=== PATIENT | female | born 1945 | race Caucasian/White ===

== ENCOUNTER 2020-04-05 13:09 | Outpatient (REF) | payer MEDICARE, SELFPAY ==
--- NOTE | 2020-04-05 | US_ITS ---
EXAMINATION: US VENOUS REFLUX/INSUFFICIENCY CLINICAL INFORMATION: This is a 74-year-old woman with right lower extremity varicosities and inflammatory change. COMPARISON: None. TECHNIQUE: Bilateral lower extremity and venous insufficiency ultrasound was performed with velocity measurements. Color flow Doppler imaging was performed. FINDINGS: RIGHT SIDE: GREATER SAPHENOUS VEIN: The saphenofemoral junction diameter is 0.5 cm. The reflux time is 2412 ms. The proximal thigh diameter is 0.4 cm. There is no reflux. The mid thigh diameter is 0.3 cm. There is no reflux. The above-knee diameter is 0.7 cm. There is no reflux. The at-knee diameter is 0.3 cm. The reflux time is 736 ms. The below-knee diameter is 0.2 cm. There is no reflux. The mid calf diameter is 0.2 cm. There is no reflux The ankle diameter is 0.2 cm. There is no reflux LESSER SAPHENOUS VEIN: The saphenofemoral junction diameter is 0.2 cm. There is no reflux. The upper left lesser saphenous vein diameter is 0.2 cm cm. There is no reflux. The lower saphenous vein diameter is 0.2 cm. There is no reflux. LEFT SIDE: GREATER SAPHENOUS VEIN: The saphenofemoral junction diameter is 0.4 cm. There is no reflux. The proximal thigh diameter is 0.4 cm. There is no reflux. The mid thigh diameter is 0.2 cm. There is no reflux. The above-knee diameter is 0.2 cm. There is no reflux. The at-knee diameter is 0.3 cm. There is no reflux The below-knee diameter is 0.2 cm. The reflux time is 2828 ms. The mid calf diameter is 0.1 cm. There is no reflux The ankle diameter is 0.1 cm. There is no reflux LESSER SAPHENOUS VEIN: The saphenofemoral junction diameter is 0.1 cm. There is no reflux. The upper left lesser saphenous vein diameter is 0.2 cm cm. There is no reflux. The lower saphenous vein diameter is 0.2 cm. There is no reflux. DEEP VENOUS SYSTEMS: There is no deep insufficiency on the right. There is no deep insufficiency on the left. IMPRESSION: 1. There is hemodynamically significant reflux of the right greater and lesser saphenous veins. 2. There is no hemodynamically significant reflux of the left greater and lesser saphenous veins. 3. No hemodynamic insufficiency is seen of the bilateral deep venous systems. .
== END 2020-04-05 13:10 | disposition home or self-care (01) ==
LOC: HO.US 13:09
PROVIDERS: Visit Provider Surgery Vascular Surgery
DX: I83.11 Varicose veins of right lower extremity with inflammation (principal)
CPT/HCPCS: 93970

== ENCOUNTER → 2020-04-10 15:29 | Outpatient (BNVA) | payer MEDICARE, SELFPAY | PROVIDERS: PCP Family Medicine; Visit Provider Surgery Vascular Surgery | DX: M79.609 Pain in unspecified limb (principal) | CPT/HCPCS: 99213 ==

== ENCOUNTER 2020-04-20 10:29 | Outpatient (REF) | payer MEDICARE, SELFPAY ==
[2020-04-20 12:17] LABS: Hematocrit 32.5 % (37-47); Hemoglobin 10.2 g/dl (12.0-16.0); Mean Corpuscular HGB Conc 31.4 g/dl (31.0-35.0); Mean Corpuscular Hemoglobin 28.3 pg (27.0-33.0); Mean Corpuscular Volume 90.3 fL (80-98); Platelet Count 249 X10*3/uL (160-400); Red Cell Distribution Width 14.2 % (11.0-16.0)
[2020-04-20 12:43] LABS: Anion Gap 12 (12-20); Blood Urea Nitrogen 22 mg/dL (9-16); Calcium 9.4 mg/dL (8.4-10.2); Carbon Dioxide 27 mmol/L (22-29); Chloride 106 mmol/L (96-108); Estimated Glomerular Filt Rate 35; Glucose Random 87 mg/dL (60-115); Potassium 4.7 mmol/l (3.3-5.1); Sodium 140 mmol/L (135-145)
[2020-04-20 12:53] LABS: Thyroid Stimulating Hormone 1.29 mIU/mL (0.32-4.0)
== END 2020-04-20 10:30 | disposition home or self-care (01) ==
LOC: HO.LAB 10:29
PROVIDERS: PCP Internal Medicine; Visit Provider Internal Medicine
DX: I10 Essential (primary) hypertension (principal); K59.09 Other constipation
CPT/HCPCS: 36415; 80048; 84443; 85027

== ENCOUNTER 2020-06-05 17:09 | Emergency (ER) | payer MEDICARE, SELFPAY ==
[2020-06-05 17:48] VITALS: BP 191/56; PULSE 64; RESP 16; TEMP 35.9; O2SAT 100; BMI 30.7
--- NOTE | 2020-06-05 19:39 | PC.NURSE ---
WOUND GIVEN TO RIGHT FINGERS BY [facility].
--- NOTE | 2020-06-05 19:53 | XR_ITS ---
EXAMINATION: XR HAND, RIGHT CLINICAL INFORMATION: Right hand pain. COMPARISON: 02/03/2020 right hand radiographs. TECHNIQUE: PA, lateral, and oblique views of the right hand. FINDINGS: Mild degenerative joint changes are seen in the proximal interphalangeal joint of the fifth digit. There is no acute fracture or dislocation. Moderate triscaphe degenerative joint changes are seen. The carpal bones are normally aligned. The distal radius and ulna are intact. The soft tissues are unremarkable. XR/XR hand RT min 3V IMPRESSION: 1. Degenerative joint changes as detailed above most consistent with osteoarthritis without significant interval change.
[2020-06-05] MEDS: Lidocaine HCl 1 % MPF 5 ML VIAL SUBCUT (20:33)
--- NOTE | 2020-06-05 21:23 | PC.NURSE ---
PER JONATHON RAO, FINGER SPLINT AND STERILE DRESSING TO BE APPLIED PRIOR TO DISCHARGE.
--- NOTE | 2020-06-05 21:32 | ED_ITS ---
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 She is legally blind speaks primarily Bengali some rocking daughter present at bedside to assist with interpretation per request. unsure of last tetanus vaccination. Related Data Allergies Allergy/AdvReac Type Severity Reaction Status Date / Time atorvastatin [ATORVASTATIN] Allergy Severe UNKNOWN Verified 04/10/20 15:43 niacin [NIACIN] Allergy Severe UNKNOWN Verified 04/10/20 15:43 acetaminophen [ACETAMINOPHEN] Allergy Intermediate RASH Verified 04/10/20 15:43 Penicillins [PENICILLINS] Allergy Mild MOUTH NUMB Verified 04/10/20 15:43 aspirin [ASPIRIN] Allergy Unknown UNKNOWN, Verified 04/10/20 15:43 itching codeine [CODEINE] Allergy Unknown UNKNOWN, Verified 04/10/20 15:43 breathing problems ibuprofen [IBUPROFEN] Allergy Unknown HX KIDNEY Verified 04/10/20 15:43 PROBLEM morphine [MORPHINE] Allergy Unknown DIFFICULTY Verified 04/10/20 15:43 BREATHING, itch turkey Allergy Unknown UNKNOWN Verified 04/10/20 15:43 Review of Systems Review of Systems: Constitutional: No Weight loss, No Fever, No Chills, No Night Sweats, No Fatigue, No Malaise ENT/Mouth: No Hearing loss, No Ear Pain, No Nasal Congestion, No Sinus Pain, No Hoarseness, No sore throat, No Rhinorrhea, No Swallowing Difficulty Eyes: No Eye Pain, No Swelling, No Redness, No Foreign Body, No Discharge, No Vision Changes Cardiovascular: No Chest Pain, No SOB, No Dyspnea on Exertion, No Orthopnea, No Edema, No Palpitations Respiratory: No Cough, No Sputum, No Wheezing, No Smoke Exposure, No Dyspnea Gastrointestinal: No abdominal Pain Genitourinary: No Dysuria, Musculoskeletal: No joint pain, No Myalgias, No Joint Swelling Skin: No Skin Lesions, No rash Neuro: No Weakness, No Dizziness, No Headache Psych: No Social Issues Heme/Lymph: No Bruising, No Bleeding,No Lymphadenopathy Endocrine: No Polyuria, No Polydipsia, No Temperature Intolerance [facility] Past Medical History Medical History (Updated 06/06/20 @ 00:00 by Background Daemon) Acute on chronic cholecystitis concurrent with and due to calculus of gallbladder and bile duct Aortic stenosis CAD (coronary artery disease) HTN (hypertension) Hyperlipidemia PAUL (obstructive sleep apnea) Surgical History History of Hx of heart artery stent Hx of tubal ligation Stented coronary artery Family History Family History Father No problems noted. Mother No problems noted. Son No problems noted. Daughter No problems noted. Daughter No problems noted. Daughter No problems noted. Daughter No problems noted. Social History Social History Alcohol intake: never Smoking Status: Former smoker Smoked in Last 30 Days: No Use of substances other than those prescribed or required for medical reasons: No Advance Directives: No Advance Directives Information Provided: Yes Physical Exam Vital Signs: Vital Signs: Last Vital Signs Temp 96.7 F L 06/05/20 17:48 Pulse 64 06/05/20 17:48 Resp 16 06/05/20 17:48 BP 191/56 H 06/05/20 17:48 Pulse Ox 100 06/05/20 17:48 Body Mass Index 30.7 Reviewed Const: General: cooperative and healthy appearing; No acute distress or intoxicated appearing Nutritional Appearance: average body habitus Orientation/consciousness: patient oriented x3 Chest: Chest palpation & inspection: normal inspection of the chest Resp: Effort & Inspection: normal respiratory effort Cardio: Jugular venous distension: no JVD Skin: General skin exam: no rashes or lesions noted Neuro: General: patient oriented x3 Extrem: General: Yes normal to inspection Hand/finger images: 1. A single superficial slightly smaller than 1 cm his laceration. Only through the adipose tissue no deep laceration. Full range of motion. Neurovascular intact. No active bleeding. Procedures Laceration Laceration 1: Site: hand (Ring finger) Side (If applicable): right Size (cm): 1 Description: linear Depth: simple, single layer Local Anesthetic: lidocaine 1% Amount of anesthesia used (mL): 5 Pre-repair: wound explored Skin layer closed with: vicryl Size (cm): 5-0 Number of sutures: 2 Technique: simple, interrupted Technique: simple interrupted Discharge Plan Discharge Clinical Impression: Finger laceration Patient Disposition: Home, Self-Care Instructions: Finger Laceration (ED) Additional Instructions: Today your evaluated for superficial finger laceration to the ring finger required 2 stitches. The x-ray did not show any evidence of fracture The laceration a relatively superficial should heal well Monitor for any signs of infection cleared redness, swelling, discharge, pain or fever return if any these present otherwise return in 7 days for suture removal Thank you Referrals: Carie London MD [Primary Care Provider] - 1 week (Suture removal) Steve Laguna NP [Emergency Midlevel Provider] - 1 week (Suture removal) Interventions: ED Discharge Assessment Last Done: 06/05/20 21:46 Discharge Date/Time: 06/05/20 21:51
== END 2020-06-05 21:51 | disposition home or self-care (01) ==
PROVIDERS: Emergency Provider Emergency Medicine Emergency Medical Services; PCP Internal Medicine
DX: S61.214A Laceration without foreign body of right ring finger without damage to nail, initial encounter (principal); W29.0XXA Contact with powered kitchen appliance, initial encounter; Y93.G1 Activity, food preparation and clean up; Y92.010 Kitchen of single-family (private) house as the place of occurrence of the external cause; Y99.9 Unspecified external cause status
CPT/HCPCS: 12001; 73130; 90471; 90715; 99284

== ENCOUNTER 2020-06-15 16:11 | Emergency (ER) | payer MEDICARE, SELFPAY ==
[2020-06-15 16:14] VITALS: BP 163/90; PULSE 70; RESP 15; TEMP 36.6; O2SAT 99; BMI 30.2
--- NOTE | 2020-06-15 16:23 | ED_ITS ---
HPI - General Adult General Chief complaint: General Medical Stated complaint: Suture removal Time Seen by Provider: 06/15/20 16:23 Source: patient Mode of arrival: ambulatory Limitations: no limitations History of Present Illness HPI narrative: 75 yo female presenting for suture removal. 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 She had superficial lacerations and 2 sutures were placed. No complaints and wound is healing appropriately. MD complaint: suture removal Onset (ago): day(s) (10) Location: right and upper extremity Radiation: non-radiation Severity: mild Severity scale (1-10): 1 Quality: aching Pain Consistency: intermittent Treatments prior to arrival: none Related Data Allergies Allergy/AdvReac Type Severity Reaction Status Date / Time atorvastatin [ATORVASTATIN] Allergy Severe UNKNOWN Verified 04/10/20 15:43 niacin [NIACIN] Allergy Severe UNKNOWN Verified 04/10/20 15:43 acetaminophen [ACETAMINOPHEN] Allergy Intermediate RASH Verified 04/10/20 15:43 Penicillins [PENICILLINS] Allergy Mild MOUTH NUMB Verified 04/10/20 15:43 aspirin [ASPIRIN] Allergy Unknown UNKNOWN, Verified 04/10/20 15:43 itching codeine [CODEINE] Allergy Unknown UNKNOWN, Verified 04/10/20 15:43 breathing problems ibuprofen [IBUPROFEN] Allergy Unknown HX KIDNEY Verified 04/10/20 15:43 PROBLEM morphine [MORPHINE] Allergy Unknown DIFFICULTY Verified 04/10/20 15:43 BREATHING, itch turkey Allergy Unknown UNKNOWN Verified 04/10/20 15:43 Review of Systems Review of Systems: Constitutional: No Fever, No Chills Musculoskeletal: No joint pain Skin: No Skin Lesions, No rash Neuro: No Weakness, No Numbness Heme/Lymph: No Bruising PMFSH Past Medical History Attestation statement: The following information was validated with the patient. Medical History Acute on chronic cholecystitis concurrent with and due to calculus of gallbladder and bile duct Aortic stenosis CAD (coronary artery disease) HTN (hypertension) Hyperlipidemia PAUL (obstructive sleep apnea) Surgical History History of Hx of heart artery stent Hx of tubal ligation Stented coronary artery Family History Family History Father No problems noted. Mother No problems noted. Son No problems noted. Daughter No problems noted. Daughter No problems noted. Daughter No problems noted. Daughter No problems noted. Social History Social History Alcohol intake: never Smoking Status: Former smoker Advance Directives: No Advance Directives Information Provided: Yes Physical Exam Vital Signs: Vital Signs: Last Vital Signs Temp 98 F 06/15/20 16:14 Pulse 70 06/15/20 16:14 Resp 15 06/15/20 16:14 BP 163/90 H 06/15/20 16:14 Pulse Ox 99 06/15/20 16:14 Body Mass Index 30.2 Appearance: Alert. Oriented X3. No acute distress. HEENT: bilateral scleral haziness consistent with known history of blindness Respiratory: No respiratory distress. Skin: Skin warm and dry. Normal skin color. Normal skin turgor. No rashes. Extremities: right 3rd, 4th digit with healing superficial laceration, [address] no erythema or drainage Neuro: Oriented X 3. No motor deficit. No sensory deficit. Course Course Course Narrative: 75 y/o female presenting for suture removal. sutures removed. wound healing nicely. stable for d/c. Procedures Procedure Narrative Procedure Narrative: 2 sutures removed without complication. wound healing appropriately. no erythema, drainage. no numbness. NV intact. Critical Care Time Critical Care Time Critical Care Time: No Discharge Plan Discharge Clinical Impression: Encounter for removal of sutures Patient Disposition: Home, Self-Care Instructions: Stitches Removal (ED) Additional Instructions: You may wash and dry your hands as usual. Two sutures were removed today and wound is healing nicely. Use triple antibiotic ointment to the area two times per day. Follow up with your doctor as needed.
--- NOTE | 2020-06-15 16:28 | PC.NURSE ---
JONATHON RAO AT BEDSIDE TO REMOVE SUTURES
== END 2020-06-15 16:42 | disposition home or self-care (01) ==
PROVIDERS: Emergency Provider Internal Medicine; PCP Internal Medicine
DX: Z48.02 Encounter for removal of sutures (principal); I25.10 Atherosclerotic heart disease of native coronary artery without angina pectoris; Z79.899 Other long term (current) drug therapy
CPT/HCPCS: 99283

== ENCOUNTER → 2020-06-25 14:32 | Outpatient (BNVA) | payer MEDICARE, SELFPAY | PROVIDERS: PCP Internal Medicine; Visit Provider Internal Medicine Cardiovascular Disease | DX: I25.10 Atherosclerotic heart disease of native coronary artery without angina pectoris (principal); I35.0 Nonrheumatic aortic (valve) stenosis; I10 Essential (primary) hypertension | CPT/HCPCS: Q3014 ==

== ENCOUNTER → 2020-07-20 12:37 | Outpatient (REF) | payer MEDICARE, SELFPAY ==
--- NOTE | 2020-07-20 12:40 | CA_ITS ---
Transthoracic Echocardiogram Patient (Last, First, Middle): Beatriz Navarro, Gender: Female Date of : 1945 Age: 75 Procedure Date: 07/20/2020 Procedure Type: Transthoracic Echocardiogram Location: OP Height: 139.7 cm Weight: 58.51 kg BSA: 1.45 m2 Heart Rate: bpm BP: 130 / 70 mmHg Seed Expert: ESTER Referring MD: Duncan Head MD Carburetor Expert: Duncan Head MD Symptoms: I25.10 - Atherosclerotic heart disease of [place] coronary artery without angina pectoris Study Quality: Good ECG Rhythm: Sinus Conclusions: - 1. Normal LV systolic function with impaired relaxation filling pattern 2. Mild aortic stenosis and regurgitation 3. Normal RV systolic pressure 4. No pericardial effusion Findings Left Ventricle Normal left ventricular size, thickness, and systolic function. The visually estimated ejection fraction is between 55-60%. Spectral Doppler is indicative of an impaired relaxation filling pattern. E/E prime ratio is between 8 and 15 consistent with indeterminate filling pressures. Right Ventricle Normal right ventricular cavity size and systolic function. Atria The left atrium is likely dilated. There is no evidence of interatrial shunt. The right atrium is normal in size. Aortic Valve The aortic valve was not well visualized. There is mild calcification of the aortic valve. There is mild aortic valve stenosis. There is mild aortic valve regurgitation. Mitral Valve There is mild anterior and posterior mitral leaflet thickening. There is mild mitral valve regurgitation. There is no mitral valve stenosis. Pulmonic Valve The pulmonic valve was not well visualized. Tricuspid Valve Likely normal tricuspid valve structure and function. There is trace tricuspid valve regurgitation. The right ventricular systolic pressure is normal. The right ventricular systolic pressure is 20 mmHg. Normal right atrial pressure. Great Vessels All visible segments of the aorta are normal in size. The pulmonary artery was not well visualized. Venous The inferior vena cava is normal in size. Inferior vena cava flow is normal. Pericardium/Pleural There is no evidence of pericardial effusion. Prior Study Comparison No significant change compared to prior study dated: 03/23/2019. Measurements 2D Linear Measurements IVSd: 0.92 0.6-0.9/0.6-1.0 cm LVIDd: 3.75 3.9-5.3/4.2-5.9 cm LVIDd Index: 2.59 2.4-3.2/2.2-3.1 cm/m2 LVIDs: 2.79 2.0-3.6 cm LVPWd: 0.92 0.7-1.1 cm Ao Root: 2.30 2.1-3.5 cm LA Diam: 3.40 2.7-3.8/3.0-4.0 cm LAIDs Index: 2.34 1.5-2.3 cm/m2 LV Mass: 127.11 67-162/88-224 g LV Mass Index: 87.66 43-95/49-115 g/m2 LVOT Diam: 1.80 3.0+(-)1.3 cm 2D Systolic Function EF 4C: 55.50 >55% EF 2C: 61.40 >55% EF BiP: 59.80 >55% Mitral Valve MV Pk E: 0.86 MV PK A: 1.34 MV Decel Time: 335.00 E/A: 0.60 E'Lateral: 5.77 E'Medial: 4.79 E/E' Med: 18.00 E/E' Lat: 15.00 PHT: 98.00 MVA PHT: 2.24 Decel [place]: 2.58 Aortic Valve AoV Pk Keith: 2.11 AoV Mn Keith: 1.35 AoV VTI: 0.50 AoV Pk Grad: 18.00 Aov Mn Grad: 8.00 BRIAN Cont.VTI: 1.27 AI Pk Keith: 3.69 AI [place]: 1.92 LVOT LVOT Pk Keith: 0.98 LVOT Mn Keith: 0.70 LVOT VTI: 0.25 LVOT Pk Grad: 4.00 LVOT Mn Grad: 2.00 LVOT Diam: 1.80 LVOT Area: 2.54 Diastolic Function MV Pk E: 0.86 MV Pk A: 1.34 E/A: 0.60 E'Medial: 4.79 E/E' Med: 18.00 E' Laterial: 5.77 E/E' Lat: 15.00 Tricuspid Valve TR Pk Keith: 2.06 TR Pk Grad: 17.00 RA Press: 3.00 RVSP: 20.00 Great Vessels Aorta Ao Root-2D: 2.30 2.0-3.7 cm Ao Asc: 2.80 2.1-3.4 cm Ao Arch: 2.40 Updated in Other Vendor System with Status of Final Duncan Sonido MD electronically signed on 07/20/2020 4:59:14 PM with status of Final
== END ==
LOC: HO.CARD 12:37
PROVIDERS: PCP Internal Medicine; Visit Provider Internal Medicine Cardiovascular Disease
DX: I25.10 Atherosclerotic heart disease of native coronary artery without angina pectoris (principal); I35.0 Nonrheumatic aortic (valve) stenosis
CPT/HCPCS: 93306

== ENCOUNTER → 2020-07-30 12:57 | Outpatient (BNVA) | payer MEDICARE, SELFPAY | PROVIDERS: PCP Internal Medicine; Visit Provider Internal Medicine Cardiovascular Disease | DX: Z76.89 Persons encountering health services in other specified circumstances (principal) | CPT/HCPCS: 99212 ==

== ENCOUNTER 2020-08-30 15:07 | Outpatient (REF) | payer MEDICARE, SELFPAY ==
--- NOTE | ~2020-08-30 | XR_ITS ---
EXAMINATION: XR FOOT, RIGHT CLINICAL INFORMATION: Pain in right foot. COMPARISON: None TECHNIQUE: AP, lateral, and oblique views of the right foot. FINDINGS: There is mild hallux valgus. Osteopenia is present. No fractures are seen. A small accessory ossicle is noted above the 2nd metatarsal. XR/XR foot RT min 3V IMPRESSION: Mild hallux valgus.
== END 2020-08-30 15:08 | disposition home or self-care (01) ==
LOC: HO.XRAY 15:07
PROVIDERS: PCP Internal Medicine; Visit Provider Internal Medicine
DX: M79.671 Pain in right foot (principal)
CPT/HCPCS: 73630

== ENCOUNTER 2020-09-28 13:01 | Outpatient (REF) | payer MEDICARE, SELFPAY ==
--- NOTE | 2020-09-28 15:28 | MHC.AU.ANR ---
Adult Audiological Evaluation Date of Visit: 09/28/20 Cardiothoracic Icu Rn Used: Family member assisted with interpretation Reason for Appointment: History of high frequency hearing loss. Patient arrives to determine if there has been a change in hearing. Has hearing been tested previously?: Yes Previous Hearing Test Results: At this clinic on 06/17/2019- Normal from 250-2000 Hz, sloping to moderate sensorineural hearing loss bilaterally Ear History: Ear Infections in Childhood: Both Ears Bothersome Tinnitus/Ringing/Noises in Ears: Both Ears Ear used on the phone: Left Ear History of occupational noise exposure?: No History: No Medical History: Medical History: Blindness, Chronic Kidney Disease, Osteoarthritis, Hypertension, Sleep Apnea, Heart Artery Stent Otoscopy: Right Ear: Unremarkable Left Ear: Unremarkable Tympanometry: Tympanometry performed due to: To assess integrity of the middle ear system Right Ear: Normal Middle Ear System (Type A) Left Ear: Normal Middle Ear System (Type A) Hearing Evaluation: Transducer(s) Used: Insert Earphones Method: Conventional Audiometry Stimuli Used: Pure Tones Right Ear: Description of Hearing: Normal/borderline from 250-2000 Hz, sloping to moderate/moderately-severe sensorineural hearing loss Left Ear: Description of Hearing: Normal/borderline from 250-2000 Hz, sloping to moderate/moderately-severe sensorineural hearing loss Speech Recognition Threshold (SRT): Method Used: Recorded Lists Stimuli Used: Right Ear: 30 dBHL Left Ear: 30 dBHL Word Discrimination: Method: Recorded Lists Word Lists Used: Lista Bisil?bica (Irish) Right Ear: 100% at 70 dBHL Left Ear: 100% at 70 dBHL Comparison: Compared to the most recent evaluation: Overall, no significant changes since 2019. Slight decrease at 1000 Hz bilaterally. Recommendations: Audiological re-evaluation in one year. Amplification is not warranted at this time. To help the patient's listening ability: -Speak in a clear voice, from a close distance -Minimize background noise when possible -Speak slower, not louder Diagnosis: Primary Diagnosis: H90.3 Bilateral Sensorineural Hearing Loss Services Performed: Services Performed: Comprehensive Audiological Evaluation (CPT 00089), Tympanometry (CPT 28505) Signature: Provider: Omar Chan, [facility]
== END 2020-09-28 13:02 | disposition home or self-care (01) ==
LOC: HO.SH 13:01
PROVIDERS: Visit Provider Internal Medicine
DX: H90.3 Sensorineural hearing loss, bilateral (principal)
CPT/HCPCS: 92557; 92567

== ENCOUNTER 2020-11-09 12:23 | Outpatient (REF) | payer MEDICARE, SELFPAY ==
--- NOTE | ~2020-11-09 | MM_ITS ---
EXAMINATION: MM SCREENING DIGITAL BREAST TOMOSYNTHESIS, BILATERAL CLINICAL INFORMATION: Screening. Asymptomatic. The lifetime risk of breast cancer based on the Tyrer-Cuzick Model is 5%. COMPARISON: Mammography: 12/03/2016, 11/14/2015, 10/27/2014 TECHNIQUE: Digital breast tomosynthesis is performed in both the craniocaudal and mediolateral oblique views along with computer-aided detection (CAD). Synthesized 2D images are generated from the tomosynthesis. FINDINGS: There are scattered areas of fibroglandular density (ACR BI-RADS breast composition Category b). There are no significant masses, abnormal calcifications, or other abnormalities. Parenchymal pattern is similar to prior studies. The skin contours are smooth. MM/MM tomosynthesis screening BI IMPRESSION: No mammographic evidence of malignancy. ASSESSMENT: BI-RADS 1: Negative RECOMMENDATION: Routine annual mammography screening. This patient's information was entered into a reminder system with a target due date for their next mammogram.
== END 2020-11-09 12:24 | disposition home or self-care (01) ==
LOC: HO.MAMMO 12:23
PROVIDERS: PCP Internal Medicine; Visit Provider Internal Medicine
DX: Z12.31 Encounter for screening mammogram for malignant neoplasm of breast (principal)
CPT/HCPCS: 77063; 77067

== ENCOUNTER 2021-04-12 13:00 | Outpatient (RCR) | payer MEDICARE, SELFPAY | END 2021-04-23 12:20 | disposition home or self-care (01) | LOC: HO.PT 13:00 | PROVIDERS: PCP Internal Medicine; Visit Provider Internal Medicine | DX: M17.4 Other bilateral secondary osteoarthritis of knee (principal) | CPT/HCPCS: 97110; 97162 ==

== ENCOUNTER 2021-05-06 14:19 | Outpatient (REF) | payer MEDICARE, SELFPAY ==
[2021-05-06 15:34] LABS: MANUAL DIFF FLAG NO
[2021-05-06 15:56] LABS: Basophils Absolute Auto 0.1 X10*3/uL (0.0-0.2); Basophils Percent Auto 0.8 % (0-2); Eosinophils Absolute Auto 0.1 X10*3/uL (0.0-0.4); Eosinophils Percent Auto 2.1 % (0-4); Hematocrit 32.6 % (37.0-47.0); Hemoglobin 10.2 g/dl (12.0-16.0); Imm Gran Abs Auto 0.02 X10*3/uL (0.00-0.03); Imm Gran Pct Auto 0.3 % (0.0-0.4); Lymphocytes Absolute Auto 2.1 X10*3/uL (1.2-4.9); Lymphocytes Percent Auto 31.9 % (20-40); Mean Corpuscular HGB Conc 31.3 g/dl (31.0-35.0); Mean Corpuscular Hemoglobin 28.3 pg (27.0-33.0); Mean Corpuscular Volume 90.6 fL (80.0-98.0); Mean Platelet Volume 11.9 fL (9.4-12.3); Monocytes Absolute Auto 0.8 X10*3/uL (0.1-1.2); Monocytes Percent Auto 11.8 % (2-11); Neutrophils Absolute Auto 3.46 x10*3/uL (2.0-8.3); Neutrophils Percent Auto 53.1 % (45-73); Platelet Count 224 X10*3/uL (160-400); Red Cell Distribution Width 14.1 % (11.0-16.0); White Blood Count 6.5 X10*3/uL (4.8-10.8)
[2021-05-06 16:16] LABS: Appearance Urine CLEAR; Color Urine YELLOW; Glucose Urine UA NEG (NEG); Leukocyte Esterase Urine 1+ (NEG); Nitrite Urine NEG (NEG); Specific Gravity - Urine 1.015 (1.005-1.025); Urine Blood NEG (NEG); Urine Ketones NEG (NEG); Urine Protein NEG (NEG-TRACE)
[2021-05-06 16:21] LABS: Anion Gap 12 (12-20); Blood Urea Nitrogen 29 mg/dL (9-16); Calcium 9.4 mg/dL (8.4-10.2); Carbon Dioxide 26 mmol/L (22-29); Chloride 109 mmol/L (96-108); Estimated Glomerular Filt Rate 33; Iron 47 mcg/dL (30-160); Percent Iron Saturation 16 % (15-50); Potassium 4.6 mmol/L (3.3-5.1); Sodium 142 mmol/L (135-145); Total Iron Binding Capacity 295 mcg/dL (228-428); Unsaturated Iron Binding 248 ug/dL
[2021-05-06 16:26] LABS: RBC Urine 0 /HPF (0); Squamous Epithelial Cell Urine 3+ /LPF
[2021-05-06 16:43] LABS: Creatinine Urine 77.44 mg/dL; Total Protein Urine Random < 7 mg/dL (<12)
[2021-05-06 16:45] LABS: Vitamin D 25-OH Total 41.7 ng/mL (>30)
[2021-05-08 12:11] LABS: Calcium (PTHI) 9.4 mg/dL (8.6-10.4); PTHI 84 pg/mL (14-64)
== END 2021-05-06 14:20 | disposition home or self-care (01) ==
LOC: HO.LAB 14:19
PROVIDERS: Absent Provider Internal Medicine Nephrology; PCP Internal Medicine; Referring Provider Internal Medicine; Visit Provider Internal Medicine Cardiovascular Disease
DX: N18.32 Chronic kidney disease, stage 3b (principal); E55.9 Vitamin D deficiency, unspecified; I25.10 Atherosclerotic heart disease of native coronary artery without angina pectoris; I35.0 Nonrheumatic aortic (valve) stenosis
CPT/HCPCS: 36415; 80051; 81001; 82306; 82310; 82565; 83540; 83970; 84156; 84520; 85025; 93005; 99212

== ENCOUNTER 2021-06-17 08:30 | Outpatient (REF) | payer MEDICARE, SELFPAY | END 2021-06-17 08:31 | disposition home or self-care (01) | LOC: HO.HOSX 08:30 | PROVIDERS: Visit Provider Orthopaedic Surgery | DX: Z13.89 Encounter for screening for other disorder (principal) ==

== ENCOUNTER 2021-07-11 12:16 | Outpatient (REF) | payer MEDICARE, SELFPAY ==
--- NOTE | ~2021-07-11 | XR_ITS ---
EXAMINATION: XR KNEE AP STANDING CLINICAL INFORMATION: Knee pain. COMPARISON: 07/26/2019 TECHNIQUE: AP bilateral standing view of the knees was obtained. FINDINGS: Since previous study there has been loss of more of the medial joint space compartment with what now appears to be [id number] with marginal spurring and sclerosis. Lateral joint space compartment is maintained. There is narrowing of the medial joint space compartment of the left knee to a significant degree but still with cartilage being evident. The lateral joint space compartment is maintained. XR/XR knee standing BI IMPRESSION: Bilateral medial joint space compartment degenerative disease with [id number] appearance in the right knee.
== END 2021-07-11 12:17 | disposition home or self-care (01) ==
LOC: HO.HOSX 12:16
PROVIDERS: Visit Provider Orthopaedic Surgery
DX: M17.11 Unilateral primary osteoarthritis, right knee (principal)
CPT/HCPCS: 20610; 73565; 99202; J1100

== ENCOUNTER 2021-11-29 13:45 | Outpatient (REF) | payer OTHER, SELFPAY ==
[2021-11-29 14:09] LABS: MANUAL DIFF FLAG NO
[2021-11-29 14:28] LABS: Appearance Urine HAZY; Color Urine YELLOW; Glucose Urine UA NEG (NEG); Leukocyte Esterase Urine 2+ (NEG); Nitrite Urine NEG (NEG); Urine Blood TRACE (NEG); Urine Ketones 5 MG/DL (NEG); Urine Protein 1+ MG/DL (NEG-TRACE)
[2021-11-29 14:30] LABS: Basophils Absolute Auto 0.1 X10*3/uL (0.0-0.2); Basophils Percent Auto 0.8 % (0-2); Eosinophils Absolute Auto 0.2 X10*3/uL (0.0-0.4); Eosinophils Percent Auto 2.7 % (0-4); Hemoglobin 9.9 g/dl (12.0-16.0); Imm Gran Abs Auto 0.01 X10*3/uL (0.00-0.03); Imm Gran Pct Auto 0.2 % (0.0-0.4); Lymphocytes Absolute Auto 1.9 X10*3/uL (1.2-4.9); Lymphocytes Percent Auto 29.7 % (20-40); Mean Corpuscular Hemoglobin 29.2 pg (27.0-33.0); Mean Corpuscular Volume 88.5 fL (80.0-98.0); Mean Platelet Volume 11.8 fL (9.4-12.3); Monocytes Absolute Auto 0.8 X10*3/uL (0.1-1.2); Neutrophils Absolute Auto 3.4 x10*3/uL (2.0-8.3); Neutrophils Percent Auto 54.6 % (45-73); Platelet Count 211 X10*3/uL (160-400); Red Blood Count 3.39 X10*6/uL (4.20-5.50); Red Cell Distribution Width 13.6 % (11.0-16.0); White Blood Count 6.2 X10*3/uL (4.8-10.8)
[2021-11-29 14:41] LABS: Bacteria Urine 1+ /LPF
[2021-11-29 14:42] LABS: Hyaline Casts Urine 0-2 /LPF; Squamous Epithelial Cell Urine 2+ /LPF
[2021-11-29 14:45] LABS: Anion Gap 12 (12-20); Blood Urea Nitrogen 32 mg/dL (9-16); Calcium 9.7 mg/dL (8.4-10.2); Carbon Dioxide 23 mmol/L (22-29); Chloride 109 mmol/L (96-108); Estimated Glomerular Filt Rate 27; Iron 33 mcg/dL (30-160); Percent Iron Saturation 12 % (15-50); Potassium 4.1 mmol/L (3.3-5.1); Sodium 140 mmol/L (135-145); Total Iron Binding Capacity 274 mcg/dL (228-428); Unsaturated Iron Binding 241 ug/dL
[2021-11-29 14:46] LABS: Creatinine Urine 178.91 mg/dL
[2021-11-29 15:06] LABS: Vitamin D 25-OH Total 41.5 ng/mL (>30)
[2021-12-03 13:41] LABS: Calcium (PTHI) 9.5 mg/dL (8.6-10.4); PTHI 63 pg/mL (16-77)
== END 2021-11-29 13:46 | disposition home or self-care (01) ==
LOC: HO.LAB 13:45
PROVIDERS: Visit Provider Internal Medicine Nephrology
DX: N28.89 Other specified disorders of kidney and ureter (principal); I12.9 Hypertensive chronic kidney disease with stage 1 through stage 4 chronic kidney disease, or unspecified chronic kidney disease; N18.32 Chronic kidney disease, stage 3b
CPT/HCPCS: 36415; 80051; 81001; 82306; 82310; 82565; 83540; 83970; 84520; 85025

== ENCOUNTER 2022-02-07 13:09 | Outpatient (REF) | payer OTHER, SELFPAY ==
--- NOTE | ~2022-02-07 | MM_ITS ---
EXAMINATION: MM SCREENING DIGITAL BREAST TOMOSYNTHESIS, BILATERAL CLINICAL INFORMATION: Screening. Asymptomatic. The lifetime risk of breast cancer based on the Tyrer-Cuzick Model is 5%. COMPARISON: Mammography: 11/09/2020, 12/03/2016, 11/14/2015 TECHNIQUE: Digital breast tomosynthesis is performed in both the craniocaudal and mediolateral oblique views along with computer-aided detection (CAD). Synthesized 2D images are generated from the tomosynthesis. FINDINGS: There are scattered areas of fibroglandular density (ACR BI-RADS breast composition Category b). There are no significant masses, abnormal calcifications, or other abnormalities. Parenchymal pattern is similar to prior studies. There is no developing density or architectural abnormality. The axilla and skin contours are unremarkable. No significant changes. MM/MM tomosynthesis screening BI IMPRESSION: No mammographic evidence of malignancy. ASSESSMENT: BI-RADS 1: Negative RECOMMENDATION: Routine annual mammography screening. This patient's information was entered into a reminder system with a target due date for their next mammogram.
== END 2022-02-07 13:10 | disposition home or self-care (01) ==
LOC: HO.MAMMO 13:09
PROVIDERS: PCP Internal Medicine; Visit Provider Internal Medicine
DX: Z12.31 Encounter for screening mammogram for malignant neoplasm of breast (principal)
CPT/HCPCS: 77063; 77067

== ENCOUNTER → 2022-05-14 13:51 | Outpatient (REF) | payer OTHER, SELFPAY ==
--- NOTE | 2022-05-14 13:54 | CA_ITS ---
Transthoracic Echocardiogram Patient (Last, First, Middle): Beatriz Navarro, Gender: Female Date of : 1945 Age: 77 Procedure Date: 05/14/2022 Procedure Type: Transthoracic Echocardiogram Location: OP Height: 139.7 cm Weight: 56.7 kg BSA: 1.44 m2 Heart Rate: bpm BP: 132 / 78 mmHg Radio News Anchor: TO Referring MD: Duncan Head MD Supplemental Manager: Duncan Head MD Symptoms: I35.0 - Nonrheumatic aortic (valve) stenosis Study Quality: Fair ECG Rhythm: Sinus Conclusions: - 1. Normal LV systolic function with impaired relaxation filling pattern 2. Possible mild aortic stenosis and mild aortic regurgitation 3. Normal RV systolic pressure 4. No gross pericardial effusion Findings Left Ventricle Normal left ventricular size, thickness, and systolic function. The visually estimated ejection fraction is between 60-65%. Spectral Doppler is indicative of an impaired relaxation filling pattern. E/E prime ratio is between 8 and 15 consistent with indeterminate filling pressures. Right Ventricle Normal right ventricular cavity size and systolic function. Atria The left atrium is mildly dilated. There is lipomatous hypertrophy of the interatrial septum. There is no evidence of interatrial shunt. The right atrium is normal in size. Aortic Valve The aortic valve was not well visualized. There is mild calcification of the aortic valve. There is mild aortic valve stenosis. There is mild aortic valve regurgitation. Mitral Valve There is mild anterior and posterior mitral leaflet thickening. There is mild mitral annular calcification. There is trace mitral valve regurgitation. There is no mitral valve stenosis. Pulmonic Valve The pulmonic valve was not well visualized. Tricuspid Valve Likely normal tricuspid valve structure and function. There is trace tricuspid valve regurgitation. The right ventricular systolic pressure is normal. The right ventricular systolic pressure is 19 mmHg. Normal right atrial pressure. There is no evidence of pulmonary hypertension. Great Vessels All visible segments of the aorta are normal in size. The pulmonary artery was not well visualized. Venous The inferior vena cava is normal in size and collapses greater than 50% with inspiration. Pericardium/Pleural There is no evidence of pericardial effusion. Prior Study Comparison No significant change compared to prior study dated: 07/20/2020. Measurements 2D Linear Measurements IVSd: 1.13 0.6-0.9/0.6-1.0 cm LVIDd: 4.46 3.9-5.3/4.2-5.9 cm LVIDd Index: 3.10 2.4-3.2/2.2-3.1 cm/m2 LVIDs: 3.20 2.0-3.6 cm LVPWd: 0.73 0.7-1.1 cm LA Diam: 3.60 2.7-3.8/3.0-4.0 cm LAIDs Index: 2.50 1.5-2.3 cm/m2 LV Mass: 169.65 67-162/88-224 g LV Mass Index: 117.81 43-95/49-115 g/m2 LVOT Diam: 1.80 3.0+(-)1.3 cm 2D Systolic Function EF 4C: 63.60 >55% EF 2C: 55.30 >55% Mitral Valve MV VTI: 0.33 MV Pk Keith: 1.32 MV Mn Keith: 0.85 MV Pk Grad: 7.00 MV Mn Grad: 3.00 MV Pk E: 0.99 MV PK A: 1.13 MV Decel Time: 182.00 E/A: 0.90 E'Lateral: 7.72 E'Medial: 5.55 E/E' Med: 17.80 E/E' Lat: 12.80 PHT: 53.00 MVA PHT: 4.15 MVA Continuity: 1.68 Decel [place]: 5.43 Aortic Valve AoV Pk Keith: 1.85 AoV Mn Keith: 1.27 AoV VTI: 0.46 AoV Pk Grad: 14.00 Aov Mn Grad: 7.00 BRIAN Cont.VTI: 1.20 LVOT LVOT Pk Keith: 0.82 LVOT Mn Keith: 0.50 LVOT VTI: 0.22 LVOT Pk Grad: 3.00 LVOT Mn Grad: 1.00 LVOT Diam: 1.80 LVOT Area: 2.54 Diastolic Function MV Pk E: 0.99 MV Pk A: 1.13 E/A: 0.90 E'Medial: 5.55 E/E' Med: 17.80 E' Laterial: 7.72 E/E' Lat: 12.80 Right Ventricle TAPSE (mm): 22.00 TVS' Keith: 11.00 Tricuspid Valve TR Pk Keith: 2.00 TR Pk Grad: 16.00 RA Press: 3.00 RVSP: 19.00 Great Vessels Aorta Sinus of Valsalva: 2.35 2.0-3.5 cm Ao Asc: 2.70 2.1-3.4 cm Updated in Other Vendor System with Status of Final Duncan Head MD electronically signed on 05/15/2022 8:23:03 AM with status of Final
== END ==
LOC: HO.CARD 13:51
PROVIDERS: PCP Internal Medicine; Visit Provider Internal Medicine Cardiovascular Disease
DX: I35.0 Nonrheumatic aortic (valve) stenosis (principal)
CPT/HCPCS: 93306

== ENCOUNTER → 2022-09-11 13:07 | Outpatient (BNVA) | payer OTHER, SELFPAY | PROVIDERS: PCP Internal Medicine; Referring Provider Internal Medicine; Visit Provider Internal Medicine Cardiovascular Disease | DX: I25.10 Atherosclerotic heart disease of native coronary artery without angina pectoris (principal); I35.0 Nonrheumatic aortic (valve) stenosis; Z79.02 Long term (current) use of antithrombotics/antiplatelets | CPT/HCPCS: 93005; 99212 ==

== ENCOUNTER 2023-02-03 10:24 | Outpatient (REF) | payer OTHER, SELFPAY ==
[2023-02-03 10:50] LABS: MANUAL DIFF FLAG NO
[2023-02-03 11:12] LABS: Basophils Percent Auto 0.5 % (0-2); Eosinophils Absolute Auto 0.2 X10*3/uL (0.0-0.4); Hematocrit 29.9 % (37.0-47.0); Hemoglobin 9.6 g/dl (12.0-16.0); Imm Gran Abs Auto 0.03 X10*3/uL (0.00-0.03); Imm Gran Pct Auto 0.4 % (0.0-0.4); Lymphocytes Absolute Auto 2.1 X10*3/uL (1.2-4.9); Lymphocytes Percent Auto 28.7 % (20-40); Mean Corpuscular HGB Conc 32.1 g/dl (31.0-35.0); Mean Corpuscular Hemoglobin 28.5 pg (27.0-33.0); Mean Corpuscular Volume 88.7 fL (80.0-98.0); Mean Platelet Volume 11.8 fL (9.4-12.3); Monocytes Absolute Auto 0.8 X10*3/uL (0.1-1.2); Monocytes Percent Auto 11.2 % (2-11); Neutrophils Absolute Auto 4.2 x10*3/uL (2.0-8.3); Neutrophils Percent Auto 57.2 % (45-73); Platelet Count 249 X10*3/uL (160-400); Red Blood Count 3.37 X10*6/uL (4.20-5.50); Red Cell Distribution Width 14.3 % (11.0-16.0); White Blood Count 7.4 X10*3/uL (4.8-10.8)
[2023-02-03 11:20] LABS: Estimated Average Glucose 117 mg/dL; Hemoglobin A1c % 5.7 %
[2023-02-03 12:14] LABS: Anion Gap 15 (12-20); Blood Urea Nitrogen 29 mg/dL (9-16); Calcium 10.2 mg/dL (8.4-10.2); Carbon Dioxide 23 mmol/L (22-29); Chloride 110 mmol/L (96-108); Cholesterol 166 mg/dL; Estimated Glomerular Filt Rate 38; HDL Cholesterol 43 mg/dL; Iron 32 mcg/dL (30-160); LDL Cholesterol Calculated 104 mg/dl; Percent Iron Saturation 13 % (15-50); Potassium 4.2 mmol/L (3.3-5.1); Sodium 144 mmol/L (135-145); Total Iron Binding Capacity 239 mcg/dL (228-428); Triglycerides 96 mg/dL; Unsaturated Iron Binding 207 ug/dL; Uric Acid 5.5 mg/dL (2.4-5.7)
[2023-02-03 12:35] LABS: Vitamin D 25-OH Total 45.2 ng/mL (>30)
[2023-02-03 12:50] LABS: Appearance Urine Clear; Color Urine Yellow; Glucose Urine UA Negative (Negative); Leukocyte Esterase Urine Trace (Negative); Nitrite Urine Negative (Negative); UMIC TRIGGER UACC YES; Urine Blood Negative (Negative); Urine Ketones Negative (Negative); Urine Protein Negative (Neg-Trace)
[2023-02-03 13:53] LABS: Creatinine Urine 99.17 mg/dL; Total Protein Urine Random < 7 mg/dL (<12)
[2023-02-03 14:03] LABS: Bacteria Urine None Seen (None Seen); Hyaline Casts Urine 0-2 /LPF (0-2); RBC Urine 0-2 /HPF (0-2); Squamous Epithelial Cell Urine 0-2 /HPF (0-2); WBC Urine 0-5 /HPF (0-5)
[2023-02-04 19:17] LABS: Calcium (PTHI) 9.5 mg/dL (8.6-10.4); PTHI 106 pg/mL (16-77)
== END 2023-02-03 10:25 | disposition home or self-care (01) ==
LOC: HO.LAB 10:24
PROVIDERS: Visit Provider Physician Assistant
DX: I12.9 Hypertensive chronic kidney disease with stage 1 through stage 4 chronic kidney disease, or unspecified chronic kidney disease (principal); N18.32 Chronic kidney disease, stage 3b; N26.1 Atrophy of kidney (terminal)
CPT/HCPCS: 36415; 80051; 80061; 81001; 81003; 82306; 82310; 82565; 83036; 83540; 83970; 84156; 84520; 84550; 85025

== ENCOUNTER 2023-05-04 12:51 | Outpatient (REF) | payer OTHER, SELFPAY ==
--- NOTE | ~2023-05-04 | MM_ITS ---
EXAMINATION: MM SCREENING DIGITAL BREAST TOMOSYNTHESIS, BILATERAL CLINICAL INFORMATION: Screening. Asymptomatic. COMPARISON: Mammography: This study is compared with prior exams dating back to 2016. TECHNIQUE: Digital breast tomosynthesis is performed in both the craniocaudal and mediolateral oblique views along with computer-aided detection (CAD). Synthesized 2D images are generated from the tomosynthesis. FINDINGS: There are scattered areas of fibroglandular density (ACR BI-RADS breast composition Category b). There are no significant masses, abnormal calcifications, or other abnormalities. MM/MM tomosynthesis screening BI IMPRESSION: No mammographic evidence of malignancy. ASSESSMENT: BI-RADS BI-RADS 1 - Negative RECOMMENDATION: Routine annual mammography screening. 1 year F/U This examination should not preclude the clinical evaluation of a suspicious palpable abnormality. This patient's information was entered into a reminder system with a target due date for their next mammogram.
== END 2023-05-04 12:52 | disposition home or self-care (01) ==
LOC: HO.MAMMO 12:51
PROVIDERS: PCP Internal Medicine; Visit Provider Internal Medicine
DX: Z12.31 Encounter for screening mammogram for malignant neoplasm of breast (principal)
CPT/HCPCS: 77063; 77067

== ENCOUNTER → 2023-05-04 13:15 | Outpatient (BNV) | payer OTHER, SELFPAY | PROVIDERS: PCP Internal Medicine; Visit Provider Radiology Diagnostic Radiology | DX: Z12.31 Encounter for screening mammogram for malignant neoplasm of breast (principal) | CPT/HCPCS: 77063; 77067 ==

== ENCOUNTER 2023-05-25 12:27 | Outpatient (REF) | payer OTHER, SELFPAY ==
[2023-05-25 12:54] LABS: MANUAL DIFF FLAG NO
[2023-05-25 13:37] LABS: Basophils Absolute Auto 0.1 X10*3/uL (0.0-0.2); Basophils Percent Auto 0.6 % (0-2); Eosinophils Absolute Auto 0.2 X10*3/uL (0.0-0.4); Eosinophils Percent Auto 2.3 % (0-4); Hematocrit 40.4 % (37.0-47.0); Hemoglobin 13.2 g/dl (12.0-16.0); Imm Gran Abs Auto 0.02 X10*3/uL (0.00-0.03); Imm Gran Pct Auto 0.3 % (0.0-0.4); Lymphocytes Absolute Auto 2.2 X10*3/uL (1.2-4.9); Mean Corpuscular HGB Conc 32.7 g/dl (31.0-35.0); Mean Corpuscular Hemoglobin 28.9 pg (27.0-33.0); Mean Corpuscular Volume 88.6 fL (80.0-98.0); Mean Platelet Volume 12.3 fL (9.4-12.3); Monocytes Percent Auto 12.7 % (2-11); Neutrophils Absolute Auto 4.6 x10*3/uL (2.0-8.3); Neutrophils Percent Auto 57.1 % (45-73); Platelet Count 239 X10*3/uL (160-400); Red Blood Count 4.56 X10*6/uL (4.20-5.50); Red Cell Distribution Width 13.8 % (11.0-16.0)
[2023-05-25 13:51] LABS: Appearance Urine Clear; Color Urine Yellow; Glucose Urine UA Negative (Negative); Leukocyte Esterase Urine Trace (Negative); Nitrite Urine Negative (Negative); Specific Gravity - Urine 1.015 (1.005-1.025); UMIC TRIGGER UA YES; Urine Blood Negative (Negative); Urine Ketones Negative (Negative); Urine Protein Negative (Neg-Trace)
[2023-05-25 13:58] LABS: Bacteria Urine None Seen (None Seen); Hyaline Casts Urine 0-2 /LPF (0-2); RBC Urine 0-2 /HPF (0-2); Squamous Epithelial Cell Urine 0-2 /HPF (0-2); WBC Urine 0-5 /HPF (0-5)
[2023-05-25 14:39] LABS: Anion Gap 11 (12-20); Blood Urea Nitrogen 36 mg/dL (9-16); Carbon Dioxide 29 mmol/L (22-29); Chloride 107 mmol/L (96-108); Estimated Glomerular Filt Rate 30; Potassium 4.6 mmol/L (3.3-5.1); Sodium 142 mmol/L (135-145); Vitamin D 25-OH Total 52.2 ng/mL (>30)
[2023-05-25 14:49] LABS: Creatinine Urine 71.01 mg/dL; Total Protein Urine Random < 7 mg/dL (<12)
[2023-05-27 15:54] LABS: Calcium (PTHI) 9.8 mg/dL (8.6-10.4); PTHI 36 pg/mL (16-77)
== END 2023-05-25 12:28 | disposition home or self-care (01) ==
LOC: HO.LAB 12:27
PROVIDERS: PCP Internal Medicine; Visit Provider Physician Assistant
DX: N18.32 Chronic kidney disease, stage 3b (principal); E55.9 Vitamin D deficiency, unspecified
CPT/HCPCS: 36415; 80051; 81001; 82306; 82310; 82565; 82570; 83970; 84156; 84520; 85025

== ENCOUNTER → 2023-09-18 13:09 | Outpatient (REF) | payer OTHER, SELFPAY ==
--- NOTE | 2023-09-18 13:13 | CA_ITS ---
Transthoracic Echocardiogram Patient (Last, First, Middle): Beatriz Navarro, Gender: Female Date of : 1945 Age: 78 Procedure Date: 09/18/2023 Procedure Type: Transthoracic Echocardiogram Location: OP Height: 139. cm Weight: 55.79 kg BSA: 1.42 m2 Heart Rate: 57 bpm BP: 170 / 65 mmHg Geospatial Systems Integrator: JANI Referring MD: Duncan Head MD Symptoms: I35.0 - Nonrheumatic aortic (valve) stenosis Study Quality: Fair ECG Rhythm: Bradycardia Conclusions: - 1. Normal LV ejection fraction of 60 65% with impaired relaxation filling pattern 2. [id number]-[id number] aortic stenosis 3. Normal RV systolic pressure 4. No gross pericardial effusion Findings Left Ventricle Normal left ventricular size, thickness, and systolic function. The visually estimated ejection fraction is between 60-65%. Spectral Doppler is indicative of an impaired relaxation filling pattern. E/E prime ratio is between 8 and 15 consistent with indeterminate filling pressures. Peak GLS is -16.7%, which is mildly reduced. Right Ventricle Normal right ventricular cavity size and systolic function. Atria The left atrium is likely dilated. There is no evidence of interatrial shunt. The right atrium is normal in size. Aortic Valve There is mild calcification of the aortic valve. There is moderate thickening of the aortic valve. There is mild to moderate aortic valve stenosis. There is mild aortic valve regurgitation. Mitral Valve Normal mitral valve structure and function. There is no mitral valve regurgitation. There is no mitral valve stenosis. Pulmonic Valve The pulmonic valve was not well visualized. Tricuspid Valve Likely normal tricuspid valve structure and function. There is mild tricuspid valve regurgitation. The right ventricular systolic pressure is normal. The right ventricular systolic pressure is 18 mmHg. Normal right atrial pressure. There is no evidence of pulmonary hypertension. Great Vessels All visible segments of the aorta are normal in size. The pulmonary artery was not well visualized. There is no dilatation of the ascending aorta measuring 2.80 cm. Venous The inferior vena cava is normal in size and collapses greater than 50% with inspiration. Pericardium/Pleural There is no evidence of pericardial effusion. Prior Study Comparison Changes noted compared to prior study dated: 05/14/2022. aortic stenosis marginally worse Measurements 2D Linear Measurements IVSd: 1.14 0.6-0.9/0.6-1.0 cm LVIDd: 4.04 3.9-5.3/4.2-5.9 cm LVIDd Index: 2.85 2.4-3.2/2.2-3.1 cm/m2 LVIDs: 2.64 2.0-3.6 cm LVPWd: 1.15 0.7-1.1 cm LA Diam: 3.70 2.7-3.8/3.0-4.0 cm LAIDs Index: 2.61 1.5-2.3 cm/m2 LV Mass: 195.20 67-162/88-224 g LV Mass Index: 137.47 43-95/49-115 g/m2 LVOT Diam: 1.80 3.0+(-)1.3 cm 2D Systolic Function EF 4C: 62.10 >55% EF 2C: 61.10 >55% EF BiP: 62.60 >55% Mitral Valve MV Pk E: 0.97 MV PK A: 1.18 MV Decel Time: 166.00 E/A: 0.80 E'Lateral: 7.18 E'Medial: 5.33 E/E' Med: 18.20 E/E' Lat: 13.50 PHT: 49.00 MVA PHT: 4.49 Decel [place]: 5.83 Aortic Valve AoV Pk Keith: 1.92 AoV Mn Keith: 1.38 AoV VTI: 0.54 AoV Pk Grad: 15.00 Aov Mn Grad: 8.00 BRIAN Cont.VTI: 1.18 AI Pk Keith: 4.38 AI Newton: 3.06 LVOT LVOT Pk Keith: 0.88 LVOT Mn Keith: 0.66 LVOT VTI: 0.25 LVOT Pk Grad: 3.00 LVOT Mn Grad: 2.00 LVOT Diam: 1.80 LVOT Area: 2.54 Diastolic Function MV Pk E: 0.97 MV Pk A: 1.18 E/A: 0.80 E'Medial: 5.33 E/E' Med: 18.20 E' Laterial: 7.18 E/E' Lat: 13.50 Right Ventricle TAPSE (mm): 17.30 TVS' Keith: 8.81 Tricuspid Valve TR Pk Keith: 1.96 TR Pk Grad: 15.00 RA Press: 3.00 RVSP: 18.00 Great Vessels Aorta Sinus of Valsalva: 2.60 2.0-3.5 cm Ao Asc: 2.80 2.1-3.4 cm Pulmonary Valve PV Pk Keith: 0.92 Peak PV Grad: 3.00 Updated in Other Vendor System with Status of Final Duncan Head MD electronically signed on 09/19/2023 1:22:37 PM with status of Final
== END ==
LOC: HO.CARD 13:09
PROVIDERS: PCP Internal Medicine; Visit Provider Internal Medicine Cardiovascular Disease
DX: I35.0 Nonrheumatic aortic (valve) stenosis (principal)
CPT/HCPCS: 93306; 93356

== ENCOUNTER → 2023-09-18 13:13 | Outpatient (BNV) | payer OTHER, SELFPAY | PROVIDERS: PCP Internal Medicine; Visit Provider Internal Medicine Cardiovascular Disease | DX: I35.0 Nonrheumatic aortic (valve) stenosis (principal) | CPT/HCPCS: 93306; 93356 ==

== ENCOUNTER 2023-11-03 14:04 | Outpatient (AMB) | payer OTHER, SELFPAY ==
[2023-11-03 14:07] VITALS: BP 170/62; PULSE 62; BMI 28.8
--- NOTE | 2023-11-03 14:07 | A.OFFVIS_ITS ---
Vital Signs 11/03/23 14:07 Height 4 ft 7 in Weight 123 lb 14.397 oz BMI 28.8 BP 170/62 H Blood Pressure Location Lt brachial Position Sitting Pulse 62 Pulse Source Monitor Intake Visit Reasons: r/s 1 year followup w/ekg after echo Control Panel Operator Required: Yes Control Panel Operator Language: Silica Filter Operator Name: jared garcía [id number] Allergies atorvastatin [ATORVASTATIN] Allergy (Severe, Verified 11/03/23 14:12) UNKNOWN niacin [NIACIN] Allergy (Severe, Verified 11/03/23 14:12) UNKNOWN acetaminophen [ACETAMINOPHEN] Allergy (Intermediate, Verified 11/03/23 14:12) RASH Penicillins [PENICILLINS] Allergy (Mild, Verified 11/03/23 14:12) MOUTH NUMB aspirin [ASPIRIN] Allergy (Unknown, Verified 11/03/23 14:12) UNKNOWN, itching codeine [CODEINE] Allergy (Unknown, Verified 11/03/23 14:12) UNKNOWN, breathing problems ibuprofen [IBUPROFEN] Allergy (Unknown, Verified 11/03/23 14:12) HX KIDNEY PROBLEM morphine [MORPHINE] Allergy (Unknown, Verified 11/03/23 14:12) DIFFICULTY BREATHING, itch turkey Allergy (Unknown, Verified 11/03/23 14:12) UNKNOWN Medication List - Last Reconciled 11/03/23 by GORAN Benavidez carvedilol 3.125 mg PO BID cholecalciferol (vitamin D3) 25 mcg PO DAILY clopidogrel 75 mg PO DAILY docusate sodium 100 mg PO BID ezetimibe 10 mg PO DAILY furosemide 20 mg PO DAILY isosorbide dinitrate 5 mg PO BID lisinopril 20 mg PO DAILY loratadine 10 mg PO DAILY melatonin 5 mg PO BEDTIME omeprazole 20 mg PO DAILY rosuvastatin 40 mg PO DAILY HPI HPI r/s 1 year followup w/ekg after echo: Details: Beatriz is a 78-year-old female with past medical history of hypertension, hyperlipidemia, CKD, obstructive sleep apnea, aortic stenosis, CAD with RCA stent who presents for follow-up. Today she reports that she has been doing generally well since her last visit a year ago. She states she does have some unsteadiness at times and relates it to her ears causing loss of balance. She has had 2 falls without significant injury. No presyncope, syncope. She will feel an occasional pain between her breasts but then if she hits her chest she belches and she feels better. She relates to this to gas. No concerning shortness of breath, PND, orthopnea or edema. She wears her compression stockings. No bleeding issues reported. She takes her meds as directed. She follows with Dr. Rebollar for Nephrology. She tells me she is overdue for an appointment. Certified manager motor used. Family member present. [facility] Medical History CAD (coronary artery disease) Aortic stenosis HTN (hypertension) Hyperlipidemia PAUL (obstructive sleep apnea) Acute on chronic cholecystitis concurrent with and due to calculus of gallbladder and bile duct Surgical History Stented coronary artery Hx of heart artery stent Hx of tubal ligation History of Family History Father No problems noted. Mother No problems noted. Son No problems noted. Daughter No problems noted. Daughter No problems noted. Daughter No problems noted. Daughter No problems noted. Social History Alcohol intake: never Review of Systems Const Details: Unsteadiness at times, she relates this to her ears making her off balance. All systems reviewed & are unremarkable except as noted in HPI and below ENT Denies dizziness Card Details: She will feel a gas pain in her chest and if she hits her chest it relieves. Denies chest pain, Denies chest pain at rest, Denies chest pain with activity, Denies rapid heart rate, Denies pedal edema, Denies edema, Denies leg edema, Denies lightheadedness, Denies palpitations, Denies dyspnea, Denies dyspnea on exertion and Denies orthopnea Resp Denies cough, Denies dyspnea and Denies dyspnea on exertion GI Denies hematochezia and Denies change in stool character Musc Details: Compression stocking use. Denies abnormal gait, Denies limited range of motion, Denies muscle cramps, Denies muscle weakness, Denies numbness, Denies radiating pain into limb, Denies stiffness and Denies tingling Neuro Denies abnormal gait, Denies dizziness, Denies numbness and Denies tingling Endo Denies palpitations Physical Exam Vital Signs: Last Vital Signs Pulse 62 11/03/23 14:07 BP 170/62 H 11/03/23 14:07 BMI result Body Mass Index 28.8 Const Other: Cataract/visual impairment General: cooperative, healthy appearing, comfortable and no acute distress Orientation/consciousness: patient oriented x3 Neck Neck: Yes normal visual inspection Resp Effort & Inspection: normal respiratory effort Auscultation: clear to auscultation bilaterally, no crackles, no rales, no rhonchi and no wheezes Cardio Jugular venous distension: no JVD Rate: regular rate Rhythm: regular rhythm Heart sounds: S1 normal heart sound present, S2 normal heart sound present, no murmurs and no rubs Neuro General: patient oriented x3 Extrem Other: Wearing compression stockings, no edema noted General: Yes normal to inspection, No no pedal edema and No calf tenderness Psych Appearance: grossly normal Mental Status: mental status grossly normal Speech and movement: Normal speech and movement present Office Procedures EKG Details: Today, read by me, sinus rhythm with first-degree AV block, can not exclude inferior infarct, T-wave inversions lead 3 AVF and V6, similar to prior EKG, rate 62, QTC 414 milliseconds [id number], Complete Assessment & Plan Assessment & Plan (1) CAD (coronary artery disease): Code(s): I25.10 - Atherosclerotic heart disease of [place] coronary artery without angina pectoris Category: Medical Plan: History of CAD with prior ACS, cardiac catheterization with RCA stent. Her condition has been stable for the last several years. She has no reports of anginal sounding chest discomfort. Her EKG done today showing sinus rhythm T- wave abnormality in leads 3, AVF, V6, no significant change from prior EKG. She admits to being mostly sedentary. Will continue Plavix as she is allergic to aspirin. Will continue carvedilol, rosuvastatin and Zetia. She is due for a fasting lipid profile. Last labs for this were done 02/03/2023 showing LDL 104. Recommended recheck of lipid profile and she states she does not want to have lab draw at [facility] [place] [place]. Her labs are followed by her distribution systems serviceperson and possibly company pilot. She is concerned about having too many vials of blood drawn as she has received iron infusion in the past. Her blood pressure is elevated today at 170/62, recheck done by me after 15 minutes of sitting was 172/62. She tells me she has been compliant with her medications. According to our list she is currently on carvedilol and lisinopril. She is unclear of all the meds that she is taking. Recommended start of amlodipine to help with blood pressure control and she declines. She tells me that lisinopril is the only medicine she tolerates well. Last labs in our system 05/25/2023 showed creatinine 1.64. She states she is overdue for her nephrology appointment. Instructed her to reach out to her distribution systems serviceperson and set up a follow-up appointment in the near future. Continue current antihypertensives, Lasix, Plavix, rosuvastatin and Zetia. Blood pressure can be managed by her distribution systems serviceperson as this is what she prefers. Will arrange for cardiology follow-up in 1 year, sooner if needed (2) Stented coronary artery: Comment: RCA stenting for inferior STEMI Code(s): Z95.5 - Presence of coronary angioplasty implant and graft Category: Surgical Plan: As above (3) Aortic stenosis: Code(s): I35.0 - Nonrheumatic aortic (valve) stenosis Category: Medical Plan: Echocardiogram done 09/18/2023 showing EF 60-65%, impaired relaxation, [id number] aortic stenosis. Previously known to have mild aortic stenosis. Will need to follow with periodic echoes. (4) HTN (hypertension): Code(s): I10 - Essential (primary) hypertension Category: Medical Plan: As above (5) Hyperlipidemia: Code(s): E78.5 - Hyperlipidemia, unspecified Category: Medical Plan: [place] LDL goal less than 70. Due for fasting lipid profile. Will enter into our system she agrees to have done at [facility] Plan Time spent on chart review, documentation, interview and assessment Orders: Orders Lipid Panel Today I25.10 - Atherosclerotic heart disease of [place] coronary artery without angina pectoris Coding Level of Care Code Est Pt Level 4 (92401) Diagnoses CAD (coronary artery disease) I25.10 Stented coronary artery Z95.5 Aortic stenosis I35.0 HTN (hypertension) I10 Hyperlipidemia E78.5 CPT Codes EKG - CPT: 22319-[id number], Complete ([id number]) Time Spent (min) 36
== END 2023-11-03 14:49 | disposition home or self-care (01) ==
PROVIDERS: PCP Internal Medicine; Visit Provider Nurse Practitioner Family
DX: I25.10 Atherosclerotic heart disease of native coronary artery without angina pectoris (principal); Z95.5 Presence of coronary angioplasty implant and graft; I35.0 Nonrheumatic aortic (valve) stenosis; I10 Essential (primary) hypertension; E78.5 Hyperlipidemia, unspecified
CPT/HCPCS: 93010; 99214

== ENCOUNTER → 2023-11-03 14:04 | Outpatient (BNVA) | payer OTHER, SELFPAY | PROVIDERS: PCP Internal Medicine; Visit Provider Nurse Practitioner Family | DX: I25.10 Atherosclerotic heart disease of native coronary artery without angina pectoris (principal); I35.0 Nonrheumatic aortic (valve) stenosis; I10 Essential (primary) hypertension; E78.5 Hyperlipidemia, unspecified; Z95.5 Presence of coronary angioplasty implant and graft | CPT/HCPCS: 93005; 99212 ==

== ENCOUNTER 2023-11-19 12:59 | Outpatient (REF) | payer OTHER, SELFPAY ==
[2023-11-19 13:20] LABS: MANUAL DIFF FLAG NO
[2023-11-19 14:05] LABS: Appearance Urine Clear; Color Urine Yellow; Glucose Urine UA Negative (Negative); Leukocyte Esterase Urine Moderate (2+) (Negative); Nitrite Urine Negative (Negative); PH 5.5 (5.0-9.0); Specific Gravity - Urine 1.015 (1.005-1.025); UMIC TRIGGER UA YES; Urine Blood Negative (Negative); Urine Ketones Negative (Negative); Urine Protein Negative (Neg-Trace)
[2023-11-19 14:08] LABS: Basophils Absolute Auto 0.1 X10*3/uL (0.0-0.2); Basophils Percent Auto 0.6 % (0-2); Eosinophils Absolute Auto 0.2 X10*3/uL (0.0-0.4); Eosinophils Percent Auto 1.9 % (0-4); Hematocrit 34.7 % (37.0-47.0); Hemoglobin 11.4 g/dl (12.0-16.0); Imm Gran Abs Auto 0.05 X10*3/uL (0.00-0.03); Imm Gran Pct Auto 0.6 % (0.0-0.4); Lymphocytes Absolute Auto 2.8 X10*3/uL (1.2-4.9); Lymphocytes Percent Auto 34.5 % (20-40); Mean Corpuscular HGB Conc 32.9 g/dl (31.0-35.0); Mean Corpuscular Hemoglobin 30.3 pg (27.0-33.0); Mean Corpuscular Volume 92.3 fL (80.0-98.0); Mean Platelet Volume 12.3 fL (9.4-12.3); Monocytes Percent Auto 12.3 % (2-11); Neutrophils Percent Auto 50.1 % (45-73); Platelet Count 213 X10*3/uL (160-400); Red Blood Count 3.76 X10*6/uL (4.20-5.50); Red Cell Distribution Width 13.3 % (11.0-16.0)
[2023-11-19 14:10] LABS: Bacteria Urine Trace (None Seen); Hyaline Casts Urine 0-2 /LPF (0-2); RBC Urine 0-2 /HPF (0-2)
[2023-11-19 14:40] LABS: Creatinine Urine 104.01 mg/dL; Total Protein Urine Random < 7 mg/dL (<12)
[2023-11-19 14:51] LABS: Anion Gap 17 (12-20); Blood Urea Nitrogen 29 mg/dL (9-16); Calcium 9.7 mg/dL (8.4-10.2); Carbon Dioxide 23 mmol/L (22-29); Chloride 110 mmol/L (96-108); Estimated Glomerular Filt Rate 34; Iron 64 mcg/dL (30-160); Percent Iron Saturation 30 % (15-50); Potassium 4.5 mmol/L (3.3-5.1); Sodium 145 mmol/L (135-145); Total Iron Binding Capacity 215 mcg/dL (228-428); Unsaturated Iron Binding 151 ug/dL
[2023-11-19 15:05] LABS: Ferritin 686 ng/mL (10-250); Vitamin D 25-OH Total 41.7 ng/mL (>30)
== END 2023-11-19 13:00 | disposition home or self-care (01) ==
LOC: HO.LAB 12:59
PROVIDERS: PCP Internal Medicine; Visit Provider Physician Assistant
DX: N18.32 Chronic kidney disease, stage 3b (principal); E55.9 Vitamin D deficiency, unspecified; D63.1 Anemia in chronic kidney disease
CPT/HCPCS: 36415; 80051; 81001; 81003; 82306; 82310; 82565; 82570; 82728; 83540; 84156; 84520; 85025

== ENCOUNTER 2024-02-19 09:44 | Outpatient (REF) | payer OTHER, SELFPAY ==
[2024-02-19 10:03] LABS: MANUAL DIFF FLAG NO
[2024-02-19 10:38] LABS: Basophils Absolute Auto 0.1 X10*3/uL (0.0-0.2); Basophils Percent Auto 0.9 % (0-2); Eosinophils Absolute Auto 0.1 X10*3/uL (0.0-0.4); Eosinophils Percent Auto 1.7 % (0-4); Hematocrit 33.4 % (37.0-47.0); Hemoglobin 11.1 g/dl (12.0-16.0); Imm Gran Abs Auto 0.02 X10*3/uL (0.00-0.03); Imm Gran Pct Auto 0.3 % (0.0-0.4); Lymphocytes Absolute Auto 2.3 X10*3/uL (1.2-4.9); Mean Corpuscular HGB Conc 33.2 g/dl (31.0-35.0); Mean Corpuscular Hemoglobin 30.3 pg (27.0-33.0); Mean Corpuscular Volume 91.3 fL (80.0-98.0); Mean Platelet Volume 11.8 fL (9.4-12.3); Monocytes Absolute Auto 0.7 X10*3/uL (0.1-1.2); Monocytes Percent Auto 10.5 % (2-11); Neutrophils Absolute Auto 3.7 x10*3/uL (2.0-8.3); Neutrophils Percent Auto 53.6 % (45-73); Platelet Count 215 X10*3/uL (160-400); Red Blood Count 3.66 X10*6/uL (4.20-5.50); Red Cell Distribution Width 13.2 % (11.0-16.0); White Blood Count 6.9 X10*3/uL (4.8-10.8)
[2024-02-19 11:17] LABS: Alanine Aminotransferase 12 U/L (0-31); Albumin Level 3.6 g/dL (3.5-5.0); Alkaline Phosphatase 62 U/L (39-117); Anion Gap 10 (12-20); Aspartate Amino Transferase 20 U/L (5-31); Bilirubin Total 0.4 mg/dL (0.0-1.0); Blood Urea Nitrogen 27 mg/dL (9-16); Calcium 9.6 mg/dL (8.4-10.2); Carbon Dioxide 27 mmol/L (22-29); Chloride 110 mmol/L (96-108); Cholesterol 158 mg/dL (<200); Estimated Glomerular Filt Rate 37; Glucose Random 91 mg/dL (60-115); HDL Cholesterol 43 mg/dL (>40); LDL Cholesterol Calculated 95 mg/dL (<100); Sodium 143 mmol/L (135-145); Triglycerides 102 mg/dL (<150)
[2024-02-19 11:34] LABS: TSH reflex Free T4 1.48 uIU/mL (0.32-4.0)
== END 2024-02-19 09:45 | disposition home or self-care (01) ==
LOC: HO.LAB 09:44
PROVIDERS: Absent Provider Nurse Practitioner Family; PCP Internal Medicine; Visit Provider Internal Medicine
DX: I11.0 Hypertensive heart disease with heart failure (principal); I50.9 Heart failure, unspecified
CPT/HCPCS: 36415; 80053; 80061; 84443; 85025

== ENCOUNTER → 2024-09-08 13:51 | Outpatient (REF) | payer OTHER, SELFPAY ==
--- NOTE | 2024-09-08 13:57 | CA_ITS ---
Transthoracic Echocardiogram Patient (Last, First, Middle): Beatriz Navarro, Gender: Female Date of : 1945 Age: 79 Procedure Date: 09/08/2024 Procedure Type: Transthoracic Echocardiogram Location: OP Height: 139.7 cm Weight: 55.79 kg BSA: 1.43 m2 Heart Rate: 66 bpm BP: 132 / 70 mmHg On Air Talent: SB Referring MD: Carie London MD Medical Records Administrator: Duncan Head MD Symptoms: I10 HTN CHRONIC CHF I50.9 Study Quality: Adequate ECG Rhythm: Sinus Conclusions: - 1. Normal LV ejection fraction 55-60% with elevated filling pressures 2. Mild aortic stenosis 3. Normal measured RV systolic pressure 4. No gross pericardial effusion Findings Left Ventricle Normal left ventricular cavity size. There is normal left ventricular wall thickness. The left ventricular systolic function is normal. The visually estimated ejection fraction is between 55-60%. Spectral Doppler is indicative of an impaired relaxation filling pattern. Elevated left atrial and left ventricular end-diastolic pressures. E/E prime ratio is >15, consistent with elevated filling pressures. Wall Motion Rest Echo Findings The basal inferolateral segment is hypokinetic. The basal inferoseptal segment is akinetic. The basal inferior segment is dyskinetic. All other scored wall segments showed normal motion. Right Ventricle Normal right ventricular cavity size and systolic function. Atria The left atrium is likely dilated. Interatrial shunt cannot be excluded. The right atrium is normal in size. Aortic Valve There is mild calcification of the aortic valve. There is mild aortic valve stenosis. The mean gradient is 8 mmHg. There is no aortic valve regurgitation. Mitral Valve There is mild anterior and posterior mitral leaflet thickening. There is mild mitral annular calcification. There is mild mitral valve regurgitation. There is no mitral valve stenosis. Pulmonic Valve The pulmonic valve was not well visualized. Tricuspid Valve Likely normal tricuspid valve structure and function. There is trace tricuspid valve regurgitation. The right ventricular systolic pressure is normal. The right ventricular systolic pressure is 24 mmHg. Normal right atrial pressure. There is no evidence of pulmonary hypertension. Great Vessels All visible segments of the aorta are normal in size. The pulmonary artery was not well visualized. There is no dilatation of the ascending aorta measuring 2.80 cm. Small plaque is seen in the sino tubular ridge. Venous The inferior vena cava is normal in size and collapses greater than 50% with inspiration. Pericardium/Pleural There is no evidence of pericardial effusion. Prior Study Comparison Changes noted compared to prior study dated: 09/18/2023. Measurements 2D Linear Measurements IVSd: 1.19 0.6-0.9/0.6-1.0 cm LVIDd: 3.97 3.9-5.3/4.2-5.9 cm LVIDd Index: 2.78 2.4-3.2/2.2-3.1 cm/m2 LVIDs: 2.79 2.0-3.6 cm LVPWd: 0.83 0.7-1.1 cm LA Diam: 3.40 2.7-3.8/3.0-4.0 cm LAIDs Index: 2.38 1.5-2.3 cm/m2 LV Mass: 158.56 67-162/88-224 g LV Mass Index: 110.88 43-95/49-115 g/m2 LVOT Diam: 1.70 3.0+(-)1.3 cm Mitral Valve MV Pk E: 1.09 MV PK A: 1.20 MV Decel Time: 173.00 E/A: 0.90 E'Lateral: 6.64 E'Medial: 5.22 E/E' Med: 20.90 E/E' Lat: 16.40 PHT: 51.00 MVA PHT: 4.31 Decel [place]: 6.31 Aortic Valve AoV Pk Keith: 1.90 AoV Mn Keith: 1.36 AoV VTI: 0.46 AoV Pk Grad: 14.00 Aov Mn Grad: 8.00 BRIAN Cont.VTI: 0.93 AI Pk Keith: 3.83 AI [place]: 2.72 LVOT LVOT Pk Keith: 0.91 LVOT Mn Keith: 0.61 LVOT VTI: 0.19 LVOT Pk Grad: 3.00 LVOT Mn Grad: 2.00 LVOT Diam: 1.70 LVOT Area: 2.27 Diastolic Function MV Pk E: 1.09 MV Pk A: 1.20 E/A: 0.90 E'Medial: 5.22 E/E' Med: 20.90 E' Laterial: 6.64 E/E' Lat: 16.40 Right Ventricle TAPSE (mm): 19.10 TVS' Keith: 10.60 Tricuspid Valve TR Pk Keith: 2.29 TR Pk Grad: 21.00 RA Press: 3.00 RVSP: 24.00 Great Vessels Aorta Sinus of Valsalva: 2.10 2.0-3.5 cm Ao Asc: 2.80 2.1-3.4 cm Pulmonary Valve PV Pk Keith: 0.94 Peak PV Grad: 4.00 Updated in Other Vendor System with Status of Final Duncan Head MD electronically signed on 09/08/2024 5:32:48 PM with status of Final
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
--- OUTSIDE RECORDS SUMMARY | 2024-09-08 16:54 | XMS_ITS | Clinical Summary ---
Author Organization [facility] Address [address] [place] [address] Care Team Providers Care Mixer Blender Name Role Phone Emmanuel Pereira MD Primary Care Provider Allergies Active Allergy Reactions Criticality Noted Date Comments Codeine Itching,Nausea And Vomiting 07/11/2014 Other reaction(s): Other Severe Morphine Itching,Nausea And Vomiting 07/11/2014 Other reaction(s): Other Severe Penicillins Itching,Nausea And Vomiting 07/11/2014 Other reaction(s): Other Severe Medications Medication Sig Dispensed Refills Start Date End Date Status acetaminophen (TYLENOL) 325 MG tablet Take 2 tablets (650 mg total) by mouth every evening. 0 01/16/2023 Active Calcium Carb-Cholecalciferol 500-10 MG-MCG CHEW calcium carbonate 500 mg(1,250 mg)-vitamin D3 400 unit chewable tablet 0 Active carvedilol (COREG) 3.125 MG tablet 0 01/30/2023 Active clopidogrel (PLAVIX) 75 MG tablet Take 1 tablet (75 mg total) by mouth. 0 05/03/2014 Active docusate sodium (COLACE) 100 MG capsule 0 01/30/2023 Active ezetimibe (ZETIA) tablet 10 mg 0 01/31/2022 Active furosemide (LASIX) 20 MG tablet Take 1 tablet (20 mg total) by mouth. 0 02/19/2023 Active isosorbide dinitrate (ISORDIL) 5 MG tablet 0 01/30/2023 Act jose roberto lisinopril (PRINIVIL,ZESTRIL) tablet 20 mg 0 01/30/2023 Active loratadine (CLARITIN) 10 MG tablet 0 01/30/2023 Active nitroglycerin (NITROSTAT) 0.4 MG SL tablet 0 12/31/2022 Active omeprazole (PriLOSEC) 20 MG capsule 0 01/30/2023 Active rosuvastatin (CRESTOR) tablet 40 mg 0 01/30/2023 Active Simethicone 125 MG CAPS Take 180 mg by mouth every 6 (six) hours as needed. 0 Active Active Problems Problem Noted Date Diagnosed Date Iron deficiency anemia 02/20/2023 Family History Medical History Relation Name Comments Cancer Brother 1 Cancer Brother 2 Cancer Daughter Cancer Father Relation Name Status Comments Brother 1 Brother 2 Daughter Father Social History Tobacco Use Types Packs/Day Years Used Date Smoking Tobacco: Former Cigarettes Tobacco Cessation:Counseling Given: Not Answered Comments:SMOKED FROM AGE [age] Alcohol Use Standard Drinks/Week Comments Never 0 (1 standard drink = 0.6 oz pur e alcohol) Sex and Gender Information Value Date Recorded Sex Assigned at Female 02/20/2023 3:33 PM EDT Gender Identity Not on file Sexual Orientation Not on file Job Start Date Occupation Industry Not on file Not on file Not on file Last Filed Vital Signs Vital Sign Reading Time Taken Comments Blood Pressure 147/40 03/06/2023 2:07 PM EDT Pulse 61 03/06/2023 2:07 PM EDT Temperature 35.8 ??C (96.4 ??F) 03/06/2023 2:07 PM ED T Respiratory Rate 18 02/23/2023 1:21 PM EDT Oxygen Saturation 100% 03/06/2023 2:07 PM EDT Inhaled Oxygen Concentration - - Weight - - Height - - Body Mass Index - - Plan of Treatment Health Maintenance Due Date Last Done Comments Hepatitis C Screening 1945 COVID-19 Vaccine (#1) 1947 Depression Screening 1959 Preventative Health Evaluation 1965 DTap / Tdap / Td (1 - Tdap) 1966 Shingrix-Zoster Vaccine (1 of 2) 1997 Fall Risk Assessment 2012 Osteoporosis Screening (DEXA Scan) 2012 Pneumococcal Vaccine (1 of 1 - PCV) 2012 RSV Adult > 60+ Yrs or Pregn ant (1 - 1-dose 75+ series) 2022 Influenza Vaccine (#1) 2024 Hepatitis B Vaccines Aged Out No long er eligible based on patient's age to complete this topic RSV Ped < 20 months Aged Out No longe r eligible based on patient's age to complete this topic Care Teams Mixer Blender Relationship Specialty Start Date End Date Emmanuel Pereira MD [address] [place] [address] [address] [place] [address] PCP - General Tile Molder Hand 02/20/23
--- OUTSIDE RECORDS SUMMARY | 2024-09-08 16:54 | XMS_ITS | Encounter Summary ---
Author Organization [facility], Address [address] [place] [address] Phone Care Team Providers Care Zoo Keeper Name Role Phone Lalitha Cisneros MD Primary Care Provider [phone] Encounter Details Date Type Department Care Team (Late Contact Info) Description 05/29/2023 Documentation Only [facility] [address] [place] [id number] [place] Rebollar MD [address] [facility] [place] [address] Social History Tobacco Use Types Packs/Day Years Used Date Smoking Tobacco: Former Cigarettes Q uit: 07/06/1974 Comments:Smoking History Inf o:Some days Alcohol Use Standard Drinks/Week Comments No 0 (1 standard drink = 0.6 oz pur e alcohol) Comments Unknown Sex and Gender Information Value Date Recorded Sex Assigned at Not on file Legal Sex Female 4:36 PM EST Gender Identity Not on file Sexual Orientation Not on file documented as of this encounter Plan of Treatment Upcoming Encounters Date Type Department Care Team (Late Contact Info) Description 12/06/2024 2:00 PM EDT Office Visit [facility] [address] [facility] [facility] [place] [address] [place] Rebollar MD [address] [facility] [place] [address] documented as of this encounter Visit Diagnoses Not on filedocumented in this encounter Care Teams Zoo Keeper Relationship Specialty Start Date End Date Lalitha Cisneros MD [address] [facility] [place] PCP - General 05/10/19 documented as of this encounter
--- OUTSIDE RECORDS SUMMARY | 2024-09-08 16:54 | XMS_ITS | Encounter Summary ---
Author Organization [employer] Address [address] [facility] 7t [place] [address] Care Team Providers Care Loading Checker Name Role Phone Carie London MD Primary Care Provider [phone] Reason for Visit * Reason Onset Date Comments Durable Medical Equipment 03/22/2024 Encounter Details Date Type Department Care Team ([facility] st Contact Info) Description 03/22/2024 Telephone [facility] MEDICINE [address] [place] [address] Carie London MD [address] [place], [place] [phone] Durable Medical Equipment Social History Tobacco Use Types Packs/Day Years [...] encounter Miscellaneous Notes * Telephone Encounter - Abraham Franco - 03/22/2024 1:22 PM EDT Tc from pt requesting status on DME request for Compression socks, Cane, and weight scale. Pt states she has been waiting for over 2 months for DME and has not received an update. Please contact pt at [phone]. (Surinamese Speaker) documented in this encounter Plan of Treatment Upcoming Encounters Date Type Department Care Team (Late st Contact Info) Description 11/29/2024 1:30 PM EDT Office Visit [facility] MED & PEDS [address] [place] [address] Carie London MD [address] [place] [address] documented as of this encounter Visit Diagnoses Not on filedocumented in this encounter Care Teams Loading Checker Relationship Specialty Start Date End Date Carie London MD [address] [place] [address] PCP - General Internal Medicine 02/23/[address] [facility] 05/05/23 documented as of this encounter
--- OUTSIDE RECORDS SUMMARY | 2024-09-08 16:54 | XMS_ITS | Encounter Summary ---
Author Organization [employer] Address [address] [facility] 7 [place] [address] Care Team Providers Care Micro Computer Specialist Name Role Phone Carie London MD Primary Care Provider [phone] Reason for Visit * Reason Onset Date Comments No Show 08/25/2024 Encounter Details Date Type Department Care Team ([facility] st Contact Info) Description 08/25/2024 Telephone [facility] MED & PEDS [address] [place], [place] [phone] Carie London MD [address] [place] [address] No Show Social History Tobacco Use Types Packs/Day Years [...] encounter Miscellaneous Notes * Telephone Encounter - Georges Thompson - 08/25/2024 3:09 PM EST No Show 08/25/24 for Knee pain chronic documented in this encounter Plan of Treatment Upcoming Encounters Date Type Department Care Team (Late st Contact Info) Description 11/29/2024 1:30 PM EDT Office Visit [facility] MED & PEDS [address] [place] [address] Carie London MD [address] [place] [address] documented as of this encounter Visit Diagnoses Not on filedocumented in this encounter Care Teams Micro Computer Specialist Relationship Specialty Start Date End Date Carie London MD [address] [place] [address] PCP - General Internal Medicine 02/23/18 [facility] 05/05/23 documented as of this encounter
--- OUTSIDE RECORDS SUMMARY | 2024-09-08 16:54 | XMS_ITS | Encounter Summary ---
Author Organization [facility] Address [address] [place] [address] Phone Care Team Providers Care Hand Candy Molder Name Role Phone Lalitha Cisneros MD Primary Care Provider [phone] Encounter Details Date Type Department Care Team (Late Contact Info) Description 11/23/2023 Documentation Only [facility] [address] [place] [address] MichelleDenisse [address] [place] [address] Social History Tobacco Use Types Packs/Day Years [...] Visit [facility] [address] [place] [address] [place] Rebollar MD [address] [place] [address] [place] [address] documented as of this encounter Visit Diagnoses Not on filedocumented in this encounter Care Teams Hand Candy Molder Relationship Specialty Start Date End Date Lalitha Cisneros MD [address] PCP - General 05/10/19 documented as of this encounter
--- OUTSIDE RECORDS SUMMARY | 2024-09-08 16:54 | XMS_ITS | Encounter Summary ---
Author Organization [employer] Address [address] [facility] 7t [place] [address] Care Team Providers Care Seismograph Computer Name Role Phone Carie London MD Primary Care Provider [phone] Reason for Visit * Reason Onset Date Comments Pre-visit Planning 02/17/2024 Encounter Details Date Type Department Care Team ([facility] st Contact Info) Description 02/17/2024 Telephone [facility] MEDICINE [address] [place] [address] Carie London MD [address] [place] [address] Pre-visit Planning Social History Tobacco Use Types Packs/Day Years [...] off services in your home? No 02/18/2024 Comments Unknown Sex and Gender Information Value Date Recorded Sex Assigned at Female 05/05/2022 10:16 AM EDT Legal Sex Female 10:16 AM EDT Gender Identity Female 05/05/2022 10:16 AM EDT Sexual Orientation Straight 05/05/2022 10 :16 AM EDT documented as of this encounter Miscellaneous Notes * Telephone Encounter - Abraham Franco - 02/17/2024 2:38 PM EDT Tc from pt returning call regarding message below. FRANCISCO Rao placed outbound call to patient to complete pre-visit planning. No answer at this time. Patient name and were not confirmed. documented in this encounter Plan of Treatment Upcoming Encounters Date Type Department Care Team (Late st Contact Info) Description 11/29/2024 1:30 PM EDT Office Visit [facility] MED & PEDS [address] [place] [address] Carie London MD [address] [place] [address] documented as of this encounter Visit Diagnoses Not on filedocumented in this encounter Care Teams Seismograph Computer Relationship Specialty Start Date End Date Carie London MD [address] [place] [address] PCP - General Internal Medicine 02/23/18 [facility] 05/05/23 documented as of this encounter
--- OUTSIDE RECORDS SUMMARY | 2024-09-08 16:54 | XMS_ITS | Encounter Summary ---
Author Organization [facility] Address [address] [place] [address] Phone Care Team Providers Care Bonding Equipment Operator Name Role Phone Lalitha Cisneros MD Primary Care Provider [phone] Encounter Details Date Type Department Care Team (Late Contact Info) Description 05/27/2023 Documentation Only [facility] [address] [place] [address] Jone Schulz MD [address] [facility] [place] [address] Social History Tobacco Use Types [...] Visit [facility] [address] [place] [address] [place] Rebollar MD [address] [facility] [place] [address] documented as of this encounter Visit Diagnoses Not on filedocumented in this encounter Care Teams Bonding Equipment Operator Relationship Specialty Start Date End Date Lalitha Cisneros MD NPI: [id number] [place] [address] PCP - General 05/10/19 documented as of this encounter
--- OUTSIDE RECORDS SUMMARY | 2024-09-08 16:54 | XMS_ITS | Encounter Summary ---
Author Organization [employer] Address [address] [facility] 7t [place] [address] Care Team Providers Care Animal Pathology Teacher Name Role Phone Carie London MD Primary Care Provider [phone] Reason for Visit * Reason Onset Date Comments Nurse Triage 08/09/2024 Encounter Details Date Type Department Care Team ([facility] st Contact Info) Description 08/09/2024 Telephone [facility] MEDICINE [address] [place] [address] Carie London MD [address] [place] [address] Nurse Triage Social History Tobacco Use Types [...] encounter Miscellaneous Notes * Telephone Encounter - Antonette Lancaster RN - 08/09/2024 2:02 PM EST Called pt. Via [employer] language interpreter [id number] [address]. Offered pt. Appt. For tomorrow 08/10/24 at 220pm and she declines appt. Advised that there is nothing sooner at 1pm. Pt. Hung up phone. Please see previousTC note. * Telephone Encounter - Antonette Lancaster RN - 08/09/2024 12:34 PM EST Called pt. Via [employer] language interpreter [id number] Jer. Pt. States that she has a bad bilateral knee pain and has trouble walking all Winter from the pain. Pt. States that her swell up on and off. Pt. States that when pt. Goes to bed at night her knees feel like a brick and she has trouble lifting legs into bed. Pt states that she gets a stinging feeling also and a feeling of warmth from her knees down her legs. Pt. Looking for appt. In afternoon between 12-4pm because that is when her STUDENT FINANCE ADVISOR is available tobring her. Will leave call in my basket and wait for [facility] [place] schedule to open for tomorrow afternoon. Protocol Used: Knee Pain (Adult) Protocol-Based Disposition: See in Office or Video Visit within 3 Days Video visit not offered Positive Triage Questions: * Moderate pain (e.g., symptoms interfere with work or school, limping) and present > 3 days * Swollen knee joint (no fever or redness) * Mild knee pain persists > 7 days * Patient wants to be seen * All higher-acuity triage questions were negative Care Advice Discussed: * Pain Medicines * Pain Medicines - Extra Notes and Warnings * Using Heat for Pain * Telephone Encounter - Abdirashid Rabago - 08/09/2024 10:53 AM EST Symptoms: Foot or Ankle Pain - Not From Injury, Foot or Ankle Swelling Outcome: Talk to a nurse or provider within 15 minutes Reason: Can't walk (unless normally can't walk) The caller accepted this outcome. documented in this encounter Plan of Treatment Upcoming Encounters Date Type Department Care Team (Late st Contact Info) Description 11/29/2024 1:30 PM EDT Office Visit [facility] MED & PEDS [address] [place] [address] Carie London MD [address] [place] [address] documented as of this encounter Visit Diagnoses Not on filedocumented in this encounter Care Teams Animal Pathology Teacher Relationship Specialty Start Date End Date Carie London MD [address] [place] [address] PCP - General Internal Medicine 02/23/18 [facility] 05/05/23 documented as of this encounter
--- OUTSIDE RECORDS SUMMARY | 2024-09-08 16:54 | XMS_ITS | Encounter Summary ---
Author Organization [facility] Address [address] [place] [address] Phone Care Team Providers Care County Judge Name Role Phone Lalitha Cisneros MD Primary Care Provider [phone] Encounter Details Date Type Department Care Team (Late Contact Info) Description 08/02/2024 Documentation Only [facility] [address] [place] [address] Caryl Moreno [address] [place] [address] Social History Tobacco Use Types [...] Visit [facility] [address] [place] [address] [place] Rebollar MD [address] [place] [address] [place] [address] documented as of this encounter Visit Diagnoses Not on filedocumented in this encounter Care Teams County Judge Relationship Specialty Start Date End Date Lalitha Cisneros MD [facility] [address] [place], [place] PCP - General 05/10/19 documented as of this encounter
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
--- OUTSIDE RECORDS SUMMARY | 2024-09-08 16:54 | XMS_ITS | Encounter Summary ---
Author Organization [facility] Address [address] [place] [address] Phone Care Team Providers Care Department Chair Name Role Phone Lalitha Cisneros MD Primary Care Provider [phone] Encounter Details Date Type Department Care Team (Late Contact Info) Description 07/18/2024 Documentation Only [facility] [address] [place] [address] Caryl Moreno [address] [place] [address] Social History Tobacco Use Types [...] Visit [facility] [address] [place] [address] Boston Rebollar MD [address] [place] [address] [place] [address] documented as of this encounter Visit Diagnoses Not on filedocumented in this encounter Care Teams Department Chair Relationship Specialty Start Date End Date Lalitha Cisneros MD [facility] [address] [place], [place] PCP - General 05/10/19 documented as of this encounter
--- OUTSIDE RECORDS SUMMARY | 2024-09-08 16:54 | XMS_ITS | Clinical Summary ---
Author Organization [facility], Address [address] [place] [address] [place] [address] Phone Care Team Providers Care Art Glass Setter Name Role Phone Lalitha Cisneros MD Primary Care Provider [phone] Allergies Active Allergy Reactions Criticality Noted Date Comments Acetaminophen Other (see comments) 10/31/2020 Aspirin Other (see comments) 04/24/2020 Atorvastatin Other (see comments) 07/11/2014 Other reaction(s): Other Severe Codeine Other (see comments) 07/11/2014 Other reaction(s): Other Severe Morphine Other (see comments) 07/11/2014 Other reaction(s): Other Severe Ibuprofen Other (see comments) 04/24/2020 Niacin Other (see comments) 07/11/2014 Other reaction(s): Other Severe Penicillins Other (see comments) 07/11/2014 Other reaction(s): Other Severe Sulfa Antibiotics Other (see comments) 11/01/19 21 Medications nitroglycerin (NITROSTAT) 0.4 MG SL tablet nitroglycerin 0.4 mg sublingual tablet 7 Active loratadine (CLARITIN) 10 MG tablet loratadine 10 mg tablet 5 Active isosorbide dinitrate (ISORDIL) 5 MG tablet isosorbide dinitrate 5 mg tablet 7 Active clopidogrel (PLAVIX) 75 MG tablet clopidogrel 75 mg tablet 4 Active calcium carbonate-chol ecalciferol 500-400 MG-UNIT per chewable tablet calcium carbonate 500 mg(1,250 mg)-vitamin D3 400 unit chewable tablet Active acetaminophen (TYLENOL) 325 MG tablet Take by mouth every 6 (six) hours if needed for mild pain Active omeprazole (PriLOSEC) [address] capsule Take 20 mg by mouth 1 (one) time each day Do not crush or chew. Active ezetimibe (ZETIA) 10 MG tablet 2 Active FeroSul 325 (65 Fe) MG tablet 2 Active rosuvastatin (CRESTOR) 40 MG tablet 2 Active docusate sodium (COLACE) 100 MG capsule Take 100 mg by mouth in the morning and 100 mg in the evening. Active simethicone (MYLICON,GAS-X ) 125 MG capsule Take 180 mg by mouth every 6 (six) hours if needed for flatulence Active lisinopril (PRINIVIL,ZEST RIL) 30 MG tablet Take 30 mg by mouth 1 (one) time each day 4 Active carvedilol (COREG) 12.5 MG tablet Take 1 tablet (12.5 mg total) by mouth in the morning and 1 tablet (12.5 mg total) in the evening. Take with meals. 180 tablet 3 4 03/04/20 25 Active furosemide (Lasix) 20 MG tablet Take 1 tablet (20 mg total) by mouth 1 (one) time each day 90 tablet 3 4 06/06/20 25 Active cholecalcifero l (VITAMIN D-3) 25 MCG (1000 UT) capsule Take 1 tablet by mouth 1 (one) time each day 4 Active senna-docusate (PERICOLACE) 8.6-50 MG per tablet Take 2 tablets by mouth 1 (one) time each day 4 Active Active Problems Problem Noted Date Diagnosed Date Iron deficiency anemia, not otherwise specified 02/05/2023 Stage 3b chronic kidney disease 04/26/2020 Overview (07/09/2020): Update for Diagnosis Load Anemia in chronic kidney disease 04/26/2020 Atrophy of kidney 10/20/2019 Renal mass 10/18/2019 Hypertensive disorder 07/11/2014 Resolved Problems Problem Noted Date Diagnosed Date Resolved Date Vitamin D deficiency 10/20/2019 021 Hypertensive heart disease w ithout congestive heart failure 10/18/2019 10/18/2019 History of procedure 11/07/2014 020 Overview (04/05/2024): [facility] 2014 negative Replacing diagnoses that were inactivated after the 04/05/24 Regulatory Import Anxiety 07/12/2014 10/18/2019 Bilateral osteoarthritis of knees 07/12/2014 10/18/2019 Overview (10/18/2019): [facility] referred pt to PT Blindness, both eyes 07/12/2014 020 Chronic kidney disease 07/12/201405/06 Overview (10/18/2019): Stage 3, recheck in 2014 Dyslipidemia 07/12/2014 05/06/2021 Gastroesophageal reflux disease 07/12/2014 10/18/2019 Myocardial infarction 07/12/20142019 Overview (10/18/2019): Seeing Ric Transistor Tester Osteopenia 07/12/2014 10/18/2019 Congestive heart failure 07/11/2014 Overview (10/18/2019): EF 55% Obstructive sleep apnea syndrome 07/11/2014 10/18/2019 Overview (10/18/2019): Declined Cpap, trial bipap 2014 Encounters Date Type Department Care Team Description 08/02/2024 Documentation Only [facility] [address] [place] [id number] Caryl Moreno 07/18/2024 Documentation Only [facility] [address] [place] [address] Caryl Moreno 07/18/2024 Documentation Only [facility] [address] [place] [address] Caryl Moreno from Last 3 Months Family History Medical History Relation Comments Heart disease Child 1 Cancer Child 2 daughter Heart disease Mother grandmother Hypertension Mother grandmother, gra ndfather Kidney disease Sibling 1 brother Cancer Sibling 2 brother Stroke Sibling 3 brother Relation Status Comments Child 1 Child 2 Father Unknown Mother Unknown Sibling 1 Sibling 2 Sibling 3 Social History Tobacco Use Types Packs/Day Years [...] on file Sexual Orientation Not on file Last Filed Vital Signs Vital Sign Reading Time Taken Comments Blood Pressure 162/52 03/09/2024 2:26 PM EDT Pulse 74 02/23/2018 12:00 PM EDT Temperature - - Respiratory Rate 16 02/23/2018 12:0 0 PM EDT Oxygen Saturation - - Inhaled Oxygen Concentration - - Weight 54.8 kg (120 lb 12.8 oz) 03/09/2024 2:26 PM EDT Height 142.2 cm (4' 8 ) 03/09/2024 2:26 PM EDT Body Mass Index 27.08 03/09/2024 2:26 PM EDT Plan of Treatment Upcoming Encounters Date Type Department Care Team (Late st Contact Info) Description 12/06/2024 2:00 PM EDT Office Visit [facility], [address] [place] [address] Boston Rebollar MD [address] [facility] [place] [address] Health Maintenance Due Date Last Done Comments Influenza Vaccine (#1) 2024 Pneumococcal Vaccine: 65+ Years Completed 08/13/2021, 06/24/2013 Hepatitis B Vaccine Aged Out No longe r eligible based on patient's age to complete this topic Insurance [employer] DUAL SNP ([id number]) [place] [id number] Care Teams Art Glass Setter Relationship Specialty Start Date End Date Lalitha Cisneros MD [address] PCP - General 05/10/19
--- OUTSIDE RECORDS SUMMARY | 2024-09-08 16:54 | XMS_ITS | Encounter Summary ---
Author Organization [employer] Address [address] [facility] 7t [place] [address] Care Team Providers Care Roustabout Hand Name Role Phone Carie London MD Primary Care Provider [phone] Encounter Details Date Type Department Care Team ([facility] st Contact Info) Description 03/02/2024 Orders Only [facility]S [address] [place], [place] [phone] Carie London MD [address] [place], [place] [phone] Primary hypertension (Primary Dx) Social History Tobacco Use Types Packs/Day Years [...] AM EDT documented as of this encounter Plan of Treatment Upcoming Encounters Date Type Department Care Team ([facility] st Contact Info) Description 11/29/2024 1:30 PM EDT Office Visit [facility] [address] [place] [address] Carie London MD [address] [place] [address] documented as of this encounter Visit Diagnoses Diagnosis Primary hypertension- Primary Unspecified essential hypertension documented in this encounter Care Teams Roustabout Hand Relationship Specialty Start Date End Date Carie London MD [address] [place] [address] PCP - General Internal Medicine 02/23/18 [facility] 05/05/23 documented as of this encounter
--- OUTSIDE RECORDS SUMMARY | 2024-09-08 16:54 | XMS_ITS | Encounter Summary ---
Author Organization [facility] Address [address] [place] [address] Phone Care Team Providers Care Coreroom Foundry Laborer Name Role Phone Lalitha Cisneros MD Primary Care Provider Encounter Details Date Type Department Care Team (Late Contact Info) Description 11/04/2023 Documentation Only [facility] [address] [place] [address] MichelleDenisse [address] [place] [address] Social History Tobacco Use Types [...] Visit [facility] [address] [place] [address] Boston Rebollar MD [address] [place] [address] [place] [address] documented as of this encounter Visit Diagnoses Not on filedocumented in this encounter Care Teams Coreroom Foundry Laborer Relationship Specialty Start Date End Date Lalitha Cisneros MD [address] PCP - General 05/10/19 documented as of this encounter
--- OUTSIDE RECORDS SUMMARY | 2024-09-08 16:54 | XMS_ITS | Clinical Summary ---
Demographics Address [address] [place] [address] Home Phone Mobile Phone Preferred Language Kyrgyz; Castilian Marital Status Single Jehovah'S Witness Affiliation Unknown Race White Ethnic Group or Author Organization [facility] Address [address] [place] [address] Care Team Providers Care Clinical Operations Consultant Name Role Phone Roger Albarado NP Primary Care Provider [phone] Source Comments PLEASE NOTE, if this patient is a minor, it may be UNLAWFUL to discuss sensitive information that is contained in these records (such as FAMILY PLANNING, MENTAL HEALTH or SUBSTANCE ABUSE) with the minor patient's parent or other person without the patient's specific authorization.[facility] Allergies Active Allergy Reactions Criticality Noted Date Comments Ehe-Tbcgtuhdjggjy-Ahid-Buffers Rash 07/11 Atorvastatin Other Severe 07/11/2014 Codeine Other Severe 07/11/2014 Ibuprofen Other Severe 07/11/2014 Morphine Other Severe 07/11/2014 Niacin Other Severe 07/11/2014 Penicillins Other Severe 07/11/2014 Medications carvedilol (COREG) 3.125 mg tabletIndication s:ID (myocardial infarction) ([facility]) 3.125 mg 2 (two) times daily. 4 Active clopidogrel (PLAVIX) 75 mg tabletIndication s:CAD (coronary artery disease) 75 mg once daily. 4 Active lisinopril (PRINIVIL,ZESTRI L) 40 mg tabletIndication s:HTN (hypertension) Take 40 mg by mouth once daily. 4 Active CRESTOR 40 mg tabletIndication s:Dyslipidemia 40 mg every evening. 4 Active fluticasone (FLONASE) 50 mcg/actuation nasal sprayIndications :Allergy Place 50 Sprays into the nostril(s). 4 Active Camphor-Menthol (TIGER BALM) 11-10 % creaIndications: Right foot pain Apply 1 Applicator topically 2 (two) times daily. 1 Tube 3 5 Active naphazoline (NAPHCON) 0.1 % ophthalmic solutionIndicati ons:Eye irritation Place 1 Drop into both eyes 2 (two) times daily as needed for red or irritated eye. 1 mL 3 5 Active calcium carbonate-vitami n D3 600 mg(1,500mg) -400 unit tabletIndication s:Osteopenia Take 1 Tab by mouth 3 (three) times daily with meals. 90 Tab 3 5 Active esomeprazole (NEXIUM) [address] capsuleIndicatio ns:Gastroesophag eal reflux disease without esophagitis Take 1 Cap by mouth every morning before breakfast. 30 Cap 3 5 Active loratadine (CLARITIN) 10 mg tabletIndication s:Allergy, subsequent encounter Take 1 Tab by mouth once daily. 90 Tab 3 5 Active neomycin-polymyx in-hydrocortison e (CORTISPORIN) 3.5-10,000-1 mg/mL-unit/mL-% otic suspensionIndica tions:External otitis of right ear Place 5 Drops into the right ear 4 (four) times daily. 10 mL 1 5 Active Active Problems Problem Noted Date Diagnosed Date Hx of mammogram 11/07/2014 Overview (11/07/2014): [facility] 2014 negative Back pain 10/22/2014 Overview (10/22/2014): [facility] 2014. Bilateral hips normal. Lumbosacral: 1. There is mild degenerative disc disease at L3-4 2. Multi-level mild lumbar spondylosis 3. Bilateral facet arthropathy, most pronounced at L4-5 and L5-S1 Osteopenia 07/12/2014 Anxiety 07/12/2014 Blindness of both eyes 07/12/2014 CKD (chronic kidney disease) 07/12/2014 Overview (07/20/2014): Stage 3, recheck in 2014 Dyslipidemia 07/12/2014 GERD (gastroesophageal reflux disease) 5 ID (myocardial infarction) ([facility]) 07/12/2014 Osteoarthritis of both knees 07/12/2014 Overview (12/03/2014): Arthritis treatment center referred pt to PT Allergy 07/12/2014 Routine gynecological examination 07/12/2014 Overview (07/12/2014): - Seeing SPECIMEN TRANSPORTER [facility] 12/2013, follow up in one year PAUL (obstructive sleep apnea) 07/11/2014 Overview (03/26/2015): Declined Cpap, trial bipap 2014 HTN (hypertension) 07/11/2014 CAD (coronary artery disease) 07/11/2014 Overview (03/15/2015): Seeing [facility] Maintenance Mechanic [employer] CHF (congestive heart failure) ([facility]) 015 Overview (07/12/2014): EF 55% Family History Medical History Relation Name Comments Diabetes Father Relation Name Status Comments Father Social History Tobacco Use Types Packs/Day Years Used Date Smoking Tobacco: Former Smokeless Tobacco: Former Alcohol Use Standard Drinks/Week Comments No 0 (1 standard drink = 0.6 oz pur e alcohol) Social Connections Answer Date Recorded Social Connections and Isolation 0 02/27/2019 Financial Resource Strain Answer Date R ecorded Financial Resource Strain 0 2018 Stress Answer Date Recorded Stress 0 02/27/2019 Physical Activity Answer Date Recorded Physical Activity 0 02/27/2019 Food Insecurity Answer Date Recorded Food 0 02/27/2019 Transportation Needs Answer Date Record ed Transportation 0 02/27/2019 Housing Stability Answer Date Recorded Housing 0 02/27/2019 Safety and Environment Answer Date Ajit rded Safety 0 02/27/2019 Utilities Answer Date Recorded Utilities 0 02/27/2019 Employment Answer Date Recorded Employment 0 02/27/2019 Comments No Sex and Gender Information Value Date Recorded Sex Assigned at Not on file Legal Sex Female 9:01 AM PDT Gender Identity Not on file Sexual Orientation Not on file Last Filed Vital Signs Vital Sign Reading Time Taken Comments Blood Pressure 118/68 03/15/2015 1:44 PM EDT Pulse 68 03/15/2015 1:44 PM EDT Temperature 37.1 ??C (98.7 ??F) 03/15/2015 1:44 PM ED T Respiratory Rate 16 03/15/2015 1:44 PM EDT Oxygen Saturation - - Inhaled Oxygen Concentration - - Weight 61.2 kg (135 lb) 03/15/2015 1:44 PM EDT Height 142.2 cm (4' 8 ) 03/15/2015 1:44 PM EDT Body Mass Index 30.27 03/15/2015 1:44 PM EDT Plan of Treatment Not on file Goals Goal Patient Goal Type Associated Problems Recent Progress Patient-Stated? Author Have 3 meals a day Diet No Nyasia Nicolas RD Reduce portion size Diet No Nyasia Nicolas RD Plan meals Lifestyle No Nyasia Nicolas RD Insurance [facility] Member Subscriber Plan / Payer ( fective 2014-Present) Name:Beatriz Navarro Relation to Subscriber:Self Name:Beatriz Navarro Payer ID:[id number] Group ID:Not on file Type:Indemnity Address: [address] [place] [address] [place] MED[place] Care Teams Clinical Operations Consultant Relationship Specialty Start Date End Date Roger Albarado NP [address] [place] [address] PCP - General 05/13/18
--- OUTSIDE RECORDS SUMMARY | 2024-09-08 16:54 | XMS_ITS | Encounter Summary ---
Author Organization [facility] Address [address] [place] [address] Phone Care Team Providers Care Laundry Aid Name Role Phone Lalitha Cisneros MD Primary Care Provider [phone] Encounter Details Date Type Department Care Team (Late Contact Info) Description 07/18/2024 Documentation Only [facility] [address] [place] [address] Caryl Moreno [address] [place] [address] Social History Tobacco Use Types [...] Visit [facility] [address] [place] [address] Boston Rebollar MD [address] [place] [address] [place] [address] documented as of this encounter Visit Diagnoses Not on filedocumented in this encounter Care Teams Laundry Aid Relationship Specialty Start Date End Date Lalitha Cisneros MD [facility] [address] [place], [place] PCP - General 05/10/19 documented as of this encounter
--- OUTSIDE RECORDS SUMMARY | 2024-09-08 16:55 | XMS_ITS | Encounter Summary ---
Author Organization [facility] Address [address] [place] [address] Phone Care Team Providers Care Animal Physiologist Name Role Phone Lalitha Cisneros MD Primary Care Provider [phone] Encounter Details Date Type Department Care Team (Late Contact Info) Description 02/06/2023 Documentation Only [facility] [address] [place] [address] Caryl Moreno [address] [place] [address] Social History Tobacco Use Types [...] Visit [facility] [address] [place] [address] Boston Rebollar MD [address] [place] [address] [place] [address] documented as of this encounter Visit Diagnoses Not on filedocumented in this encounter Care Teams Animal Physiologist Relationship Specialty Start Date End Date Lalitha Cisneros MD [facility] [address] [place], [place] PCP - General 05/10/19 documented as of this encounter
--- OUTSIDE RECORDS SUMMARY | 2024-09-08 16:55 | XMS_ITS | Encounter Summary ---
Author Organization [facility] Address [address] [place] [address] Phone Care Team Providers Care Running Instructor Name Role Phone Lalitha Cisneros MD Primary Care Provider [phone] Encounter Details Date Type Department Care Team (Late Contact Info) Description 11/29/2021 Documentation Only [facility] [address] [place] [address] Boston Rebollar MD [address] [place] [address] [place] [address] Social History Tobacco Use Types [...] Visit [facility] [address] [place] [place] [address] Boston Rebollar MD [address] [facility] [place] [address] documented as of this encounter Visit Diagnoses Not on filedocumented in this encounter Care Teams Running Instructor Relationship Specialty Start Date End Date Lalitha Cisneros MD [address], [place] PCP - General 05/10/19 documented as of this encounter
--- OUTSIDE RECORDS SUMMARY | 2024-09-08 16:55 | XMS_ITS | Encounter Summary ---
Author Organization [employer] Address [address] [facility] 7 [place] [address] Care Team Providers Care Film Washer Name Role Phone Carie London MD Primary Care Provider [phone] Reason for Visit * Reason Onset Date Comments Medication Question 02/09/2024 Encounter Details Date Type Department Care Team (Late st Contact Info) Description 02/09/2024 Telephone [facility] [address] [place] [address] Carie London MD [address] [place] [address] Medication Question Social History Tobacco Use Types Packs/Day Years Used Date Smoking Tobacco: Never Smokeless Tobacco: Never Comments Unknown Sex and Gender Information Value Date Recorded Sex Assigned at Female 05/05/2022 10:16 AM EDT Legal Sex Female 10:16 AM EDT Gender Identity Female 05/05/2022 10:16 AM EDT Sexual Orientation Straight 05/05/2022 10 :16 AM EDT documented as of this encounter Miscellaneous Notes * Telephone Encounter - Anna Thompson RN - 02/09/2024 3:47 PM EDT Returned call to [facility] regarding message below. Informed pharmacy that senokot is to replace colace. Pharmacy verbalized understanding and agrees with plan. * Telephone Encounter - Abraham Franco - 02/09/2024 2:28 PM EDT Tc from [facility] requesting clarification on senna-docusate sodium (Senokot- S) 8.6-50 MG tablet. Pt is already on docusate sodium (Colace) 100 MG capsule so [facility] wanted to clarify if pt will be taking new script. Please contact [facility] at [phone]. documented in this encounter Plan of Treatment Upcoming Encounters Date Type Department Care Team ([facility] st Contact Info) Description 11/29/2024 1:30 PM EDT Office Visit [facility] MED & PEDS [address] [place] [address] Carie London MD [address] [place] [address] documented as of this encounter Visit Diagnoses Not on filedocumented in this encounter Care Teams Film Washer Relationship Specialty Start Date End Date Carie London MD [address] [place] [address] PCP - General Internal Medicine 02/23/18 [facility] 05/05/23 documented as of this encounter
--- OUTSIDE RECORDS SUMMARY | 2024-09-08 16:55 | XMS_ITS | Encounter Summary ---
Author Organization [employer] Address [address] [facility] 7 [place] [address] Care Team Providers Care Efficiency Manager Name Role Phone Carie London MD Primary Care Provider [phone] Reason for Visit * Reason Onset Date Comments CHART PREP 08/26/2024 Encounter Details Date Type Department Care Team ([facility] st Contact Info) Description 08/26/2024 Telephone [facility]S [address] [place], [place] [phone] Carie London MD [address] [place] [address] CHART PREP Social History Tobacco Use Types Packs/Day Years [...] encounter Miscellaneous Notes * Telephone Encounter - Francisco Powers [place] - 08/26/2024 2:04 PM EST Chart Prep Labs: done Images: done Vaccines due: yes Referrals: complete Screenings: Overdue care gaps: Sbirt, SDOH, PHQ-9 documented in this encounter Plan of Treatment Upcoming Encounters Date Type Department Care Team (Late st Contact Info) Description 11/29/2024 1:30 PM EDT Office Visit [facility] [address] [place] [address] Carie London MD [address] [place] [address] documented as of this encounter Visit Diagnoses Not on filedocumented in this encounter Care Teams Efficiency Manager Relationship Specialty Start Date End Date Carie London MD [address] [place] [address] PCP - General Internal Medicine 02/23/18 [facility] 05/05/23 documented as of this encounter
--- OUTSIDE RECORDS SUMMARY | 2024-09-08 16:55 | XMS_ITS | Encounter Summary ---
Author Organization [facility], Address [address] [place] [address] Phone Care Team Providers Care Director Child Development Center Name Role Phone Lalitha Cisneros MD Primary Care Provider [phone] Encounter Details Date Type Department Care Team (Late Contact Info) Description 02/04/2023 Documentation Only [facility] [address] [place] [phone] Boston Rebollar MD [address] [facility] [address] [place] [address] Social History Tobacco Use Types [...] Visit [facility] [address] [place] [address] Boston Rebollar MD [address] [place] [address] documented as of this encounter Visit Diagnoses Not on filedocumented in this encounter Care Teams Director Child Development Center Relationship Specialty Start Date End Date Lalitha Cisneros MD [address] [facility] [place] PCP - General 05/10/19 documented as of this encounter
--- OUTSIDE RECORDS SUMMARY | 2024-09-08 16:55 | XMS_ITS | Encounter Summary ---
Author Organization [employer] Address [address] [place] [address] 7 [place] [address] Care Team Providers Care Metal Tank Erector Name Role Phone Carie London MD Primary Care Provider [phone] Reason for Referral * Consultation (Routine) - Closed Specialty Diagnoses / Procedures Referred By Sussy vargas Referred To Contact Physical Therapy Diagnoses Other secondary osteoarthritis of both knees Carie London MD [address] [place] [address] Phone: tel: fax: [facility] [address] [place] [address] Phone: tel: fax: Referral ID Status Reason Start Date Expiration Date V isits Requested Visits Authorized [id number] Closed Specialty Services Required 08/29/2024 08/29/2025 1 1 * Imaging (Routine) - Pending Review Specialty Diagnoses / Procedures Referred By Sussy vargas Referred To Contact Cardiology Diagnoses Primary hypertension Chronic congestive heart failure, unspecified heart failure type (CMS/HCC) Procedures Transthoracic Echo (TTE) Complete Carie London MD [address] [place] [address] Phone: tel: fax: [address] Phone: tel: fax: Referral ID Status Reason Start Date Expiration Date Visits Requested Visits Authorized [id number] Pending Review Perform Procedure 08/29/2024 08/29/2025 1 1 Reason for Visit * Reason Comments Hypertension Encounter Details Date Type Department Care Team (Latest Contact Info) Description 08/29/2024 1:45 PM EST Office Visit [facility] MED & PEDS [address] [place] [address] Carie London MD [address] [place] [address] Primary hypertension (Primary Dx); Chronic congestive heart failure, unspecified heart failure type (CMS/HCC); Dyslipidemia; Atrophy of kidney; Other secondary osteoarthritis of both knees Social History Tobacco Use Types Packs/Day Years Used Date Smoking Tobacco: Never Smokeless Tobacco: Never Depression Answer Date Recorded Patient Health Questionnaire-9 Score 0 08/29/2024 Patient Health Questionnaire-9 Score 0 08/29/2024 Last PHQ-9: Questionnaire Data Not on file 0 08/29/2024 Housing Stability Answer Date Recorded What is [...] off services in your home? No 02/18/2024 Depression Answer Date Recorded Patient Health Questionnaire-2 Score 0 08/29/2024 Internet Access Answer Date Recorded Internet Access Q1 Yes 03/04/2024 Internet Access Q2 Not on file 03/04/2024 Comments Unknown Sex and Gender Information Value Date Recorded Sex Assigned at Female 05/05/2022 10:16 AM EDT Legal Sex Female 10:16 AM EDT Gender Identity Female 05/05/2022 10:16 AM EDT Sexual Orientation Straight 05/05/2022 10 :16 AM EDT documented as of this encounter Last Filed Vital Signs Vital Sign Reading Time Taken Comments Blood Pressure 154/60 08/29/2024 1:59 PM EST Pulse 72 08/29/2024 1:59 PM EST Temperature 36.8 ??C (98.2 ??F) 08/29/2024 1:59 PM ES T Respiratory Rate 18 08/29/2024 1:59 PM EST Oxygen Saturation 99% 08/29/2024 1:59 PM EST Inhaled Oxygen Concentration - - Weight 55.1 kg (121 lb 6.4 oz) 08/29/2024 1:59 P M EST Height 142.2 cm (4' 8 ) 08/29/2024 1:59 PM EST Body Mass Index 27.22 08/29/2024 1:59 PM EST documented in this encounter Progress Notes * Carie London MD - 08/29/2024 1:45 PM EST Subjective Patient ID: Beatriz Navarro is a 79 y.o. female who presents for Hypertension. Hypertension Pertinent negatives include no shortness of breath. Patient claims compliance to her current medication. Denies any shortness of breath/chest pain. States that she was evaluated by her hair boiler 1 year ago. History of chronic bilateral knee pain due to osteoarthritis. Offered physical therapy in the past which patient declined. 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 CHF (congestive heart failure) ([facility]) Dyslipidemia Eczema GERD (gastroesophageal reflux disease) H/O heart artery stent Hyperlipidemia Hypertension Irritant contact dermatitis due to cosmetics NH (myocardial infarction) ([facility]) Mood disorder ([facility]) Current Outpatient Medications on File Prior to Visit Medication Sig Dispense Refill acetaminophen (Tylenol) 325 MG tablet TAKE 2 TABLETS BY MOUTH EVERY EVENING 60 tablet 2 albuterol (Ventolin HFA) 108 (90 Base) MCG/ACT inhaler Inhale 2 puffs every 6 (six) hours if neededfor wheezing. 18 g 2 ammonium lactate (Lac-Hydrin) 12 % lotion Apply daily to all skin 500 g 11 Blood Pressure kit To use daily. Pt is blind. Needs a talking blood pressure BP monitor. 1 kit 0 carvedilol (Coreg) 3.125 MG tablet Take 1 tablet (3.125 mg) by mouth with breakfast and with evening meal. 60 tablet 11 cholecalciferol (Vitamin D-3) 25 MCG (1000 UT) capsule TAKE 1 CAPSULE BY MOUTH EVERY DAY 30 capsule5 clopidogrel (Plavix) 75 MG tablet TAKE 1 TABLET BY MOUTH EVERY MORNING 30 tablet 5 Diclofenac Sodium 1 % gel To apply 4 times a day 100 g 2 docusate sodium (Colace) 100 MG capsule TAKE 1 CAPSULE BY MOUTH TWICE DAILY 60 capsule 5 ferrous sulfate 325 (65 Fe) MG tablet TAKE 1 TABLET BY MOUTH EVERY DAY 30 tablet 5 hydrocortisone 1 % lotion Apply to affected areas once daily 96 g 0 isosorbide dinitrate (Isordil) 5 MG tablet TAKE 1 TABLET BY MOUTH TWICE A DAY AT 8AM AND 3PM. 60 tablet 5 lisinopril (Zestril) 30 MG tablet Take 1 tablet (30 mg) by mouth Once per day. 30 tablet 11 loratadine (Claritin) 10 MG tablet TAKE 1 TABLET BY MOUTH EVERY DAY 30 tablet 11 nitroglycerin (Nitrostat) 0.[address] 1 tablet (0.4 mg) under the tongue every 5 (five) minutes if needed for chest pain. 30 tablet 1 omeprazole (PriLOSEC) [address] capsule TAKE 1 CAPSULE BY MOUTH EVERY DAY BEFORE BREAKFAST. DO NOT CRUSH OR CHEW. 30 capsule 5 rosuvastatin (Crestor) 40 MG tablet TAKE 1 TABLET BY MOUTH AT BEDTIME 30 tablet 5 senna-docusate sodium (Senokot-S) 8.6-50 MG tablet TAKE 2 TABLETS BY MOUTH EVERY DAY 60 tablet 11 simethicone (Mylicon,Gas-X) 125 MG capsule Take 180 mg by mouth every 6 (six) hours if needed. No current facility-administered medications on file prior to visit. No Known Allergies Review of Systems Constitutional: Negative for appetite change, chills and diaphoresis. Eyes: Negative for pain, redness and itching. Respiratory: Negative for cough and shortness of breath. Genitourinary: Negative for enuresis and flank pain. Musculoskeletal: Positive for arthralgias. Objective BP (!) 154/60 (BP Location: Right arm, Patient Position: Sitting, BP Cuff Size: Large adult) Pulse 72 Temp 98.2 ??F (36.8 ??C) (Oral) Resp 18 Ht 4' 8 (1.422 m) Wt 121 lb 6.4 oz (55.1 kg) SpO2 99% BMI 27.22 kg/m?? Physical Exam Constitutional: General: She is not in acute distress. Appearance: Normal appearance. She is not ill-appearing, toxic-appearing or diaphoretic. Cardiovascular: Rate and Rhythm: Normal rate. Pulmonary: Effort: Pulmonary effort is normal. Musculoskeletal: Cervical back: Normal range of motion. Right knee: Tenderness present. Left knee: Tenderness present. Neurological: General: No focal deficit present. Mental Status: She is alert. Assessment/Plan Diagnoses and all orders for this visit: Primary hypertension Comments: Elevated BP Lisinopril dose increased to 40 mg once a day BP check at home. Keep the log for the next visit. DASH diet Pt will be call in a week to find out if the bp is controlled Orders: - lisinopril 40 MG tablet; Take 1 tablet (40 mg) by mouth Once per day. - Transthoracic Echo (TTE) Complete; Future Chronic congestive heart failure, unspecified heart failure type (CMS/HCC) Comments: Echocardiogram ordered. Patient will be contacted with results. Orders: - Transthoracic Echo (TTE) Complete; Future Dyslipidemia Low-cholesterol diet Continue with Crestor 40 mg once a day Atrophy of kidney Comments: Follow-up with nephrology Other secondary osteoarthritis of both knees - Referral to Physical Therapy; Future documented in this encounter Plan of Treatment Upcoming Encounters Date Type Department Care Team (Late st Contact Info) Description 11/29/2024 1:30 PM EDT Office Visit [facility] & PEDS [address] [place] [address] Carie London MD [address] [place] [address] Scheduled Orders Name Type Priority Associated Diagnoses Orde r Schedule Transthoracic Echo (TTE) Complete Echocardiography Routine Primary hypertension Chronic congestive heart failure, unspecified heart failure type (CMS/HCC) Expected: 08/29/2024 (Approximate), Expires: 08/29/2026 Scheduled Referrals Name Type Priority Associated Diagnoses Orde r Schedule Referral to Physical Therapy Outpatient Referral Routine Other secondary osteoarthritis of both knees Expected: 08/29/2024 (Approximate), Expires: 08/29/2025 documented as of this encounter Procedures Procedure Name Priority Date/Time Associated Diagnosis Comments ECG 12-LEAD Routine 08/29/2024 4:48 PM EST Primary hypertension Dyslipidemia documented in this encounter Results * ECG 12 lead (08/29/2024 4:48 PM EST) Narrative Carie London MD - 08/29/2024 4:48 PM EST Heart rate 71 bpm. ??[place] 44 degrees. ??First-degree AV block. ??Sinus rhythm. ??T wave inversion in 2 3 aVF. ??No sign of left atrial enlargement/right atrial enlargement. ??No sign of hypertrophy. ??No ST elevation or depression. ??Marked mid precordial repolarization disturbance. ??Possible ischemia. us Carie London MD ECG ORDERABLES Final Resul t documented in this encounter Visit Diagnoses Diagnosis Primary hypertension- Primary Unspecified essential hypertension Chronic congestive heart failure, unspecified heart failure type (CMS/HCC) Dyslipidemia Other and unspecified hyperlipidemia Atrophy of kidney Unspecified renal sclerosis Other secondary osteoarthritis of both knees documented in this encounter Additional Health Concerns Assessment Noted Time PHQ-9 Depression Total Score: 0 08/29/19 25 2:00 PM EST documented as of this encounter Care Teams Metal Tank Erector Relationship Specialty Start Date End Date Carie London MD [address] [place] [address] PCP - General Internal Medicine 02/23/18 [facility] 05/05/23 documented as of this encounter
--- OUTSIDE RECORDS SUMMARY | 2024-09-08 16:55 | XMS_ITS | Encounter Summary ---
Author Organization [facility] Address [address] [place] [address] Phone Care Team Providers Care Womens Volleyball Coach Name Role Phone Lalitha Cisneros MD Primary Care Provider [phone] Encounter Details Date Type Department Care Team (Late Contact Info) Description 02/04/2023 Documentation Only [facility] [address] [place] [address] Alesha Josue PA Social History Tobacco Use Types Packs/Day Years [...] [facility] [address] [place] [address] [place] Rebollar MD [address] [place] [address] [place] [address] documented as of this encounter Visit Diagnoses Not on filedocumented in this encounter Care Teams Womens Volleyball Coach Relationship Specialty Start Date End Date Lalitha Cisneros MD [address] PCP - General 05/10/19 documented as of this encounter
--- OUTSIDE RECORDS SUMMARY | 2024-09-08 16:55 | XMS_ITS | Encounter Summary ---
Author Organization [facility] Address [address] [place] [address] Phone Care Team Providers Care Geological Engineering Teacher Name Role Phone Lalitha Cisneros MD Primary Care Provider [phone] Encounter Details Date Type Department Care Team (Late Contact Info) Description 02/06/2023 Documentation Only [facility] [address] [place] [address] Alesha Josue PA Social History [...] Visit [facility] [address] [place] [address] [place] Rebollar MD [address] [place] [address] [place] [address] documented as of this encounter Visit Diagnoses Not on filedocumented in this encounter Care Teams Geological Engineering Teacher Relationship Specialty Start Date End Date Lalitha Cisneros MD [address] PCP - General 05/10/19 documented as of this encounter
--- OUTSIDE RECORDS SUMMARY | 2024-09-08 16:55 | XMS_ITS | Encounter Summary ---
Author Organization [facility] Address [address] [place] [address] Phone Care Team Providers Care School Librarian Name Role Phone Lalitha Cisneros MD Primary Care Provider [phone] Encounter Details Date Type Department Care Team (Late Contact Info) Description 08/07/2022 Documentation Only [facility] [address] [place] [address] Alesha Josue PA Social History [...] Visit [facility] [address] [place] [address] [place] Rebollar MD [address] [place] [address] [place] [address] documented as of this encounter Visit Diagnoses Not on filedocumented in this encounter Care Teams School Librarian Relationship Specialty Start Date End Date Lalitha Cisneros MD [address] PCP - General 05/10/19 documented as of this encounter
--- OUTSIDE RECORDS SUMMARY | 2024-09-08 16:55 | XMS_ITS | Encounter Summary ---
Author Organization [employer] Address [address] [facility] 7 [place] [address] Care Team Providers Care Stitch Burnisher Name Role Phone Carie London MD Primary Care Provider [phone] Reason for Visit * Reason Onset Date Comments Call Back Request 12/17/2023 Encounter Details Date Type Department Care Team ([facility] st Contact Info) Description 12/17/2023 Telephone [facility] MEDICINE [address] [place] [address] Carie London MD [address] [place], [place] [phone] Call Back Request Social History Tobacco Use Types Packs/Day [...] encounter Miscellaneous Notes * Telephone Encounter - Wing Milady RN - 12/24/2023 3:49 PM EDT Tc to pt using [email or web address] [place], [place] [id number]. Pt inquired about [employer] order for supplies of wipes, gloves, pads, cane, scale, and socks. Caller found message train from 11/19 regarding these supplies. Spoke to Shira about this and confirmed that the wipes, gloves, and pads were setto be shipped to pt either tomorrow, 12/24, or Thursday, 12/27. The cane and scale were to be ordered by Shira as no documentation of it sent to Ben. As for the compression socks, spoke to PCPwho said pt needs appt to be assessed. Gave pt appt for 02/22 at 2 pm with PCP. Pt verbalized understanding and agreement with plan. * Telephone Encounter - Divina Duff - 12/17/2023 1:06 PM EDT Tc from pt requesting a call back, pt have multiple questions in regards different toughs. Icelandic speaker documented in this encounter Plan of Treatment Upcoming Encounters Date Type Department Care Team (Late st Contact Info) Description 11/29/2024 1:30 PM EDT Office Visit [facility] [address] [place] [address] Carie London MD [address] [place] [address] documented as of this encounter Visit Diagnoses Not on filedocumented in this encounter Care Teams Stitch Burnisher Relationship Specialty Start Date End Date Carie London MD [address] [place] [address] PCP - General Internal Medicine 02/23/[address] [facility] 05/05/23 documented as of this encounter
--- OUTSIDE RECORDS SUMMARY | 2024-09-08 16:55 | XMS_ITS | Encounter Summary ---
Author Organization [employer] Address [address] [facility] 7 [place] [address] Care Team Providers Care Saturator Name Role Phone Carie London MD Primary Care Provider [phone] Reason for Visit * Reason Onset Date Comments Reschedule 10/21/2023 Encounter Details Date Type Department Care Team (Late Contact Info) Description 10/21/2023 Telephone [facility] MEDICINE [address] [place] [address] Carie London MD [address] [place], [place] [phone] Reschedule Social History Tobacco Use Types Packs/Day Years [...] encounter Miscellaneous Notes * Telephone Encounter - Divina Duff - 10/21/2023 3:58 PM EDT Tc from pt requesting r/s appt with PCP, rewriter offer multiple spaces however pt stated are to late. Please contact pt in kyrgyz documented in this encounter Plan of Treatment Upcoming Encounters Date Type Department Care Team ([facility] Contact Info) Description 11/29/2024 1:30 PM EDT Office Visit [facility] MED & PEDS [address] [place] [address] Carie London MD [address] [place] [address] documented as of this encounter Visit Diagnoses Diagnosis Gastroesophageal reflux disease without esophagitis Esophageal reflux CAD in [place] artery documented in this encounter Care Teams Saturator Relationship Specialty Start Date End Date Carie London MD [address] [place] [address] PCP - General Internal Medicine 02/23/18 [facility] 05/05/23 documented as of this encounter
--- OUTSIDE RECORDS SUMMARY | 2024-09-08 16:55 | XMS_ITS | Encounter Summary ---
Author Organization [employer] Address [address] [facility] 7 [place] [address] Care Team Providers Care Assembler Body Name Role Phone Carie London MD Primary Care Provider [phone] Reason for Visit * Reason Onset Date Comments Med Refill 09/08/2024 Encounter Details Date Type Department Care Team ([facility] st Contact Info) Description 09/08/2024 Refill [facility] MEDICINE [address] [place] [address] Carie London MD [address] [place] [address] Social History Tobacco Use Types Packs/Day Years [...] encounter Miscellaneous Notes * Telephone Encounter - Christy Anne - 09/08/2024 2:27 PM EST TC from pt requesting medication refill. Medications needing refill : acetaminophen (Tylenol) 325 MG tablet To be sent to: [facility] [address] [place] [address] documented in this encounter Plan of Treatment Upcoming Encounters Date Type Department Care Team (Late st Contact Info) Description 11/29/2024 1:30 PM EDT Office Visit [facility]C MED & PEDS [address] [place] [address] Carei London MD [address] [place] [address] documented as of this encounter Visit Diagnoses Not on filedocumented in this encounter Additional Health Concerns Assessment Noted Time PHQ-9 Depression Total Score: 0 08/29/19 25 2:00 PM EST documented as of this encounter Care Teams Assembler Body Relationship Specialty Start Date End Date Carie London MD [address] [place] [address] PCP - General Internal Medicine 02/23/18 [facility] 05/05/23 documented as of this encounter
--- OUTSIDE RECORDS SUMMARY | 2024-09-08 16:55 | XMS_ITS | Encounter Summary ---
Author Organization [employer] Address [address] [facility] 7t [place] [address] Care Team Providers Care Transformer Maker Name Role Phone Carie London MD Primary Care Provider [phone] Encounter Details Date Type Department Care Team (Latest Contact Info) Description 08/29/2024 Travel Social History Tobacco Use Types Packs/Day Years Used Date Smoking Tobacco: Never Smokeless Tobacco: Never Depression Answer Date Recorded Patient Health Questionnaire-9 Score 0 08/29/2024 Patient Health Questionnaire-9 Score 0 08/29/2024 Last PHQ-9: Questionnaire Data Not on file 0 08/29/2024 Housing Stability Answer Date Recorded What is your housing situation today? I have marixaoziel darling 02/18/[address] you [...] 1:30 PM EDT Office Visit [facility] MED [facility] PEDS [address] [place] [address] Carie London MD [address] [place] [address] documented as of this encounter Visit Diagnoses Not on filedocumented in this encounter Additional Health Concerns Assessment Noted Time PHQ-9 Depression Total Score: 0 08/29/19 25 2:00 PM EST documented as of this encounter Care Teams Transformer Maker Relationship Specialty Start Date End Date Carie London MD [address] [place] [address] PCP - General Internal Medicine 02/23/18 [facility] 05/05/23 documented as of this encounter
--- OUTSIDE RECORDS SUMMARY | 2024-09-08 16:55 | XMS_ITS | Encounter Summary ---
Author Organization [employer] Address [address] [place] [address] 7 [place] [address] Care Team Providers Care Oceanologist Name Role Phone Carie London MD Primary Care Provider [phone] Encounter Details Date Type Department Care Team (Late Contact Info) Description 11/09/2023 Orders Only [facility] [address] [place] [address] Carie London MD [address] [place], [place] [phone] Primary hypertension (Primary Dx); Congestive heart failure, unspecified HF chronicity, unspecified heart failure type (CMS/HCC) Social History Tobacco Use Types Packs/Day Years [...] [facility] [address] [place], [place] [phone] Carie London MD [address] [place] [address] documented as of this encounter Procedures Procedure Name Priority Date/Time Associated Diagnosis Comments TSH W/REFLEX TO FT4 Routine 02/19/2024 1 0:02 AM EDT Primary hypertension Congestive heart failure, unspecified HF chronicity, unspecified heart failure type (CMS/HCC) CBC WITH AUTO DIFFERENTIAL Routine 02/19/2024 10:02 AM EDT Primary hypertension Congestive heart failure, unspecified HF chronicity, unspecified heart failure type (CMS/HCC) LIPID PANEL, STANDARD Routine 02/19/2024 10:02 AM EDT Primary hypertension Congestive heart failure, unspecified HF chronicity, unspecified heart failure type (CMS/HCC) COMPREHENSIVE METABOLIC PANEL Routine 02/19/2024 10:02 AM EDT Primary hypertension Congestive heart failure, unspecified HF chronicity, unspecified heart failure type (CMS/HCC) documented in this encounter Results * Lipid Panel, Standard (02/19/2024 10:02 AM EDT) Triglycerides 102 <150 mg/dL [facility] Comment:Desirable Triglyceri de: less than 150 mg/dLBorderline High Triglyceride 150-199 mg/dLHigh Triglyceride: 200-499 mg/dLVery High Triglyceride: greater than or equal to 5OO mg/dL Cholesterol 158 <200 mg/dL [facility] Comment:Desirable Cholestero l: less than 200 mg/dLBorderline High Cholesterol: 200-239 mg/dLHigh Cholesterol: greater than 239 mg/dL LDL Cholesterol Calculated 95 <100 mg/dL [facility] Comment:Desirable LDL: less than 100 mg/dLNear Optimal/Above Optimal LDL: 110- 129 mg/dLBorderline High LDL: 130-159 mg/dLHigh LDL: 160-189 mg/dLVery High LDL: greater than or equal to 190 mg/dL HDL Cholesterol 43 >40 mg/dL [facility] Comment:Desirable HDL: great er than 40 mg/dL Note: This HDL assay may give artificially low results in patients with liver disease. Blood Venous blood specimen / Unknown 02/19/2024 10:02 AM EDT 02/19/2024 10:02 AM EDT us Thevenin Beauzile MD LAB BLOOD ORDERABLES Final Result [facility] [address], [place] [phone] * (ABNORMAL) CBC auto differential (02/19/2024 10:02 AM EDT) White Blood Count 6.9 4.8 - 10.8 X10*3/uL [facility] Red Blood Count 3.66(L) 4.20 - 5.50 X10*6/uL [facility] Hemoglobin 11.1(L) 12.0 - 16.0 g/dl [facility] Hematocrit 33.4(L) 37.0 - 47.0 % [facility] Mean Corpuscular Volume 91.3 80.0 - 98.0 fL [facility] Mean Corpuscular Hemoglobin 30.3 27.0 - 33.0 pg [facility] Mean Corpuscular HGB Conc 33.2 31.0 - 35.0 g/dl [facility] Red Cell Distribution Width 13.2 11.0 - 16.0 % [facility] Platelet Count 215 160 - 400 X10*3/uL [facility] Mean Platelet Volume 11.8 9.4 - 12.3 fL [facility] Neutrophils Percent Auto 53.6 45 - 73 % [facility] Imm Gran Pct Auto 0.3 0.0 - 0.4 % [facility] Lymphocytes Percent Auto 33.0 20 - 40 % [facility] Monocytes Percent Auto 10.5 2 - 11 % [facility] Eosinophils Percent Auto 1.7 0 - 4 % [facility] Basophils Percent Auto 0.9 0 - 2 % [facility] NRBC Pct Auto 0.0 0.0 - 0.2 /100WBC [facility] Neutrophils Absolute Auto 3.7 2.0 - 8.3 x10*3/uL [facility] Imm Gran Abs Auto 0.02 0.00 - 0.03 X10*3/uL [facility] Lymphocytes Absolute Auto 2.3 1.2 - 4.9 X10*3/uL [facility] Monocytes Absolute Auto 0.7 0.1 - 1.2 X10*3/uL [facility] Eosinophils Absolute Auto 0.1 0.0 - 0.4 X10*3/uL [facility] Basophils Absolute Auto 0.1 0.0 - 0.2 X10*3/uL [facility] NRBC Abs Auto 0.000 0.0 - 0.012 X10*3/uL [facility] Blood Venous blood specimen / Unknown 02/19/2024 10:02 AM EDT 02/19/2024 10:02 AM EDT us Carie London MD LAB BLOOD ORDERABLES Final Result Performing Organization Address [facility]/ZIP Co de Phone Number [facility] [address] [place] [phone] * TSH W/Reflex to FT4 (02/19/2024 10:02 AM EDT) TSH reflex Free T4 1.48 0.32 - 4.0 uIU/mL [facility] Blood Venous blood specimen / Unknown 02/19/2024 10:02 AM EDT 02/19/2024 10:02 AM EDT us Carie London MD LAB BLOOD ORDERABLES Final Result Performing Organization Address City/[facility]/ZIP Co de Phone Number [facility] [address] [place] [phone] * (ABNORMAL) Comprehensive Metabolic Panel (02/19/2024 10:02 AM EDT) Sodium 143 135 - 145 mmol/L [facility] Potassium 4.0 3.3 - 5.1 mmol/L [facility] Chloride 110(H) 96 - 108 mmol/L [facility] Carbon Dioxide 27 22 - 29 mmol/L [facility] Anion Gap 10(L) 12 - 20 [facility] Urea Nitrogen (BUN) 27(H) 9 - 16 mg/dL [facility] Creatinine, Serum 1.40 0.5 - 1.4 mg/dL [facility] Estimated Glomerular Filt Rate 37 [facility] Comment:NOTE: For -Am erican individuals, multiply the result by 1.210.Chronic Kidney Disease: Estimated GFR < 60 mL/min/1.76e4Pyhrte Kidney Disease: Estimated GFR < 15 mL/min/1.73m2 Glucose 91 60 - 115 mg/dL [facility] Calcium 9.6 8.4 - 10.2 mg/dL [facility] Bilirubin, Total 0.4 0.0 - 1.0 mg/dL [facility] Aspartate Amino Transferase 20 5 - 31 U/L [facility] Alanine Aminotransferase 12 0 - 31 U/L [facility] Total Protein 7.0 6.5 - 8.0 g/dL [facility] Albumin Level 3.6 3.5 - 5.0 g/dL [facility] Alkaline Phosphatase 62 39 - 117 U/L [facility] Blood Venous blood specimen / Unknown 02/19/2024 10:02 AM EDT 02/19/2024 10:02 AM EDT us Carie London MD LAB BLOOD ORDERABLES Final Result [facility] [address] [place] [phone] documented in this encounter Visit Diagnoses Diagnosis Primary hypertension- Primary Unspecified essential hypertension Congestive heart failure, unspecified HF chronicity, unspecified heart failure type (CMS/HCC) documented in this encounter Care Teams Oceanologist Relationship Specialty Start Date End Date Carie London MD [address] [place] [phone] PCP - General Internal Medicine 02/23/18 [facility] 05/05/23 documented as of this encounter
--- OUTSIDE RECORDS SUMMARY | 2024-09-08 16:55 | XMS_ITS | Encounter Summary ---
Author Organization [facility] Address [address] [place] [address] Phone Care Team Providers Care Tile Setter Apprentice Name Role Phone Lalitha Cisneros MD Primary Care Provider [phone] Encounter Details Date Type Department Care Team (Late Contact Info) Description 11/29/2021 Documentation Only [facility] [address] [place] [address] [place] Rebollar MD [address] [place] [address] [place] [address] Social History Tobacco Use Types [...] Visit [facility] [address] [place] [address] [place] Rebollar MD [address] [place] [place] [address] documented as of this encounter Visit Diagnoses Not on filedocumented in this encounter Care Teams Tile Setter Apprentice Relationship Specialty Start Date End Date Lalitha Cisneros MD [address], [place] PCP - General 05/10/19 documented as of this encounter
--- OUTSIDE RECORDS SUMMARY | 2024-09-08 16:55 | XMS_ITS | Clinical Summary ---
Author Organization [email or web address] Address [address] [facility] [address] [place] [address] Care Team Providers Care Certified Nutritionist Name Role Phone Carie London MD Primary Care Provider [phone] Allergies No known active allergies Medications hydrocortisone 1 % lotionIndications :Dermatitis Apply to affected areas once daily 96 g 07/16/19 23 Active ammonium lactate (Lac-Hydrin) 12 % lotionIndications :Flexural eczema Apply daily to all skin 500 g 11 07/22/19 23 Active Blood Pressure kitIndications:Pr imary hypertension To use daily. Pt is blind. Needs a talking blood pressure BP monitor. 1 kit 10/03/19 23 Active Diclofenac Sodium 1 % gelIndications:Ot her secondary osteoarthritis of both knees To apply 4 times a day 100 g 2 05/11/20 23 Active albuterol (Ventolin HFA) 108 (90 Base) MCG/ACT inhaler Inhale 2 puffs every 6 (six) hours if needed for wheezing. 18 g 2 05/11/20 23 Active carvedilol (Coreg) 3.125 MG tabletIndications :Primary hypertension Take 1 tablet (3.125 mg) by mouth with breakfast and with evening meal. 60 tablet 11 07/07/19 24 Active docusate sodium (Colace) 100 MG capsuleIndication s:Chronic idiopathic constipation TAKE 1 CAPSULE BY MOUTH TWICE DAILY 60 capsule 5 11/19/19 24 Active simethicone (Mylicon,Gas-X) 125 MG capsule Take 180 mg by mouth every 6 (six) hours if needed. Active nitroglycerin (Nitrostat) 0.[address] 1 tablet (0.4 mg) under the tongue every 5 (five) minutes if needed for chest pain. 30 tablet 1 02/10/20 24 Active omeprazole (PriLOSEC) [address] capsuleIndication s:Gastroesophagea l reflux disease without esophagitis TAKE 1 CAPSULE BY MOUTH EVERY DAY BEFORE BREAKFAST. DO NOT CRUSH OR CHEW. 30 capsule 5 04/11/20 24 Active clopidogrel (Plavix) 75 MG tabletIndications :Primary hypertension TAKE 1 TABLET BY MOUTH EVERY MORNING 30 tablet 5 04/11/20 24 Active cholecalciferol (Vitamin D-3) 25 MCG (1000 UT) capsuleIndication s:Low vitamin D level TAKE 1 CAPSULE BY MOUTH EVERY DAY 30 capsule 5 04/11/20 24 Active isosorbide dinitrate (Isordil) 5 MG tabletIndications :CAD in [place] artery TAKE 1 TABLET BY MOUTH TWICE A DAY AT 8AM AND 3PM. 60 tablet 5 04/11/20 24 Active rosuvastatin (Crestor) 40 MG tabletIndications :Hypercholesterol emia TAKE 1 TABLET BY MOUTH AT BEDTIME 30 tablet 5 05/06/20 24 Active ferrous sulfate 325 (65 Fe) MG tabletIndications :Other iron deficiency anemia TAKE 1 TABLET BY MOUTH EVERY DAY 30 tablet 5 05/06/20 24 Active loratadine (Claritin) 10 MG tabletIndications :Allergy, subsequent encounter TAKE 1 TABLET BY MOUTH EVERY DAY 30 tablet 11 06/08/20 24 Active senna-docusate sodium (Senokot-S) 8.6-50 MG tablet TAKE 2 TABLETS BY MOUTH EVERY DAY 60 tablet 11 06/08/20 24 Active lisinopril 40 MG tabletIndications :Primary hypertension Take 1 tablet (40 mg) by mouth Once per day. 30 tablet 11 08/29/19 25 2025 Active acetaminophen (Tylenol) 325 MG tablet TAKE 2 TABLETS BY MOUTH EVERY EVENING 60 tablet 2 09/09/19 25 Active lisinopril (Zestril) 30 MG tabletIndications :Primary hypertension Take 1 tablet (30 mg) by mouth Once per day. 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 Bilateral hips normal. Lumbosacral: 1. There is mild degenerative disc disease at L3-4 2. Multi-level mild lumbar spondylosis 3. Bilateral facet arthropathy, most pronounced at L4-5 and L5-S1 Allergy 07/12/2014 Anxiety 07/12/2014 Blindness of both eyes 07/12/2014 Dyslipidemia 07/12/2014 GERD (gastroesophageal reflux disease) 5 [place] (myocardial infarction) 07/12/2014 CHF (congestive heart failure) 07/11/2014 Overview (08/14/2022): EF 55% Hypertension 07/11/2014 Assessment & Plan (10/14/2022 11:39 AM EDT): Requested new bp monitor, patient is legally blind, she had recent visit with pcp were her BP was at target, told to decrease sodium, keep bp log with new bp monitor, in case of new symptoms arising visit er, will schedule a nurse visit in 2 weeks for bp check Encounters Date Type Department Care Team Description 09/08/2024 Refill [facility] [address] [place], [place] [phone] Carie London MD 08/29/2024 1:45 PM EST Office Visit [facility] MED & PEDS [address] [place] [address] Carie London MD Primary hypertension (Primary Dx); Chronic congestive heart failure, unspecified heart failure type (CMS/HCC); Dyslipidemia; Atrophy of kidney; Other secondary osteoarthritis of both knees 08/29/2024 Travel 08/26/2024 Telephone [facility] & PEDS [address] [place] [address] Carie London MD CHART PREP 08/26/[address] [address] Carie London MD Appointment Request 08/25/2024 Telephone [facility] [address] [place] [address] Carie London MD No Show 08/18/[address] [address] Carie London MD Nurse Triage 08/09/[address] [address] Carie London MD Nurse Triage 08/01/2024 Telephone [facility] [address] [place] [address] Carie London MD Nurse Triage from Last 3 Months Immunizations Name Administration Dates Next Due Pneumococcal Conjugate PCV 13 08/13/2021 Pneumococcal Polysaccharide PPSV23 06/24/2013 Tdap 06/05/2020,11/25/2013 Social History Tobacco Use Types Packs/Day Years Used Date Smoking Tobacco: Never Smokeless Tobacco: Never Tobacco Cessation:Counseling Given: Not Answered Depression Answer Date Recorded Patient Health Questionnaire-9 [...] Orientation Straight 05/05/2022 10 :16 AM EDT Last Filed Vital Signs Vital Sign Reading [...] Mass Index 27.22 08/29/2024 1:59 PM EST Plan of Treatment Upcoming Encounters Date Type Department Care Team (Late st Contact Info) Description 11/29/2024 1:30 PM EDT Office Visit [facility] [address] [place] [address] Carie London MD [address] [place] [address] Health Maintenance Due Date Last Done Comments Hepatitis C Screening 1963 Zoster Vaccines (1 of 2) 1997 RSV Patients and Patients Aged 60 years or older (1 - 1-dose 75+ series) 2022 COVID-19 Vaccine (1 - 2023- season) 2024 Influenza Vaccine (#1) 2024 SDOH Screening 02/17/2025 02/18/2024 Alcohol/Substance Use Screening 08/29/2025 08/29/2024 Depression Screening 08/29/2025 08/29/2024, 08/29/19 Tobacco Screening 08/29/2025 08/29/2024 Lipid Panel 02/18/2029 02/19/2024, 042 10/2022, 09/10/2021, Additional history exists DTaP/Tdap/Td Vaccines (3 - Td or Tdap) 06/05/2030 06/05/2020, 11/25/2013 Pneumococcal Vaccine: 50+ Years Completed 08/13/2021, 06/24/2013 HIB Vaccines Aged Out No longer eligi ble based on patient's age to complete this topic HPV Vaccines Aged Out No longer eligi ble based on patient's age to complete this topic Hepatitis A Vaccines Aged Out No long er eligible based on patient's age to complete this topic Hepatitis B Vaccines Aged Out No long er eligible based on patient's age to complete this topic IPV Vaccines Aged Out No longer eligi ble based on patient's age to complete this topic Meningococcal Vaccine Aged Out No brittany marlon eligible based on patient's age to complete this topic RSV under 20 months Aged Out No longe r eligible based on patient's age to complete this topic Rotavirus Vaccines Aged Out No longer eligible based on patient's age to complete this topic Procedures Procedure Name Priority Date/Time Associated Diagnosis Comments ECG 12-LEAD Routine 08/29/2024 4:48 PM EST Primary hypertension Dyslipidemia LIPID PANEL, STANDARD Routine 02/19/2024 10:02 AM EDT Primary hypertension Congestive heart failure, unspecified HF chronicity, unspecified heart failure type (CMS/HCC) from Last 3 Months or Most Recently Relevant to Health Maintenance Results * ECG 12 lead (08/29/2024 4:48 PM EST) Narrative Carie London MD - 08/29/2024 4:48 PM EST Heart rate 71 bpm. ??[place] 44 degrees. ??First-degree AV block. ??Sinus rhythm. ??T wave inversion in 2 3 aVF. ??No sign of left atrial enlargement/right atrial enlargement. ??No sign of hypertrophy. ??No ST elevation or depression. ??Marked mid precordial repolarization disturbance. ??Possible ischemia. us Carie London MD ECG ORDERABLES Final Resul t * Lipid Panel, Standard (02/19/2024 10:02 AM EDT) Triglycerides 102 <150 mg/dL [facility] Comment:Desirable Triglyceri de: less than 150 mg/dLBorderline High Triglyceride 150-199 mg/dLHigh Triglyceride: 200-499 mg/dLVery High Triglyceride: greater than or equal to 5OO mg/dL Cholesterol 158 <200 mg/dL [facility] Comment:Desirable Cholestero l: less than 200 mg/dLBorderline High Cholesterol: 200-239 mg/dLHigh Cholesterol: greater than 239 mg/dL LDL Cholesterol Calculated 95 <100 mg/dL [facility] Comment:Desirable LDL: less than 100 mg/dLNear Optimal/Above Optimal LDL: 110- 129 mg/dLBorderline High LDL: 130-159 mg/dLHigh LDL: 160-189 mg/dLVery High LDL: greater than or equal to 190 mg/dL HDL Cholesterol 43 >40 mg/dL [facility] Comment:Desirable HDL: great er than 40 mg/dL Note: This HDL assay may give artificially low results in patients with liver disease. Blood Venous blood specimen / Unknown 02/19/2024 10:02 AM EDT 02/19/2024 10:02 AM EDT us Carie London MD LAB BLOOD ORDERABLES Final Result [facility] [address] [place] [phone] from Last 3 Months or Most Recently Relevant to Health Maintenance Insurance Care Teams Certified Nutritionist Relationship Specialty Start Date End Date Carie London MD [address] [place] [phone] PCP - General Internal Medicine 02/23/18 [facility] 05/05/23
--- OUTSIDE RECORDS SUMMARY | 2024-09-08 16:55 | XMS_ITS | Encounter Summary ---
Author Organization [facility] Address [address] [place] [address] Phone Care Team Providers Care Cardiopulmonary Physical Therapist Name Role Phone Lalitha Cisneros MD Primary Care Provider [phone] Encounter Details Date Type Department Care Team (Late Contact Info) Description 02/06/2023 Documentation Only [facility] [address] [place] [address] Caryl Moreno [address] [place] [address] Social History Tobacco Use Types [...] [facility] [address] [place] [address] [place] Rebollar MD [address] [place] [address] [place] [address] documented as of this encounter Visit Diagnoses Not on filedocumented in this encounter Care Teams Cardiopulmonary Physical Therapist Relationship Specialty Start Date End Date Lalitha Cisneros MD [facility] [address] [place], [place] PCP - General 05/10/19 documented as of this encounter
--- OUTSIDE RECORDS SUMMARY | 2024-09-08 16:55 | XMS_ITS | Encounter Summary ---
Author Organization [facility] Address [address] [place] [address] Phone Care Team Providers Care Trailer Mechanic Name Role Phone Lalitha Cisneros MD Primary Care Provider [phone] Encounter Details Date Type Department Care Team (Late Contact Info) Description 02/04/2022 Documentation Only [facility] [address] [place] [address] [place] Rebollar MD [address] [place] [address] [place] [address] Social History Tobacco Use Types [...] [facility] [address] [place] [address] [place] Rebollar MD [address] [facility] [place] [address] documented as of this encounter Visit Diagnoses Not on filedocumented in this encounter Care Teams Trailer Mechanic Relationship Specialty Start Date End Date Lalitha Cisneros MD [address], [place] PCP - General 05/10/19 documented as of this encounter
== END ==
LOC: HO.CARD 13:51
PROVIDERS: PCP Internal Medicine; Visit Provider Internal Medicine Cardiovascular Disease
DX: I11.0 Hypertensive heart disease with heart failure (principal); I50.9 Heart failure, unspecified
CPT/HCPCS: 93306

== ENCOUNTER → 2024-09-08 13:57 | Outpatient (BNV) | payer OTHER, SELFPAY | PROVIDERS: PCP Internal Medicine; Visit Provider Internal Medicine Cardiovascular Disease | DX: I35.0 Nonrheumatic aortic (valve) stenosis (principal); I34.81 Nonrheumatic mitral (valve) annulus calcification | CPT/HCPCS: 93306 ==

== ENCOUNTER 2024-11-01 13:11 | Outpatient (AMB) | payer OTHER, SELFPAY ==
[2024-11-01 13:18] VITALS: BP 130/74; PULSE 64; BMI 27.2
--- NOTE | 2024-11-01 13:18 | A.OFFVIS_ITS ---
Vital Signs 11/01/24 13:18 Height 4 ft 7 in Weight 116 lb 13.52 oz BMI 27.2 BP 130/74 Blood Pressure Location Lt brachial Position Sitting Pulse 64 Intake Visit Reasons: 1 yr f/up DC Intake Note: 1 year follow-up with ekg hearts doing good Semi Automatic Sewing Machine Operator Required: Yes Semi Automatic Sewing Machine Operator Services: Semi Automatic Sewing Machine Operator Offered & Declined Furniture Upholsterer: Furniture Upholsterer Present Accompanied by: ORACLE DISTRIBUTION CONSULTANT Allergies atorvastatin [ATORVASTATIN] Allergy (Severe, Verified 11/03/23 14:12) UNKNOWN niacin [NIACIN] Allergy (Severe, Verified 11/03/23 14:12) UNKNOWN acetaminophen [ACETAMINOPHEN] Allergy (Intermediate, Verified 11/03/23 14:12) RASH Penicillins [PENICILLINS] Allergy (Mild, Verified 11/03/23 14:12) MOUTH NUMB aspirin [ASPIRIN] Allergy (Unknown, Verified 11/03/23 14:12) UNKNOWN, itching codeine [CODEINE] Allergy (Unknown, Verified 11/03/23 14:12) UNKNOWN, breathing problems ibuprofen [IBUPROFEN] Allergy (Unknown, Verified 11/03/23 14:12) HX KIDNEY PROBLEM morphine [MORPHINE] Allergy (Unknown, Verified 11/03/23 14:12) DIFFICULTY BREATHING, itch turkey Allergy (Unknown, Verified 11/03/23 14:12) UNKNOWN Medication List - Last Reconciled 11/01/24 by Duncan Head MD carvedilol 3.125 mg PO BID 90 days cholecalciferol (vitamin D3) 25 mcg PO DAILY clopidogrel 75 mg PO DAILY docusate sodium 100 mg PO BID ezetimibe 10 mg PO DAILY furosemide 20 mg PO DAILY PRN isosorbide dinitrate 5 mg PO BID lisinopril 40 mg PO DAILY loratadine 10 mg PO DAILY melatonin 5 mg PO BEDTIME omeprazole 20 mg PO DAILY rosuvastatin 40 mg PO DAILY HPI Comments Details: Beatriz comes for follow-up of her aortic stenosis and coronary artery disease. She presents here with a ORACLE DISTRIBUTION CONSULTANT who acts as final dressing cutter. Recently she was at primary care physician's office blood pressure was significantly elevated and he got concerned. However subsequently increase lisinopril to 40 mg daily and since then the blood pressures been in the 130s. Patient says she feels okay. She has no symptoms of exertional chest pain or shortness of breath. No orthopnea, PND. Recently had an echocardiogram which showed preserved LV ejection fraction with mild aortic stenosis. She is taking all her medications regularly. Denies any prolonged palpitation irregular heartbeat. No lightheadedness, syncope. [facility] Medical History CAD (coronary artery disease) Aortic stenosis HTN (hypertension) Hyperlipidemia PAUL (obstructive sleep apnea) Acute on chronic cholecystitis concurrent with and due to calculus of gallbladder and bile duct Surgical History Stented coronary artery Hx of heart artery stent Hx of tubal ligation History of Family History Father No problems noted. Mother No problems noted. Son No problems noted. Daughter No problems noted. Daughter No problems noted. Daughter No problems noted. Daughter No problems noted. Social History Alcohol intake: never Review of Systems Const Denies chills, Denies fatigue, Denies fever(s), Denies frequent falls, Denies weakness, Denies weight gain and Denies weight loss ENT Denies dizziness Card Denies chest pain, Denies leg edema, Denies lightheadedness, Denies palpitations, Denies dyspnea, Denies dyspnea on exertion, Denies orthopnea and Denies other (loss of consciousness) Resp Denies cough, Denies dyspnea and Denies dyspnea on exertion GI Denies hematochezia and Denies change in stool character Musc Denies abnormal gait, Denies muscle weakness, Denies numbness, Denies radiating pain into limb and Denies tingling Neuro Denies abnormal gait, Denies dizziness, Denies frequent falls, Denies numbness, Denies tingling and Denies weakness Endo Denies fatigue and Denies palpitations Physical Exam Vital Signs: Last Vital Signs Pulse 64 11/01/24 13:18 BP 130/74 11/01/24 13:18 BMI result Body Mass Index 27.2 Const Other: Cataract/visual impairment General: cooperative, healthy appearing, comfortable and no acute distress Orientation/consciousness: patient oriented x3 Neck Neck: Yes normal visual inspection Resp Effort & Inspection: normal respiratory effort Auscultation: clear to auscultation bilaterally, no crackles, no rales, no rhonchi and no wheezes Cardio Jugular venous distension: no JVD Rate: regular rate Rhythm: regular rhythm Heart sounds: S1 normal heart sound present, S2 normal heart sound present, no murmurs and no rubs Neuro General: patient oriented x3 Extrem Other: Wearing compression stockings, no edema noted General: Yes normal to inspection, No no pedal edema and No calf tenderness Psych Appearance: grossly normal Mental Status: mental status grossly normal Speech and movement: Normal speech and movement present Office Procedures EKG Details: EKG shows normal sinus rhythm with first-degree AV block with inferior infarct as well as anteroseptal infarct with inferior and inferolateral T-wave changes suggestive of repolarization abnormality [id number], Complete Assessment & Plan Assessment & Plan (1) CAD (coronary artery disease): Code(s): I25.10 - Atherosclerotic heart disease of [place] coronary artery without angina pectoris Category: Medical Plan: CAD with prior RCA stenting for inferior STEMI, currently not having any anginal symptoms. Her echocardiogram shows normal LV ejection fraction 55-60%. Continue current clopidogrel therapy as she is allergic to aspirin. Continue aggressive risk factor modification with aggressive blood pressure control which is currently well optimized with increased dose of lisinopril therapy. No signs or symptoms of heart failure. No anginal symptoms. Continue high- intensity statin therapy with a along with ezetimibe therapy. Dietary modification suggested. Target goal LDL less than 70 mg/dL. (2) Aortic stenosis: Code(s): I35.0 - Nonrheumatic aortic (valve) stenosis Category: Medical Plan: Aortic stenosis which is mild. No interventions required per se. Discussed with her about the findings of mild aortic stenosis. Follow-up echocardiogram in 1 year's time. Continue aggressive vascular risk factor modifications above. Follow up in the clinic in 1 year's time, sooner p.r.n.. Thank you for allowing me to partake in her care Coding Level of Care Code Est Pt Level 4 (88314) Complex EM visit Add On G2211 Diagnoses CAD (coronary artery disease) I25.10 Aortic stenosis I35.0 CPT Codes EKG - CPT: 62372-[id number], Complete ([id number])
--- OUTSIDE RECORDS SUMMARY | 2024-11-01 15:13 | XMS_ITS | Clinical Summary ---
Author Organization [employer] Address [address] [facility] [address] [place] [address] Care Team Providers Care Natural Gas Engineer Name Role Phone Carie London MD Primary Care Provider [phone] Allergies No known active allergies Medications hydrocortisone [...] day 100 g 2 05/11/20 23 Active simethicone (Mylicon,Gas-X) 125 MG capsule Take 180 mg by mouth every 6 (six) hours if needed. Active nitroglycerin (Nitrostat) 0.[address] 1 tablet (0.4 mg) under the tongue every 5 (five) minutes if needed for chest pain. 30 tablet 1 02/10/20 24 Active senna-docusate sodium (Senokot-S) 8.6-50 MG tablet TAKE 2 TABLETS BY MOUTH EVERY DAY 60 tablet 11 06/08/20 24 Active lisinopril 40 MG tabletIndications :Primary hypertension Take 1 tablet (40 mg) by mouth Once per day. 30 tablet 11 08/29/19 25 2025 Active acetaminophen (Tylenol) 325 MG tablet TAKE 2 TABLETS BY MOUTH EVERY EVENING 60 tablet 2 09/09/19 25 Active rosuvastatin (Crestor) 40 MG tabletIndications :Hypercholesterol emia TAKE 1 TABLET BY MOUTH AT BEDTIME 30 tablet 10/11/19 25 Active omeprazole (PriLOSEC) [address] capsuleIndication s:Gastroesophagea l reflux disease without esophagitis TAKE 1 CAPSULE BY MOUTH EVERY DAY BEFORE BREAKFAST. DO NOT CRUSH OR CHEW. 30 capsule 10/11/19 25 Active loratadine (Claritin) 10 MG tabletIndications :Allergy, subsequent encounter TAKE 1 TABLET BY MOUTH EVERY DAY 30 tablet 10/11/19 25 Active isosorbide dinitrate (Isordil) 5 MG tabletIndications :CAD in burns paiute artery TAKE 1 TABLET BY MOUTH TWICE A DAY AT 8AM AND 3PM. 60 tablet 10/11/19 25 Active ferrous sulfate 325 (65 Fe) MG tabletIndications :Other iron deficiency anemia TAKE 1 TABLET BY MOUTH EVERY DAY 30 tablet 10/11/19 25 Active docusate sodium (Colace) 100 MG capsuleIndication s:Chronic idiopathic constipation TAKE 1 CAPSULE BY MOUTH TWICE DAILY 60 capsule 10/11/19 25 Active clopidogrel (Plavix) 75 MG tabletIndications :Primary hypertension TAKE 1 TABLET BY MOUTH EVERY MORNING 30 tablet 10/11/19 25 Active cholecalciferol (Vitamin D-3) 25 MCG (1000 UT) capsuleIndication s:Low vitamin D level TAKE 1 CAPSULE BY MOUTH EVERY DAY 30 capsule 10/11/19 25 Active carvedilol (Coreg) 3.125 MG tabletIndications :Primary hypertension Take 1 tablet (3.125 mg) by mouth with breakfast and with evening meal. 60 tablet 10/11/19 25 2025 Active albuterol (Ventolin HFA) 108 (90 Base) MCG/ACT inhaler Inhale 2 puffs every 6 (six) hours if needed for wheezing. 18 g 2 10/11/19 25 Active albuterol (Ventolin HFA) 108 (90 Base) MCG/ACT inhaler Inhale 2 puffs every 6 (six) hours if needed for wheezing. 18 g 2 05/11/20 23 2024 Discontinued(R eorder (will not trigger notification to Pharmacy)) carvedilol (Coreg) 3.125 MG tabletIndications :Primary hypertension Take 1 tablet (3.125 mg) by mouth with breakfast and with evening meal. 60 tablet 07/07/19 24 2024 Discontinued(R eorder (will not trigger notification to Pharmacy)) docusate sodium (Colace) 100 MG capsuleIndication s:Chronic idiopathic constipation TAKE 1 CAPSULE BY MOUTH TWICE DAILY 60 capsule 11/19/192024 Discontinued(R eorder (will not trigger notification to Pharmacy)) omeprazole (PriLOSEC) [address] capsuleIndication s:Gastroesophagea l reflux disease without esophagitis TAKE 1 CAPSULE BY MOUTH EVERY DAY BEFORE BREAKFAST. DO NOT CRUSH OR CHEW. 30 capsule 04/11/202024 Discontinued(R eorder (will not trigger notification to Pharmacy)) clopidogrel (Plavix) 75 MG tabletIndications :Primary hypertension TAKE 1 TABLET BY MOUTH EVERY MORNING 30 tablet 04/11/202024 Discontinued(R eorder (will not trigger notification to Pharmacy)) cholecalciferol (Vitamin D-3) 25 MCG (1000 UT) capsuleIndication s:Low vitamin D level TAKE 1 CAPSULE BY MOUTH EVERY DAY 30 capsule 04/11/202024 Discontinued(R eorder (will not trigger notification to Pharmacy)) isosorbide dinitrate (Isordil) 5 MG tabletIndications :CAD in burns paiute artery TAKE 1 TABLET BY MOUTH TWICE A DAY AT 8AM AND 3PM. 60 tablet 04/11/202024 Discontinued(R eorder (will not trigger notification to Pharmacy)) rosuvastatin (Crestor) 40 MG tabletIndications :Hypercholesterol emia TAKE 1 TABLET BY MOUTH AT BEDTIME 30 tablet 05/06/202024 Discontinued(R eorder (will not trigger notification to Pharmacy)) ferrous sulfate 325 (65 Fe) MG tabletIndications :Other iron deficiency anemia TAKE 1 TABLET BY MOUTH EVERY DAY 30 tablet 5 05/06/202024 Discontinued(R eorder (will not trigger notification to Pharmacy)) loratadine (Claritin) 10 MG tabletIndications :Allergy, subsequent encounter TAKE 1 TABLET BY MOUTH EVERY DAY 30 tablet 11 06/08/20 24 2024 Discontinued(R eorder (will not trigger notification to Pharmacy)) Active Problems Problem Noted Date Diagnosed Date Irritant contact dermatitis due to cosmetics 02/ 03/2023 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 Bilateral hips normal. Lumbosacral: 1. There is mild degenerative disc disease at L3-4 2. Multi-level mild lumbar spondylosis 3. Bilateral facet arthropathy, most pronounced at L4-5 and L5-S1 Allergy 07/12/2014 Anxiety 07/12/2014 Blindness of both eyes 07/12/2014 Dyslipidemia 07/12/2014 GERD (gastroesophageal reflux disease) 5 KS (myocardial infarction) 07/12/2014 CHF (congestive heart failure) [...] Encounters Date Type Department Care Team Description 10/10/[address] [facility] [address] [place] [address] Carie London MD Hypercholesterolemia; Gastroesophageal reflux disease without esophagitis; Allergy, subsequent encounter; CAD in burns paiute artery; Other iron deficiency anemia; Chronic idiopathic constipation; Primary hypertension; Low vitamin D level 09/16/[address] [facility] [address] [place] [address] Carie London MD PCP Contact (BP log status) 09/09/2024 Telephone [facility] [address] [place] [address] Carie London MD Results 09/08/[address] [address] Carie London MD 08/29/2024 1:45 PM EST Office Visit [facility] [address] [place] [address] Carie London MD Primary hypertension (Primary Dx); Chronic congestive heart failure, unspecified heart failure type (CMS/HCC); Dyslipidemia; Atrophy of kidney; Other secondary osteoarthritis of both knees 08/29/2024 Travel 08/26/2024 Telephone [facility] [address] [place] [address] Carie London MD CHART PREP 08/26/[address] [address] Carie London MD Appointment Request 08/25/2024 Telephone [facility] [address] [place] [address] Carie London MD No Show 08/18/[address] [address] Carie London MD Nurse Triage 08/09/[address] [address] Carie London MD Nurse Triage from Last [...] Description 11/29/2024 1:30 PM EDT Office Visit [facility] [address] [place] [address] Carie London MD [address] [place] [address] Health Maintenance Due Date Last Done Comments Hepatitis C Screening 1963 Zoster Vaccines (1 of 2) 1997 RSV Patients and Patients Aged 60 years or older (1 - 1-dose 75+ series) 2022 COVID-19 Vaccine ( - 2023- season) 2024 Influenza Vaccine (#1) 2024 SDOH Screening 02/17/2025 02/18/2024 Alcohol/Substance Use Screening 08/29/2025 08/29/2024 Depression Screening 08/29/2025 08/29/2024, 08/29/19 Tobacco Screening 08/29/2025 08/29/2024 Lipid Panel 02/18/2029 02/19/2024, 04/10/2022, 09/10/2021, Additional history exists DTaP/Tdap/Td Vaccines (3 [...] ECG 12 lead (08/29/2024 4:48 PM EST) Carie Oliveros MD - 08/29/2024 4:48 PM EST Heart rate 71 bpm. ??[place] 44 degrees. ??First-degree AV block. ??Sinus rhythm. ??T wave inversion in 2 3 aVF. ??No sign of left atrial enlargement/right atrial enlargement. ??No sign of hypertrophy. ??No ST elevation or depression. ??Marked mid precordial repolarization disturbance. ??Possible ischemia. us Carie London MD ECG ORDERABLES Final Resul t * Lipid Panel, Standard (02/19/2024 10:02 AM EDT) Triglycerides 102 <150 mg/dL [facility] Comment:Desirable Triglyceri de: less than 150 mg/dLBorderline High Triglyceride 150-199 mg/dLHigh Triglyceride: 200-499 mg/dLVery High Triglyceride: greater than or equal to 5OO mg/dL Cholesterol 158 <200 mg/dL [facility] Comment:Desirable Cholestero l: less than 200 mg/dLBorderline High Cholesterol: 200-239 mg/dLHigh Cholesterol: greater than 239 mg/dL LDL Cholesterol Calculated 95 <100 mg/dL [facility] Comment:Desirable LDL: less than 100 mg/dLNear Optimal/Above Optimal LDL: 110- 129 mg/dLBorderline High LDL: 130-159 mg/dLHigh LDL: 160-189 mg/dLVery High LDL: greater than or equal to 190 mg/dL HDL Cholesterol 43 >40 mg/dL [facility] Comment:Desirable HDL: great er than 40 mg/dL Note: This HDL assay may give artificially low results in patients with liver disease. Blood Venous blood specimen / Unknown 02/19/2024 10:02 AM EDT 02/19/2024 10:02 AM EDT Carie London MD LAB BLOOD ORDERABLES Final Result [facility] [address] [place] [address] [phone] from Last 3 Months or Most Recently Relevant to Health Maintenance Insurance [place]E [place] [id number] Care Teams Natural Gas Engineer Relationship Specialty Start Date End Date Carie London MD [address] [place], [place] [address] [address] PCP - General Internal Medicine 02/23/18 [facility] 05/05/23
--- OUTSIDE RECORDS SUMMARY | 2024-11-01 15:13 | XMS_ITS | Clinical Summary ---
Author Organization [facility] Address [address] [place] [address] Care Team Providers Care System Sales Consultant Name Role Phone Emmanuel Pereira MD Primary Care Provider [phone] Allergies Active Allergy Reactions Criticality Noted Date [...] age to complete this topic Care Teams System Sales Consultant Relationship Specialty Start Date End Date Emmanuel Pereira MD [address] [place] [address] [address] JENNY[place] Larios [address] PCP - General Data Processing Consultant 02/20/23
--- OUTSIDE RECORDS SUMMARY | 2024-11-01 15:13 | XMS_ITS | Encounter Summary ---
Author Organization [facility] Address [address] [place] [address] Phone Care Team Providers Care Loan Consultant Name Role Phone Lalitha Cisneros MD Primary Care Provider [phone] Encounter Details Date Type Department Care Team (Late Contact Info) Description 07/18/2024 Documentation Only [facility] [address] [place] [address] Caryl Moreno [address] [place] [address] Social History Tobacco Use Types [...] Visit [facility] [address] [place] [address] [place] Rebollar MD [address] [place] [address] [place] [address] documented as of this encounter Visit Diagnoses Not on filedocumented in this encounter Care Teams Loan Consultant Relationship Specialty Start Date End Date Lalitha Cisneros MD [facility] [address] [place], [place] PCP - General 05/10/19 documented as of this encounter
--- OUTSIDE RECORDS SUMMARY | 2024-11-01 15:13 | XMS_ITS | Encounter Summary ---
Author Organization [email or web address] Address [address] [facility] [address] [place] [address] Care Team Providers Care Pianos And Organs Salesperson Name Role Phone Carie London MD Primary Care Provider [phone] Encounter Details Date Type Department Care Team ([facility] st Contact Info) Description 03/02/2024 Orders Only [facility] [address] [place], [place] [phone] Carie London MD [address] [place], [place] [phone] Primary hypertension (Primary Dx) Social History Tobacco [...] Upcoming Encounters Date Type Department Care Team ([facility] st Contact Info) Description 11/29/2024 1:30 PM EDT Office Visit [facility] [address] [place] [address] Carie London MD [address] [place] [address] documented as of this encounter Visit Diagnoses Diagnosis Primary hypertension- Primary Unspecified essential hypertension documented in this encounter Care Teams Pianos And Organs Salesperson Relationship Specialty Start Date End Date Carie London MD [address] [place] [address] PCP - General Internal Medicine 02/23/18 [facility] 05/05/23 documented as of this encounter
--- OUTSIDE RECORDS SUMMARY | 2024-11-01 15:13 | XMS_ITS | Clinical Summary ---
Author Organization [facility] Address [address] [place] [address] [place] [address] Phone Care Team Providers Care Cath Lab Name Role Phone Lalitha Cisneros MD Primary Care Provider [phone] Allergies Active Allergy Reactions Criticality Noted Date [...] Myocardial infarction 07/12/20142019 Overview (10/18/2019): Seeing [facility] Premium Service Representative Osteopenia 07/12/2014 10/18/2019 Congestive heart failure 07/11/2014 Overview (10/18/2019): EF 55% Obstructive sleep apnea syndrome 07/11/2014 10/18/2019 Overview (10/18/2019): Declined Cpap, trial bipap 2014 Encounters Date Type Department Care Team Description 10/10/2024 Office Communication [facility] [address] [place] [address] Chacha Franco [place] from Last 3 Months Family History Medical [...] Visit [facility] [address] [place] [address] [place] Rebollar MD [address] [place] [address] [place] [address] Health Maintenance Due Date Last Done Comments Influenza Vaccine (Season Ended) 2025 Pneumococcal Vaccine: 50+ Years Completed 08/13/2021, 06/24/2013 Pneumococcal Vaccine: Peds (0 to 5 Years) and At-Risk Patients (6 to 49 Years) Discontinued 08/13/2021, 06/24/2013 Hepatitis B Vaccine Aged Out No longe r eligible based on patient's age to complete this topic Insurance [facility] One Care Dual SNP ([id number]) [place] [id number] Care Teams Cath Lab Relationship Specialty Start Date End Date Lalitha Cisneros MD [address] PCP - General 05/10/19
--- OUTSIDE RECORDS SUMMARY | 2024-11-01 15:13 | XMS_ITS | Encounter Summary ---
Author Organization [employer] Address [address] [place] [address] 7 [place] [address] Care Team Providers Care Spout Positioner Name Role Phone Carie London MD Primary Care Provider [phone] Encounter Details Date Type Department Care Team (Late Contact Info) Description 11/09/2023 Orders Only [facility] [address] [place] [address] Carie London MD [address] [place], [place] [phone] Primary hypertension (Primary Dx); Congestive heart failure, [...] PM EDT Office Visit [facility] [address] [place], [place] [phone] Carie London MD [address] [place] [address] documented as of this encounter Procedures Procedure [...] 10:02 AM EDT) Triglycerides 102 <150 mg/dL [facility] Comment:Desirable Triglyceri de: less than 150 mg/dLBorderline High Triglyceride 150-199 mg/dLHigh Triglyceride: 200-499 mg/dLVery High Triglyceride: greater than or equal to 5OO mg/dL Cholesterol 158 <200 mg/dL [facility] Comment:Desirable Cholestero l: less than 200 mg/dLBorderline High Cholesterol: 200-239 mg/dLHigh Cholesterol: greater than 239 mg/dL LDL Cholesterol Calculated 95 <100 mg/dL [facility] Comment:Desirable LDL: less than 100 mg/dLNear Optimal/Above Optimal LDL: 110- 129 mg/dLBorderline High LDL: 130-159 mg/dLHigh LDL: 160-189 mg/dLVery High LDL: greater than or equal to 190 mg/dL HDL Cholesterol 43 >40 mg/dL [facility] Comment:Desirable HDL: great er than 40 mg/dL Note: This HDL assay may give artificially low results in patients with liver disease. Blood Venous blood specimen / Unknown 02/19/2024 10:02 AM EDT 02/19/2024 10:02 AM EDT us Thevenin Beauzile MD LAB BLOOD ORDERABLES Final Result [facility] [address] [place], [place] [phone] * (ABNORMAL) CBC auto differential (02/19/2024 10:02 AM EDT) White Blood Count 6.9 4.8 - 10.8 X10*3/uL [facility] Red Blood Count 3.66(L) 4.20 - 5.50 X10*6/uL [facility] Hemoglobin 11.1(L) 12.0 - 16.0 g/dl [facility] Hematocrit 33.4(L) 37.0 - 47.0 % [facility] Mean Corpuscular Volume 91.3 80.0 - 98.0 fL [facility] Mean Corpuscular Hemoglobin 30.3 27.0 - 33.0 pg [facility] Mean Corpuscular HGB Conc 33.2 31.0 - 35.0 g/dl [facility] Red Cell Distribution Width 13.2 11.0 - 16.0 % [facility] Platelet Count 215 160 - 400 X10*3/uL [facility] Mean Platelet Volume 11.8 9.4 - 12.3 fL [facility] Neutrophils Percent Auto 53.6 45 - 73 % [facility] Imm Gran Pct Auto 0.3 0.0 - 0.4 % [facility] Lymphocytes Percent Auto 33.0 20 - 40 % [facility] Monocytes Percent Auto 10.5 2 - 11 % [facility] Eosinophils Percent Auto 1.7 0 - 4 % [facility] Basophils Percent Auto 0.9 0 - 2 % [facility] NRBC Pct Auto 0.0 0.0 - 0.2 /100WBC [facility] Neutrophils Absolute Auto 3.7 2.0 - 8.3 x10*3/uL [facility] Imm Gran Abs Auto 0.02 0.00 - 0.03 X10*3/uL [facility] Lymphocytes Absolute Auto 2.3 1.2 - 4.9 X10*3/uL [facility] Monocytes Absolute Auto 0.7 0.1 - 1.2 X10*3/uL [facility] Eosinophils Absolute Auto 0.1 0.0 - 0.4 X10*3/uL [facility] Basophils Absolute Auto 0.1 0.0 - 0.2 X10*3/uL [facility] NRBC Abs Auto 0.000 0.0 - 0.012 X10*3/uL [facility] Blood Venous blood specimen / Unknown 02/19/2024 10:02 AM EDT 02/19/2024 10:02 AM EDT us Carie London MD LAB BLOOD ORDERABLES Final Result Performing Organization Address [facility]/ZIP Co de Phone Number [facility] [address] [place] [phone] * TSH W/Reflex to FT4 (02/19/2024 10:02 AM EDT) TSH reflex Free T4 1.48 0.32 - 4.0 uIU/mL [facility] Blood Venous blood specimen / Unknown 02/19/2024 10:02 AM EDT 02/19/2024 10:02 AM EDT us Carie London MD LAB BLOOD ORDERABLES Final Result Performing Organization Address City/[facility]/ZIP Co de Phone Number [facility] [address] [place] [phone] * (ABNORMAL) Comprehensive Metabolic Panel (02/19/2024 10:02 AM EDT) Sodium 143 135 - 145 mmol/L [facility] Potassium 4.0 3.3 - 5.1 mmol/L [facility] Chloride 110(H) 96 - 108 mmol/L [facility] Carbon Dioxide 27 22 - 29 mmol/L [facility] Anion Gap 10(L) 12 - 20 [facility] Urea Nitrogen (BUN) 27(H) 9 - 16 mg/dL [facility] Creatinine, Serum 1.40 0.5 - 1.4 mg/dL [facility] Estimated Glomerular Filt Rate 37 [facility] Comment:NOTE: For -Am erican individuals, multiply the result by 1.210.Chronic Kidney Disease: Estimated GFR < 60 mL/min/1.03g1Bbcmmh Kidney Disease: Estimated GFR < 15 mL/min/1.73m2 Glucose 91 60 - 115 mg/dL [facility] Calcium 9.6 8.4 - 10.2 mg/dL [facility] Bilirubin, Total 0.4 0.0 - 1.0 mg/dL [facility] Aspartate Amino Transferase 20 5 - 31 U/L [facility] Alanine Aminotransferase 12 0 - 31 U/L [facility] Total Protein 7.0 6.5 - 8.0 g/dL [facility] Albumin Level 3.6 3.5 - 5.0 g/dL [facility] Alkaline Phosphatase 62 39 - 117 U/L [facility] Blood Venous blood specimen / Unknown 02/19/2024 10:02 AM EDT 02/19/2024 10:02 AM EDT us Carie London MD LAB BLOOD ORDERABLES Final Result [facility] [address] [place] [phone] [phone] documented in this encounter Visit Diagnoses Diagnosis Primary hypertension- Primary Unspecified essential hypertension Congestive heart failure, unspecified HF chronicity, unspecified heart failure type (CMS/HCC) documented in this encounter Care Teams Spout Positioner Relationship Specialty Start Date End Date Carie London MD [address] [place] [phone] PCP - General Internal Medicine 02/23/18 [facility] 05/05/23 documented as of this encounter
--- OUTSIDE RECORDS SUMMARY | 2024-11-01 15:13 | XMS_ITS | Encounter Summary ---
Author Organization [facility] Address [address] [place] [address] Phone Care Team Providers Care Taper Operator Name Role Phone Lalitha Cisneros MD Primary Care Provider [phone] Encounter Details Date Type Department Care Team (Late Contact Info) Description 02/04/2023 Documentation Only [facility] [address] [place] [address] Alesha Josue PA Social History [...] Visit [facility] [address] [place] [address] [place] Rebollar MD [address] [place] [address] [place] [address] documented as of this encounter Visit Diagnoses Not on filedocumented in this encounter Care Teams Taper Operator Relationship Specialty Start Date End Date Lalitha Cisnerso MD [address] PCP - General 05/10/19 documented as of this encounter
--- OUTSIDE RECORDS SUMMARY | 2024-11-01 15:13 | XMS_ITS | Encounter Summary ---
Author Organization [facility] Address [address] [place] [address] Phone Care Team Providers Care Pool Hand Name Role Phone Lalitha Cisneros MD Primary Care Provider [phone] Encounter Details Date Type Department Care Team (Late Contact Info) Description 02/06/2023 Documentation Only [facility] [address] [place] [address] Caryl Moreno [address] [place] [address] Social History Tobacco Use Types [...] Visit [facility] [address] [place] [address] [place] Rebollar MD [address] [place] [address] [place] [address] documented as of this encounter Visit Diagnoses Not on filedocumented in this encounter Care Teams Pool Hand Relationship Specialty Start Date End Date Lalitha Cisneros MD [facility] [address] [place], [place] PCP - General 05/10/19 documented as of this encounter
--- OUTSIDE RECORDS SUMMARY | 2024-11-01 15:13 | XMS_ITS | Encounter Summary ---
Author Organization [employer] Address [address] [facility] 7 [place] [address] Care Team Providers Care Gum Maker Name Role Phone Carie London MD Primary Care Provider [phone] Reason for Visit * Reason Onset Date Comments Call Back Request 12/17/2023 Encounter Details Date Type Department Care Team ([facility] st Contact Info) Description 12/17/2023 Telephone [facility] [address] [place] [address] Carie London MD [address] [place], [place] [phone] Call Back Request Social History Tobacco Use [...] 3:49 PM EDT Tc to pt using [employer] Equipment Operator [place], [place] [id number]. Pt inquired about [employer] order for supplies [...] have multiple questions in regards different toughs. Kosovan speaker documented in this encounter Plan of Treatment Upcoming Encounters Date Type Department Care Team (Late st Contact Info) Description 11/29/2024 1:30 PM EDT Office Visit [facility] [address] [place] [address] Carie London MD [address] [place] [address] documented as of this encounter Visit Diagnoses Not on filedocumented in this encounter Care Teams Gum Maker Relationship Specialty Start Date End Date Carie London MD [address] [place] [address] PCP - General Internal Medicine 02/23/18 [facility] 05/05/23 documented as of this encounter
--- OUTSIDE RECORDS SUMMARY | 2024-11-01 15:13 | XMS_ITS | Encounter Summary ---
Author Organization [facility] Address [address] [place] [address] Phone Care Team Providers Care Lamination Assembler Name Role Phone Lalitha Cisneros MD Primary Care Provider [phone] Encounter Details Date Type Department Care Team (Late Contact Info) Description 11/29/2021 Documentation Only [facility] [address] [place] [address] [place] Rebollar MD [address] [place] [address] [place] [address] [...] Visit [facility] [address] [place] [address] [place] Rebollar MD [address] [facility] [place] [address] documented as of this encounter Visit Diagnoses Not on filedocumented in this encounter Care Teams Lamination Assembler Relationship Specialty Start Date End Date Lalitha Cisneros MD [address], [place] PCP - General 05/10/19 documented as of this encounter
--- OUTSIDE RECORDS SUMMARY | 2024-11-01 15:13 | XMS_ITS | Encounter Summary ---
Author Organization [facility] Address [address] [place] [address] Phone Care Team Providers Care Oil Field Technician Name Role Phone Lalitha Cisneros MD Primary Care Provider [phone] Encounter Details Date Type Department Care Team (Late Contact Info) Description 07/18/2024 Documentation Only [facility] [address] [place] [address] Caryl Moreno [address] [place] [address] Social History Tobacco Use Types [...] Visit [facility] [address] [place] [address] [place] Rebollar MD [address] [place] [address] [place] [address] documented as of this encounter Visit Diagnoses Not on filedocumented in this encounter Care Teams Oil Field Technician Relationship Specialty Start Date End Date Lalitha Cisneros MD [facility] [address] [place], [place] PCP - General 05/10/19 documented as of this encounter
--- OUTSIDE RECORDS SUMMARY | 2024-11-01 15:13 | XMS_ITS | Encounter Summary ---
Author Organization [facility] Address [address] [place] [address] Phone Care Team Providers Care Metal Numerical Control Programmer Name Role Phone Lalitha Cisneros MD Primary Care Provider Encounter Details Date Type Department Care Team (Late Contact Info) Description 11/29/2021 Documentation Only [facility] [address] [place] [address] [place] Rebollar MD [address] [place] [address] [place] [address] Social History Tobacco Use Types [...] Visit [facility] [address] [place] [place] [address] [place] Rebollar MD [address] [facility] [place] [address] documented as of this encounter Visit Diagnoses Not on filedocumented in this encounter Care Teams Metal Numerical Control Programmer Relationship Specialty Start Date End Date Lalitha Cisneros MD [address], [place] PCP - General 05/10/19 documented as of this encounter
--- OUTSIDE RECORDS SUMMARY | 2024-11-01 15:13 | XMS_ITS | Encounter Summary ---
Author Organization [employer] Address [address] [facility] 7t [place] [address] Care Team Providers Care Senior Software Qa Engineer Name Role Phone Carie London MD Primary Care Provider [phone] Reason for Visit * Reason Onset Date Comments Pre-visit Planning 02/17/2024 Encounter Details Date Type Department Care Team ([facility] st Contact Info) Description 02/17/2024 Telephone [facility] [address] [place] [address] Carie London MD [address] [place] [address] Pre-visit Planning Social History Tobacco Use Types [...] Description 11/29/2024 1:30 PM EDT Office Visit [facility] [address] [place] [address] Carie London MD [address] [place] [address] documented as of this encounter Visit Diagnoses Not on filedocumented in this encounter Care Teams Senior Software Qa Engineer Relationship Specialty Start Date End Date Carie London MD [address] [place] [address] PCP - General Internal Medicine 02/23/18 [facility] 05/05/23 documented as of this encounter
--- OUTSIDE RECORDS SUMMARY | 2024-11-01 15:13 | XMS_ITS | Encounter Summary ---
Author Organization [facility] Address [address] [place] [address] Phone Care Team Providers Care Area Representative Name Role Phone Lalitha Cisneros MD Primary Care Provider [phone] Encounter Details Date Type Department Care Team (Late Contact Info) Description 11/23/2023 Documentation Only [facility] [address] [place] [address] MichelleDenisse [address] [place] [address] Social History Tobacco Use Types [...] [facility] [address] [place] [address] [place] Rebollar MD [address] [place] [address] [place] [address] documented as of this encounter Visit Diagnoses Not on filedocumented in this encounter Care Teams Area Representative Relationship Specialty Start Date End Date Lalitha Cisneros MD [address] PCP - General 05/10/19 documented as of this encounter
--- OUTSIDE RECORDS SUMMARY | 2024-11-01 15:13 | XMS_ITS | Encounter Summary ---
Author Organization [employer] Address 75 [facility] 7t [place] [address] Care Team Providers Care Cleaner Carpet And Upholstery Name Role Phone Carie London MD Primary Care Provider [phone] Reason for Visit * Reason Onset Date Comments Durable Medical Equipment 03/22/2024 Encounter Details Date Type Department Care Team ([facility] st Contact Info) Description 03/22/2024 Telephone [facility]ICINE [address] [place] [address] Carie London MD [address] [place] [address] Durable Medical Equipment Social History Tobacco Use [...] received an update. Please contact pt at [phone]. (Central African Speaker) documented in this encounter Plan of Treatment Upcoming Encounters Date Type Department Care Team (Late st Contact Info) Description 11/29/2024 1:30 PM EDT Office Visit [facility] [address] [place] [address] Carie London MD [address] [place] [address] documented as of this encounter Visit Diagnoses Not on filedocumented in this encounter Care Teams Cleaner Carpet And Upholstery Relationship Specialty Start Date End Date Carie London MD [address] [place] [address] PCP - General Internal Medicine 02/23/18 [facility] 05/05/23 documented as of this encounter
--- OUTSIDE RECORDS SUMMARY | 2024-11-01 15:13 | XMS_ITS | Encounter Summary ---
Author Organization [facility] [place], Address [address] [place] [address] Phone Care Team Providers Care Log Sorting Supervisor Name Role Phone Lalitha Cisneros MD Primary Care Provider [phone] Encounter Details Date Type Department Care Team (Late Contact Info) Description 05/29/2023 Documentation Only [facility] [address] [place] [phone] [place] Rebollar MD [address] [facility] [place] [address] Social History Tobacco Use Types [...] Visit [facility] [address] [facility] [place] [address] [place] Rebollar MD [address] [facility] [place] [address] documented as of this encounter Visit Diagnoses Not on filedocumented in this encounter Care Teams Log Sorting Supervisor Relationship Specialty Start Date End Date Lalitha Cisneros MD [address] [facility] [place] PCP - General 05/10/19 documented as of this encounter
--- OUTSIDE RECORDS SUMMARY | 2024-11-01 15:13 | XMS_ITS | Encounter Summary ---
Author Organization [facility] Address [address] [place] [address] Phone Care Team Providers Care Manager Supply Chain Name Role Phone Lalitha Cisneros MD Primary Care Provider [phone] Encounter Details Date Type Department Care Team (Late Contact Info) Description 11/04/2023 Documentation Only [facility] [address] [place] [address] MichelleDenisse [address] [place] [address] Social History Tobacco Use Types [...] Visit [facility] [address] [place] [address] [place] Rebollar MD [address] [place] [address] [place] [address] documented as of this encounter Visit Diagnoses Not on filedocumented in this encounter Care Teams Manager Supply Chain Relationship Specialty Start Date End Date Lalitha Cisneros MD [address] PCP - General 05/10/19 documented as of this encounter
--- OUTSIDE RECORDS SUMMARY | 2024-11-01 15:13 | XMS_ITS | Encounter Summary ---
Author Organization [facility] Address [address] [place] [address] Phone Care Team Providers Care Manager Quality Name Role Phone Lalitha Cisneros MD Primary Care Provider [phone] Encounter Details Date Type Department Care Team (Late Contact Info) Description 08/02/2024 Documentation Only [facility] [address] [place] [address] Caryl Moreno [address] [place] [address] Social History Tobacco Use Types [...] Visit [facility] [address] [place] [address] [place] Rebollar MD [address] [place] [address] [place] [address] documented as of this encounter Visit Diagnoses Not on filedocumented in this encounter Care Teams Manager Quality Relationship Specialty Start Date End Date Lalitha Cisneros MD [facility] [address] [place], [place] PCP - General 05/10/19 documented as of this encounter
--- OUTSIDE RECORDS SUMMARY | 2024-11-01 15:13 | XMS_ITS | Encounter Summary ---
Author Organization [facility] Address [address] [place] [address] Phone Care Team Providers Care Head Gauge Unit Operator Name Role Phone Lalitha Cisneros MD Primary Care Provider [phone] Encounter Details Date Type Department Care Team (Late Contact Info) Description 02/04/2022 Documentation Only [facility] [address] [place] [address] [place] Rebollar MD [address] [place] [address] [place] [address] Social History Tobacco Use Types [...] Visit [facility] [address] [place] [address] [place] Rebollar MD [address] [facility] [place] [address] documented as of this encounter Visit Diagnoses Not on filedocumented in this encounter Care Teams Head Gauge Unit Operator Relationship Specialty Start Date End Date Lalitha Cisneros MD [address], [place] PCP - General 05/10/19 documented as of this encounter
--- OUTSIDE RECORDS SUMMARY | 2024-11-01 15:13 | XMS_ITS | Encounter Summary ---
Author Organization [facility] Address [address] [place] [address] Phone Care Team Providers Care Dope Dry House Operator Name Role Phone Lalitha Cisneros MD Primary Care Provider [phone] Encounter Details Date Type Department Care Team (Late Contact Info) Description 08/07/2022 Documentation Only [facility] [address] [place] [address] Alesha Josue PA Social History [...] Visit [facility] [address] [place] [address] [place] Rebollar MD [address] [place] [address] [place] [address] documented as of this encounter Visit Diagnoses Not on filedocumented in this encounter Care Teams Dope Dry House Operator Relationship Specialty Start Date End Date Lalitha Cisneros MD [address] PCP - General 05/10/19 documented as of this encounter
--- OUTSIDE RECORDS SUMMARY | 2024-11-01 15:13 | XMS_ITS | Encounter Summary ---
Author Organization [employer] Address 75 [facility] 7 [place] [address] Care Team Providers Care Pasta Maker Name Role Phone Carie London MD Primary Care Provider [phone] Reason for Visit * Reason Onset Date Comments Medication Question 02/09/2024 Encounter Details Date Type Department Care Team (Late st Contact Info) Description 02/09/2024 Telephone [facility] MEDICINE [address] [place] [address] Carie London MD [address] [place] [address] Medication Question Social History Tobacco Use Types [...] taking new script. Please contact L&C at [phone]. documented in this encounter Plan of Treatment Upcoming Encounters Date Type Department Care Team ([facility] st Contact Info) Description 11/29/2024 1:30 PM EDT Office Visit [facility] PEDS [address] [place] [address] Carie London MD [address] [place] [address] documented as of this encounter Visit Diagnoses Not on filedocumented in this encounter Care Teams Pasta Maker Relationship Specialty Start Date End Date Carie London MD [address] [place] [address] PCP - General Internal Medicine 02/23/18 [facility] 05/05/23 documented as of this encounter
--- OUTSIDE RECORDS SUMMARY | 2024-11-01 15:13 | XMS_ITS | Encounter Summary ---
Author Organization [facility] Address [address] [place] [address] Phone Care Team Providers Care Building Maintenance Custodian Name Role Phone Lalitha Cisneros MD Primary Care Provider [phone] Encounter Details Date Type Department Care Team (Late Contact Info) Description 05/27/2023 Documentation Only [facility] [address] [place] [address] Jone Schulz MD [address] [facility] [place] [address] Social History Tobacco Use Types [...] Visit [facility] [address] [place] [address] Boston Rebollar MD [address] [facility] [place] [address] documented as of this encounter Visit Diagnoses Not on filedocumented in this encounter Care Teams Building Maintenance Custodian Relationship Specialty Start Date End Date Lalitha Cisneros MD NPI: [id number] [place] [address] PCP - General 05/10/19 documented as of this encounter
--- OUTSIDE RECORDS SUMMARY | 2024-11-01 15:14 | XMS_ITS | Encounter Summary ---
Author Organization [facility] Address [address] [place] [address] Phone Care Team Providers Care Residential Roofer Name Role Phone Lalitha Cisneros MD Primary Care Provider [phone] Encounter Details Date Type Department Care Team (Late Contact Info) Description 02/06/2023 Documentation Only [facility] [address] [place] [address] Caryl Moreno [address] [place] [address] Social History Tobacco Use Types [...] Visit [facility] [address] [place] [address] Boston Rebollar MD [address] [place] [address] [place] [address] documented as of this encounter Visit Diagnoses Not on filedocumented in this encounter Care Teams Residential Roofer Relationship Specialty Start Date End Date Lalitha Cisneros MD [facility] [address] [place], [place] PCP - General 05/10/19 documented as of this encounter
--- OUTSIDE RECORDS SUMMARY | 2024-11-01 15:14 | XMS_ITS | Encounter Summary ---
Author Organization [employer] Address [address] [facility] 7 [place] [address] Care Team Providers Care Grain Operator Name Role Phone Carie London MD Primary Care Provider [phone] Reason for Visit * Reason Onset Date Comments Reschedule 10/21/2023 Encounter Details Date Type Department Care Team (Late Contact Info) Description 10/21/2023 Telephone [facility] MEDICINE [address] [place] [phone] Carie London MD [address] [place], [place] [phone] Reschedule Social History Tobacco Use Types Packs/Day [...] from pt requesting r/s appt with PCP, typewriter tester offer multiple spaces however pt stated are to late. Please contact pt in slovak documented in this encounter Plan of Treatment Upcoming Encounters Date Type Department Care Team ([facility] Contact Info) Description 11/29/2024 1:30 PM EDT Office Visit [facility] CHC MED & PEDS [address] [place] [address] Carie London MD [address] [place] [address] documented as of this encounter Visit Diagnoses Diagnosis Gastroesophageal reflux disease without esophagitis Esophageal reflux CAD in [place] artery documented in this encounter Care Teams Grain Operator Relationship Specialty Start Date End Date Carie London MD [address] [place] [address] PCP - General Internal Medicine 02/23/18 [facility] 05/05/23 documented as of this encounter
--- OUTSIDE RECORDS SUMMARY | 2024-11-01 15:14 | XMS_ITS | Encounter Summary ---
Author Organization [facility] Address [address] [place] [address] Phone Care Team Providers Care Hospice Superintendent Name Role Phone Lalitha Cisneros MD Primary Care Provider [phone] Encounter Details Date Type Department Care Team (Late Contact Info) Description 02/06/2023 Documentation Only [facility] [address] [place] [address] Alesha Josue PA Social History [...] [facility] [address] [place] [address] [place] Rebollar MD [address] [place] [address] [place] [address] documented as of this encounter Visit Diagnoses Not on filedocumented in this encounter Care Teams Hospice Superintendent Relationship Specialty Start Date End Date Lalitha Cisneros MD [address] PCP - General 05/10/19 documented as of this encounter
--- OUTSIDE RECORDS SUMMARY | 2024-11-01 15:14 | XMS_ITS | Encounter Summary ---
Author Organization [facility] [place], Address [address] [place] [address] Phone Care Team Providers Care Box Stacker Name Role Phone Lalitha Cisneros MD Primary Care Provider [phone] Encounter Details Date Type Department Care Team (Late Contact Info) Description 02/04/2023 Documentation Only [facility] [address] [place] [phone] Boston Rebollar MD [address] [facility] [place] [address] Social History Tobacco Use Types [...] Visit [facility] [address] [place] [address] Boston Rebollar MD [address] [facility] [place] [address] documented as of this encounter Visit Diagnoses Not on filedocumented in this encounter Care Teams Box Stacker Relationship Specialty Start Date End Date Lalitha Cisneros MD [address] [facility] [place] PCP - General 05/10/19 documented as of this encounter
== END 2024-11-01 13:58 | disposition home or self-care (01) ==
LOC: HO.HCS 13:11
PROVIDERS: PCP Internal Medicine; Visit Provider Internal Medicine Cardiovascular Disease
DX: I25.10 Atherosclerotic heart disease of native coronary artery without angina pectoris (principal); I35.0 Nonrheumatic aortic (valve) stenosis
CPT/HCPCS: 93010; 99214; G2211

== ENCOUNTER → 2024-11-01 13:11 | Outpatient (BNVA) | payer OTHER, SELFPAY | PROVIDERS: PCP Internal Medicine; Visit Provider Internal Medicine Cardiovascular Disease | DX: I25.10 Atherosclerotic heart disease of native coronary artery without angina pectoris (principal); I35.0 Nonrheumatic aortic (valve) stenosis | CPT/HCPCS: 93005; 99212 ==

== ENCOUNTER 2024-12-05 14:13 | Outpatient (REF) | payer OTHER, SELFPAY ==
[2024-12-05 14:35] LABS: MANUAL DIFF FLAG NO
[2024-12-05 14:54] LABS: White Blood Count 7.3 X10*3/uL (4.8-10.8)
[2024-12-05 14:55] LABS: Basophils Percent Auto 0.5 % (0-2); Eosinophils Absolute Auto 0.1 X10*3/uL (0.0-0.4); Eosinophils Percent Auto 1.9 % (0-4); Hematocrit 33.7 % (37.0-47.0); Hemoglobin 11.4 g/dl (12.0-16.0); Imm Gran Abs Auto 0.02 X10*3/uL (0.00-0.03); Imm Gran Pct Auto 0.3 % (0.0-0.4); Lymphocytes Absolute Auto 2.5 X10*3/uL (1.2-4.9); Lymphocytes Percent Auto 33.9 % (20-40); Mean Corpuscular HGB Conc 33.8 g/dl (31.0-35.0); Mean Corpuscular Hemoglobin 30.4 pg (27.0-33.0); Mean Corpuscular Volume 89.9 fL (80.0-98.0); Monocytes Absolute Auto 0.8 X10*3/uL (0.1-1.2); Monocytes Percent Auto 10.7 % (2-11); Neutrophils Absolute Auto 3.9 x10*3/uL (2.0-8.3); Neutrophils Percent Auto 52.7 % (45-73); Platelet Count 222 X10*3/uL (160-400); Red Blood Count 3.75 X10*6/uL (4.20-5.50)
[2024-12-05 15:48] LABS: Parathyroid Hormone Intact 89.2 pg/mL (8.7-77.1)
[2024-12-05 15:51] LABS: Anion Gap 11 (12-20); Blood Urea Nitrogen 42 mg/dL (9-16); Calcium 9.7 mg/dL (8.4-10.2); Carbon Dioxide 27 mmol/L (22-29); Chloride 109 mmol/L (96-108); Estimated Glomerular Filt Rate 36; Iron 51 mcg/dL (30-160); Percent Iron Saturation 24 % (15-50); Potassium 4.5 mmol/L (3.3-5.1); Sodium 142 mmol/L (135-145); Total Iron Binding Capacity 214 mcg/dL (228-428); Unsaturated Iron Binding 163 ug/dL
[2024-12-05 16:47] LABS: Microalbumin Urine < 5.0 mg/L
[2024-12-10 19:48] LABS: VITAMIN D (1,25 OH) D3 34 pg/mL; Vit D (1,25-Dihydroxy) Total 34 pg/mL (18-72); Vitamin D (1,25 OH) D2 <8 pg/mL
== END 2024-12-05 14:14 | disposition home or self-care (01) ==
LOC: HO.LAB 14:13
PROVIDERS: PCP Internal Medicine; Visit Provider Internal Medicine Nephrology
DX: N18.32 Chronic kidney disease, stage 3b (principal); D63.1 Anemia in chronic kidney disease
CPT/HCPCS: 36415; 80051; 82043; 82310; 82565; 82570; 82652; 83540; 83970; 84520; 85025

== ENCOUNTER 2025-03-08 14:24 | Outpatient (AMB) | payer OTHER, SELFPAY ==
--- NOTE | 2025-03-08 14:38 | A.OFFVIS_ITS ---
Vital Signs 03/08/25 14:42 Height 4 ft 7 in Weight 116 lb BMI 27.0 Intake Visit Reasons: UNIFORMER: B/L knee pain Intake Note: Beatriz is a 79 year old woman who presents today for a new patient visit to evaluate bilateral knee pain. Per her referral it appears she was offered physical therapy by her provider at [facility] however she declined at the time. Patient reports her pain has been present about a year ago. She complains of difficulty with prolong sitting or standing. She uses a cane with ambulation. States her pain is equal in both knees, and his pain is worse in the mornings. No previous treatment. No recent injury. She uses Tylenol for her pain, however this does not help as much. Special Technical Operations Officer Required: Yes Special Technical Operations Officer Services: Special Technical Operations Officer Present Special Technical Operations Officer Name: Sherice ID#[id number] Allergies atorvastatin (ATORVASTATIN) Allergy (Severe, Verified 03/08/25 14:52) UNKNOWN niacin (NIACIN) Allergy (Severe, Verified 03/08/25 14:52) UNKNOWN acetaminophen (ACETAMINOPHEN) Allergy (Intermediate, Verified 03/08/25 14:52) RASH Penicillins (PENICILLINS) Allergy (Mild, Verified 03/08/25 14:52) MOUTH NUMB aspirin (ASPIRIN) Allergy (Unknown, Verified 03/08/25 14:52) UNKNOWN, itching codeine (CODEINE) Allergy (Unknown, Verified 03/08/25 14:52) UNKNOWN, breathing problems ibuprofen (IBUPROFEN) Allergy (Unknown, Verified 03/08/25 14:52) HX KIDNEY PROBLEM morphine (MORPHINE) Allergy (Unknown, Verified 03/08/25 14:52) DIFFICULTY BREATHING, itch turkey Allergy (Unknown, Verified 03/08/25 14:52) UNKNOWN Medication List - Last Reconciled 03/08/25 by Lulu Gunn PA-C carvedilol 3.125 mg PO BID 90 days cholecalciferol (vitamin D3) 25 mcg PO DAILY clopidogrel 75 mg PO DAILY docusate sodium 100 mg PO BID ezetimibe 10 mg PO DAILY furosemide 20 mg PO DAILY PRN isosorbide dinitrate 5 mg PO BID lisinopril 40 mg PO DAILY loratadine 10 mg PO DAILY melatonin 5 mg PO BEDTIME omeprazole 20 mg PO DAILY rosuvastatin 40 mg PO DAILY HPI HPI UNIFORMER: B/L knee pain: Details: 79-year-old female who is legally blind presents to our office today accompanied by her SAMPLE SELECTOR. She is complaining of bilateral knee pain which has been present for many years. Her primary care provider did recommend physical therapy but she declined. She has discomfort with daily activities such as walking, stairs or prolonged standing. No current treatment to date. [facility] Medical History CAD (coronary artery disease) Aortic stenosis HTN (hypertension) Hyperlipidemia PAUL (obstructive sleep apnea) Acute on chronic cholecystitis concurrent with and due to calculus of gallbladder and bile duct Surgical History Stented coronary artery Hx of heart artery stent Hx of tubal ligation History of Family History Father No problems noted. Mother No problems noted. Son No problems noted. Daughter No problems noted. Daughter No problems noted. Daughter No problems noted. Daughter No problems noted. Social History (Updated 03/08/25 @ 14:44 by HIRAL Erwin) Alcohol intake: never Patient Tobacco Use Status: Never used Tobacco Current occupational status: disabled Review of Systems Const All systems reviewed & are unremarkable except as noted in HPI and below Physical Exam Vital Signs: BMI result Body Mass Index 27.0 Const General: cooperative and no acute distress Orientation/consciousness: patient oriented x3 Resp Effort & Inspection: normal respiratory effort and able to speak in complete sentences Cardio Peripheral pulses: Peripheral pulses 2+ throughout Neuro General: patient oriented x3 Extrem Other: Bilateral knees normal to inspection with varus deformity. She has full range of motion bilaterally with medial joint line tenderness. Calf supple and nontender neurovascularly intact. Office Procedures AMB Joint Injection/Aspiration Joint Injection/Aspiration Primary Site: right knee Secondary Site: left knee Prep: site was prepped using aseptic technique, ethochloride spray was applied and injection warnings given Injected: 40 mg of, with 3 mL of, 1% plain lidocaine, 0.25% bupivacaine, in the joint and decadron Approach Used: anterolateral Procedure: The patient tolerated the procedure well and there was some relief with the local anesthesia Coding 48969 - Glenohumeral/Tronchanteric Bursa/Intraarticular Procedure code (CPT) selection complete Results Reviewed Results Reviewed: X-rays of both knees obtained in the office today and reviewed by me show severe medial compartment arthritis with varus deformity. Assessment & Plan Assessment & Plan (1) Arthritis of both knees: Code(s): M17.0 - Bilateral primary osteoarthritis of knee Category: Medical Plan: We discussed options today which include steroid injection. She is interested in the injection and consented to bilateral knee steroid injections which was performed today. The patient tolerated the procedure well. She will continue with activities as tolerated. Continues to decline physical therapy. If symptoms persist or worsen she will contact our office otherwise follow up as needed. Orders: Orders XR Knee Danilo 3V Today M25.561 - Pain in right knee, M25.562 - Pain in left knee Coding Level of Care Code New Pt Level 3 (23019) Complex EM visit Add On G2211 Diagnoses Arthritis of both knees M17.0 CPT Codes Coding - Joint 7: 70414 - Glenohumeral/Tronchanteric Bursa/Intraarticular ([id number])
[2025-03-08 14:42] VITALS: BMI 27.0
--- OUTSIDE RECORDS SUMMARY | 2025-03-08 16:44 | XMS_ITS | Encounter Summary ---
Author Organization [employer] Address [address] [facility] 7t [place] [address] Care Team Providers Care Water Filterer Name Role Phone Carie London MD Primary Care Provider [phone] Encounter Details Date Type Department Care Team ([facility] st Contact Info) Description 03/02/2024 Orders Only [facility] CHC MED & PEDS [address] [place], [place] [phone] Carie London MD [address] [place], [place] [phone] Primary hypertension (Primary Dx) Social History Tobacco [...] as of this encounter Plan of Treatment Not on file documented as of this encounter Visit Diagnoses Diagnosis Primary hypertension- Primary Unspecified essential hypertension documented in this encounter Care Teams Water Filterer Relationship Specialty Start Date End Date Carie London MD [address] [place] [address] PCP - General Internal Medicine 02/23/18 [facility] 05/05/23 documented as of this encounter
--- OUTSIDE RECORDS SUMMARY | 2025-03-08 16:44 | XMS_ITS | Encounter Summary ---
Author Organization [employer] Address [address] [facility] 7t [place] [address] Care Team Providers Care Polymerization Helper Name Role Phone Carie London MD Primary Care Provider [phone] Encounter Details Date Type Department Care Team ([facility] st Contact Info) Description 11/09/2023 Orders Only [facility] CHC MED & PEDS [address] [place], [place] [phone] Carie London MD [address] [place], [place] [phone] Primary hypertension (Primary Dx); Congestive heart failure, [...] on file documented as of this encounter Procedures Procedure [...] 10:02 AM EDT) Triglycerides 102 <150 mg/dL [facility] Comment:Desirable Triglyceri de: less than 150 mg/dLBorderline High Triglyceride 150-199 mg/dLHigh Triglyceride: 200-499 mg/dLVery High Triglyceride: greater than or equal to 5OO mg/dL Cholesterol 158 <200 mg/dL [facility] Comment:Desirable Cholestero l: less than 200 mg/dLBorderline High Cholesterol: 200-239 mg/dLHigh Cholesterol: greater than 239 mg/dL LDL Cholesterol Calculated 95 <100 mg/dL [facility] Comment:Desirable LDL: less than 100 mg/dLNear Optimal/Above Optimal LDL: 110- 129 mg/dLBorderline High LDL: 130-159 mg/dLHigh LDL: 160-189 mg/dLVery High LDL: greater than or equal to 190 mg/dL HDL Cholesterol 43 >40 mg/dL [facility] Comment:Desirable HDL: great er than 40 mg/dL Note: This HDL assay may give artificially low results in patients with liver disease. Blood Venous blood specimen / Unknown 02/19/2024 10:02 AM EDT 02/19/2024 10:02 AM EDT us Carie London MD LAB BLOOD ORDERABLES Final Result [facility] [address] [place] [phone] * (ABNORMAL) CBC auto differential (02/19/2024 10:02 AM EDT) White Blood Count 6.9 4.8 - 10.8 X10*3/uL [facility] Red Blood Count 3.66(L) 4.20 - 5.50 X10*6/uL [facility] Hemoglobin 11.1(L) 12.0 - 16.0 g/dl [facility] Hematocrit 33.4(L) 37.0 - 47.0 % [facility] Mean Corpuscular Volume 91.3 80.0 - 98.0 fL [facility] Mean Corpuscular Hemoglobin 30.3 27.0 - 33.0 pg [facility] Mean Corpuscular HGB Conc 33.2 31.0 - 35.0 g/dl [facility] Red Cell Distribution Width 13.2 11.0 - 16.0 % [facility] Platelet Count 215 160 - 400 X10*3/uL [facility] Mean Platelet Volume 11.8 9.4 - 12.3 fL [facility] Neutrophils Percent Auto 53.6 45 - 73 % [facility] Imm Gran Pct Auto 0.3 0.0 - 0.4 % [facility] Lymphocytes Percent Auto 33.0 20 - 40 % [facility] Monocytes Percent Auto 10.5 2 - 11 % [facility] Eosinophils Percent Auto 1.7 0 - 4 % [facility] Basophils Percent Auto 0.9 0 - 2 % [facility] NRBC Pct Auto 0.0 0.0 - 0.2 /100WBC [facility] Neutrophils Absolute Auto 3.7 2.0 - 8.3 x10*3/uL [facility] Imm Gran Abs Auto 0.02 0.00 - 0.03 X10*3/uL [facility] Lymphocytes Absolute Auto 2.3 1.2 - 4.9 X10*3/uL [facility] Monocytes Absolute Auto 0.7 0.1 - 1.2 X10*3/uL [facility] Eosinophils Absolute Auto 0.1 0.0 - 0.4 X10*3/uL [facility] Basophils Absolute Auto 0.1 0.0 - 0.2 X10*3/uL [facility] NRBC Abs Auto 0.000 0.0 - 0.012 X10*3/uL [facility] Blood Venous blood specimen / Unknown 02/19/2024 10:02 AM EDT 02/19/2024 10:02 AM EDT us Carie London MD LAB BLOOD ORDERABLES Final Result Performing Organization Address [facility]/ZIP Co de Phone Number [facility] [address] [place] [phone] * TSH W/Reflex to FT4 (02/19/2024 10:02 AM EDT) TSH reflex Free T4 1.48 0.32 - 4.0 uIU/mL [facility] Blood Venous blood specimen / Unknown 02/19/2024 10:02 AM EDT 02/19/2024 10:02 AM EDT us Carie London MD LAB BLOOD ORDERABLES Final Result Performing Organization Address [facility] Co de Phone Number [facility] [address] [place] [phone] * (ABNORMAL) Comprehensive Metabolic Panel (02/19/2024 10:02 AM EDT) Sodium 143 135 - 145 mmol/L [facility] Potassium 4.0 3.3 - 5.1 mmol/L [facility] Chloride 110(H) 96 - 108 mmol/L [facility] Carbon Dioxide 27 22 - 29 mmol/L [facility] Anion Gap 10(L) 12 - 20 [facility] Urea Nitrogen (BUN) 27(H) 9 - 16 mg/dL [facility] Creatinine, Serum 1.40 0.5 - 1.4 mg/dL [facility] Estimated Glomerular Filt Rate 37 [facility] Comment:NOTE: For -Am erican individuals, multiply the result by 1.210.Chronic Kidney Disease: Estimated GFR < 60 mL/min/1.54w2Qvzuyd Kidney Disease: Estimated GFR < 15 mL/min/1.73m2 Glucose 91 60 - 115 mg/dL [facility] Calcium 9.6 8.4 - 10.2 mg/dL [facility] Bilirubin, Total 0.4 0.0 - 1.0 mg/dL [facility] Aspartate Amino Transferase 20 5 - 31 U/L [facility] Alanine Aminotransferase 12 0 - 31 U/L [facility] Total Protein 7.0 6.5 - 8.0 g/dL [facility] Albumin Level 3.6 3.5 - 5.0 g/dL [facility] Alkaline Phosphatase 62 39 - 117 U/L [facility] Blood Venous blood specimen / Unknown 02/19/2024 10:02 AM EDT 02/19/2024 10:02 AM EDT Carie London MD LAB BLOOD ORDERABLES Final Result [facility] [address] [place] [phone] documented in this encounter Visit Diagnoses Diagnosis Primary hypertension- Primary Unspecified essential hypertension Congestive heart failure, unspecified HF chronicity, unspecified heart failure type (CMS/HCC) documented in this encounter Care Teams Polymerization Helper Relationship Specialty Start Date End Date Carie London MD [address] [place] [phone] PCP - General Internal Medicine 02/23/18 [facility] 05/05/23 documented as of this encounter
--- OUTSIDE RECORDS SUMMARY | 2025-03-08 16:44 | XMS_ITS | Encounter Summary ---
Author Organization [employer] Address [address] [facility] 7t [place] [address] Care Team Providers Care Advertising Dispatch Clerk Name Role Phone Carie London MD Primary Care Provider [phone] Reason for Visit * Reason Onset Date Comments Medication Question 02/09/2024 Encounter Details Date Type Department Care Team (Late st Contact Info) Description 02/09/2024 Telephone [facility] MEDICINE [address] [place] [address] Carie London MD [address] [place], [place] [phone] Medication Question Social History Tobacco Use Types [...] taking new script. Please contact L&C at [phone]. documented in this encounter Plan of Treatment Not on file documented as of this encounter Visit Diagnoses Not on filedocumented in this encounter Care Teams Advertising Dispatch Clerk Relationship Specialty Start Date End Date Carie London MD [address] [place] [phone] PCP - General Internal Medicine 02/23/18 [facility] 05/05/23 documented as of this encounter
--- OUTSIDE RECORDS SUMMARY | 2025-03-08 16:44 | XMS_ITS | Encounter Summary ---
Author Organization [facility] Address [address] [place] [address] Phone Care Team Providers Care Arrt Technologist Name Role Phone Lalitha Cisneros MD Primary Care Provider [phone] Encounter Details Date Type Department Care Team (Late Contact Info) Description 02/06/2023 Documentation Only [facility] [address] [place] [address] Caryl Moreno [address] [place] [address] Social History Tobacco Use Types [...] Department Care Team (Late Contact Info) Description 08/22/2025 2:00 PM EST Office Visit [facility] [address] [place] [address] [place] Rebollar MD [address] [place] [address] [place] [address] documented as of this encounter Visit Diagnoses Not on filedocumented in this encounter Care Teams Arrt Technologist Relationship Specialty Start Date End Date Lalitha Cisneros MD [address] PCP - General 05/10/19 documented as of this encounter
--- OUTSIDE RECORDS SUMMARY | 2025-03-08 16:44 | XMS_ITS | Clinical Summary ---
Author Organization [facility] [place], Address [address] [place] [address] [place] [address] Phone Care Team Providers Care Archives Specialist Name Role Phone Lalitha Cisneros MD Primary Care Provider [phone] Allergies Active Allergy Reactions Criticality Noted Date [...] Take with meals. 180 tablet 3 4 Active furosemide (Lasix) 20 MG tablet Take [...] deficiency 10/20/2019 021 Hypertensive heart disease w [facility] congestive heart failure 10/18/2019 10/18/2019 History of [...] 10/18/2019 Myocardial infarction 07/12/20142019 Overview (10/18/2019): Seeing Talco Perfect Binder Setter Osteopenia 07/12/2014 10/18/2019 Congestive heart failure 07/11/2014 Overview (10/18/2019): EF 55% Obstructive sleep apnea syndrome 07/11/2014 10/18/2019 Overview (10/18/2019): Declined Cpap, trial bipap 2014 Encounters Date Type Department Care Team Description 12/16/2024 Documentation Only [facility] [address] [place] [address] Denisse Michelle 12/06/2024 2:00 PM EDT Office Visit [facility] [address] [place] [address] Boston Rebollar MD Stage 3b chronic kidney disease (HCC) (Primary Dx); Hypertensive disorder 12/06/2024 Documentation Only [facility] [address] [phone] Denisse Michelle from Last 3 Months Immunizations Immunization Administration Dates Next Due Pneumococcal Conjugate 13-Valent 08/13/2021 Pneumococcal Polysaccharide 06/24/2013 Tdap 06/05/2020,11/25/2013 Family History Medical History Relation Comments Heart [...] Care Team (Late st Contact Info) Description 08/22/2025 2:00 PM EST Office Visit [facility] [address] [place] [phone] Boston Rebollar MD [address] [place] [address] [place] [id number] Health Maintenance Due Date Last Done Comments Influenza Vaccine (#1) 2025 Pneumococcal Vaccine: 50+ Years Completed 08/13/2021, 06/24/2013 Pneumococcal Vaccine: Peds (0 to 5 Years) and At-Risk Patients (6 to 49 Years) Discontinued 08/13/2021, 06/24/2013 Hepatitis B Vaccine Aged Out No longe r eligible based on patient's age to complete this topic Insurance [employer] Dual SNP ([id number]) Medicaid [place] Care Teams Archives Specialist Relationship Specialty Start Date End Date Lalitha Cisneros MD [address] PCP - General 05/10/19
--- OUTSIDE RECORDS SUMMARY | 2025-03-08 16:44 | XMS_ITS | Encounter Summary ---
Author Organization [employer] Address [address] [facility] 7t [place] [address] Care Team Providers Care Machine Ceramic Coater Name Role Phone Carie London MD Primary Care Provider [phone] Reason for Visit * Reason Onset Date Comments Appointment Request 11/29/2024 Encounter Details Date Type Department Care Team ([facility] st Contact Info) Description 11/29/2024 Telephone [facility] [address] [place] [address] Carie London MD [address] [place], [place] [phone] Appointment Request Social History Tobacco Use Types [...] encounter Miscellaneous Notes * Telephone Encounter - Vitor Scanlon - 11/29/2024 12:23 PM EDT Tc from pt requesting to R/S today's appointment for follow up to be seen. Pt inform hasn't seen PCP in a while , service writer advisor notify she has several cancellations and theres no soon availability. documented in this encounter Plan of Treatment Not on file documented as of this encounter Visit Diagnoses Not on filedocumented in this encounter Additional Health Concerns Assessment Noted Time PHQ-9 Depression Total Score: 0 08/29/19 25 2:00 PM EST documented as of this encounter Care Teams Machine Ceramic Coater Relationship Specialty Start Date End Date Carie London MD [address] [place] [address] PCP - General Internal Medicine 02/23/18 [facility] 05/05/23 documented as of this encounter
--- OUTSIDE RECORDS SUMMARY | 2025-03-08 16:44 | XMS_ITS | Encounter Summary ---
Author Organization [facility] Address [address] [place] [address] Phone Care Team Providers Care Datastage Developer Name Role Phone Lalitha Cisneros MD Primary Care Provider [phone] Encounter Details Date Type Department Care Team (Late Contact Info) Description 11/23/2023 Documentation Only [facility] [address] [place] [address] Denisse Michelle [address] [place] [address] Social History Tobacco Use Types [...] Upcoming Encounters Date Type Department Care Team ([facility] Contact Info) Description 08/22/2025 2:00 PM EST Office Visit [facility] [address] [place] [address] Boston Rebollar MD [address] [place] [address] [place] [address] documented as of this encounter Visit Diagnoses Not on filedocumented in this encounter Care Teams Datastage Developer Relationship Specialty Start Date End Date Lalitha Cisneros MD [address] PCP - General 05/10/19 documented as of this encounter
--- OUTSIDE RECORDS SUMMARY | 2025-03-08 16:44 | XMS_ITS | Encounter Summary ---
Author Organization [facility] Address [address] [place] [address] Phone Care Team Providers Care Nuclear Reactor Engineer Name Role Phone Lalitha Cisneros MD Primary Care Provider [phone] Encounter Details Date Type Department Care Team ([facility] Contact Info) Description 02/06/2023 Documentation Only [facility] [address] [place] [address] Alesha Josue PA [address] [place] [address] [place] [address] Social History Tobacco Use Types Packs/Day Years [...] Upcoming Encounters Date Type Department Care Team ([facility] Contact Info) Description 08/22/2025 2:00 PM EST Office Visit [facility] [address] [place] [address] Boston Rebollar MD [address] [place] [address] [place] [address] documented as of this encounter Visit Diagnoses Not on filedocumented in this encounter Care Teams Nuclear Reactor Engineer Relationship Specialty Start Date End Date Lalitha Cisneros MD [address] PCP - General 05/10/19 documented as of this encounter
--- OUTSIDE RECORDS SUMMARY | 2025-03-08 16:44 | XMS_ITS | Clinical Summary ---
Author Organization [employer] Address [address] [facility] 7t [place] [address] Care Team Providers Care Ear Mold Laboratory Technician Name Role Phone Carie London MD Primary Care Provider [phone] Allergies No known active allergies Medications hydrocortisone [...] 30 tablet 11 08/29/19 25 2025 Active rosuvastatin (Crestor) 40 MG tabletIndications :Hypercholesterol emia TAKE 1 TABLET BY MOUTH AT BEDTIME 30 tablet 5 10/11/19 25 Active omeprazole (PriLOSEC) [address] capsuleIndication s:Gastroesophagea l reflux disease without esophagitis TAKE 1 CAPSULE BY MOUTH EVERY DAY BEFORE BREAKFAST. DO NOT CRUSH OR CHEW. 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 60 tablet 5 10/11/19 25 Active ferrous sulfate 325 (65 Fe) MG tabletIndications :Other iron deficiency anemia TAKE 1 TABLET BY MOUTH EVERY DAY 30 tablet 5 10/11/19 25 Active docusate sodium (Colace) 100 MG capsuleIndication s:Chronic idiopathic constipation TAKE 1 CAPSULE BY MOUTH TWICE DAILY 60 capsule 5 10/11/19 25 Active clopidogrel (Plavix) 75 MG [...] wheezing. 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 03/30/2018 Overview (08/14/2022): Seeing Ric Row Boss Eczema 03/30/2018 H/O heart artery stent 03/30/2018 [...] Dyslipidemia 07/12/2014 GERD (gastroesophageal reflux disease) 5 [place] (myocardial infarction) 07/12/2014 CHF (congestive heart failure) [...] Encounters Date Type Department Care Team Description 02/20/2025 Refill [facility] [address] [place] [address] Carie London MD 02/13/2025 Telephone [facility] [address] [place] [address] Carie London MD Nurse Triage 02/07/2025 Telephone [facility] [address] [place] [address] Carie London MD Nurse Triage 01/03/2025 Telephone [facility] [address] [place] [address] Carie London MD Nurse Triage 12/15/2024 Telephone [facility] [address] [facility] [address] Carie London MD Nurse Triage 12/06/2024 Orders Only [facility]S [address] [place] [address] Carie London MD Other secondary osteoarthritis of both knees (Primary Dx) 12/06/2024 Telephone [facility] [address] [place] [address] Carie London MD Referral from Last 3 Months Immunizations Immunization Administration Dates Next Due Pneumococcal Conjugate PCV [...] 72 08/29/2024 1:59 PM EST Temperature 36.8 C (98.2 F) 08/29/2024 1:59 PM EST Respiratory Rate 18 08/29/2024 1:59 PM EST Oxygen Saturation 99% 08/29/2024 1:59 PM EST Inhaled Oxygen Concentration - - Weight 55.1 kg (121 lb 6.4 oz) 08/29/2024 1:59 P M EST Height 142.2 cm (4' 8 ) 08/29/2024 1:59 PM EST Body Mass Index 27.22 08/29/2024 1:59 PM EST Plan of Treatment Health Maintenance Due Date Last Done Comments Hepatitis C Screening 1965 Zoster Vaccines (1 of 2) 1997 RSV Patients and Patients Aged 60 years or older (1 - 1-dose 75+ series) 2022 COVID-19 Vaccine ( season) 2024 SDOH Screening 02/17/2025 02/18/2024 Influenza Vaccine (#1) 2025 Alcohol/Substance Use Screening 08/29/2025 08/29/2024 Depression Screening 08/29/2025 08/29/2024, 08/29/19 25 Tobacco Screening 08/29/2025 08/29/2024 Lipid Panel 02/18/2029 [...] patient's age to complete this topic Meningococcal B Vaccine Aged Out No l onger eligible based on patient's age to complete [...] Procedure Name Priority Date/Time Associated Diagnosis Comments LIPID PANEL, STANDARD Routine 02/19/2024 10:02 AM EDT Primary hypertension Congestive heart failure, unspecified HF chronicity, unspecified heart failure type (CMS/HCC) from Last 3 Months or Most Recently Relevant to Health Maintenance Results * Lipid Panel, Standard (02/19/2024 10:02 AM EDT) Triglycerides 102 <150 mg/dL [facility] Comment:Desirable Triglyceri de: less than 150 mg/dLBorderline High Triglyceride 150-199 mg/dLHigh Triglyceride: 200-499 mg/dLVery High Triglyceride: greater than or equal to 5OO mg/dL Cholesterol 158 <200 mg/dL [facility] Comment:Desirable Cholestero l: less than 200 mg/dLBorderline High Cholesterol: 200-239 mg/dLHigh Cholesterol: greater than 239 mg/dL LDL Cholesterol Calculated 95 <100 mg/dL [facility] Comment:Desirable LDL: less than 100 mg/dLNear Optimal/Above Optimal LDL: 110- 129 mg/dLBorderline High LDL: 130-159 mg/dLHigh LDL: 160-189 mg/dLVery High LDL: greater than or equal to 190 mg/dL HDL Cholesterol 43 >40 mg/dL [facility] Comment:Desirable HDL: great er than 40 mg/dL Note: This HDL assay may give artificially low results in patients with liver disease. Blood Venous blood specimen / Unknown 02/19/2024 10:02 AM EDT 02/19/2024 10:02 AM EDT Carie London MD LAB BLOOD ORDERABLES Final Result [facility] [address] [place] [address] [phone] from Last 3 Months or Most Recently Relevant to Health Maintenance Insurance * Guarantor: Beatriz Navarro Account Type Relation to Patient Date of Phone Billing Address Personal/Family Self [address] Care Teams Ear Mold Laboratory Technician Relationship Specialty Start Date End Date Carie London MD [address] [place] [id number] PCP - General Internal Medicine 02/23/18 [facility] 05/05/23
--- OUTSIDE RECORDS SUMMARY | 2025-03-08 16:44 | XMS_ITS | Encounter Summary ---
Author Organization [facility] Address [address] [place] [address] Phone Care Team Providers Care Well Shooter Name Role Phone Lalitha Cisneros MD Primary Care Provider [phone] Encounter Details Date Type Department Care Team (Late Contact Info) Description 07/18/2024 Documentation Only [facility] [address] [place] [address] Caryl Moreno [address] [place] [address] Social History Tobacco Use Types [...] [facility] [address] [place] [address] Boston Rebollar MD [address] [place] [address] [place] [address] documented as of this encounter Visit Diagnoses Not on filedocumented in this encounter Care Teams Well Shooter Relationship Specialty Start Date End Date Lalitha Cisneros MD [address] PCP - General 05/10/19 documented as of this encounter
--- OUTSIDE RECORDS SUMMARY | 2025-03-08 16:44 | XMS_ITS | Encounter Summary ---
Author Organization [email or web address] Address [address] [facility] 7t [place] [address] Care Team Providers Care Escalator Installer Name Role Phone Carie London MD Primary Care Provider [phone] Reason for Visit * Reason Onset Date Comments Durable Medical Equipment 03/22/2024 Encounter Details Date Type Department Care Team (Late st Contact Info) Description 03/22/2024 Telephone [facility] [address] [place] [address] Carie London MD [address] [place] [address] Durable Medical Equipment Social History Tobacco Use [...] received an update. Please contact pt at [phone]. (Malaysian Speaker) documented in this encounter Plan of Treatment Not on file documented as of this encounter Visit Diagnoses Not on filedocumented in this encounter Care Teams Escalator Installer Relationship Specialty Start Date End Date Carie London MD [address] [place] [address] PCP - General Internal Medicine 02/23/18 [facility] 05/05/23 documented as of this encounter
--- OUTSIDE RECORDS SUMMARY | 2025-03-08 16:44 | XMS_ITS | Encounter Summary ---
Author Organization [facility] Address [address] [place] [address] Phone Care Team Providers Care Insecticide Expert Name Role Phone Lalitha Cisneros MD Primary Care Provider [phone] Encounter Details Date Type Department Care Team (Late Contact Info) Description 02/04/2022 Documentation Only [facility] [address] [place] [address] Boston Rebollar MD [address] [place] [address] [place] [address] Social History Tobacco Use Types [...] Upcoming Encounters Date Type Department Care Team ([facility] Contact Info) Description 08/22/2025 2:00 PM EST Office Visit [facility] [address] [place] [address] Boston Rebollar MD [address] [place] [address] [place] [address] documented as of this encounter Visit Diagnoses Not on filedocumented in this encounter Care Teams Insecticide Expert Relationship Specialty Start Date End Date Lalitha Cisneros MD [address] PCP - General 05/10/19 documented as of this encounter
--- OUTSIDE RECORDS SUMMARY | 2025-03-08 16:44 | XMS_ITS | Encounter Summary ---
Author Organization [facility] [place], Address [address] [place] [address] Phone Care Team Providers Care Manufacturing Executive Name Role Phone Lalitha Cisneros MD Primary Care Provider [phone] Encounter Details Date Type Department Care Team ([facility] Contact Info) Description 05/29/2023 Documentation Only [facility] [address] LEONARDO [address] [place] [address] Boston Rebollar MD [address] [place] [address] [place] [address] Social History Tobacco Use Types [...] Upcoming Encounters Date Type Department Care Team ([facility] Contact Info) Description 08/22/2025 2:00 PM EST Office Visit [facility] [address] [place] [address] Boston Rebollar MD [address] [place] [address] [place] [address] documented as of this encounter Visit Diagnoses Not on filedocumented in this encounter Care Teams Manufacturing Executive Relationship Specialty Start Date End Date Lalitha Cisneros MD [address] PCP - General 05/10/19 documented as of this encounter
--- OUTSIDE RECORDS SUMMARY | 2025-03-08 16:44 | XMS_ITS | Encounter Summary ---
Author Organization [facility] Address [address] [place] [address] Phone Care Team Providers Care Adjuster Piano Action Name Role Phone Lalitha Cisneros MD Primary Care Provider [phone] Encounter Details Date Type Department Care Team (Late Contact Info) Description 12/16/2024 Documentation Only [facility] [address] [place] [address] Denisse Michelle [address] [place] [address] Social History Tobacco Use Types [...] Visit [facility] [address] [place] [place] [address] Boston Rebollar MD [address] [place] [address] [place] [address] documented as of this encounter Visit Diagnoses Not on filedocumented in this encounter Care Teams Adjuster Piano Action Relationship Specialty Start Date End Date Lalitha Cisneros MD [address] PCP - General 05/10/19 documented as of this encounter
--- OUTSIDE RECORDS SUMMARY | 2025-03-08 16:44 | XMS_ITS | Encounter Summary ---
Author Organization [facility] Address [address] [place] [address] Phone Care Team Providers Care Software Tester Name Role Phone Lalitha Cisneros MD Primary Care Provider [phone] Encounter Details Date Type Department Care Team (Late Contact Info) Description 08/02/2024 Documentation Only [facility] [address] [place] [address] Caryl Moreno [address] [place] [address] Social History Tobacco Use Types [...] Visit [facility] [address] [place] [address] Boston Rebollar MD [address] [place] [address] [place] [address] documented as of this encounter Visit Diagnoses Not on filedocumented in this encounter Care Teams Software Tester Relationship Specialty Start Date End Date Lalitha Cisneros MD [address] PCP - General 05/10/19 documented as of this encounter
--- OUTSIDE RECORDS SUMMARY | 2025-03-08 16:44 | XMS_ITS | Clinical Summary ---
Demographics Address [address] [place] [address] Home Phone Mobile Phone Preferred Language Mohawk; Castilian Marital Status Single Sabianism Affiliation Unknown Race White Ethnic Group or Author Organization [facility] Address [address] [place] [address] Care Team Providers Care Wooden Fence Erector Name Role Phone Roger Albarado NP Primary Care Provider [phone] Source Comments PLEASE NOTE, if this patient is a minor, it may be UNLAWFUL to discuss sensitive information that is contained in these records (such as FAMILY PLANNING, MENTAL HEALTH or SUBSTANCE ABUSE) with the minor patient's parent or other person without the patient's specific authorization.[facility] Allergies Active Allergy Reactions Criticality Noted Date Comments Sny-Zxiflblpkmjjw-Wbta-Buffers Rash 07/11 Atorvastatin Other Severe 07/11/2014 Codeine Other Severe 07/11/2014 Ibuprofen Other Severe 07/11/2014 Morphine Other Severe 07/11/2014 Niacin Other Severe 07/11/2014 Penicillins Other Severe 07/11/2014 Medications carvedilol (COREG) 3.125 mg tabletIndication s:[place] (myocardial infarction) ([facility]) 3.125 mg 2 (two) times daily. 4 [...] 2014 negative Back pain 10/22/2014 Overview (10/22/2014): [place] xray 2014. Bilateral hips normal. Lumbosacral: 1. There is mild degenerative disc disease at L3-4 2. Multi-level mild lumbar spondylosis 3. Bilateral facet arthropathy, most pronounced at L4-5 and L5-S1 Osteopenia 07/12/2014 Anxiety 07/12/2014 Blindness of both eyes 07/12/2014 CKD (chronic kidney disease) 07/12/2014 Overview (07/20/2014): Stage 3, recheck in 2014 Dyslipidemia 07/12/2014 GERD (gastroesophageal reflux disease) 5 [place] (myocardial infarction) ([facility]) 07/12 Osteoarthritis of both knees 07/12/2014 Overview (12/03/2014): Arthritis treatment center referred pt to PT Allergy 07/12/2014 Routine gynecological examination 07/12/2014 Overview (07/12/2014): - Seeing SANDFILL OPERATOR SURFACE [facility] 12/2013, follow up in one year PAUL (obstructive sleep apnea) 07/11/2014 Overview (03/26/2015): Declined Cpap, trial bipap 2014 HTN (hypertension) 07/11/2014 CAD (coronary artery disease) 07/11/2014 Overview (03/15/2015): Seeing [place] Hand Rigger CHF (congestive heart failure) ([facility]) 0 07/11/2014 Overview (07/12/2014): EF 55% Family History Medical [...] 68 03/15/2015 1:44 PM EDT Temperature 37.1 C (98.7 F) 03/15/2015 1:44 PM EDT Respiratory Rate 16 03/15/2015 1:44 PM EDT [...] meals Lifestyle No Nyasia Nicolas RD Insurance [facility] MEDICAID Care Teams Wooden Fence Erector Relationship Specialty Start Date End Date Roger Albarado NP [address] [place] [phone] PCP - General 05/13/18
--- OUTSIDE RECORDS SUMMARY | 2025-03-08 16:44 | XMS_ITS | Encounter Summary ---
Author Organization [facility] Address [address] [place] [address] Phone Care Team Providers Care Finisher Map And Chart Name Role Phone Lalitha Cisneros MD Primary Care Provider [phone] Encounter Details Date Type Department Care Team ([facility] Contact Info) Description 05/27/2023 Documentation Only [facility] [address] [place] [address] Jone Schulz MD [address] [place] [address] [place] [address] Social History Tobacco Use Types [...] Upcoming Encounters Date Type Department Care Team ([facility] Contact Info) Description 08/22/2025 2:00 PM EST Office Visit [facility] [address] [place] [address] Boston Rebollar MD [address] [place] [address] [place] [address] documented as of this encounter Visit Diagnoses Not on filedocumented in this encounter Care Teams Finisher Map And Chart Relationship Specialty Start Date End Date Lalitha Cisneros MD [address] PCP - General 05/10/19 documented as of this encounter
--- OUTSIDE RECORDS SUMMARY | 2025-03-08 16:44 | XMS_ITS | Encounter Summary ---
Author Organization [facility] [place], Address [address] [place] [address] Phone Care Team Providers Care Associate Professor Of Psychology Name Role Phone Lalitha Cisneros MD Primary Care Provider [phone] Encounter Details Date Type Department Care Team ([facility] Contact Info) Description 02/04/2023 Documentation Only [facility] [address] LEONARDO [address] [place] [address] Boston Rebollar MD [address] [place] [address] [place] [address] Social History Tobacco Use Types [...] Upcoming Encounters Date Type Department Care Team ([facility] Contact Info) Description 08/22/2025 2:00 PM EST Office Visit [facility] [address] [place] [address] Boston Rebollar MD [address] [place] [address] [place] [address] documented as of this encounter Visit Diagnoses Not on filedocumented in this encounter Care Teams Associate Professor Of Psychology Relationship Specialty Start Date End Date Lalitha Cisneros MD [address] PCP - General 05/10/19 documented as of this encounter
--- OUTSIDE RECORDS SUMMARY | 2025-03-08 16:44 | XMS_ITS | Encounter Summary ---
Author Organization [facility] Address [address] [place] [address] Phone Care Team Providers Care Setter Juice Packaging Machines Name Role Phone Lalitha Cisneros MD Primary Care Provider [phone] Encounter Details Date Type Department Care Team ([facility] Contact Info) Description 02/04/2023 Documentation Only [facility] [address] [place] [address] Alesha Josue PA [address] [place] [address] [place] [address] Social History Tobacco Use Types [...] Upcoming Encounters Date Type Department Care Team ([facility] Contact Info) Description 08/22/2025 2:00 PM EST Office Visit [facility] [address] [place] [address] Boston Rebollar MD [address] [place] [address] [place] [address] documented as of this encounter Visit Diagnoses Not on filedocumented in this encounter Care Teams Setter Juice Packaging Machines Relationship Specialty Start Date End Date Lalitha Cisneros MD [address] PCP - General 05/10/19 documented as of this encounter
--- OUTSIDE RECORDS SUMMARY | 2025-03-08 16:44 | XMS_ITS | Encounter Summary ---
Author Organization [employer] Address [address] [facility] 7t [place] [address] Care Team Providers Care Dry Goods Clerk Name Role Phone Carie London MD Primary Care Provider [phone] Reason for Visit * Reason Onset Date Comments Pre-visit Planning 02/17/2024 Encounter Details Date Type Department Care Team ([facility] st Contact Info) Description 02/17/[address] [facility] [address] [place] [address] Carie London MD [address] [place] [address] Pre-visit Planning Social History Tobacco Use Types [...] Miscellaneous Notes * Telephone Encounter - Abraham Salvador - 02/17/2024 2:38 PM EDT Tc from pt returning call regarding message below. FRANCISCO Rao placed outbound call to patient to complete pre-visit planning. No answer at this time. Patient name and were not confirmed. documented in this encounter Plan of Treatment Not on file documented as of this encounter Visit Diagnoses Not on filedocumented in this encounter Care Teams Dry Goods Clerk Relationship Specialty Start Date End Date Carie London MD [address] [place] [address] PCP - General Internal Medicine 02/23/18 [facility] 05/05/23 documented as of this encounter
--- OUTSIDE RECORDS SUMMARY | 2025-03-08 16:44 | XMS_ITS | Encounter Summary ---
Author Organization [facility] Address [address] [place] [address] Phone Care Team Providers Care Drill Punch Operator Name Role Phone Lalitha Cisneros MD Primary Care Provider [phone] Encounter Details Date Type Department Care Team (Late Contact Info) Description 02/06/2023 Documentation Only [facility] [address] [place] [address] Cayrl Moreno [address] [place] [address] Social History Tobacco Use Types [...] Visit [facility] [address] [place] [address] Boston Rebollar MD [address] [place] [address] [place] [address] documented as of this encounter Visit Diagnoses Not on filedocumented in this encounter Care Teams Drill Punch Operator Relationship Specialty Start Date End Date Lalitha Cisneros MD [address] PCP - General 05/10/19 documented as of this encounter
--- OUTSIDE RECORDS SUMMARY | 2025-03-08 16:44 | XMS_ITS | Encounter Summary ---
Author Organization [facility] Address [address] [place] [address] Phone Care Team Providers Care Softball Core Molder Name Role Phone Lalitha Cisneros MD Primary Care Provider [phone] Encounter Details Date Type Department Care Team ([facility] Contact Info) Description 11/29/2021 Documentation Only [facility] [address] [place] [address] Boston Rebollar MD [address] [place] [address] [place] [address] Social History Tobacco Use Types [...] Upcoming Encounters Date Type Department Care Team ([facility] Contact Info) Description 08/22/2025 2:00 PM EST Office Visit [facility] [address] [place] [address] Boston Rebollar MD [address] [place] [address] [place] [address] documented as of this encounter Visit Diagnoses Not on filedocumented in this encounter Care Teams Softball Core Molder Relationship Specialty Start Date End Date Lalitha Cisneros MD [address] PCP - General 05/10/19 documented as of this encounter
--- OUTSIDE RECORDS SUMMARY | 2025-03-08 16:44 | XMS_ITS | Encounter Summary ---
Author Organization [facility] Address [address] [place] [address] Phone Care Team Providers Care Risk Modeler Name Role Phone Lalitha Cisneros MD Primary Care Provider [phone] Encounter Details Date Type Department Care Team ([facility] Contact Info) Description 11/29/2021 Documentation Only [facility] [address] [place] [address] Boston Rebollar MD [address] [place] [address] [place] [address] Social History Tobacco Use Types [...] Upcoming Encounters Date Type Department Care Team ([facility] Contact Info) Description 08/22/2025 2:00 PM EST Office Visit [facility] [address] [place] [address] Boston Rebollar MD [address] [place] [address] [place] [address] documented as of this encounter Visit Diagnoses Not on filedocumented in this encounter Care Teams Risk Modeler Relationship Specialty Start Date End Date Lalitha Cisneros MD [address] PCP - General 05/10/19 documented as of this encounter
--- OUTSIDE RECORDS SUMMARY | 2025-03-08 16:44 | XMS_ITS | Encounter Summary ---
Author Organization [facility] [place], Address [address] [place] [address] Phone Care Team Providers Care Erp Analyst Name Role Phone Lalitha Cisneros MD Primary Care Provider [phone] Encounter Details Date Type Department Care Team ([facility] Contact Info) Description 12/06/2024 Documentation Only [facility] [address] LEONARDO [address] [place] [address] Denisse Michelle [address] [place] [address] Social History Tobacco Use Types [...] Upcoming Encounters Date Type Department Care Team ([facility] Contact Info) Description 08/22/2025 2:00 PM EST Office Visit [facility] [address] [facility] [place] [address] Boston Rebollar MD [address] [place] [address] [place] [address] documented as of this encounter Visit Diagnoses Not on filedocumented in this encounter Care Teams Erp Analyst Relationship Specialty Start Date End Date Lalitha Cisneros MD [address] PCP - General 05/10/19 documented as of this encounter
--- OUTSIDE RECORDS SUMMARY | 2025-03-08 16:44 | XMS_ITS | Encounter Summary ---
Author Organization [facility] Address [address] [place] [address] Phone Care Team Providers Care Molded Candles Wicker Name Role Phone Lalitha Cisneros MD Primary Care Provider [phone] Encounter Details Date Type Department Care Team (Late Contact Info) Description 07/18/2024 Documentation Only [facility] [address] [place] [address] Caryl Moreno [address] [place] [address] Social History Tobacco Use Types [...] Visit [facility] [address] [place] [address] Boston Rebollar MD [address] [place] [address] [place] [address] documented as of this encounter Visit Diagnoses Not on filedocumented in this encounter Care Teams Molded Candles Wicker Relationship Specialty Start Date End Date Lalitha Cisneros MD [address] PCP - General 05/10/19 documented as of this encounter
--- OUTSIDE RECORDS SUMMARY | 2025-03-08 16:44 | XMS_ITS | Encounter Summary ---
Author Organization [facility] Address [address] [place] [address] Phone Care Team Providers Care Technical Support Technician Name Role Phone Lalitha Cisneros MD Primary Care Provider [phone] Encounter Details Date Type Department Care Team ([facility] Contact Info) Description 08/07/2022 Documentation Only [facility] [address] [place] [address] Alesha Josue PA [address] [place] [address] [place] [address] Social History Tobacco Use Types [...] Upcoming Encounters Date Type Department Care Team ([facility] Contact Info) Description 08/22/2025 2:00 PM EST Office Visit [facility] [address] [place] [address] Boston Rebollar MD [address] [place] [address] [place] [address] documented as of this encounter Visit Diagnoses Not on filedocumented in this encounter Care Teams Technical Support Technician Relationship Specialty Start Date End Date Lalitha Cisneros MD [address] PCP - General 05/10/19 documented as of this encounter
--- OUTSIDE RECORDS SUMMARY | 2025-03-08 16:44 | XMS_ITS | Encounter Summary ---
Author Organization [facility] Address [address] [place] [address] Phone Care Team Providers Care Heat Plant Specialist Name Role Phone Lalitha Cisneros MD Primary Care Provider [phone] Encounter Details Date Type Department Care Team (Late Contact Info) Description 11/04/2023 Documentation Only [facility] [address] [place] [address] Denisse Michelle [address] [place] [address] Social History Tobacco Use Types [...] Upcoming Encounters Date Type Department Care Team ([facility] Contact Info) Description 08/22/2025 2:00 PM EST Office Visit [facility] [address] [place] [address] Boston Rebollar MD [address] [place] [address] [place] [address] documented as of this encounter Visit Diagnoses Not on filedocumented in this encounter Care Teams Heat Plant Specialist Relationship Specialty Start Date End Date Lalitha Cisneros MD [address] PCP - General 05/10/19 documented as of this encounter
--- OUTSIDE RECORDS SUMMARY | 2025-03-08 16:44 | XMS_ITS | Clinical Summary ---
Author Organization [facility] Address [address] [place] [address] Care Team Providers Care Supervisor Fur Dressing Name Role Phone Emmanuel Pereira MD Primary Care Provider [phone] Allergies Active Allergy Reactions Criticality Noted Date [...] 61 03/06/2023 2:07 PM EDT Temperature 35.8 C (96.4 F) 03/06/2023 2:07 PM EDT Respiratory Rate 18 02/23/2023 1:21 PM EDT [...] 1-dose 75+ series) 2022 Influenza Vaccine (#1) 2025 Hepatitis B Vaccines Aged Out No long er eligible based on patient's age to complete this topic RSV Ped < 20 months Aged Out No longe r eligible based on patient's age to complete this topic Care Teams Supervisor Fur Dressing Relationship Specialty Start Date End Date Emmanuel Pereira MD [address] [place] [address] PCP - General Sociology Instructor 02/20/23
--- OUTSIDE RECORDS SUMMARY | 2025-03-08 16:44 | XMS_ITS | Encounter Summary ---
Author Organization [employer] Address [address] [facility] 7 [place] [address] Care Team Providers Care Leather Staker Name Role Phone Carie London MD Primary Care Provider [phone] Reason for Visit * Reason Onset Date Comments Call Back Request 12/17/2023 Encounter Details Date Type Department Care Team ([facility] st Contact Info) Description 12/17/2023 Telephone [facility] [address] [place] [address] Carie London MD [address] [place], [place] [phone] Call Back Request Social History Tobacco Use [...] 3:49 PM EDT Tc to pt using [employer] [place], [place] [id number]. Pt inquired about [employer] order for supplies [...] have multiple questions in regards different toughs. Rwandan speaker documented in this encounter Plan of Treatment Not on file documented as of this encounter Visit Diagnoses Not on filedocumented in this encounter Care Teams Leather Staker Relationship Specialty Start Date End Date Carie London MD [address] [place] [address] PCP - General Internal Medicine 02/23/[address] [facility] 05/05/23 documented as of this encounter
--- OUTSIDE RECORDS SUMMARY | 2025-03-08 16:44 | XMS_ITS | Encounter Summary ---
Author Organization [employer] Address [address] [facility] [address] [address] Care Team Providers Care Ground Crewman Name Role Phone Carie London MD Primary Care Provider [phone] Reason for Referral * Consultation (Routine) - Authorized Specialty Diagnoses / Procedures Referred By Sussy vargas Referred To Contact Orthopaedic Surgery Diagnoses Other secondary osteoarthritis of both knees Carie London MD [address] [place] [address] Phone: tel: fax: [facility] [address] [place] [address] Phone: tel: Referral ID Status Reason Start Date Expiration Date Visits Requested Visits Authorized [id number] Authorized Specialty Services Required 12/15/2024 12/15/2025 1 1 * Consultation (Routine) - Closed Specialty Diagnoses / Procedures Referred By Sussy vargas Referred To Contact Physical Therapy Diagnoses Other secondary osteoarthritis of both knees Carie London MD [address] [place] [address] Phone: tel: fax: Referral ID Status Reason Start Date Expiration Date V isits Requested Visits Authorized [id number] Closed Specialty Services Required 12/06/2024 12/06/2025 1 1 Encounter Details Date Type Department Care Team (Late st Contact Info) Description 12/06/2024 Orders Only [facility] [address] [place] [address] Carie London MD [address] [facility] [place] [address] Other secondary osteoarthritis of both knees (Primary Dx) Social History Tobacco Use Types [...] as of this encounter Plan of Treatment Scheduled Referrals Name Type Priority Associated Diagnoses Orde r Schedule Referral to Physical Therapy Outpatient Referral Routine Other secondary osteoarthritis of both knees Expected: 12/06/2024 (Approximate), Expires: 12/06/2025 Referral to Orthopaedic Surgery Outpatient Referral Routine Other secondary osteoarthritis of both knees Expected: 12/15/2024 (Approximate), Expires: 12/15/2025 documented as of this encounter Visit Diagnoses Diagnosis Other secondary osteoarthritis of both knees- Primary documented in this encounter Additional Health Concerns Assessment Noted Time PHQ-9 Depression Total Score: 0 08/29/19 25 2:00 PM EST documented as of this encounter Care Teams Ground Crewman Relationship Specialty Start Date End Date Carie London MD [address] [place] [address] PCP - General Internal Medicine 02/23/18 [facility] 05/05/23 documented as of this encounter
--- OUTSIDE RECORDS SUMMARY | 2025-03-08 16:44 | XMS_ITS | Encounter Summary ---
Author Organization [employer] Address [address] [facility] 7 [place] [address] Care Team Providers Care Index Editor Name Role Phone Carie London MD Primary Care Provider [phone] Reason for Visit * Reason Onset Date Comments Reschedule 10/21/2023 Encounter Details Date Type Department Care Team (Late st Contact Info) Description 10/21/2023 Telephone [facility] [address] [place] [address] Carie London MD [address] [place] [address] Reschedule Social History Tobacco Use Types Packs/Day [...] from pt requesting r/s appt with PCP, hand sign writer offer multiple spaces however pt stated are to late. Please contact pt in peruvian documented in this encounter Plan of Treatment Not on file documented as of this encounter Visit Diagnoses Diagnosis Gastroesophageal reflux disease without esophagitis Esophageal reflux CAD in [place] artery documented in this encounter Care Teams Index Editor Relationship Specialty Start Date End Date Carie London MD [address] [place] [address] PCP - General Internal Medicine 02/23/18 [facility] 05/05/23 documented as of this encounter
== END 2025-03-08 15:16 | disposition home or self-care (01) ==
LOC: HO.HOS 14:25
PROVIDERS: PCP Internal Medicine; Visit Provider Physician Assistant
DX: M17.0 Bilateral primary osteoarthritis of knee (principal)
CPT/HCPCS: 20610; 99203

== ENCOUNTER → 2025-03-08 14:27 | Outpatient (BNV) | payer OTHER, SELFPAY | PROVIDERS: Visit Provider Radiology Diagnostic Radiology | DX: M25.561 Pain in right knee (principal); M25.562 Pain in left knee | CPT/HCPCS: 73562 ==

== ENCOUNTER 2025-03-08 15:26 | Outpatient (REF) | payer OTHER, SELFPAY ==
--- NOTE | ~2025-03-08 | XR_ITS ---
EXAMINATION: Bilateral knee. CLINICAL INDICATION: Bilateral knee pain. COMPARISON: Bilateral knee 07/11/2021. TECHNIQUE: AP bilateral knee standing aerated lateral and patellar views both knees total 5 views. FINDINGS: AP bilateral knee: There is moderate loss of medial compartment joint space in both knee joints with mild genu varus deformity. No fracture seen. The left patella lies slightly subluxed laterally compared to right. Right knee: There is loss of patellofemoral compartment joint space. Superior inferior patellar spurring. No loose bodies or bony erosive changes seen. There is mild joint effusion. Left knee: There is mild loss of patellofemoral compartment joint space with mild suprapatellar joint effusion. No loose bodies or bony erosive changes. XR/XR Knee Danilo 3V IMPRESSION: Moderate degenerative arthritic changes medial and patellofemoral compartment joint space without loose bodies or bony erosive changes. Bilateral mild suprapatellar joint effusion. Electronically signed by: Ananth Beasley MD 03/08/2025 03:26 PM EDT
--- OUTSIDE RECORDS SUMMARY | 2025-03-09 16:26 | XMS_ITS | Clinical Summary ---
Author Organization [facility] [place], Address [address] [place] [address] [place] [address] Phone Care Team Providers Care Social Economist Name Role Phone Lalitha Cisneros MD Primary Care Provider [phone] Allergies Active Allergy Reactions Criticality Noted Date [...] deficiency 10/20/2019 021 Hypertensive heart disease [facility] congestive heart failure 10/18/2019 10/18/2019 History [...] Myocardial infarction 07/12/20142019 Overview (10/18/2019): Seeing [employer] Manager Osteopenia 07/12/2014 10/18/2019 Congestive heart failure 07/11/2014 Overview (10/18/2019): EF 55% Obstructive sleep apnea syndrome 07/11/2014 10/18/2019 Overview (10/18/2019): Declined Cpap, trial bipap 2014 Encounters Date Type Department Care Team Description 12/16/2024 Documentation Only [facility] [address] [place] [address] Denisse Michelle from Last 3 Months Immunizations [...] Visit [facility] [place], [address] [facility] [place] [address] Boston Rebollar MD [address] [facility] [place] [address] Health Maintenance Due Date Last Done Comments Influenza Vaccine (#1) 2025 Pneumococcal Vaccine: 50+ Years Completed 08/13/2021, 06/24/2013 Pneumococcal Vaccine: Peds (0 to 5 Years) and At-Risk Patients (6 to 49 Years) Discontinued 08/13/2021, 06/24/2013 Hepatitis B Vaccine Aged Out No longe r eligible based on patient's age to complete this topic Insurance [facility] One Care Dual SNP ([id number]) Medicaid [place] Care Teams Social Economist Relationship Specialty Start Date End Date Lalitha Cisneros MD [address] PCP - General 05/10/19
--- OUTSIDE RECORDS SUMMARY | 2025-03-09 16:26 | XMS_ITS | Clinical Summary ---
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 03/30/2018 Overview (08/14/2022): Seeing [employer] Customer Service Agent Eczema 03/30/2018 H/O heart artery stent 03/30/2018 [...] Dyslipidemia 07/12/2014 GERD (gastroesophageal reflux disease) 5 [place] (myocardial infarction) 07/12/2014 CHF (congestive heart failure) [...] Care Team Description 02/20/2025 Refill [facility] [address] [place] [address] Carie London MD 02/13/2025 Telephone [facility] [address] [place] [address] aCrie London MD Nurse Triage 02/07/2025 Telephone [facility] [address] [place] [address] Carie London MD Nurse Triage 01/03/2025 Telephone [facility] [address] [place] [address] Carie London MD Nurse Triage 12/15/2024 Telephone [facility] [address] [place] [address] Carie Londno MD Nurse Triage from Last 3 Months Immunizations Immunization Administration [...] older (1 - 1-dose 75+ series) 2022 SDOH Screening 02/17/2025 02/18/2024 COVID-19 Vaccine ( season) 2025 Influenza Vaccine (#1) 2025 Alcohol/Substance Use Screening 08/29/2025 08/29/2024 Depression Screening 08/29/2025 08/29/2024, 08/29/19 Tobacco Screening 08/29/2025 08/29/2024 Lipid Panel 02/18/2029 02/19/2024, 10/05, 09/10/2021, Additional history exists DTaP/Tdap/Td Vaccines (3 [...] unspecified HF chronicity, unspecified heart failure type (CMS/[facility]) from Last 3 Months or Most Recently Relevant to Health Maintenance Results * Lipid Panel, Standard (02/19/2024 10:02 AM EDT) Triglycerides 102 <150 mg/dL [facility] Comment:Desirable Triglyceri de: less than 150 mg/dLBorderline High Triglyceride 150-199 mg/dLHigh Triglyceride: 200-499 mg/dLVery High Triglyceride: greater than or equal to 5OO mg/dL Cholesterol 158 <200 mg/dL [facility] Comment:Desirable Cholestero l: less than 200 mg/dLBorderline High Cholesterol: 200-239 mg/dLHigh Cholesterol: greater than 239 mg/dL LDL Cholesterol Calculated 95 <100 mg/dL [facility] Comment:Desirable LDL: less than 100 mg/dLNear Optimal/Above Optimal LDL: 110- 129 mg/dLBorderline High LDL: 130-159 mg/dLHigh LDL: 160-189 mg/dLVery High LDL: greater than or equal to 190 mg/dL HDL Cholesterol 43 >40 mg/dL [facility] Comment:Desirable HDL: great er than 40 mg/dL Note: This HDL assay may give artificially low results in patients with liver disease. Blood Venous blood specimen / Unknown 02/19/2024 10:02 AM EDT 02/19/2024 10:02 AM EDT us Carie London MD LAB BLOOD ORDERABLES Final Result [facility] [address] [place] [address] [phone] from Last 3 Months or Most Recently Relevant to Health Maintenance Insurance [place]ORRIE [place]OR[place] [id number] Care Teams Kier Drier Relationship Specialty Start Date End Date Carie London MD [address] [place] [address] PCP - General Internal Medicine 02/23/[address] [facility] 05/05/23
--- OUTSIDE RECORDS SUMMARY | 2025-03-09 16:26 | XMS_ITS | Encounter Summary ---
Author Organization [facility] Address [address] [place] [address] Phone Care Team Providers Care Brusher And Shearer Name Role Phone Lalitha Cisneros MD Primary Care Provider [phone] Encounter Details Date Type Department Care Team (Late Contact Info) Description 11/23/2023 Documentation Only [facility] [address] [place] [address] Denisse Michelle [address] [place] [address] Social History Tobacco Use Types [...] Upcoming Encounters Date Type Department Care Team ([facility] Contact Info) Description 08/22/2025 2:00 PM EST Office Visit [facility] [address] [place] [address] [place] Rebollar MD [address] [place] [address] [place] [address] documented as of this encounter Visit Diagnoses Not on filedocumented in this encounter Care Teams Brusher And Shearer Relationship Specialty Start Date End Date Lalitha Cisneros MD [address] PCP - General 05/10/19 documented as of this encounter
--- OUTSIDE RECORDS SUMMARY | 2025-03-09 16:26 | XMS_ITS | Encounter Summary ---
Author Organization [facility] Address [address] [place] [address] Phone Care Team Providers Care Mud Grinder Name Role Phone Lalitha Cisneros MD Primary Care Provider [phone] Encounter Details Date Type Department Care Team (Late Contact Info) Description 12/16/2024 Documentation Only [facility] [address] [place] [address] Denisse Michelle [address] [place] [address] Social History Tobacco Use Types [...] [facility] [address] [place] [address] [place] Rebollar MD [address] [place] [address] [place] [address] documented as of this encounter Visit Diagnoses Not on filedocumented in this encounter Care Teams Mud Grinder Relationship Specialty Start Date End Date Lalitha Cisneros MD [address] PCP - General 05/10/19 documented as of this encounter
--- OUTSIDE RECORDS SUMMARY | 2025-03-09 16:26 | XMS_ITS | Encounter Summary ---
Author Organization [facility] [place], Address [address] [place] [address] Phone Care Team Providers Care Physical Chemist Name Role Phone Lalitha Cisneros MD Primary Care Provider [phone] Encounter Details Date Type Department Care Team ([facility] Contact Info) Description 12/06/2024 Documentation Only [facility] [address] LEONARDO [address] [place] [address] Denisse Michelle [address] [place] [address] Social History Tobacco Use Types [...] Team ([facility] Contact Info) Description 08/22/2025 2:00 PM EST Office Visit [facility] [address] [facility] [place] [address] [place] Rebollar MD [address] [place] [address] [place] [address] documented as of this encounter Visit Diagnoses Not on filedocumented in this encounter Care Teams Physical Chemist Relationship Specialty Start Date End Date Lalitha Cisneros MD [address] PCP - General 05/10/19 documented as of this encounter
--- OUTSIDE RECORDS SUMMARY | 2025-03-09 16:26 | XMS_ITS | Encounter Summary ---
Author Organization [facility] Address [address] [place] [address] Phone Care Team Providers Care Video Editing Intern Name Role Phone Lalitha Cisneros MD Primary Care Provider [phone] Encounter Details Date Type Department Care Team (Late Contact Info) Description 07/18/2024 Documentation Only [facility] Of [address] [place] [address] Caryl Moreno [address] [place] [address] Social History Tobacco Use Types [...] Visit [facility] [address] [place] [address] [place] Rebollar MD [address] [place] [address] [place] [address] documented as of this encounter Visit Diagnoses Not on filedocumented in this encounter Care Teams Video Editing Intern Relationship Specialty Start Date End Date Lalitha Cisneros MD [address] PCP - General 05/10/19 documented as of this encounter
--- OUTSIDE RECORDS SUMMARY | 2025-03-09 16:26 | XMS_ITS | Clinical Summary ---
Demographics Address [address] [facility] [address] [place] [address] Home Phone Mobile Phone Preferred Language Estonian; Castilian Marital Status Single Restoration Affiliation Unknown Race White Ethnic Group or Author Organization [facility] Address [address] [place] [address] Care Team Providers Care Planning Director Name Role Phone Roger Albarado NP Primary Care Provider [phone] Source Comments PLEASE NOTE, if this patient is a minor, it may be UNLAWFUL to discuss sensitive information that is contained in these records (such as FAMILY PLANNING, MENTAL HEALTH or SUBSTANCE ABUSE) with the minor patient's parent or other person without the patient's specific authorization.[facility] Allergies Active Allergy Reactions Criticality Noted Date Comments Iex-Dqldoqmabrvjk-Kqoj-Buffers Rash 07/11 Atorvastatin Other Severe 07/11/2014 Codeine Other Severe 07/11/2014 Ibuprofen Other Severe 07/11/2014 Morphine Other Severe 07/11/2014 Niacin Other Severe 07/11/2014 Penicillins Other Severe 07/11/2014 Medications carvedilol (COREG) 3.125 mg tabletIndication s:[place] (myocardial infarction) ([facility]) 3.125 mg 2 (two) times daily. [...] 2014 negative Back pain 10/22/2014 Overview (10/22/2014): [place] xray 2014. Bilateral hips normal. Lumbosacral: 1. There is mild degenerative disc disease at L3-4 2. Multi-level mild lumbar spondylosis 3. Bilateral facet arthropathy, most pronounced at L4-5 and L5-S1 Osteopenia 07/12/2014 Anxiety 07/12/2014 Blindness of both eyes 07/12/2014 CKD (chronic kidney disease) 07/12/2014 Overview (07/20/2014): Stage 3, recheck in 2014 Dyslipidemia 07/12/2014 GERD (gastroesophageal reflux disease) 5 [place] (myocardial infarction) ([facility]) 07/12 Osteoarthritis of both knees 07/12/2014 Overview (12/03/2014): Arthritis treatment center referred pt to PT Allergy 07/12/2014 Routine gynecological examination 07/12/2014 Overview (07/12/2014): - Seeing PIECE WORK INSPECTOR [facility] Women[facility] 12/2013, follow up in one year PAUL (obstructive sleep apnea) 07/11/2014 Overview (03/26/2015): Declined Cpap, trial bipap 2014 HTN (hypertension) 07/11/2014 CAD (coronary artery disease) 07/11/2014 Overview (03/15/2015): Seeing [place] Multimedia Authoring Specialist CHF (congestive heart failure) ([facility]) 0 07/11/2014 Overview (07/12/2014): EF 55% Family [...] meals Lifestyle No Nyasia Nicolas RD Insurance [facility] MEDICAID Care Teams Planning Director Relationship Specialty Start Date End Date Roger Albarado NP [address] [place] [id number] PCP - General 05/13/18
--- OUTSIDE RECORDS SUMMARY | 2025-03-09 16:26 | XMS_ITS | Encounter Summary ---
Author Organization [facility] Address [address] [place] [address] Phone Care Team Providers Care Party Bus Driver Name Role Phone Lalitha Cisneros MD Primary Care Provider [phone] Encounter Details Date Type Department Care Team ([facility] Contact Info) Description 05/27/2023 Documentation Only [facility] [address] [place] [address] Jone Schulz MD [address] [place] [address] [place] [address] Social History Tobacco Use Types [...] Upcoming Encounters Date Type Department Care Team ([facility] Contact Info) Description 08/22/2025 2:00 PM EST Office Visit [facility] [address] [place] [address] [place] Rebollar MD [address] [place] [address] [place] [address] documented as of this encounter Visit Diagnoses Not on filedocumented in this encounter Care Teams Party Bus Driver Relationship Specialty Start Date End Date Lalitha Cisneros MD [address] PCP - General 05/10/19 documented as of this encounter
--- OUTSIDE RECORDS SUMMARY | 2025-03-09 16:26 | XMS_ITS | Encounter Summary ---
Author Organization [email or web address] Address [address] [facility] 7t [place] [address] Care Team Providers Care Shoulder Pad Molder Name Role Phone Carie London MD Primary Care Provider [phone] Reason for Visit * Reason Onset Date Comments Pre-visit Planning 02/17/2024 Encounter Details Date Type Department Care Team ([facility] st Contact Info) Description 02/17/2024 Telephone [facility] MED[facility]INE [address] [place] [address] Carie London MD [address] [place] [address] Pre-visit Planning Social History Tobacco Use Types [...] on filedocumented in this encounter Care Teams Shoulder Pad Molder Relationship Specialty Start Date End Date Carie London MD [address] [place] [address] PCP - General Internal Medicine 02/23/18 [facility] 05/05/23 documented as of this encounter
--- OUTSIDE RECORDS SUMMARY | 2025-03-09 16:26 | XMS_ITS | Encounter Summary ---
Author Organization [employer] Address [address] [facility] 7t [place] [address] Care Team Providers Care Mortician Investigator Name Role Phone Carie London MD Primary Care Provider [phone] Encounter Details Date Type Department Care Team ([facility] st Contact Info) Description 03/02/2024 Orders Only [facility] [address] [place], [place] [phone] Carie London MD [address] [place], [place] [phone] Primary hypertension (Primary Dx) Social History Tobacco [...] hypertension documented in this encounter Care Teams Mortician Investigator Relationship Specialty Start Date End Date Carie London MD [address] [place] [address] PCP - General Internal Medicine 02/23/18 [facility] 05/05/23 documented as of this encounter
--- OUTSIDE RECORDS SUMMARY | 2025-03-09 16:26 | XMS_ITS | Encounter Summary ---
Author Organization [employer] Address [address] [facility] [address] [address] Care Team Providers Care Financial Sales Manager Name Role Phone Carie London MD Primary Care Provider [phone] Reason for Referral * Consultation (Routine) - Authorized Specialty Diagnoses / Procedures Referred By Sussy vargas Referred To Contact Orthopaedic Surgery Diagnoses Other secondary osteoarthritis of both knees Carie London MD [address] [place] [address] Phone: tel: fax: [facility] Orthopedics [address] [place] [address] Phone: tel: Referral ID Status Reason Start Date Expiration Date Visits Requested Visits Authorized [id number] Authorized Specialty Services Required 12/15/2024 12/15/2025 1 1 * Consultation (Routine) - Closed Specialty Diagnoses / Procedures Referred By Sussy vargas Referred To Contact Physical Therapy Diagnoses Other secondary osteoarthritis of both knees Carie London MD [address] [place] [address] Phone: tel: fax: Referral ID Status Reason Start Date Expiration Date V isits Requested Visits Authorized [id number] Closed Specialty Services Required 12/06/2024 12/06/2025 1 1 Encounter Details Date Type Department Care Team (Late st Contact Info) Description 12/06/2024 Orders Only [facility] & [facility]EDS [address] [place] [address] Carie London MD [address] [facility] [place] [address] Other secondary osteoarthritis of both knees (Primary [...] documented as of this encounter Care Teams Financial Sales Manager Relationship Specialty Start Date End Date Carie London MD [address] [place] [address] PCP - General Internal Medicine 02/23/18 [facility] 05/05/23 documented as of this encounter
--- OUTSIDE RECORDS SUMMARY | 2025-03-09 16:26 | XMS_ITS | Encounter Summary ---
Author Organization [employer] Address [address] [facility] 7t [place] [address] Care Team Providers Care Bucket Wash Operator Name Role Phone Carie London MD Primary Care Provider [phone] Reason for Visit * Reason Onset Date Comments Durable Medical Equipment 03/22/2024 Encounter Details Date Type Department Care Team (Late st Contact Info) Description 03/22/2024 Telephone [facility] MEDICINE [address] [place] [address] Carie London MD [address] [place] [address] Durable Medical Equipment Social History Tobacco Use [...] received an update. Please contact pt at [phone]. (Dominican Speaker) documented in this encounter Plan of Treatment Not on file documented as of this encounter Visit Diagnoses Not on filedocumented in this encounter Care Teams Bucket Wash Operator Relationship Specialty Start Date End Date Carie London MD [address] [place] [address] PCP - General Internal Medicine 02/23/18 [facility] 05/05/23 documented as of this encounter
--- OUTSIDE RECORDS SUMMARY | 2025-03-09 16:26 | XMS_ITS | Clinical Summary ---
Author Organization [facility] Address [address] [place] [address] Care Team Providers Care Building Construction Ironworker Name Role Phone Emmanuel Pereira MD Primary Care Provider [phone] Allergies Active Allergy Reactions Criticality Noted Date [...] age to complete this topic Care Teams Building Construction Ironworker Relationship Specialty Start Date End Date Emmanuel Pereira MD [address] [place] [address] PCP - General [place] 02/20/23
--- OUTSIDE RECORDS SUMMARY | 2025-03-09 16:26 | XMS_ITS | Encounter Summary ---
Author Organization [facility] [place], Address [address] [place] [address] Phone Care Team Providers Care Apartment Leasing Agent Name Role Phone Lalitha Cisneros MD Primary Care Provider [phone] Encounter Details Date Type Department Care Team ([facility] Contact Info) Description 05/29/2023 Documentation Only [facility] [address] LEONARDO [address] [place] [address] Boston Rebollar MD [address] [place] [address] [place] [address] Social History Tobacco Use Types [...] Upcoming Encounters Date Type Department Care Team ([facility] Contact Info) Description 08/22/2025 2:00 PM EST Office Visit [facility] [address] [place] [address] [place] Rebollar MD [address] [place] [address] [place] [address] documented as of this encounter Visit Diagnoses Not on filedocumented in this encounter Care Teams Apartment Leasing Agent Relationship Specialty Start Date End Date Lalitha Cisneros MD [address] PCP - General 05/10/19 documented as of this encounter
--- OUTSIDE RECORDS SUMMARY | 2025-03-09 16:26 | XMS_ITS | Encounter Summary ---
Author Organization [facility] Address [address] [place] [address] Phone Care Team Providers Care Microbiology Professor Name Role Phone Lalitha Cisneros MD Primary Care Provider [phone] Encounter Details Date Type Department Care Team (Late Contact Info) Description 08/02/2024 Documentation Only [facility] Of [address] [place] [address] Caryl Moreno [address] [place] [address] Social History Tobacco Use Types [...] [facility] [address] [place] [address] [place] Rebollar MD [address] [place] [address] [place] [address] documented as of this encounter Visit Diagnoses Not on filedocumented in this encounter Care Teams Microbiology Professor Relationship Specialty Start Date End Date Lalitha Cisneros MD [address] PCP - General 05/10/19 documented as of this encounter
--- OUTSIDE RECORDS SUMMARY | 2025-03-09 16:26 | XMS_ITS | Encounter Summary ---
Author Organization [facility] Address [address] [place] [address] Phone Care Team Providers Care Mail Processing Equipment Mechanic Name Role Phone Lalitha Cisneros MD Primary Care Provider [phone] Encounter Details Date Type Department Care Team (Late Contact Info) Description 07/18/2024 Documentation Only [facility] Of [address] [place] [address] Caryl Moreno [address] [place] [address] Social History Tobacco Use Types [...] Visit [facility] [address] [place] [address] [place] Rebollar MD [address] [place] [address] [place] [address] documented as of this encounter Visit Diagnoses Not on filedocumented in this encounter Care Teams Mail Processing Equipment Mechanic Relationship Specialty Start Date End Date Lalitha Cisneros MD [address] PCP - General 05/10/19 documented as of this encounter
--- OUTSIDE RECORDS SUMMARY | 2025-03-09 16:26 | XMS_ITS | Encounter Summary ---
Author Organization [facility] Address [address] [place] [address] Phone Care Team Providers Care Director Of Head Start Name Role Phone Lalitha Cisneros MD Primary Care Provider [phone] Encounter Details Date Type Department Care Team (Late Contact Info) Description 11/04/2023 Documentation Only [facility] Of [address] [place] [address] Denisse Michelle [address] [place] [address] Social History Tobacco Use Types [...] Upcoming Encounters Date Type Department Care Team ([facility] Contact Info) Description 08/22/2025 2:00 PM EST Office Visit [facility] Of [address] [place] [address] [place] Rebollar MD [address] [place] [address] [place] [address] documented as of this encounter Visit Diagnoses Not on filedocumented in this encounter Care Teams Director Of Head Start Relationship Specialty Start Date End Date Lalitha Cisneros MD [address] PCP - General 05/10/19 documented as of this encounter
--- OUTSIDE RECORDS SUMMARY | 2025-03-09 16:27 | XMS_ITS | Encounter Summary ---
Author Organization [employer] Address [address] [facility] 7t [place] [address] Care Team Providers Care Manager Sterile Name Role Phone Carie London MD Primary Care Provider [phone] Reason for Visit * Reason Onset Date Comments Medication Question 02/09/2024 Encounter Details Date Type Department Care Team (Late st Contact Info) Description 02/09/2024 Telephone [facility] MEDICINE [address] [place] [address] Carie London MD [address] [place], [place] [id number] Medication Question Social History Tobacco Use Types [...] taking new script. Please contact L&C at [phone]. documented in this encounter Plan of Treatment Not on file documented as of this encounter Visit Diagnoses Not on filedocumented in this encounter Care Teams Manager Sterile Relationship Specialty Start Date End Date Carie London MD [address] [place] [address] PCP - General Internal Medicine 02/23/18 [facility] 05/05/23 documented as of this encounter
--- OUTSIDE RECORDS SUMMARY | 2025-03-09 16:27 | XMS_ITS | Encounter Summary ---
Author Organization [facility] Address [address] [place] [address] Phone Care Team Providers Care Staffing Assistant Name Role Phone Lalitha Cisneros MD Primary Care Provider [phone] Encounter Details Date Type Department Care Team ([facility] Contact Info) Description 02/06/2023 Documentation Only [facility] [address] [place] [address] Alesha Josue PA [address] [place] [address] [place] [address] Social History Tobacco Use Types [...] Upcoming Encounters Date Type Department Care Team ([facility] Contact Info) Description 08/22/2025 2:00 PM EST Office Visit [facility] [address] [place] [address] [place] Rebollar MD [address] [place] [address] [place] [address] documented as of this encounter Visit Diagnoses Not on filedocumented in this encounter Care Teams Staffing Assistant Relationship Specialty Start Date End Date Lalitha Cisneros MD [address] PCP - General 05/10/19 documented as of this encounter
--- OUTSIDE RECORDS SUMMARY | 2025-03-09 16:27 | XMS_ITS | Encounter Summary ---
Author Organization [employer] Address 75 [facility] 7 [place] [address] Care Team Providers Care Armature Straightener Name Role Phone Carie London MD Primary Care Provider [phone] Reason for Visit * Reason Onset Date Comments Reschedule 10/21/2023 Encounter Details Date Type Department Care Team (Late st Contact Info) Description 10/21/2023 Telephone [facility] [address] [place] [address] Carie London MD [address] [place] [address] Reschedule Social History Tobacco Use Types Packs/Day [...] from pt requesting r/s appt with PCP, engineering writer offer multiple spaces however pt stated are to late. Please contact pt in faroese documented in this encounter Plan of Treatment Not on file documented as of this encounter Visit Diagnoses Diagnosis Gastroesophageal reflux disease without esophagitis Esophageal reflux CAD in [place] artery documented in this encounter Care Teams Armature Straightener Relationship Specialty Start Date End Date Carie London MD [address] [place] [address] PCP - General Internal Medicine 02/23/18 [facility] 05/05/23 documented as of this encounter
--- OUTSIDE RECORDS SUMMARY | 2025-03-09 16:27 | XMS_ITS | Encounter Summary ---
Author Organization [employer] Address 75 [facility] 7t [place] [address] Care Team Providers Care Aircraft Electronics Technical Officer Name Role Phone Carie London MD Primary Care Provider [phone] Reason for Visit * Reason Onset Date Comments Appointment Request 11/29/2024 Encounter Details Date Type Department Care Team ([facility] st Contact Info) Description 11/29/[address] [facility] [address] [place] [address] Carie London MD [address] [place], [place] [phone] Appointment Request Social History Tobacco Use Types [...] hasn't seen PCP in a while , typewriters functional tester notify she has several cancellations and theres no soon availability. documented in this encounter Plan of Treatment Not on file documented as of this encounter Visit Diagnoses Not on filedocumented in this encounter Additional Health Concerns Assessment Noted Time PHQ-9 Depression Total Score: 0 08/29/19 25 2:00 PM EST documented as of this encounter Care Teams Aircraft Electronics Technical Officer Relationship Specialty Start Date End Date Carie London MD [address] [place] [address] PCP - General Internal Medicine 02/23/18 [facility] 05/05/23 documented as of this encounter
--- OUTSIDE RECORDS SUMMARY | 2025-03-09 16:27 | XMS_ITS | Encounter Summary ---
Author Organization [facility] Address [address] [place] [address] Phone Care Team Providers Care Inspector Optical Instrument Name Role Phone Lalitha Cisneros MD Primary Care Provider [phone] Encounter Details Date Type Department Care Team ([facility] Contact Info) Description 02/04/2023 Documentation Only [facility] [address] [place] [address] Alesha Josue PA [address] [place] [address] [place] [address] Social History Tobacco Use Types [...] Upcoming Encounters Date Type Department Care Team ([facility] Contact Info) Description 08/22/2025 2:00 PM EST Office Visit [facility] [address] [place] [address] Boston Rebollar MD [address] [place] [address] [place] [address] documented as of this encounter Visit Diagnoses Not on filedocumented in this encounter Care Teams Inspector Optical Instrument Relationship Specialty Start Date End Date Lalitha Cisneros MD [address] PCP - General 05/10/19 documented as of this encounter
--- OUTSIDE RECORDS SUMMARY | 2025-03-09 16:27 | XMS_ITS | Encounter Summary ---
Author Organization [facility] Address [address] [place] [address] Phone Care Team Providers Care Nephrology Nurse Name Role Phone Lalitha Cisneros MD Primary Care Provider [phone] Encounter Details Date Type Department Care Team ([facility] Contact Info) Description 11/29/2021 Documentation Only [facility] [address] [place] [address] Boston Rebollar MD [address] [place] [address] [place] [address] Social History Tobacco Use Types [...] Upcoming Encounters Date Type Department Care Team ([facility] Contact Info) Description 08/22/2025 2:00 PM EST Office Visit [facility] [address] [place] [address] Boston Rebollar MD [address] [place] [address] [place] [address] documented as of this encounter Visit Diagnoses Not on filedocumented in this encounter Care Teams Nephrology Nurse Relationship Specialty Start Date End Date Lalitha Cisneros MD [address] PCP - General 05/10/19 documented as of this encounter
--- OUTSIDE RECORDS SUMMARY | 2025-03-09 16:27 | XMS_ITS | Encounter Summary ---
Author Organization [facility] Address [address] [place] [address] Phone Care Team Providers Care Market Investigator Name Role Phone Lalitha Cisneros MD Primary Care Provider [phone] Encounter Details Date Type Department Care Team (Late Contact Info) Description 02/06/2023 Documentation Only [facility] Of [address] [place] [address] Caryl Moreno [address] [place] [address] Social History Tobacco Use Types [...] [facility] [address] [place] [address] Boston Rebollar MD [address] [place] [address] [place] [address] documented as of this encounter Visit Diagnoses Not on filedocumented in this encounter Care Teams Market Investigator Relationship Specialty Start Date End Date Lalitha Cisneros MD [address] PCP - General 05/10/19 documented as of this encounter
--- OUTSIDE RECORDS SUMMARY | 2025-03-09 16:27 | XMS_ITS | Encounter Summary ---
Author Organization [employer] Address [address] [employer] 7t [place] [address] Care Team Providers Care Regional Tanker Truck Driver Name Role Phone Carie London MD Primary Care Provider [phone] Encounter Details Date Type Department Care Team ([facility] st Contact Info) Description 11/09/2023 Orders Only [facility] [address] [place], [place] [phone] Carie London MD [address] [place], [place] [phone] Primary hypertension (Primary Dx); Congestive heart failure, [...] 10:02 AM EDT) Triglycerides 102 <150 mg/dL [facility] Comment:Desirable Triglyceri de: less than 150 mg/dLBorderline High Triglyceride 150-199 mg/dLHigh Triglyceride: 200-499 mg/dLVery High Triglyceride: greater than or equal to 5OO mg/dL Cholesterol 158 <200 mg/dL [facility] Comment:Desirable Cholestero l: less than 200 mg/dLBorderline High Cholesterol: 200-239 mg/dLHigh Cholesterol: greater than 239 mg/dL LDL Cholesterol Calculated 95 <100 mg/dL [facility] Comment:Desirable LDL: less than 100 mg/dLNear Optimal/Above Optimal LDL: 110- 129 mg/dLBorderline High LDL: 130-159 mg/dLHigh LDL: 160-189 mg/dLVery High LDL: greater than or equal to 190 mg/dL HDL Cholesterol 43 >40 mg/dL [facility] Comment:Desirable HDL: great er than 40 mg/dL Note: This HDL assay may give artificially low results in patients with liver disease. Blood Venous blood specimen / Unknown 02/19/2024 10:02 AM EDT 02/19/2024 10:02 AM EDT us Carie London MD LAB BLOOD ORDERABLES Final Result [facility] [address] [place] [phone] * (ABNORMAL) CBC auto differential (02/19/2024 10:02 AM EDT) White Blood Count 6.9 4.8 - 10.8 X10*3/uL [facility] Red Blood Count 3.66(L) 4.20 - 5.50 X10*6/uL [facility] Hemoglobin 11.1(L) 12.0 - 16.0 g/dl [facility] Hematocrit 33.4(L) 37.0 - 47.0 % [facility] Mean Corpuscular Volume 91.3 80.0 - 98.0 fL [facility] Mean Corpuscular Hemoglobin 30.3 27.0 - 33.0 pg [facility] Mean Corpuscular HGB Conc 33.2 31.0 - 35.0 g/dl [facility] Red Cell Distribution Width 13.2 11.0 - 16.0 % [facility] Platelet Count 215 160 - 400 X10*3/uL [facility] Mean Platelet Volume 11.8 9.4 - 12.3 fL [facility] Neutrophils Percent Auto 53.6 45 - 73 % [facility] Imm Gran Pct Auto 0.3 0.0 - 0.4 % [facility] Lymphocytes Percent Auto 33.0 20 - 40 % [facility] Monocytes Percent Auto 10.5 2 - 11 % [facility] Eosinophils Percent Auto 1.7 0 - 4 % [facility] Basophils Percent Auto 0.9 0 - 2 % [facility] NRBC Pct Auto 0.0 0.0 - 0.2 /100WBC [facility] Neutrophils Absolute Auto 3.7 2.0 - 8.3 x10*3/uL [facility] Imm Gran Abs Auto 0.02 0.00 - 0.03 X10*3/uL [facility] Lymphocytes Absolute Auto 2.3 1.2 - 4.9 X10*3/uL [facility] Monocytes Absolute Auto 0.7 0.1 - 1.2 X10*3/uL [facility] Eosinophils Absolute Auto 0.1 0.0 - 0.4 X10*3/uL [facility] Basophils Absolute Auto 0.1 0.0 - 0.2 X10*3/uL [facility] NRBC Abs Auto 0.000 0.0 - 0.012 X10*3/uL [facility] Blood Venous blood specimen / Unknown 02/19/2024 10:02 AM EDT 02/19/2024 10:02 AM EDT us Carie London MD LAB BLOOD ORDERABLES Final Result Performing Organization Address [facility]/ZIP Co de Phone Number [facility] [address] [place] [phone] * TSH W/Reflex to FT4 (02/19/2024 10:02 AM EDT) TSH reflex Free T4 1.48 0.32 - 4.0 uIU/mL [facility] Blood Venous blood specimen / Unknown 02/19/2024 10:02 AM EDT 02/19/2024 10:02 AM EDT us Carie London MD LAB BLOOD ORDERABLES Final Result Performing Organization Address [facility] Co de Phone Number [facility] [address] [place] [phone] * (ABNORMAL) Comprehensive Metabolic Panel (02/19/2024 10:02 AM EDT) Sodium 143 135 - 145 mmol/L [facility] Potassium 4.0 3.3 - 5.1 mmol/L [facility] Chloride 110(H) 96 - 108 mmol/L [facility] Carbon Dioxide 27 22 - 29 mmol/L [facility] Anion Gap 10(L) 12 - 20 [facility] Urea Nitrogen (BUN) 27(H) 9 - 16 mg/dL [facility] Creatinine, Serum 1.40 0.5 - 1.4 mg/dL [facility] Estimated Glomerular Filt Rate 37 [facility] Comment:NOTE: For -Am erican individuals, multiply the result by 1.210.Chronic Kidney Disease: Estimated GFR < 60 mL/min/1.59p4Mzysdm Kidney Disease: Estimated GFR < 15 mL/min/1.73m2 Glucose 91 60 - 115 mg/dL [facility] Calcium 9.6 8.4 - 10.2 mg/dL [facility] Bilirubin, Total 0.4 0.0 - 1.0 mg/dL [facility] Aspartate Amino Transferase 20 5 - 31 U/L [facility] Alanine Aminotransferase 12 0 - 31 U/L [facility] Total Protein 7.0 6.5 - 8.0 g/dL [facility] Albumin Level 3.6 3.5 - 5.0 g/dL [facility] Alkaline Phosphatase 62 39 - 117 U/L [facility] Blood Venous blood specimen / Unknown 02/19/2024 10:02 AM EDT 02/19/2024 10:02 AM EDT Carie London MD LAB BLOOD ORDERABLES Final Result [facility] [address] [place] [phone] documented in this encounter Visit Diagnoses Diagnosis Primary hypertension- Primary Unspecified essential hypertension Congestive heart failure, unspecified HF chronicity, unspecified heart failure type (CMS/HCC) documented in this encounter Care Teams Regional Tanker Truck Driver Relationship Specialty Start Date End Date Carie London MD [address] [place] [phone] PCP - General Internal Medicine 02/23/18 [facility] 05/05/23 documented as of this encounter
--- OUTSIDE RECORDS SUMMARY | 2025-03-09 16:27 | XMS_ITS | Encounter Summary ---
Author Organization [facility] Address [address] [place] [address] Phone Care Team Providers Care Park Interpretive Ranger Name Role Phone Lalitha Cisneros MD Primary Care Provider [phone] Encounter Details Date Type Department Care Team ([facility] Contact Info) Description 02/04/2022 Documentation Only [facility] [address] [place] [address] Boston Rebollar MD [address] [place] [address] [place] [address] Social History Tobacco Use Types [...] Upcoming Encounters Date Type Department Care Team ([facility] Contact Info) Description 08/22/2025 2:00 PM EST Office Visit [facility] [address] [place] [address] Boston Rebollar MD [address] [place] [address] [place] [address] documented as of this encounter Visit Diagnoses Not on filedocumented in this encounter Care Teams Park Interpretive Ranger Relationship Specialty Start Date End Date Lalitha Cisneros MD [address] PCP - General 05/10/19 documented as of this encounter
--- OUTSIDE RECORDS SUMMARY | 2025-03-09 16:27 | XMS_ITS | Encounter Summary ---
Author Organization [facility] Address [address] [place] [address] Phone Care Team Providers Care Cooker Loader Name Role Phone Lalitha Cisneros MD Primary Care Provider [phone] Encounter Details Date Type Department Care Team ([facility] Contact Info) Description 11/29/2021 Documentation Only [facility] [address] [place] [address] Boston Rebollar MD [address] [place] [address] [place] [address] Social History Tobacco Use Types [...] Date Type Department Care Team ([facility] Contact Info) Description 08/22/2025 2:00 PM EST Office Visit [facility] [address] [place] [address] Boston Rebollar MD [address] [place] [address] [place] [address] documented as of this encounter Visit Diagnoses Not on filedocumented in this encounter Care Teams Cooker Loader Relationship Specialty Start Date End Date Lalitha Cisneros MD [address] PCP - General 05/10/19 documented as of this encounter
--- OUTSIDE RECORDS SUMMARY | 2025-03-09 16:27 | XMS_ITS | Encounter Summary ---
Author Organization [facility] Address [address] [place] [address] Phone Care Team Providers Care Laboratory Worker Name Role Phone Lalitha Cisneros MD Primary Care Provider [phone] Encounter Details Date Type Department Care Team ([facility] Contact Info) Description 08/07/2022 Documentation Only [facility] [address] [place] [address] Alesha Josue PA [address] [place] [address] [place] [address] Social History Tobacco Use Types [...] Upcoming Encounters Date Type Department Care Team ([facility] Contact Info) Description 08/22/2025 2:00 PM EST Office Visit [facility] [address] [place] [address] Boston Rebollar MD [address] [place] [address] [place] [address] documented as of this encounter Visit Diagnoses Not on filedocumented in this encounter Care Teams Laboratory Worker Relationship Specialty Start Date End Date Lalitha Cisneros MD [address] PCP - General 05/10/19 documented as of this encounter
--- OUTSIDE RECORDS SUMMARY | 2025-03-09 16:27 | XMS_ITS | Encounter Summary ---
Author Organization [facility] [place], Address [address] [place] [address] Phone Care Team Providers Care Bi Architect Name Role Phone Lalitha Cisneros MD Primary Care Provider [phone] Encounter Details Date Type Department Care Team ([facility] Contact Info) Description 02/04/2023 Documentation Only [facility] [address] LEONARDO [address] [place] [phone] Boston Rebollar MD [address] [place] [address] [place] [address] Social History Tobacco Use Types [...] Upcoming Encounters Date Type Department Care Team ([facility] Contact Info) Description 08/22/2025 2:00 PM EST Office Visit [facility] [address] [place] [address] Boston Rebollar MD [address] [place] [address] [place] [address] documented as of this encounter Visit Diagnoses Not on filedocumented in this encounter Care Teams Bi Architect Relationship Specialty Start Date End Date Lalitha Cisneros MD [address] PCP - General 05/10/19 documented as of this encounter
--- OUTSIDE RECORDS SUMMARY | 2025-03-09 16:27 | XMS_ITS | Encounter Summary ---
Author Organization [facility] Address [address] [place] [address] Phone Care Team Providers Care It Specialist Name Role Phone Lalitha Cisneros MD Primary Care Provider [phone] Encounter Details Date Type Department Care Team (Late Contact Info) Description 02/06/2023 Documentation Only [facility] Of [address] [place] [address] Caryl Moreno [address] [place] [address] Social History Tobacco Use Types [...] Visit [facility] [address] [place] [address] Boston Rebollar MD [address] [place] [address] [place] [address] documented as of this encounter Visit Diagnoses Not on filedocumented in this encounter Care Teams It Specialist Relationship Specialty Start Date End Date Lalitha Cisneros MD [address] PCP - General 05/10/19 documented as of this encounter
--- OUTSIDE RECORDS SUMMARY | 2025-03-09 16:27 | XMS_ITS | Encounter Summary ---
Author Organization [employer] Address [address] [facility] 7 [place] [address] Care Team Providers Care Machine Turner Name Role Phone Carie London MD Primary Care Provider [phone] Reason for Visit * Reason Onset Date Comments Call Back Request 12/17/2023 Encounter Details Date Type Department Care Team ([facility] st Contact Info) Description 12/17/2023 Telephone [facility] [address] [place] [address] Carie London MD [address] [place], [place] [phone] Call Back Request Social History Tobacco Use [...] 3:49 PM EDT Tc to pt using [employer] [place], [place] [id number]. Pt inquired about [employer] order for supplies [...] have multiple questions in regards different toughs. Tristanian speaker documented in this encounter Plan of Treatment Not on file documented as of this encounter Visit Diagnoses Not on filedocumented in this encounter Care Teams Machine Turner Relationship Specialty Start Date End Date Carie London MD [address] [place] [phone] PCP - General Internal Medicine 02/23/18 [facility] 05/05/23 documented as of this encounter
== END 2025-03-08 15:27 | disposition home or self-care (01) ==
LOC: HO.HOSX 15:26
PROVIDERS: Visit Provider Physician Assistant
DX: M17.0 Bilateral primary osteoarthritis of knee (principal)
CPT/HCPCS: 20610; 73562; 99202; J0665; J1100

== ENCOUNTER 2025-03-10 11:30 | Emergency (ER) | payer OTHER, SELFPAY ==
--- NOTE | ~2025-03-10 | CT_ITS ---
EXAMINATION: CT HEAD WITHOUT IV CONTRAST HISTORY: fall with head strike, on Plavix. TECHNIQUE: Unenhanced helical CT of the head was performed per standard departmental protocol. Coronal and sagittal reformats of the head were also evaluated. One or more of the following techniques was used for dose reduction: Automated exposure control, adjustment of the mA and/or kV according to patient size, use of iterative reconstruction technique. DLP: 626 mGy-cm COMPARISON: There are no prior studies available for comparison. FINDINGS: BRAIN: The brain parenchyma is unremarkable. There is normal mallory/white differentiation. The ventricular system is normal in size and configuration. There is no mass effect or midline shift. No intra- or extra-axial fluid collections are identified. SINUSES: The visualized paranasal sinuses are clear. The mastoid air cells and middle ear cavities are well pneumatized. ORBITS: There are calcifications of both globes. BONES/SOFT TISSUES: The extracranial soft tissues are unremarkable. The calvarium is intact. No suspicious lytic or sclerotic lesions. CT/CT head/brain wo IV con IMPRESSION: Calcification of both globes. No acute intracranial abnormality. Electronically signed by: Alvin Pisano MD 03/10/2025 12:57 PM EDT
--- NOTE | 2025-03-10 11:40 | ED.GENADULT ---
HPI - General Adult General Chief complaint: Fall Stated complaint: fall Time Seen by Provider: 03/10/25 13:17 History of Present Illness ED Provider: Tong MATHEW narrative: The patient is a 79-year-old female. She has a history of significant blindness. She lives alone in her own apartment. She has AIR MOTOR REPAIRER assistance 5 hours a day. The patient says that she tripped in her bedroom and struck her head against the dresser in her bedroom. She had no loss of consciousness. She is on clopidogrel she says. She had bleeding from her forehead. She had no loss of consciousness. She believes that she slightly injured her left 4th toe and slightly injured the base of her left thumb. She had her AIR MOTOR REPAIRER drive her to the emergency department. The patient says that she has a lot of trouble with arthritis. She had steroid injections to both knees 2 days ago at the orthopedic office with significant improvement in her ability to walk. She has no neck pain or pain with moving her neck. No chest pain or shortness of breath. No abdominal pain, nausea, vomiting. She says that she is on clopidogrel because of a history of a heart attack several years ago. Related Data Home Medications ?Medication ?Instructions ?Recorded ?Confirmed cholecalciferol (vitamin D3) 25 25 mcg PO DAILY 06/25/20 03/08/25 mcg (1,000 unit) capsule clopidogrel 75 mg tablet 75 mg PO DAILY 06/25/20 03/08/25 isosorbide dinitrate 5 mg tablet 5 mg PO BID 06/25/20 03/08/25 loratadine 10 mg tablet 10 mg PO DAILY 06/25/20 03/08/25 omeprazole 20 mg capsule,delayed 20 mg PO DAILY 06/25/20 03/08/25 release rosuvastatin 40 mg tablet 40 mg PO DAILY 06/25/20 03/08/25 melatonin 5 mg tablet 5 mg PO BEDTIME 07/30/20 03/08/25 docusate sodium 100 mg capsule 100 mg PO BID 11/03/23 03/08/25 furosemide 20 mg tablet 20 mg PO DAILY PRN 11/01/24 03/08/25 lisinopril 40 mg tablet 40 mg PO DAILY 11/01/24 03/08/25 Previous Rx's ?Medication ?Instructions ?Recorded ezetimibe 10 mg tablet 10 mg PO DAILY #30 tabs 03/19/22 carvedilol 3.125 mg tablet 3.125 mg PO BID 90 days #180 tabs 06/01/24 Allergies Allergy/AdvReac Type Severity Reaction Status Date / Time atorvastatin (ATORVASTATIN) Allergy Severe UNKNOWN Verified 03/10/25 11:44 niacin (NIACIN) Allergy Severe UNKNOWN Verified 03/10/25 11:44 acetaminophen (ACETAMINOPHEN) Allergy Intermediate RASH Verified 03/10/25 11:44 Penicillins (PENICILLINS) Allergy Mild MOUTH NUMB Verified 03/10/25 11:44 aspirin (ASPIRIN) Allergy Unknown UNKNOWN, Verified 03/10/25 11:44 itching codeine (CODEINE) Allergy Unknown UNKNOWN, Verified 03/10/25 11:44 breathing problems ibuprofen (IBUPROFEN) Allergy Unknown HX KIDNEY Verified 03/10/25 11:44 PROBLEM morphine (MORPHINE) Allergy Unknown DIFFICULTY Verified 03/10/25 11:44 BREATHING, itch turkey Allergy Unknown UNKNOWN Verified 03/10/25 11:44 Review of Systems Review of Systems: Yes all other systems are reviewed and are negative [facility] Past Medical History Medical History CAD (coronary artery disease) Aortic stenosis HTN (hypertension) Hyperlipidemia PAUL (obstructive sleep apnea) Acute on chronic cholecystitis concurrent with and due to calculus of gallbladder and bile duct Surgical History Stented coronary artery Hx of heart artery stent Hx of tubal ligation History of Family History Family History Father No problems noted. Mother No problems noted. Son No problems noted. Daughter No problems noted. Daughter No problems noted. Daughter No problems noted. Daughter No problems noted. Social History Social History (Updated 03/08/25 @ 14:44 by HIRAL Erwin) Alcohol intake: never Patient Tobacco Use Status: Never used Tobacco Advance Directives: No Advance Directives Information Provided: Yes Current occupational status: disabled Physical Exam ED Vital Signs: Vital Signs - 24 hr 03/10/25 11:43 03/10/25 14:14 Temperature 98.2 F 98.2 F Pulse Rate 65 69 Respiratory Rate 18 18 Blood Pressure 152/70 H 137/50 L Pulse Oximetry 99 99 Oxygen Delivery Method Room Air Room Air BMI result Body Mass Index 28.4 Const Other: The patient is a very slight 79-year-old woman with severe visual impairment who is awake and alert and extremely talkative. She has a very nontoxic demeanor. HENMT Other: There is a small vertically oriented laceration to the skin at the junction of the forehead and the hairline of the frontal scalp in the midline. the laceration is approximately 1 cm in length. No other signs of trauma to the face. No raccoon eyes. No Bonner sign. Eyes Other: The patient has opaque corneas bilaterally Neck Other: no posterior midline C-spine tenderness. She was moving her neck easily without any apparent discomfort whatsoever. Her C-spine was clinically clear. Resp Effort & Inspection: normal respiratory effort Auscultation: clear to auscultation bilaterally Cardio Rate: regular rate Rhythm: regular rhythm Heart sounds: S1 normal heart sound present and S2 normal heart sound present GI Other: The abdomen is soft nontender Skin Other: there is 0 1 cm vertically oriented laceration in the midline of the frontal scalp at the junction of the frontal scalp on the forehead. There is some mild ecchymosis to the dorsum of the base of the left thumb. There is some mild ecchymosis to the left 4th toe. Neuro Other: The patient has extremely poor vision. Otherwise cranial nerves 2-12 were intact. She has an entirely normal mental status. She moves her extremities normally and is able to walk well with a cane. Extrem Other: The patient has minor evidence of bruising at the base of the dorsum of the left thumb and some minor ecchymotic skin changes to the left 4th toe. She has good pulses in the extremities. She can move her left thumb normally and the left 4th toe she moves normally as well. Course Course Course Narrative: This is a rapid medical exam performed by Stone Tyler NP: Additional HPI, ROS, PE not included below will be deferred to primary provider. Patient is a 79-year-old Ecuadorean speaking female pmhx CAD with stented coronary artery, HTN, HLD, OA presenting to the ED with complaint of head injury. Had a fall coming out of the shower after getting knee injections. Also complains of pain all over. Will need full assessment. Plan: CT head Procedures Laceration Laceration 1: Site: scalp Size (cm): 1 Description: linear Depth: simple, single layer Skin layer closed with: other ( Dermabond, several layers) Medical Decision Making Medical Decision Making MDM Narrative: the patient is a 79-year-old woman with significant visual impairment who had a mechanical fall in her bedroom. She struck her forehead against a piece of furniture and sustained a small laceration to the skin of her anterior scalp. No other apparent injuries aside from some mild bruising to the left thumb in the left 4th toe. She is on clopidogrel. My suspicion for a fracture in the left hand or the left foot is low. The Scalp wound was cleaned and closed with Dermabond. she has a negative head CT. I did not see other indications for imaging. She looks quite well in seems appropriate for discharge. Wound care instructions were reviewed with the patient. Discharge Plan Discharge Clinical Impression: Fall, Head injury Patient Disposition: Home, Self-Care Additional Instructions: The CAT scan of your head shows no injury. You have a small laceration to your scalp just where your forehead meets your hairline. This was closed with glue. The glue will fall off in a week or so. I would recommend not showering for 3 days to let the wound start to heal. After 3 days you may shower and shampoo your hair. Try not to put pressure on the wound or pick at the glue. You also have a bruise to 1 of your left toes and a slight bruise to your left hand. I do not think you have a fracture. Please follow up with your regular doctor if you have any concerns. Return to the emergency room if you feel significantly worse. Prescriptions: No Action ezetimibe 10 mg tablet 10 mg PO DAILY Qty: 30 5RF carvedilol 3.125 mg tablet 3.125 mg PO BID 90 Days Qty: 180 3RF melatonin 5 mg tablet 5 mg PO BEDTIME rosuvastatin 40 mg tablet 40 mg PO DAILY isosorbide dinitrate 5 mg tablet 5 mg PO BID clopidogrel 75 mg tablet 75 mg PO DAILY omeprazole 20 mg capsule,delayed release(DR/EC) 20 mg PO DAILY cholecalciferol (vitamin D3) 25 mcg (1,000 unit) capsule 25 mcg PO DAILY loratadine 10 mg tablet 10 mg PO DAILY lisinopril 40 mg tablet 40 mg PO DAILY docusate sodium 100 mg capsule 100 mg PO BID furosemide 20 mg tablet 20 mg PO DAILY PRN Referrals: [facility] [Provider Group] Center,[facility] [Primary Care Provider, Medical] Interventions: ED Discharge Assessment Last Done: 03/10/25 14:14 Discharge Date/Time: 03/10/25 14:36 Print Language: Ecuadorean
[2025-03-10 11:43] VITALS: BP 152/70; PULSE 65; RESP 18; TEMP 36.8; O2SAT 99; BMI 28.4
--- OUTSIDE RECORDS SUMMARY | 2025-03-10 13:07 | XMS_ITS | Encounter Summary ---
Author Organization [facility] Address [address] [place] [address] Phone Care Team Providers Care Tank Processor Name Role Phone Lalitha Cisneros MD Primary Care Provider [phone] Encounter Details Date Type Department Care Team (Late Contact Info) Description 08/02/2024 Documentation Only [facility] [address] [place] [address] Caryl Moreno [address] [place] [address] Social History Tobacco Use Types [...] [facility] [address] [place] [address] [place] Rebollar MD [address] [place] [address] [place] [address] documented as of this encounter Visit Diagnoses Not on filedocumented in this encounter Care Teams Tank Processor Relationship Specialty Start Date End Date Lalitha Cisneros MD [address] PCP - General 05/10/19 documented as of this encounter
--- OUTSIDE RECORDS SUMMARY | 2025-03-10 13:07 | XMS_ITS | Clinical Summary ---
Demographics Address [address] [place] [address] Home Phone Mobile Phone Preferred Language Korean; Castilian Marital Status Single Hindu Affiliation Unknown Race White Ethnic Group or Author Organization [facility] Address [address] [place] [address] Care Team Providers Care Director Web Name Role Phone Roger Albarado NP Primary Care Provider [phone] Source Comments PLEASE NOTE, if this patient is a minor, it may be UNLAWFUL to discuss sensitive information that is contained in these records (such as FAMILY PLANNING, MENTAL HEALTH or SUBSTANCE ABUSE) with the minor patient's parent or other person without the patient's specific authorization.[facility] Allergies Active Allergy Reactions Criticality Noted Date Comments Wej-Jtmzuroobogll-Avih-Buffers Rash 07/11 Atorvastatin Other Severe 07/11/2014 Codeine Other Severe 07/11/2014 Ibuprofen Other Severe 07/11/2014 Morphine Other Severe 07/11/2014 Niacin Other Severe 07/11/2014 Penicillins Other Severe 07/11/2014 Medications carvedilol (COREG) 3.125 mg tabletIndication s:KS (myocardial infarction) ([facility]) 3.125 mg 2 (two) times daily. [...] 2014 negative Back pain 10/22/2014 Overview (10/22/2014): [place] xray 2014. Bilateral hips normal. Lumbosacral: 1. There is mild degenerative disc disease at L3-4 2. Multi-level mild lumbar spondylosis 3. Bilateral facet arthropathy, most pronounced at L4-5 and L5-S1 Osteopenia 07/12/2014 Anxiety 07/12/2014 Blindness of both eyes 07/12/2014 CKD (chronic kidney disease) 07/12/2014 Overview (07/20/2014): Stage 3, recheck in 2014 Dyslipidemia 07/12/2014 GERD (gastroesophageal reflux disease) 5 KS (myocardial infarction) ([facility]) 07/12 Osteoarthritis of both knees 07/12/2014 Overview (12/03/2014): [facility]thritis treatment center referred pt to PT Allergy 07/12/2014 Routine gynecological examination 07/12/2014 Overview (07/12/2014): - Seeing COUNSELING DIRECTOR [facility] 12/2013, follow up in one year PAUL (obstructive sleep apnea) 07/11/2014 Overview (03/26/2015): Declined Cpap, trial bipap 2014 HTN (hypertension) 07/11/2014 CAD (coronary artery disease) 07/11/2014 Overview (03/15/2015): Seeing [place] Radiation Control Technician CHF (congestive heart failure) ([facility]) 0 07/11/2014 Overview (07/12/2014): EF 55% [...] meals Lifestyle No Ny[address] RD Insurance [facility] MEDICAID Care Teams Director Web Relationship Specialty Start Date End Date Roger Albarado NP [address] [place] [id number] PCP - General 05/13/18
--- OUTSIDE RECORDS SUMMARY | 2025-03-10 13:07 | XMS_ITS | Encounter Summary ---
Author Organization [facility] Address [address] [place] [address] Phone Care Team Providers Care Logistics Associate Name Role Phone Lalitha Cisneros MD Primary Care Provider [phone] Encounter Details Date Type Department Care Team (Late Contact Info) Description 07/18/2024 Documentation Only [facility] [address] [place] [address] Caryl Moreno [address] [place] [address] Social History Tobacco Use Types [...] Visit [facility] [address] [place] [address] [place] Rebollar MD [address] [place] [address] [place] [address] documented as of this encounter Visit Diagnoses Not on filedocumented in this encounter Care Teams Logistics Associate Relationship Specialty Start Date End Date Lalitha Cisneros MD [address] PCP - General 05/10/19 documented as of this encounter
--- OUTSIDE RECORDS SUMMARY | 2025-03-10 13:07 | XMS_ITS | Encounter Summary ---
Author Organization [email or web address] Address [address] [facility] 7[address] [place] [address] Care Team Providers Care Aircraft Instrument Mechanic Name Role Phone Carie London MD Primary Care Provider [phone] Encounter Details Date Type Department Care Team ([facility] st Contact Info) Description 03/10/2025 Orders Only [facility] External Provider, [facility] Social History Tobacco Use Types Packs/Day Years [...] Procedure Name Priority Date/Time Associated Diagnosis Comments CT HEAD WO CONTRAST Routine 03/10/2025 1 2:26 PM EDT documented in this encounter Results * CT Head w/o Contrast (03/10/2025 12:26 PM EDT) Anatomical Region Laterality Modality Head, Neck Computed Tomogra phy 03/10/2025 12:2 6 PM EDT Narrative 03/10/2025 1:00 PM EDT [place] [address] [address] Scan Report Signed Patient: Beatriz Navarro MR#: [id number] 4 : 1945 Acct:[id number] Age/Sex: 79 / F ADM Date: 03/10/25 Loc: HO.ED Attending Dr: Ordering Physician: Le Tyler NP Date of Service: 03/10/25 Procedure(s): CT head/brain wo IV con Accession Number(s): [id number] cc: [facility]; Le Tyler NP Report Number: [id number]: Total DLP = 626.00 mGy-cm Reason for Exam: fall with head strike, on Plavix EXAMINATION: CT HEAD WITHOUT IV CONTRAST HISTORY: fall with head strike, on Plavix. TECHNIQUE: Unenhanced helical CT of the head was performed per standard departmental protocol. Coronal and sagittal reformats of the head were also evaluated. One or more of the following techniques was used for dose reduction: Automated exposure control, adjustment of the mA and/or kV according to patient size, use of iterative reconstruction technique. DLP: 626 mGy-cm COMPARISON: There are no prior studies available for comparison. FINDINGS: BRAIN: The brain parenchyma is unremarkable. There is normal mallory/white differentiation. The ventricular system is normal in size and configuration. There is no mass effect or midline shift. No intra- or extra-axial fluid collections are identified. SINUSES: The visualized paranasal sinuses are clear. The mastoid air cells and middle ear cavities are well pneumatized. ORBITS: There are calcifications of both globes. BONES/SOFT TISSUES: The extracranial soft tissues are unremarkable. The calvarium is intact. No suspicious lytic or sclerotic lesions. CT/CT head/brain wo IV con IMPRESSION: Calcification of both globes. No acute intracranial abnormality. Electronically signed by: Alvin Pisano MD 03/10/2025 12:57 PM EDT RP Dictated By: Alvin Pisano MD Signed By: <Electronically signed by Alvin Pisano MD in OV> 03/10/25 1257 DD/ 1226 TD/TT: 03/10/25 1237 Event Decorator And Designer: Procedure Note Donotuseinterpreter, Image - 03/10/[address] [place] [address] [address] Scan Report Signed Patient: Jackelyn Naavrro#: [id number] 4 : 1945cct:[id number] Age/Sex: 79 / FADM Date: 03/10/25 Loc: HO.ED Attending Dr: Ordering Physician: Le Tyler NP Date of Service: 03/10/25 Procedure(s): CT head/brain wo IV con Accession Number(s): [id number] cc: [facility]; Le Tyler NP Report Number: [id number]: Total DLP = 626.00 mGy-cm Reason for Exam: fall with head strike, on Plavix EXAMINATION: CT HEAD WITHOUT IV CONTRAST HISTORY: fall with head strike, on Plavix. TECHNIQUE: Unenhanced helical CT of the head was performed per standard departmental protocol. Coronal and sagittal reformats of the head were also evaluated. One or more of the following techniques was used for dose reduction: Automated exposure control, adjustment of the mA and/or kV according to patient size, use of iterative reconstruction technique. DLP: 626 mGy-cm COMPARISON: There are no prior studies available for comparison. FINDINGS: BRAIN: The brain parenchyma is unremarkable. There is normal mallory/white differentiation. The ventricular system is normal in size and configuration. There is no mass effect or midline shift. No intra- or extra-axial fluid collections are identified. SINUSES: The visualized paranasal sinuses are clear. The mastoid air cells and middle ear cavities are well pneumatized. ORBITS: There are calcifications of both globes. BONES/SOFT TISSUES: The extracranial soft tissues are unremarkable. The calvarium is intact. No suspicious lytic or sclerotic lesions. CT/CT head/brain wo IV con IMPRESSION: Calcification of both globes. No acute intracranial abnormality. Electronically signed by: Alvin Pisano MD 03/10/2025 12:57 PM EDT RP Dictated By: Alvin Pisano MD Signed By: <Electronically signed by Alvin Pisano MD in OV> 03/10/25 1257 DD/ 1226 TD/TT: 03/10/25 1237 Event Decorator And Designer: [facility] External Provider IMG CT PROCEDURES Final Result documented in this encounter Visit Diagnoses Not on filedocumented in this encounter Additional Health Concerns Assessment Noted Time PHQ-9 Depression Total Score: 0 08/29/19 25 2:00 PM EST documented as of this encounter Care Teams Aircraft Instrument Mechanic Relationship Specialty Start Date End Date Carie London MD [address] [place] [address] PCP - General Internal Medicine 02/23/18 [facility] 05/05/23 documented as of this encounter
--- OUTSIDE RECORDS SUMMARY | 2025-03-10 13:07 | XMS_ITS | Encounter Summary ---
Author Organization [employer] Address [address] [facility] 7 [place] [address] Care Team Providers Care Home Appliance Installer Name Role Phone Carie London MD Primary Care Provider [phone] Reason for Visit * Reason Onset Date Comments Med Refill 03/10/2025 Encounter Details Date Type Department Care Team ([facility] st Contact Info) Description 03/10/2025 Refill [facility] [address] [place] [address] Carie London MD [address] [place] [address] Hypercholesterolemia; Gastroesophageal reflux disease without esophagitis; CAD in [place] artery; Primary hypertension; Low vitamin D level Social History Tobacco Use Types Packs/Day Years [...] encounter Miscellaneous Notes * Telephone Encounter - Nancy Wagner LPN - 03/10/2025 9:59 AM EDT Last seen 08/29/24. documented in this encounter Plan of Treatment Not on file documented as of this encounter Visit Diagnoses Diagnosis Hypercholesterolemia Pure hypercholesterolemia Gastroesophageal reflux disease without esophagitis Esophageal reflux CAD in [place] artery Primary hypertension Unspecified essential hypertension Low vitamin D level documented in this encounter Additional Health Concerns Assessment Noted Time PHQ-9 Depression Total Score: 0 08/29/19 25 2:00 PM EST documented as of this encounter Care Teams Home Appliance Installer Relationship Specialty Start Date End Date Carie London MD [address] [place] [address] PCP - General Internal Medicine 02/23/18 [facility] 05/05/23 documented as of this encounter
--- OUTSIDE RECORDS SUMMARY | 2025-03-10 13:07 | XMS_ITS | Encounter Summary ---
Author Organization [facility] Address [address] [place] [address] Phone Care Team Providers Care Wiping Cloth Cutter Name Role Phone Lalitha Cisneros MD Primary Care Provider [phone] Encounter Details Date Type Department Care Team (Late Contact Info) Description 07/18/2024 Documentation Only [facility] [address] [place] [address] Caryl Moreno [address] [place] [address] Social History Tobacco Use Types [...] [facility] [address] [place] [address] [place] Rebollar MD [address] [place] [address] [place] [address] documented as of this encounter Visit Diagnoses Not on filedocumented in this encounter Care Teams Wiping Cloth Cutter Relationship Specialty Start Date End Date Lalitha Cisneros MD [address] PCP - General 05/10/19 documented as of this encounter
--- OUTSIDE RECORDS SUMMARY | 2025-03-10 13:07 | XMS_ITS | Encounter Summary ---
Author Organization [facility] Address [address] [place] [address] Phone Care Team Providers Care Education Coordinator Name Role Phone Lalitha Cisneros MD Primary Care Provider Encounter Details Date Type Department Care Team ([facility] Contact Info) Description 12/06/2024 Documentation Only [facility] [address] [place] [address] Denisse Michelle [address] [place] [address] Social History Tobacco Use Types [...] Upcoming Encounters Date Type Department Care Team ([facility] Contact Info) Description 08/22/2025 2:00 PM EST Office Visit [facility] [address] [place] [address] [place] Rebollar MD [address] [place] [address] [place] [address] documented as of this encounter Visit Diagnoses Not on filedocumented in this encounter Care Teams Education Coordinator Relationship Specialty Start Date End Date Lalitha Cisneros MD [address] PCP - General 05/10/19 documented as of this encounter
--- OUTSIDE RECORDS SUMMARY | 2025-03-10 13:07 | XMS_ITS | Encounter Summary ---
Author Organization [facility] Address [address] [place] [address] Phone Care Team Providers Care Outside Medical Sales Representative Name Role Phone Lalitha Cisneros MD Primary Care Provider [phone] Encounter Details Date Type Department Care Team (Late Contact Info) Description 12/16/2024 Documentation Only [facility] [address] [place] [address] Denisse Michelle [address] [place] [address] Social History Tobacco Use Types [...] Visit [facility] [address] [place] [address] [place] Rebollar MD [address] [place] [address] [place] [address] documented as of this encounter Visit Diagnoses Not on filedocumented in this encounter Care Teams Outside Medical Sales Representative Relationship Specialty Start Date End Date Lalitha Cisneros MD [address] PCP - General 05/10/19 documented as of this encounter
--- OUTSIDE RECORDS SUMMARY | 2025-03-10 13:07 | XMS_ITS | Clinical Summary ---
Author Organization [facility] Address [address] [place] [address] Care Team Providers Care Assistant Manager Of Operations Name Role Phone Emmanuel Pereira MD Primary Care Provider [phone] Allergies Active Allergy Reactions Criticality Noted Date [...] age to complete this topic Care Teams Assistant Manager Of Operations Relationship Specialty Start Date End Date Emmanuel Pereira MD [address] [place] [address] PCP - General Factory Worker 02/20/23
--- OUTSIDE RECORDS SUMMARY | 2025-03-10 13:07 | XMS_ITS | Clinical Summary ---
Author Organization [facility] [place], Address [address] [place] [address] [place] [address] Phone Care Team Providers Care Conservation Worker Name Role Phone Lalitha Cisneros MD Primary Care Provider [phone] Allergies Active Allergy Reactions Criticality Noted Date [...] deficiency 10/20/2019 021 Hypertensive heart disease [facility] congestive heart failure 10/18/2019 10/18/2019 History [...] Myocardial infarction 07/12/20142019 Overview (10/18/2019): Seeing [employer] Recruiter Osteopenia 07/12/2014 10/18/2019 Congestive heart failure 07/11/2014 Overview (10/18/2019): EF 55% Obstructive sleep apnea syndrome 07/11/2014 10/18/2019 Overview (10/18/2019): Declined Cpap, trial bipap 2014 Encounters Date Type Department Care Team Description 12/16/2024 Documentation Only [facility] [address] [place] [address] Denisse Michelle from Last 3 Months Immunizations [...] Visit [facility] [place], [address] [place] [address] Boston Rebollar MD [address] [place] [phone] Health Maintenance Due Date Last Done Comments Influenza Vaccine (#1) 2025 Pneumococcal Vaccine: 50+ Years Completed 08/13/2021, 06/24/2013 Pneumococcal Vaccine: Peds (0 to 5 Years) and At-Risk Patients (6 to 49 Years) Discontinued 08/13/2021, 06/24/2013 Hepatitis B Vaccine Aged Out No longe r eligible based on patient's age to complete this topic Insurance [facility] One Care Dual SNP ([id number]) Medicaid [place] Care Teams Conservation Worker Relationship Specialty Start Date End Date Lalitha Cisneros MD [address] PCP - General 05/10/19
--- OUTSIDE RECORDS SUMMARY | 2025-03-10 13:07 | XMS_ITS | Encounter Summary ---
Author Organization [employer] Address [address] [facility] [address], [place] [address] Care Team Providers Care Hydrator Operator Name Role Phone Carie London MD Primary Care Provider [phone] Reason for Referral * Consultation (Routine) - Authorized Specialty Diagnoses / Procedures Referred By Sussy vargas Referred To Contact Orthopaedic Surgery Diagnoses Other secondary osteoarthritis of both knees Carie London MD [address] [place] [address] Phone: tel: fax: [facility] Orth[facility] [address] [place] [address] Phone: tel: Referral ID Status Reason Start Date Expiration Date Visits Requested Visits Authorized [id number] Authorized Specialty Services Required 12/15/2024 12/15/2025 1 1 * Consultation (Routine) - Closed Specialty Diagnoses / Procedures Referred By Sussy vargas Referred To Contact Physical Therapy Diagnoses Other secondary osteoarthritis of both knees Carie London MD [address] [place] [address] Phone: tel: fax: Referral ID Status Reason Start Date Expiration Date V isits Requested Visits Authorized [id number] Closed Specialty Services Required 12/06/2024 12/06/2025 1 1 Encounter Details Date Type Department Care Team (Late st Contact Info) Description 12/06/2024 Orders Only [facility] PEDS [address] [place] [address] Carie London MD [address] [facility] [place] [address] Other secondary osteoarthritis of both knees (Primary [...] documented as of this encounter Care Teams Hydrator Operator Relationship Specialty Start Date End Date Carie London MD [address] [place] [address] PCP - General Internal Medicine 02/23/18 [facility] 05/05/23 documented as of this encounter
--- OUTSIDE RECORDS SUMMARY | 2025-03-10 13:08 | XMS_ITS | Encounter Summary ---
Author Organization [employer] Address [address] [facility] 7 [place] [address] Care Team Providers Care Crystallizer Operator Name Role Phone Carie London MD Primary Care Provider [phone] Reason for Visit * Reason Onset Date Comments Call Back Request 12/17/2023 Encounter Details Date Type Department Care Team ([facility] st Contact Info) Description 12/17/2023 Telephone [facility] MEDICINE [address] [place] [address] Carie London MD [address] [place], [place] [phone] Call Back Request Social History Tobacco Use [...] 3:49 PM EDT Tc to pt using [employer] Supervisor [place], [place] [id number]. Pt inquired about [employer] order for supplies [...] have multiple questions in regards different toughs. Israeli speaker documented in this encounter Plan of Treatment Not on file documented as of this encounter Visit Diagnoses Not on filedocumented in this encounter Care Teams Crystallizer Operator Relationship Specialty Start Date End Date Carie London MD [address] [place] [address] PCP - General Internal Medicine 02/23/18 [facility] 05/05/23 documented as of this encounter
--- OUTSIDE RECORDS SUMMARY | 2025-03-10 13:08 | XMS_ITS | Encounter Summary ---
Author Organization [facility] Address [address] [place] [address] Phone Care Team Providers Care Career And Technology Education Teacher Name Role Phone Lalitha Cisneros MD Primary Care Provider [phone] Encounter Details Date Type Department Care Team ([facility] Contact Info) Description 02/04/2023 Documentation Only [facility] [address] [place] [address] Alesha Josue PA [address] [place] [address] [place] [address] Social History Tobacco Use Types [...] Department Care Team ([facility] Contact Info) Description 08/22/2025 2:00 PM EST Office Visit [facility] [address] [place] [address] Boston Rebollar MD [address] [place] [address] [place] [address] documented as of this encounter Visit Diagnoses Not on filedocumented in this encounter Care Teams Career And Technology Education Teacher Relationship Specialty Start Date End Date Lalitha Cisneros MD [address] PCP - General 05/10/19 documented as of this encounter
--- OUTSIDE RECORDS SUMMARY | 2025-03-10 13:08 | XMS_ITS | Encounter Summary ---
Author Organization [employer] Address [address] [facility] 7t [place] [address] Care Team Providers Care Dehydration Unit Operator Name Role Phone Carie London MD Primary Care Provider [phone] Reason for Visit * Reason Onset Date Comments Appointment Request 11/29/2024 Encounter Details Date Type Department Care Team ([facility] st Contact Info) Description 11/29/2024 Telephone [facility] MEDICINE [address] [place] [address] Carie London MD [address] [place], [place] [phone] Appointment Request Social History Tobacco Use Types [...] hasn't seen PCP in a while , casualty underwriter notify she has several cancellations and theres no soon availability. documented in this encounter Plan of Treatment Not on file documented as of this encounter Visit Diagnoses Not on filedocumented in this encounter Additional Health Concerns Assessment Noted Time PHQ-9 Depression Total Score: 0 08/29/19 25 2:00 PM EST documented as of this encounter Care Teams Dehydration Unit Operator Relationship Specialty Start Date End Date Carie London MD [address] [place] [address] PCP - General Internal Medicine 02/23/18 [facility] 05/05/23 documented as of this encounter
--- OUTSIDE RECORDS SUMMARY | 2025-03-10 13:08 | XMS_ITS | Encounter Summary ---
Author Organization [employer] Address [address] [facility] 7t [place] [address] Care Team Providers Care Quality Control Analyst Name Role Phone Carei London MD Primary Care Provider [phone] Reason for Visit * Reason Onset Date Comments Medication Question 02/09/2024 Encounter Details Date Type Department Care Team (Late st Contact Info) Description 02/09/2024 Telephone [facility] MEDICINE 230 [place] [address] Carie London MD [address] [place], [place] [phone] Medication Question Social History Tobacco Use Types [...] taking new script. Please contact L&C at [phone]. documented in this encounter Plan of Treatment Not on file documented as of this encounter Visit Diagnoses Not on filedocumented in this encounter Care Teams Quality Control Analyst Relationship Specialty Start Date End Date Carie London MD [address] [place] [address] PCP - General Internal Medicine 02/23/18 [facility] 05/05/23 documented as of this encounter
--- OUTSIDE RECORDS SUMMARY | 2025-03-10 13:08 | XMS_ITS | Encounter Summary ---
Author Organization [facility] Address [address] [place] [address] Phone Care Team Providers Care Sleeve Separator Name Role Phone Lalitha Cisneros MD Primary Care Provider [phone] Encounter Details Date Type Department Care Team (Late Contact Info) Description 11/04/2023 Documentation Only [facility] [address] [place] [address] Denisse Michelle [address] [place] [address] Social History Tobacco Use Types [...] Upcoming Encounters Date Type Department Care Team ([facility] Contact Info) Description 08/22/2025 2:00 PM EST Office Visit [facility] [address] [place] [address] Boston Rebollar MD [address] [place] [address] [place] [address] documented as of this encounter Visit Diagnoses Not on filedocumented in this encounter Care Teams Sleeve Separator Relationship Specialty Start Date End Date Lalitha Cisneros MD [address] PCP - General 05/10/19 documented as of this encounter
--- OUTSIDE RECORDS SUMMARY | 2025-03-10 13:08 | XMS_ITS | Encounter Summary ---
Author Organization [employer] Address [address] [facility] 7t [place] [address] Care Team Providers Care Warehouse Analyst Name Role Phone Carie London MD Primary Care Provider [phone] Encounter Details Date Type Department Care Team ([facility] st Contact Info) Description 03/02/2024 Orders Only [facility] CHC MED & PEDS 505 [place], [place] [phone] Carie London MD 505 [place], [place] [phone] Primary hypertension (Primary Dx) Social History Tobacco [...] hypertension documented in this encounter Care Teams Warehouse Analyst Relationship Specialty Start Date End Date Carie London MD [address] [place] [address] PCP - General Internal Medicine 02/23/18 [facility] 05/05/23 documented as of this encounter
--- OUTSIDE RECORDS SUMMARY | 2025-03-10 13:08 | XMS_ITS | Encounter Summary ---
Author Organization [facility] Address [address] [place] [address] Phone Care Team Providers Care Post Tronic Machine Operator Name Role Phone Lalitha Cisneros MD Primary Care Provider [phone] Encounter Details Date Type Department Care Team (Late Contact Info) Description 11/23/2023 Documentation Only [facility] [address] [place] [address] Denisse Michelle [address] [place] [address] Social History Tobacco Use Types [...] Upcoming Encounters Date Type Department Care Team ([facility] Contact Info) Description 08/22/2025 2:00 PM EST Office Visit [facility] [address] [place] [address] Boston Rebollar MD [address] [place] [address] [place] [address] documented as of this encounter Visit Diagnoses Not on filedocumented in this encounter Care Teams Post Tronic Machine Operator Relationship Specialty Start Date End Date Lalitha Cisneros MD [address] PCP - General 05/10/19 documented as of this encounter
--- OUTSIDE RECORDS SUMMARY | 2025-03-10 13:08 | XMS_ITS | Encounter Summary ---
Author Organization [facility] Address [address] [place] [address] Phone Care Team Providers Care Toolroom Helper Name Role Phone Lalitha Cisneros MD Primary Care Provider [phone] Encounter Details Date Type Department Care Team ([facility] Contact Info) Description 11/29/2021 Documentation Only [facility] [address] [place] [address] Boston Rebollar MD [address] [place] [address] [place] [address] Social History Tobacco Use Types [...] Upcoming Encounters Date Type Department Care Team ([facility] Contact Info) Description 08/22/2025 2:00 PM EST Office Visit [facility] [address] [place] [address] Boston Rebollar MD [address] [place] [address] [place] [address] documented as of this encounter Visit Diagnoses Not on filedocumented in this encounter Care Teams Toolroom Helper Relationship Specialty Start Date End Date Lalitha Cisneros MD [address] PCP - General 05/10/19 documented as of this encounter
--- OUTSIDE RECORDS SUMMARY | 2025-03-10 13:08 | XMS_ITS | Encounter Summary ---
Author Organization [employer] Address 75 [facility] 7 [place] [address] Care Team Providers Care It Business Process Architect Name Role Phone Carie London MD Primary Care Provider [phone] Reason for Visit * Reason Onset Date Comments Reschedule 10/21/2023 Encounter Details Date Type Department Care Team (Late st Contact Info) Description 10/21/2023 Telephone [facility] MEDICINE 230 [place] [address] Carie London MD [address] [place] [address] Reschedule Social History Tobacco Use Types Packs/Day [...] encounter Miscellaneous Notes * Telephone Encounter - Divnia Duff - 10/21/2023 3:58 PM EDT Tc from pt requesting r/s appt with PCP, health science writer offer multiple spaces however pt stated are to late. Please contact pt in vietnamese documented in this encounter Plan of Treatment Not on file documented as of this encounter Visit Diagnoses Diagnosis Gastroesophageal reflux disease without esophagitis Esophageal reflux CAD in [place] artery documented in this encounter Care Teams It Business Process Architect Relationship Specialty Start Date End Date Carie London MD [address] [place] [address] PCP - General Internal Medicine 02/23/18 [facility] 05/05/23 documented as of this encounter
--- OUTSIDE RECORDS SUMMARY | 2025-03-10 13:08 | XMS_ITS | Encounter Summary ---
Author Organization [facility] Address [address] [place] [address] Phone Care Team Providers Care Monitoring Coordinator Name Role Phone Lalitha Cisneros MD Primary Care Provider [phone] Encounter Details Date Type Department Care Team ([facility] Contact Info) Description 11/29/2021 Documentation Only [facility] [address] [place] [address] Boston Rebollar MD [address] [place] [address] [place] [address] Social History Tobacco Use Types [...] [facility] [address] [place] [address] Boston Rebollar MD [address] [place] [address] [place] [address] documented as of this encounter Visit Diagnoses Not on filedocumented in this encounter Care Teams Monitoring Coordinator Relationship Specialty Start Date End Date Lalitha Cisneros MD [address] PCP - General 05/10/19 documented as of this encounter
--- OUTSIDE RECORDS SUMMARY | 2025-03-10 13:08 | XMS_ITS | Encounter Summary ---
Author Organization [facility] Address [address] [place] [address] Phone Care Team Providers Care Engineering Specialist Technician Name Role Phone Lalitha Cisneros MD Primary Care Provider [phone] Encounter Details Date Type Department Care Team ([facility] Contact Info) Description 08/07/2022 Documentation Only [facility] [address] [place] [address] Alesha Josue PA [address] [place] [address] [place] [address] Social History Tobacco Use Types [...] Upcoming Encounters Date Type Department Care Team ([facility] Contact Info) Description 08/22/2025 2:00 PM EST Office Visit [facility] [address] [place] [address] Boston Rebollar MD [address] [place] [address] [place] [address] documented as of this encounter Visit Diagnoses Not on filedocumented in this encounter Care Teams Engineering Specialist Technician Relationship Specialty Start Date End Date Lalitha Cisneros MD [address] PCP - General 05/10/19 documented as of this encounter
--- OUTSIDE RECORDS SUMMARY | 2025-03-10 13:08 | XMS_ITS | Encounter Summary ---
Author Organization [facility] Address [address] [place] [address] Phone Care Team Providers Care Hospital Nurse Liaison Name Role Phone Lalitha Cisneros MD Primary Care Provider [phone] Encounter Details Date Type Department Care Team (Late Contact Info) Description 02/06/2023 Documentation Only [facility] [address] [place] [address] Caryl Moreno [address] [place] [address] Social History Tobacco Use Types [...] Visit [facility] [address] [place] [address] Boston Rebollar MD [address] [place] [address] [place] [address] documented as of this encounter Visit Diagnoses Not on filedocumented in this encounter Care Teams Hospital Nurse Liaison Relationship Specialty Start Date End Date Lalitha Cisneros MD [address] PCP - General 05/10/19 documented as of this encounter
--- OUTSIDE RECORDS SUMMARY | 2025-03-10 13:08 | XMS_ITS | Encounter Summary ---
Author Organization [facility] Address [address] [place] [address] Phone Care Team Providers Care Shoe Designer Name Role Phone Lalitha Cisneros MD Primary Care Provider Encounter Details Date Type Department Care Team ([facility] Contact Info) Description 02/04/2022 Documentation Only [facility] [address] [place] [address] Boston Rebollar MD [address] [place] [address] [place] [address] Social History Tobacco Use Types [...] Encounters Date Type Department Care Team ([facility] Contact Info) Description 08/22/2025 2:00 PM EST Office Visit [facility] [address] [place] [address] Boston Rebollar MD [address] [place] [address] [place] [address] documented as of this encounter Visit Diagnoses Not on filedocumented in this encounter Care Teams Shoe Designer Relationship Specialty Start Date End Date Lalitha Cisneros MD [address] PCP - General 05/10/19 documented as of this encounter
--- OUTSIDE RECORDS SUMMARY | 2025-03-10 13:08 | XMS_ITS | Encounter Summary ---
Author Organization [facility] [place], Address [address] [place] [address] Phone Care Team Providers Care Oral Surgery Physician Name Role Phone Lalitha Cisneros MD Primary Care Provider [phone] Encounter Details Date Type Department Care Team ([facility] Contact Info) Description 05/29/2023 Documentation Only [facility] [address] LEONARDO [address] [place] [address] Boston Rebollar MD [address] [place] [address] [place] [address] Social History Tobacco Use Types [...] [facility] [address] [place] [address] Boston Rebollar MD [address] [place] [address] [place] [address] documented as of this encounter Visit Diagnoses Not on filedocumented in this encounter Care Teams Oral Surgery Physician Relationship Specialty Start Date End Date Lalitha Cisneros MD [address] PCP - General 05/10/19 documented as of this encounter
--- OUTSIDE RECORDS SUMMARY | 2025-03-10 13:08 | XMS_ITS | Encounter Summary ---
Author Organization [employer] Address 75 [facility] 7t [place] [address] Care Team Providers Care Socket Welder Helper Name Role Phone Carie London MD Primary Care Provider [phone] Reason for Visit * Reason Onset Date Comments Pre-visit Planning 02/17/2024 Encounter Details Date Type Department Care Team ([facility] st Contact Info) Description 02/17/2024 Telephone [facility] MEDICINE [address] [place] [address] Carie London MD [address] [place] [address] Pre-visit Planning Social History Tobacco Use Types [...] on filedocumented in this encounter Care Teams Socket Welder Helper Relationship Specialty Start Date End Date Carie London MD [address] [place] [address] PCP - General Internal Medicine 02/23/18 [facility] 05/05/23 documented as of this encounter
--- OUTSIDE RECORDS SUMMARY | 2025-03-10 13:08 | XMS_ITS | Clinical Summary ---
Author Organization [facility] Address [address] [facility] 7t [place] [address] Care Team Providers Care Tents Assembler Name Role Phone Carie London MD Primary Care Provider [phone] Allergies No known active allergies Medications hydrocortisone [...] 30 tablet 11 08/29/19 25 2025 Active loratadine (Claritin) 10 MG tabletIndications :Allergy, subsequent encounter TAKE 1 TABLET BY MOUTH EVERY DAY 30 tablet 11 10/11/19 25 Active ferrous sulfate 325 (65 Fe) MG tabletIndications :Other iron deficiency anemia TAKE 1 TABLET BY MOUTH EVERY DAY 30 tablet 5 10/11/19 25 Active docusate sodium (Colace) 100 MG capsuleIndication s:Chronic idiopathic constipation TAKE 1 CAPSULE BY MOUTH TWICE DAILY 60 capsule 10/11/19 25 Active carvedilol (Coreg) 3.125 [...] EVENING 60 tablet 2 02/21/20 25 Active rosuvastatin (Crestor) 40 MG tabletIndications :Hypercholesterol emia TAKE 1 TABLET BY MOUTH AT BEDTIME 30 tablet 03/10/20 25 Active omeprazole (PriLOSEC) [address] capsuleIndication s:Gastroesophagea l reflux disease without esophagitis TAKE 1 CAPSULE BY MOUTH EVERY DAY BEFORE BREAKFAST. DO NOT CRUSH OR CHEW. 30 capsule 03/10/20 25 Active isosorbide dinitrate (Isordil) 5 MG tabletIndications :CAD in [place] artery TAKE 1 TABLET BY MOUTH TWICE A DAY AT 8AM AND 3PM. 60 tablet 03/10/20 25 Active clopidogrel (Plavix) 75 MG tabletIndications :Primary hypertension TAKE 1 TABLET BY MOUTH EVERY MORNING 30 tablet 03/10/20 25 Active cholecalciferol (Vitamin D-3) 25 MCG (1000 UT) capsuleIndication s:Low vitamin D level TAKE 1 CAPSULE BY MOUTH EVERY DAY 30 capsule 03/10/20 25 Active rosuvastatin (Crestor) 40 MG tabletIndications :Hypercholesterol emia TAKE 1 TABLET BY MOUTH AT BEDTIME 30 tablet 10/11/19 25 2024 Discontinued(R eorder (will not trigger notification to Pharmacy)) omeprazole (PriLOSEC) [address] capsuleIndication s:Gastroesophagea l reflux disease without esophagitis TAKE 1 CAPSULE BY MOUTH EVERY DAY BEFORE BREAKFAST. DO NOT CRUSH OR CHEW. 30 capsule 10/11/19 25 2024 Discontinued(R eorder (will not trigger notification to Pharmacy)) isosorbide dinitrate (Isordil) 5 MG tabletIndications :CAD in [place] artery TAKE 1 TABLET BY MOUTH TWICE A DAY AT 8AM AND 3PM. 60 tablet 5 10/11/19 25 2024 Discontinued(R eorder (will not trigger notification to Pharmacy)) clopidogrel (Plavix) 75 MG tabletIndications :Primary hypertension TAKE 1 TABLET BY MOUTH EVERY MORNING 30 tablet 5 10/11/19 25 2024 Discontinued(R eorder (will not trigger notification to Pharmacy)) cholecalciferol (Vitamin D-3) 25 MCG (1000 UT) capsuleIndication s:Low vitamin D level TAKE 1 CAPSULE BY MOUTH EVERY DAY 30 capsule 5 10/11/19 25 2024 Discontinued(R eorder (will not trigger notification to Pharmacy)) acetaminophen (Tylenol) 325 MG tablet TAKE 2 TABLETS BY MOUTH EVERY EVENING 60 tablet 2 11/19/192024 Discontinued(R eorder (will not trigger notification to Pharmacy)) Active Problems Problem Noted Date Diagnosed Date Irritant contact dermatitis due to cosmetics 03/2023 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 03/10/2025 Refill [facility] [address] [place] [address] Carie London MD Hypercholesterolemia; Gastroesophageal reflux disease without esophagitis; CAD in [place] artery; Primary hypertension; Low vitamin D level 02/20/2025 Refill [facility] [address] [place] [address] Carie London MD 02/13/2025 Telephone [facility] [address] [place] [address] Carie London MD Nurse Triage 02/07/2025 Telephone [facility] [address] [place] [address] Carie London MD Nurse Triage 01/03/2025 Telephone [facility] [address] [place] [address] Carie London MD Nurse Triage 12/15/2024 Telephone [facility] [address] [place] [phone] Carie London MD Nurse Triage from Last [...] SDOH Screening 02/17/2025 02/18/2024 COVID-19 Vaccine ( - season) 2025 Influenza Vaccine (#1) 2025 Alcohol/Substance [...] CONTRAST Routine 03/10/2025 1 2:26 PM EDT LIPID PANEL, STANDARD Routine 02/19/2024 10:02 AM EDT Primary hypertension Congestive heart failure, unspecified HF chronicity, unspecified heart failure type (CMS/HCC) from Last 3 Months or Most Recently Relevant to Health Maintenance Results * CT Head w/o Contrast (03/10/2025 12:26 PM EDT) Anatomical Region Laterality Modality Head, Neck Computed Tomogra phy 03/10/2025 12:2 6 PM EDT Narrative 03/10/2025 1:00 PM EDT [address] [address] [address] Scan Report Signed Patient: Beatriz Navarro MR#: [id number] 4 : 1945 Acct:[id number] Age/Sex: 79 / F ADM Date: 03/10/25 Loc: .ED Attending Dr: Ordering Physician: Le Tyler NP Date of Service: 03/10/25 Procedure(s): CT head/brain wo IV con Accession Number(s): [id number] cc: [facility]; Le Tyler NP Report Number: [id number]: Total DLP = 626.00 mGy-cm Reason for [...] 03/10/25 1257 DD/ 1226 TD/TT: 03/10/25 1237 Dairy Hand: Procedure Note Donotuseinterpreter, Image - 03/10/[address] [place] [address] [address] Scan Report Signed Patient: Jackelyn Navarro#: [id number] 4 : 1945cct:[id number] Age/Sex: 79 / FADM Date: 03/10/25 Loc: HO.ED Attending Dr: Ordering Physician: Le Tyler NP Date of Service: 03/10/25 Procedure(s): CT head/brain wo IV con Accession Number(s): [id number] cc: [facility]; Le Tyler NP Report Number: [id number]: Total DLP = 626.00 mGy-cm Reason for [...] 03/10/25 1257 DD/ 1226 TD/TT: 03/10/25 1237 Dairy Hand: [facility] External Provider IMG CT PROCEDURES Final Result * Lipid Panel, Standard (02/19/2024 10:02 AM EDT) Triglycerides 102 <150 mg/dL [facility] Comment:Desirable Triglyceri de: less than 150 mg/dLBorderline High Triglyceride 150-199 mg/dLHigh Triglyceride: 200-499 mg/dLVery High Triglyceride: greater than or equal to 5OO mg/dL Cholesterol 158 <200 mg/dL [facility] Comment:Desirable Cholestero l: less than 200 mg/dLBorderline High Cholesterol: 200-239 mg/dLHigh Cholesterol: greater than 239 mg/dL LDL Cholesterol Calculated 95 <100 mg/dL [facility] Comment:Desirable LDL: less than 100 mg/dLNear Optimal/Above Optimal LDL: 110- 129 mg/dLBorderline High LDL: 130-159 mg/dLHigh LDL: 160-189 mg/dLVery High LDL: greater than or equal to 190 mg/dL HDL Cholesterol 43 >40 mg/dL [facility] Comment:Desirable HDL: great er than 40 mg/dL Note: This HDL assay may give artificially low results in patients with liver disease. Blood Venous blood specimen / Unknown 02/19/2024 10:02 AM EDT 02/19/2024 10:02 AM EDT Carie London MD LAB BLOOD ORDERABLES Final Result [facility] [address] [place] [address] [phone] from Last 3 Months or Most Recently Relevant to Health Maintenance [facility]O D-SNP) [place] [id number] Care Teams Tents Assembler Relationship Specialty Start Date End Date Carie London MD [address] [place] [address] PCP - General Internal Medicine 02/23/18 [facility] 05/05/23
--- OUTSIDE RECORDS SUMMARY | 2025-03-10 13:08 | XMS_ITS | Encounter Summary ---
Author Organization [employer] Address [address] [facility] 7t [place] [address] Care Team Providers Care Manager It Security Name Role Phone Carie London MD Primary Care Provider [phone] Encounter Details Date Type Department Care Team ([facility] st Contact Info) Description 11/09/2023 Orders Only [facility] [address] [place], [place] [phone] Carie London MD [address] [place], [place] [phone] Primary hypertension (Primary Dx); Congestive heart failure, [...] 10:02 AM EDT) Triglycerides 102 <150 mg/dL [facility] Comment:Desirable Triglyceri de: less than 150 mg/dLBorderline High Triglyceride 150-199 mg/dLHigh Triglyceride: 200-499 mg/dLVery High Triglyceride: greater than or equal to 5OO mg/dL Cholesterol 158 <200 mg/dL [facility] Comment:Desirable Cholestero l: less than 200 mg/dLBorderline High Cholesterol: 200-239 mg/dLHigh Cholesterol: greater than 239 mg/dL LDL Cholesterol Calculated 95 <100 mg/dL [facility] Comment:Desirable LDL: less than 100 mg/dLNear Optimal/Above Optimal LDL: 110- 129 mg/dLBorderline High LDL: 130-159 mg/dLHigh LDL: 160-189 mg/dLVery High LDL: greater than or equal to 190 mg/dL HDL Cholesterol 43 >40 mg/dL [facility] Comment:Desirable HDL: great er than 40 mg/dL Note: This HDL assay may give artificially low results in patients with liver disease. Blood Venous blood specimen / Unknown 02/19/2024 10:02 AM EDT 02/19/2024 10:02 AM EDT us Carie London MD LAB BLOOD ORDERABLES Final Result [facility] [address] [place] [phone] * (ABNORMAL) CBC auto differential (02/19/2024 10:02 AM EDT) White Blood Count 6.9 4.8 - 10.8 X10*3/uL [facility] Red Blood Count 3.66(L) 4.20 - 5.50 X10*6/uL [facility] Hemoglobin 11.1(L) 12.0 - 16.0 g/dl [facility] Hematocrit 33.4(L) 37.0 - 47.0 % [facility] Mean Corpuscular Volume 91.3 80.0 - 98.0 fL [facility] Mean Corpuscular Hemoglobin 30.3 27.0 - 33.0 pg [facility] Mean Corpuscular HGB Conc 33.2 31.0 - 35.0 g/dl [facility] Red Cell Distribution Width 13.2 11.0 - 16.0 % [facility] Platelet Count 215 160 - 400 X10*3/uL [facility] Mean Platelet Volume 11.8 9.4 - 12.3 fL [facility] Neutrophils Percent Auto 53.6 45 - 73 % [facility] Imm Gran Pct Auto 0.3 0.0 - 0.4 % [facility] Lymphocytes Percent Auto 33.0 20 - 40 % [facility] Monocytes Percent Auto 10.5 2 - 11 % [facility] Eosinophils Percent Auto 1.7 0 - 4 % [facility] Basophils Percent Auto 0.9 0 - 2 % [facility] NRBC Pct Auto 0.0 0.0 - 0.2 /100WBC [facility] Neutrophils Absolute Auto 3.7 2.0 - 8.3 x10*3/uL [facility] Imm Gran Abs Auto 0.02 0.00 - 0.03 X10*3/uL [facility] Lymphocytes Absolute Auto 2.3 1.2 - 4.9 X10*3/uL [facility] Monocytes Absolute Auto 0.7 0.1 - 1.2 X10*3/uL [facility] Eosinophils Absolute Auto 0.1 0.0 - 0.4 X10*3/uL [facility] Basophils Absolute Auto 0.1 0.0 - 0.2 X10*3/uL [facility] NRBC Abs Auto 0.000 0.0 - 0.012 X10*3/uL [facility] Blood Venous blood specimen / Unknown 02/19/2024 10:02 AM EDT 02/19/2024 10:02 AM EDT us Carie London MD LAB BLOOD ORDERABLES Final Result Performing Organization Address [facility]/ZIP Co de Phone Number [facility] [address] [place] [phone] * TSH W/Reflex to FT4 (02/19/2024 10:02 AM EDT) TSH reflex Free T4 1.48 0.32 - 4.0 uIU/mL [facility] Blood Venous blood specimen / Unknown 02/19/2024 10:02 AM EDT 02/19/2024 10:02 AM EDT us Carie London MD LAB BLOOD ORDERABLES Final Result Performing Organization Address [facility] Co de Phone Number [facility] [address] [place] [phone] * (ABNORMAL) Comprehensive Metabolic Panel (02/19/2024 10:02 AM EDT) Sodium 143 135 - 145 mmol/L [facility] Potassium 4.0 3.3 - 5.1 mmol/L [facility] Chloride 110(H) 96 - 108 mmol/L [facility] Carbon Dioxide 27 22 - 29 mmol/L [facility] Anion Gap 10(L) 12 - 20 [facility] Urea Nitrogen (BUN) 27(H) 9 - 16 mg/dL [facility] Creatinine, Serum 1.40 0.5 - 1.4 mg/dL [facility] Estimated Glomerular Filt Rate 37 [facility] Comment:NOTE: For -Am erican individuals, multiply the result by 1.210.Chronic Kidney Disease: Estimated GFR < 60 mL/min/1.20h9Tgotgo Kidney Disease: Estimated GFR < 15 mL/min/1.73m2 Glucose 91 60 - 115 mg/dL [facility] Calcium 9.6 8.4 - 10.2 mg/dL [facility] Bilirubin, Total 0.4 0.0 - 1.0 mg/dL [facility] Aspartate Amino Transferase 20 5 - 31 U/L [facility] Alanine Aminotransferase 12 0 - 31 U/L [facility] Total Protein 7.0 6.5 - 8.0 g/dL [facility] Albumin Level 3.6 3.5 - 5.0 g/dL [facility] Alkaline Phosphatase 62 39 - 117 U/L [facility] Blood Venous blood specimen / Unknown 02/19/2024 10:02 AM EDT 02/19/2024 10:02 AM EDT Carie London MD LAB BLOOD ORDERABLES Final Result [facility] [address] [place] [phone] documented in this encounter Visit Diagnoses Diagnosis Primary hypertension- Primary Unspecified essential hypertension Congestive heart failure, unspecified HF chronicity, unspecified heart failure type (CMS/HCC) documented in this encounter Care Teams Manager It Security Relationship Specialty Start Date End Date Carie London MD [address] [place] [phone] PCP - General Internal Medicine 02/23/18 [facility] 05/05/23 documented as of this encounter
--- OUTSIDE RECORDS SUMMARY | 2025-03-10 13:08 | XMS_ITS | Encounter Summary ---
Author Organization [employer] Address [address] [facility] 7t [place] [address] Care Team Providers Care Casing Finisher And Stuffer Name Role Phone Carie London MD Primary Care Provider [phone] Reason for Visit * Reason Onset Date Comments Durable Medical Equipment 03/22/2024 Encounter Details Date Type Department Care Team (Late st Contact Info) Description 03/22/2024 Telephone [facility] [address] [place] [address] Carie London MD [address] [place] [address] Durable Medical Equipment Social History Tobacco Use [...] received an update. Please contact pt at [phone]. (Bhutanese Speaker) documented in this encounter Plan of Treatment Not on file documented as of this encounter Visit Diagnoses Not on filedocumented in this encounter Care Teams Casing Finisher And Stuffer Relationship Specialty Start Date End Date Carie London MD [address] [place] [address] PCP - General Internal Medicine 02/23/18 [facility] 05/05/23 documented as of this encounter
--- OUTSIDE RECORDS SUMMARY | 2025-03-10 13:08 | XMS_ITS | Encounter Summary ---
Author Organization [facility] Address [address] [place] [address] Phone Care Team Providers Care Wire Mill Operator Name Role Phone Lalitha Cisneros MD Primary Care Provider [phone] Encounter Details Date Type Department Care Team (Late Contact Info) Description 02/06/2023 Documentation Only [facility] [address] [place] [address] Caryl Moreno [address] [place] [address] Social History Tobacco Use Types [...] [facility] [address] [place] [address] [place] Rebollar MD [address] [place] [address] [place] [address] documented as of this encounter Visit Diagnoses Not on filedocumented in this encounter Care Teams Wire Mill Operator Relationship Specialty Start Date End Date Lalitha Cisneros MD [address] PCP - General 05/10/19 documented as of this encounter
--- OUTSIDE RECORDS SUMMARY | 2025-03-10 13:08 | XMS_ITS | Encounter Summary ---
Author Organization [facility] Address [address] [place] [address] Phone Care Team Providers Care Lead Janitor Name Role Phone Lalitha Cisneros MD Primary Care Provider [phone] Encounter Details Date Type Department Care Team ([facility] Contact Info) Description 05/27/2023 Documentation Only [facility] [address] [place] [address] Jone Schulz MD [address] [place] [address] [place] [address] Social History Tobacco Use Types [...] Upcoming Encounters Date Type Department Care Team ([facility] Contact Info) Description 08/22/2025 2:00 PM EST Office Visit [facility] [address] [place] [address] [place] Rebollar MD [address] [place] [address] [place] [address] documented as of this encounter Visit Diagnoses Not on filedocumented in this encounter Care Teams Lead Janitor Relationship Specialty Start Date End Date Lalitha Cisneros MD [address] PCP - General 05/10/19 documented as of this encounter
--- OUTSIDE RECORDS SUMMARY | 2025-03-10 13:08 | XMS_ITS | Encounter Summary ---
Author Organization [facility] Address [address] [place] [address] Phone Care Team Providers Care Hog Feeder Name Role Phone Lalitha Cisneros MD Primary Care Provider [phone] Encounter Details Date Type Department Care Team ([facility] Contact Info) Description 02/06/2023 Documentation Only [facility] [address] [place] [address] Alesha Josue PA [address] [place] [address] [place] [address] Social History Tobacco Use Types [...] Upcoming Encounters Date Type Department Care Team ([facility] Contact Info) Description 08/22/2025 2:00 PM EST Office Visit [facility] [address] [place] [address] [place] Rebollar MD [address] [place] [address] [place] [address] documented as of this encounter Visit Diagnoses Not on filedocumented in this encounter Care Teams Hog Feeder Relationship Specialty Start Date End Date Lalitha Cisneros MD [address] PCP - General 05/10/19 documented as of this encounter
--- OUTSIDE RECORDS SUMMARY | 2025-03-10 13:08 | XMS_ITS | Encounter Summary ---
Author Organization [facility] [place] Address [address] [place] [address] Phone Care Team Providers Care Cash Application Representative Name Role Phone Lalitha Cisneros MD Primary Care Provider [phone] Encounter Details Date Type Department Care Team ([facility] Contact Info) Description 02/04/2023 Documentation Only [facility] [address] [place] [phone] [place] Rebollar MD [address] [place] [address] [place] [address] Social History Tobacco Use Types [...] Upcoming Encounters Date Type Department Care Team ([facility] Contact Info) Description 08/22/2025 2:00 PM EST Office Visit [facility] [address] [place] [address] [place] Rebollar MD [address] [place] [address] [place] [address] documented as of this encounter Visit Diagnoses Not on filedocumented in this encounter Care Teams Cash Application Representative Relationship Specialty Start Date End Date Lalitha Cisneros MD [address] PCP - General 05/10/19 documented as of this encounter
[2025-03-10 14:14] VITALS: BP 137/50; PULSE 69; RESP 18; TEMP 36.8; O2SAT 99
== END 2025-03-10 14:36 | disposition home or self-care (01) ==
PROVIDERS: Emergency Provider Emergency Medicine
DX: S01.01XA Laceration without foreign body of scalp, initial encounter (principal); R51.9 Headache, unspecified; W01.190A Fall on same level from slipping, tripping and stumbling with subsequent striking against furniture, initial encounter; Y93.9 Activity, unspecified; Y92.003 Bedroom of unspecified non-institutional (private) residence as the place of occurrence of the external cause; Y99.8 Other external cause status; Z79.899 Other long term (current) drug therapy
CPT/HCPCS: 12001; 70450; 99282; 99284

== ENCOUNTER → 2025-03-10 11:43 | Outpatient (BNV) | payer OTHER, SELFPAY | PROVIDERS: Visit Provider Radiology Diagnostic Radiology | DX: S09.90XA Unspecified injury of head, initial encounter (principal); H44.5 Degenerated conditions of globe; W01.190A Fall on same level from slipping, tripping and stumbling with subsequent striking against furniture, initial encounter | CPT/HCPCS: 70450 ==

== ENCOUNTER 2025-03-15 14:45 | Outpatient (REF) | payer OTHER, SELFPAY ==
--- OUTSIDE RECORDS SUMMARY | 2025-03-15 14:00 | XMS_ITS | Encounter Summary ---
Author Organization [employer] Address [address] [facility] 7t [place] [address] Care Team Providers Care Insulator Cutter And Former Name Role Phone Carie London MD Primary Care Provider [phone] Reason for Visit * Reason Comments Hospital discharge follow-up Encounter Details Date Type Department Care Team (Late st Contact Info) Description 03/15/2025 2:00 PM EDT Office Visit [facility]S [address] [place], [place] [phone] Carie London MD [address] [place] [address] Acute pain of left wrist (Primary Dx); Acute left ankle pain; Other fatigue; Primary hypertension Social History Tobacco Use Types Packs/Day Years [...] Sign Reading Time Taken Comments Blood Pressure 161/57 03/15/2025 2:16 PM EDT Pulse 69 03/15/2025 2:16 PM EDT Temperature - - Respiratory Rate 19 03/15/2025 2:16 PM EDT Oxygen Saturation 98% 03/15/2025 2:16 PM EDT Inhaled Oxygen Concentration - - Weight 53.5 kg (118 lb) 03/15/2025 2:16 PM EDT Height 142.2 cm (4' 8 ) 03/15/2025 2:16 PM EDT Body Mass Index 26.46 03/15/2025 2:16 PM EDT documented in this encounter Progress Notes * Carie London MD - 03/15/2025 2:00 PM EDT SUBJECTIVE Beatriz Navarro is a 79 y.o. female who presents for Hospital discharge follow-up. HPI Mrs. Beatriz Navarro Was evaluated at the emergency department at [facility] after a fall. She tripped in her bedroom and struck her head against the dresser in the bedroom. No reported loss of consciousness. Patient managed to call both her ANALYTIC MANAGER and her daughter. According to MrsFrancy She fell on her left side and also hurt her left shoulder and left wrist and her left lower limb. A CT scan of the brain shows calcification of both globes. No acute intracranial abnormality. Her physical exam showed a vertically oriented laceration of the skin at the junction of the forehead and the hairline. The laceration was noted to be approximately 1 cm in length. No other sign of trauma of the face. No raccoon eyes. No Bonner sign. The laceration was closed with Dermabond, several layers. Patient was discharged with the impression that she had a mechanical fall in her bedroom. Also had some mild bruising of the left thumb and the left fourth toe. Patient reports since discharge she has been having some body aches and she feels tired. Problem List[1] Allergies[2] Medications Ordered Prior to Encounter[3] Review of Systems Constitutional: Negative for appetite change, chills and diaphoresis. Respiratory: Negative for cough, choking, chest tightness and shortness of breath. Cardiovascular: Negative for leg swelling. Gastrointestinal: Negative for abdominal pain. Genitourinary: Negative for flank pain, frequency and genital sores. Musculoskeletal: Negative for gait problem, joint swelling and myalgias. OBJECTIVE Vitals: 03/15/25 1416 BP: (!) 161/57 BP Location: Left arm Patient Position: Sitting BP Cuff Size: Adult Pulse: 69 Resp: 19 SpO2: 98% Weight: 118 lb (53.5 kg) Height: 4' 8 (1.422 m) Physical Exam Constitutional: General: She is not in acute distress. Appearance: Normal appearance. She is not ill-appearing, toxic-appearing or diaphoretic. Cardiovascular: Rate and Rhythm: Normal rate. Heart sounds: No murmur heard. Pulmonary: Effort: Pulmonary effort is normal. No respiratory distress. Breath sounds: No wheezing. Abdominal: Palpations: Abdomen is soft. Musculoskeletal: Right wrist: No tenderness. Normal range of motion. Left wrist: No tenderness. Normal range of motion. Right hand: No tenderness or bony tenderness. Normal range of motion. Left hand: No tenderness or bony tenderness. Normal range of motion. Right foot: Normal range of motion. No tenderness. Left foot: Normal range of motion. No tenderness. Neurological: General: No focal deficit present. Mental Status: She is alert. Psychiatric: Mood and Affect: Mood normal. Assessment/Plan Assessment/Plan Diagnoses and all orders for this visit: Acute pain of left wrist Comments: Lidocaine cream recommended Orders: - lidocaine (LMX 4) 4 % cream; Apply topically if needed in the morning, at noon, in the evening, and at bedtime for mild pain. Acute left ankle pain Comments: As noted above Orders: - lidocaine (LMX 4) 4 % cream; Apply topically if needed in the morning, at noon, in the evening, and at bedtime for mild pain. Other fatigue - CBC auto differential; Future - Comprehensive Metabolic Panel; Future - Magnesium; Future - Vitamin B12/Folate, Serum Panel; Future Primary hypertension Comments: Follow-up with nephrology DASH diet Blood pressure monitoring at home to report at the next visit [1] Patient Active Problem List Diagnosis Allergy Anxiety Atrophy of kidney Back pain Blindness of both eyes CAD in [place] artery CHF (congestive heart failure) ([facility]) Dyslipidemia Eczema GERD (gastroesophageal reflux disease) H/O heart artery stent Hyperlipidemia Hypertension Irritant contact dermatitis due to cosmetics [place] (myocardial infarction) ([facility]) Mood disorder ([facility]) [2] No Known Allergies [3] Current Outpatient Medications on File Prior to [...] 1 CAPSULE BY MOUTH EVERY DAY 30 [id number] clopidogrel (Plavix) 75 MG tablet TAKE 1 TABLET BY MOUTH EVERY MORNING 30 tablet 11 Diclofenac Sodium 1 % gel To apply [...] DAY AT 8AM AND 3PM. 60 tablet 11 lisinopril 40 MG tablet Take 1 tablet (40 mg) by mouth [...] DO NOT CRUSH OR CHEW. 30 capsule 11 rosuvastatin (Crestor) 40 MG tablet TAKE 1 TABLET BY MOUTH AT BEDTIME 30 tablet 11 senna-docusate sodium (Senokot-S) 8.6-50 MG tablet TAKE 2 TABLETS BY MOUTH EVERY DAY 60 tablet 11 simethicone (Mylicon,Gas-X) 125 MG capsule Take 180 mg by mouth every 6 (six) hours if needed. [DISCONTINUED] cholecalciferol (Vitamin D-3) 25 MCG (1000 UT) capsule TAKE 1 CAPSULE BY MOUTH EVERYDAY 30 capsule 5 [DISCONTINUED] clopidogrel (Plavix) 75 MG tablet TAKE 1 TABLET BY MOUTH EVERY MORNING 30 tablet 5 [DISCONTINUED] isosorbide dinitrate (Isordil) 5 MG tablet TAKE 1 TABLET BY MOUTH TWICE A DAY AT 8AMAND 3PM. 60 tablet 5 [DISCONTINUED] omeprazole (PriLOSEC) [address] capsule TAKE 1 CAPSULE BY MOUTH EVERY DAY BEFORE BREAKFAST. DO NOT CRUSH OR CHEW. 30 capsule 5 [DISCONTINUED] rosuvastatin (Crestor) 40 MG tablet TAKE 1 TABLET BY MOUTH AT BEDTIME 30 tablet 5 No current facility-administered medications on file prior to visit. documented in this encounter Plan of Treatment Scheduled Orders Name Type Priority Associated Diagnoses Orde r Schedule CBC auto differential Lab Routine Other fatigue Expected: 03/15/2025 (Approximate), Expires: 03/15/2026 Comprehensive Metabolic Panel Lab Routine Other fatigue Expected: 03/15/2025 (Approximate), Expires: 03/15/2026 Magnesium Lab Routine Other fatigue Expected: 03/15/2025, Expires: 03/15/2026 Vitamin B12/Folate, Serum Panel Lab Routine Other fatigue Expected: 03/15/2025, Expires: 03/15/2026 documented as of this encounter Visit Diagnoses Diagnosis Acute pain of left wrist- Primary Acute left ankle pain Other fatigue Primary hypertension Unspecified essential hypertension documented in this encounter Additional Health Concerns Assessment Noted Time PHQ-9 Depression Total Score: 0 08/29/19 25 2:00 PM EST documented as of this encounter Care Teams Insulator Cutter And Former Relationship Specialty Start Date End Date Carie London MD [address] [place] [address] PCP - General Internal Medicine 02/23/18 [facility] 05/05/23 documented as of this encounter
--- OUTSIDE RECORDS SUMMARY | 2025-03-15 18:00 | XMS_ITS | Encounter Summary ---
Author Organization [facility] Address [address] [place] [address] Phone Care Team Providers Care Senior Investment Analyst Name Role Phone Lalitha Cisneros MD Primary Care Provider [phone] Encounter Details Date Type Department Care Team (Late Contact Info) Description 12/16/2024 Documentation Only [facility] [address] [place] [address] Denisse Michelle [address] [place] [address] Social History Tobacco Use Types [...] Visit [facility] [address] [place] [place] [address] [place] Rebollar MD [address] [place] [address] [place] [address] documented as of this encounter Visit Diagnoses Not on filedocumented in this encounter Care Teams Senior Investment Analyst Relationship Specialty Start Date End Date Lalitha Cisneros MD [address] PCP - General 05/10/19 documented as of this encounter
--- OUTSIDE RECORDS SUMMARY | 2025-03-15 18:00 | XMS_ITS | Clinical Summary ---
Author Organization [facility] [place], Address [address] [place] [address] [place] [address] Phone Care Team Providers Care Green Lumber Grader Name Role Phone Lalitha Cisnreos MD Primary Care Provider [phone] Allergies Active Allergy Reactions Criticality Noted Date [...] deficiency 10/20/2019 021 Hypertensive heart disease w [facility] congestive heart failure 10/18/2019 10/18/2019 History [...] 10/18/2019 Myocardial infarction 07/12/20142019 Overview (10/18/2019): Seeing [place] Poker Machine Attendant Osteopenia 07/12/2014 10/18/2019 Congestive heart failure 07/11/2014 Overview (10/18/2019): EF 55% Obstructive sleep apnea syndrome 07/11/2014 10/18/2019 Overview (10/18/2019): Declined Cpap, trial bipap 2014 Encounters Date Type Department Care Team Description 12/16/2024 Documentation Only [facility] [address] [place] [address] Denisse Michelle from Last 3 Months Immunizations [...] Visit [facility] [place], [address] [facility] [place] [address] [place] Rebollar MD [address] [facility] [place] [phone] Health Maintenance Due Date Last Done Comments Influenza Vaccine (#1) 2025 Pneumococcal Vaccine: 50+ Years Completed 08/13/2021, 06/24/2013 Pneumococcal Vaccine: Peds (0 to 5 Years) and At-Risk Patients (6 to 49 Years) Discontinued 08/13/2021, 06/24/2013 Hepatitis B Vaccine Aged Out No longe r eligible based on patient's age to complete this topic Insurance [facility] One [employer] Dual SNP ([id number]) Medicaid [place] Care Teams Green Lumber Grader Relationship Specialty Start Date End Date Lalitha Cisneros MD [address] PCP - General 05/10/19
--- OUTSIDE RECORDS SUMMARY | 2025-03-15 18:00 | XMS_ITS | Encounter Summary ---
Author Organization [employer] Address 75 [facility] 7t [place] [address] Care Team Providers Care Strap Machine Operator Name Role Phone Carie London MD Primary Care Provider [phone] Encounter Details Date Type Department Care Team ([facility] st Contact Info) Description 03/02/2024 Orders Only [facility] MED & PEDS [address] [place], [place] [id number] Carie London MD [address] [place], [place] [phone] Primary hypertension (Primary Dx) Social History Tobacco [...] hypertension documented in this encounter Care Teams Strap Machine Operator Relationship Specialty Start Date End Date Carie London MD [address] [place] [address] PCP - General Internal Medicine 02/23/18 [facility] 05/05/23 documented as of this encounter
--- OUTSIDE RECORDS SUMMARY | 2025-03-15 18:00 | XMS_ITS | Encounter Summary ---
Author Organization [facility] [place], Address [address] [place] [address] Phone Care Team Providers Care Traffic Agent Name Role Phone Lalitha Cisneros MD Primary Care Provider [phone] Encounter Details Date Type Department Care Team (Late Contact Info) Description 05/29/2023 Documentation Only [facility] [address] [place] [phone] Boston Rebollar MD [address] [facility] [place] [address] Social History Tobacco Use Types [...] Visit [facility] [address] [facility] [place] [address] Boston Rebollar MD [address] [facility] [place] [address] documented as of this encounter Visit Diagnoses Not on filedocumented in this encounter Care Teams Traffic Agent Relationship Specialty Start Date End Date Lalitha Cisneros MD [address] [facility] [place] PCP - General 05/10/19 documented as of this encounter
--- OUTSIDE RECORDS SUMMARY | 2025-03-15 18:00 | XMS_ITS | Encounter Summary ---
Author Organization [employer] Address [address] [facility] 7 [place] [address] Care Team Providers Care Business Reporting Developer Name Role Phone Carie London MD Primary Care Provider [phone] Reason for Referral * Consultation (Routine) - Authorized Specialty Diagnoses / Procedures Referred By Sussy vargas Referred To Contact Orthopaedic Surgery Diagnoses Other secondary osteoarthritis of both knees Carie London MD [address] [place] [address] Phone: tel: fax: [facility] [address] [place] [address] Phone: tel: Referral ID Status Reason Start Date Expiration Date Visits Requested Visits Authorized [id number] Authorized Specialty Services Required 12/15/2024 12/15/2025 1 1 * Consultation (Routine) - Closed Specialty Diagnoses / Procedures Referred By Sussy vargas Referred To Contact Physical Therapy Diagnoses Other secondary osteoarthritis of both knees Carie London MD [address] [place] [address] Phone: tel: fax: Referral ID Status Reason Start Date Expiration Date V isits Requested Visits Authorized [id number] Closed Specialty Services Required 12/06/2024 12/06/2025 1 1 Encounter Details Date Type Department Care Team ([facility] st Contact Info) Description 12/06/2024 Orders Only [facility] MED & PEDS [address] [place] [address] Carie London MD [address] [place] [address] Other secondary osteoarthritis of both knees (Primary Dx) Social History Tobacco Use Types Packs/Day Years Used Date Smoking Tobacco: Never Smokeless Tobacco: Never Depression Answer Date Recorded Patient Health Questionnaire-9 Score 0 08/29/2024 Patient Health Questionnaire-9 Score 0 08/29/2024 Last PHQ-9: Questionnaire Data Not on file 0 08/29/2024 Housing Stability Answer Date Recorded What is your housing situation today? I have marixa phong 02/18/[address] you li [...] documented as of this encounter Care Teams Business Reporting Developer Relationship Specialty Start Date End Date Carie London MD [address] [place] [address] PCP - General Internal Medicine 02/23/18 [facility] 05/05/23 documented as of this encounter
--- OUTSIDE RECORDS SUMMARY | 2025-03-15 18:00 | XMS_ITS | Encounter Summary ---
Author Organization [facility] [place], Address [address] [place] [address] Phone Care Team Providers Care Roadway Designer Name Role Phone Lalitha Cisneros MD Primary Care Provider [phone] Encounter Details Date Type Department Care Team (Late Contact Info) Description 07/18/2024 Documentation Only [facility] [address] [place] [address] Caryl Moreno [address] [place] [address] Social History Tobacco Use Types [...] Visit [facility] [address] [place] [address] Boston Rebollar MD [address] [place] [address] [place] [address] documented as of this encounter Visit Diagnoses Not on filedocumented in this encounter Care Teams Roadway Designer Relationship Specialty Start Date End Date Lalitha Cisneros MD [address] PCP - General 05/10/19 documented as of this encounter
--- OUTSIDE RECORDS SUMMARY | 2025-03-15 18:00 | XMS_ITS | Encounter Summary ---
Author Organization [facility] [place], Address [address] [place] [address] Phone Care Team Providers Care Surgical Territory Manager Name Role Phone Lalitha Cisneros MD Primary Care Provider [phone] Encounter Details Date Type Department Care Team (Late Contact Info) Description 12/06/2024 Documentation Only [facility] [address] [place] [address] Denisse Michelle [address] [place] [address] Social History Tobacco Use Types [...] Visit [facility] [address] [facility] [place] [address] Boston Rebollar MD [address] [facility] [place] [address] documented as of this encounter Visit Diagnoses Not on filedocumented in this encounter Care Teams Surgical Territory Manager Relationship Specialty Start Date End Date Lalitha Cisneros MD [address], [place] PCP - General 05/10/19 documented as of this encounter
--- OUTSIDE RECORDS SUMMARY | 2025-03-15 18:00 | XMS_ITS | Encounter Summary ---
Author Organization [employer] Address 75 [facility] 7t [place] [address] Care Team Providers Care Clinical Laboratory Aides Teacher Name Role Phone Carie London MD Primary Care Provider [phone] Reason for Visit * Reason Onset Date Comments Med Refill 03/10/2025 Encounter Details Date Type Department Care Team (Late st Contact Info) Description 03/10/2025 Refill [facility] MED & PEDS [address] [place], [place] [phone] Carie London MD [address] [place] [address] Hypercholesterolemia; Gastroesophageal reflux disease without esophagitis; CAD in [place] artery; Primary hypertension; Low vitamin D level [...] disease without esophagitis Esophageal reflux CAD in [place] artery Primary hypertension Unspecified essential hypertension Low vitamin D level documented in this encounter Additional Health Concerns Assessment Noted Time PHQ-9 Depression Total Score: 0 08/29/19 25 2:00 PM EST documented as of this encounter Care Teams Clinical Laboratory Aides Teacher Relationship Specialty Start Date End Date Carie London MD [address] [place] [address] PCP - General Internal Medicine 02/23/[address] [facility] 05/05/23 documented as of this encounter
--- OUTSIDE RECORDS SUMMARY | 2025-03-15 18:00 | XMS_ITS | Encounter Summary ---
Author Organization [employer] Address 75 [facility] 7t [place] [address] Care Team Providers Care Tele Marketing Executive Name Role Phone Carie London MD Primary Care Provider [phone] Encounter Details Date Type Department Care Team (Latest Contact Info) Description 03/15/2025 Travel Social History Tobacco Use Types Packs/Day [...] documented as of this encounter Care Teams Tele Marketing Executive Relationship Specialty Start Date End Date Carie London MD [address] [place] [address] PCP - General Internal Medicine 02/23/18 [facility] 05/05/23 documented as of this encounter
--- OUTSIDE RECORDS SUMMARY | 2025-03-15 18:00 | XMS_ITS | Encounter Summary ---
Author Organization [facility] Address [address] [place] [address] Phone Care Team Providers Care Analytical Scientist Name Role Phone Llaitha Cisneros MD Primary Care Provider [phone] Encounter Details Date Type Department Care Team (Late Contact Info) Description 11/04/2023 Documentation Only [facility] [address] [place] [address] Denisse Michelle [address] [place] [address] Social History Tobacco Use Types [...] Visit [facility] [address] [place] [address] [place] Rebollar MD [address] [place] [address] [place] [address] documented as of this encounter Visit Diagnoses Not on filedocumented in this encounter Care Teams Analytical Scientist Relationship Specialty Start Date End Date Lalitha Cisneros MD [address] PCP - General 05/10/19 documented as of this encounter
--- OUTSIDE RECORDS SUMMARY | 2025-03-15 18:00 | XMS_ITS | Encounter Summary ---
Author Organization [facility] [place], Address [address] [place] [address] Phone Care Team Providers Care Regional Production Manager Name Role Phone Lalitha Cisneros MD Primary Care Provider [phone] Encounter Details Date Type Department Care Team (Late Contact Info) Description 08/02/2024 Documentation Only [facility] [address] [place] [address] Caryl Moreno [address] [place] [address] Social History Tobacco Use Types [...] Visit [facility] [address] [place] [address] [place] Rebollar MD [address] [place] [address] [place] [address] documented as of this encounter Visit Diagnoses Not on filedocumented in this encounter Care Teams Regional Production Manager Relationship Specialty Start Date End Date Lalitha Cisneros MD [address] PCP - General 05/10/19 documented as of this encounter
--- OUTSIDE RECORDS SUMMARY | 2025-03-15 18:00 | XMS_ITS | Clinical Summary ---
Demographics Address [address] [place] [address] Home Phone Mobile Phone Preferred Language Japanese; Castilian Marital Status Single Quaker Affiliation Unknown Race White Ethnic Group or Author Organization [facility] Address [address] [place] [address] Care Team Providers Care Rubber Roller Grinder Name Role Phone Roger Albarado NP Primary Care Provider [phone] Source Comments PLEASE NOTE, if this patient is a minor, it may be UNLAWFUL to discuss sensitive information that is contained in these records (such as FAMILY PLANNING, MENTAL HEALTH or SUBSTANCE ABUSE) with the minor patient's parent or other person without the patient's specific authorization.[facility] Allergies Active Allergy Reactions Criticality Noted Date Comments Bva-Yyhvlrfwiosvi-Mtfs-Buffers Rash 07/11 Atorvastatin Other Severe 07/11/2014 Codeine Other Severe 07/11/2014 Ibuprofen Other Severe 07/11/2014 Morphine Other Severe 07/11/2014 Niacin Other Severe 07/11/2014 Penicillins Other Severe 07/11/2014 Medications carvedilol (COREG) 3.125 mg tabletIndication s:CO (myocardial infarction) ([facility]) 3.125 mg 2 (two) times daily. 4 [...] 2014 negative Back pain 10/22/2014 Overview (10/22/2014): [facility] xray 2014. Bilateral hips normal. Lumbosacral: 1. There is mild degenerative disc disease at L3-4 2. Multi-level mild lumbar spondylosis 3. Bilateral facet arthropathy, most pronounced at L4-5 and L5-S1 Osteopenia 07/12/2014 Anxiety 07/12/2014 Blindness of both eyes 07/12/2014 CKD (chronic kidney disease) 07/12/2014 Overview (07/20/2014): Stage 3, recheck in 2014 Dyslipidemia 07/12/2014 GERD (gastroesophageal reflux disease) 5 CO (myocardial infarction) ([facility]) 07/12 Osteoarthritis of both knees 07/12/2014 Overview (12/03/2014): Arthritis treatment center referred pt to PT Allergy 07/12/2014 Routine gynecological examination 07/12/2014 Overview (07/12/2014): - Seeing SUPERVISOR CLOTH WINDING [facility] 12/2013, follow up in one year PAUL (obstructive sleep apnea) 07/11/2014 Overview (03/26/2015): Declined Cpap, trial bipap 2014 HTN (hypertension) 07/11/2014 CAD (coronary artery disease) 07/11/2014 Overview (03/15/2015): Seeing [facility] [employer] Worker CHF (congestive heart failure) ([facility]) 0 07/11/2014 Overview (07/12/2014): EF 55% [...] [address] RD Insurance [facility] MEDICAID Care Teams Rubber Roller Grinder Relationship Specialty Start Date End Date Roger Albarado NP [address] [place] [id number] PCP - General 05/13/18
--- OUTSIDE RECORDS SUMMARY | 2025-03-15 18:00 | XMS_ITS | Encounter Summary ---
Author Organization [employer] Address [address] [facility] 7t [place] [address] Care Team Providers Care Wheel Truer Name Role Phone Carie London MD Primary Care Provider [phone] Reason for Visit * Reason Onset Date Comments Nurse Triage 03/13/2025 Encounter Details Date Type Department Care Team ([facility] st Contact Info) Description 03/13/2025 Telephone [facility] MED & PEDS [address] [place], [place] [id number] Carie London MD [address] [place] [address] Nurse Triage Social History Tobacco Use Types [...] Telephone Encounter - Antonette Lancaster RN - 03/14/2025 2:04 PM EDT Called pt. Via [employer] foreign language interpreter [id number] Herson. RE: making appt. RE: ED fu note from [facility] 03/10/25 and TC from 03/13/25. Pt. Scalp laceration was sealed with South[place]d victoria and pt. Is doing well with her head.Pt. States that scottie has body pain all over and wants to see PCP. Appt. Made for 03/15/25 in [facility] 2pm with PCP. Pt states understanding. * Telephone Encounter - Antonette Lancaster RN - 03/13/2025 2:14 PM EDT Called pt. Via [employer] foreign language interpreter [id number] Any. Woman answered phone in Georgian at phone number [phone] and wrong number. Called alternate phone number [phone] and the phone makes a busy signal x2 like wrong phone number. Called another alternate phone number [phone]. Pt. States that she went to the [facility] ED on 03/10/25 because she tripped and hit head on end of bed in the middle of the night on 03/09/25. Provider in ED cleaned forehead and shaved hair and put Dermabondon area and stated that it will heal on it's own and to not get hair wet. Pt. Denies dizziness, blurred vision, or nausea or vomiting at present. Pt. Also has bruises on her left side of wrist and also has back pain. Pt. Has been taking Tylenol with little relief. Pt. States that she feels tired. Denies any loss of consciousness when she fell. Pt. Is alert and oriented. Pt declines all offers forappt. In [facility]. Pt. Is only available for [facility] and wants to be seen either tomorrow or Thursday. I advised that I will keep an eye on the in basket for [facility] and call her back tomorrow afternoon to book an appt. If it is open on 03/15/25 between 2pm-220pm. Advised pt. That she can apply heat to backand apply ice/heat to left wrist to minimize pain. Advised to seek care at walk in or ED if needed. Protocol Used: Head Injury (Adult) Protocol-Based Disposition: See in Office or Video Visit Today- Pt. Declines office visit today andonly wants to be seen in [facility]. Video visit offer not recorded Positive Triage Questions: * Patient wants to be seen * Scalp bruise, pain, or swelling * Small cut (scratch) or abrasion (scrape) is also present * All higher-acuity triage questions were negative Care Advice Discussed: * Reassurance and Education - Direct Blow (Minor Bruise, Contusion) * Use a Cold Pack for Pain, Swelling, or Bruising * Observation After a Head Injury * Expected Course * Pain Medicines * Pain Medicines - Extra Notes and Warnings * Telephone Encounter - Jose Miles - 03/13/2025 2:09 PM EDT Symptoms: Fall, Allergic Reaction (General), Numbness on fingers Outcome: Schedule an urgent appointment (within 1 hour) or talk to a nurse or provider soon Reason: Caller denied all higher acuity questions The caller accepted this outcome. From the fall, ot has a lot of bruises. Hurt right foot and left foot. Back pain. Her eyes hurt. Wrists. Basically everywhere... Contact pt at [phone] documented in this encounter Plan of Treatment Not on file documented as of this encounter Visit Diagnoses Not on filedocumented in this encounter Additional Health Concerns Assessment Noted Time PHQ-9 Depression Total Score: 0 08/29/19 25 2:00 PM EST documented as of this encounter Care Teams Wheel Truer Relationship Specialty Start Date End Date Carie London MD [address] [place] [address] PCP - General Internal Medicine 02/23/18 [facility] 05/05/23 documented as of this encounter
--- OUTSIDE RECORDS SUMMARY | 2025-03-15 18:00 | XMS_ITS | Encounter Summary ---
Author Organization [employer] Address [address] [facility] 7t [place] [address] Care Team Providers Care Loader Helper Sorting Yard Name Role Phone Carie London MD Primary Care Provider [phone] Encounter Details Date Type Department Care Team ([facility] st Contact Info) Description 03/10/2025 Orders Only [facility] External Provider, [facility] Social History Tobacco Use Types Packs/Day [...] PM EDT Narrative 03/10/2025 1:00 PM EDT [place] [address] [address] Scan Report Signed Patient: Beatriz Navarro MR#: [id number] 4 : 1945 Acct:[id number] Age/Sex: 79 / F ADM Date: 03/10/25 Loc: HO.ED Attending Dr: Ordering Physician: Le Tyler NP Date of Service: 03/10/25 Procedure(s): CT head/brain wo IV con Accession Number(s): [id number] cc: [facility]; Le Tyler NP Report Number: [id number]: Total DLP = 626.00 mGy-cm Reason for [...] 03/10/25 1257 DD/ 1226 TD/TT: 03/10/25 1237 Clinical Dietitian: Procedure Note Donotuseinterpreter, Image - 03/10/[address] [place] [address] [address] Scan Report Signed Patient: Jackelyn Navarro#: [id number] 4 : 1945cct:[id number] Age/Sex: 79 / FADM Date: 03/10/25 Loc: HO.ED Attending Dr: Ordering Physician: Le Tyler NP Date of Service: 03/10/25 Procedure(s): CT head/brain wo IV con Accession Number(s): [id number] cc: [facility]; Le Tyler NP Report Number: [id number]: Total DLP = 626.00 mGy-cm Reason for [...] 03/10/25 1257 DD/ 1226 TD/TT: 03/10/25 1237 Clinical Dietitian: [facility] External Provider IMG CT PROCEDURES Final Result documented in this encounter Visit Diagnoses Not on filedocumented in this encounter Additional Health Concerns Assessment Noted Time PHQ-9 Depression Total Score: 0 08/29/19 25 2:00 PM EST documented as of this encounter Care Teams Loader Helper Sorting Yard Relationship Specialty Start Date End Date Carie London MD [address] [place] [address] PCP - General Internal Medicine 02/23/18 [facility] 05/05/23 documented as of this encounter
--- OUTSIDE RECORDS SUMMARY | 2025-03-15 18:00 | XMS_ITS | Encounter Summary ---
Author Organization [facility], Address [address] [place] [address] Phone Care Team Providers Care Carpet Inspector Finished Name Role Phone Lalitha Cisneros MD Primary Care Provider [phone] Encounter Details Date Type Department Care Team (Late Contact Info) Description 07/18/2024 Documentation Only [facility] [address] [place] [address] Caryl Moreno [address] [place] [address] Social History Tobacco Use Types [...] [facility] [address] [place] [address] [place] Rebollar MD [address] [place] [address] [place] [address] documented as of this encounter Visit Diagnoses Not on filedocumented in this encounter Care Teams Carpet Inspector Finished Relationship Specialty Start Date End Date Lalitha Cisneros MD [address] PCP - General 05/10/19 documented as of this encounter
--- OUTSIDE RECORDS SUMMARY | 2025-03-15 18:00 | XMS_ITS | Clinical Summary ---
Author Organization [facility] Address [address] [place] [address] Care Team Providers Care Hop Trainer Name Role Phone Emmanuel Pereira MD Primary Care Provider [phone] Allergies Active Allergy Reactions Criticality Noted Date [...] age to complete this topic Care Teams Hop Trainer Relationship Specialty Start Date End Date Emmanuel Pereira MD [address] [place] [address] PCP - General Mine Geologist 02/20/23
--- OUTSIDE RECORDS SUMMARY | 2025-03-15 18:00 | XMS_ITS | Encounter Summary ---
Author Organization [employer] Address [address] [facility] 7t [place] [address] Care Team Providers Care Return Agent Name Role Phone Carie London MD Primary Care Provider [phone] Reason for Visit * Reason Onset Date Comments Durable Medical Equipment 03/22/2024 Encounter Details Date Type Department Care Team (Late st Contact Info) Description 03/22/[address] [facility] MEDICINE [address] [place] [address] Carie London MD [address] [place] [address] Durable Medical Equipment Social History Tobacco Use [...] received an update. Please contact pt at [phone]. (South African Speaker) documented in this encounter Plan of Treatment Not on file documented as of this encounter Visit Diagnoses Not on filedocumented in this encounter Care Teams Return Agent Relationship Specialty Start Date End Date Carie London MD [address] [place] [address] PCP - General Internal Medicine 02/23/18 [facility] 05/05/23 documented as of this encounter
--- OUTSIDE RECORDS SUMMARY | 2025-03-15 18:01 | XMS_ITS | Encounter Summary ---
Author Organization [employer] Address [address] [facility] 7t [place] [address] Care Team Providers Care Geotechnical Field Technician Name Role Phone Carie London MD Primary Care Provider [phone] Reason for Visit * Reason Onset Date Comments Medication Question 02/09/2024 Encounter Details Date Type Department Care Team (Late st Contact Info) Description 02/09/2024 Telephone [facility] MEDICINE [address] [place] [address] Carie London MD [address] [place] [address] Medication Question Social History Tobacco Use Types [...] taking new script. Please contact L&C at [phone]. documented in this encounter Plan of Treatment Not on file documented as of this encounter Visit Diagnoses Not on filedocumented in this encounter Care Teams Geotechnical Field Technician Relationship Specialty Start Date End Date Carie London MD [address] [place] [address] PCP - General Internal Medicine 02/23/18 [facility] 05/05/23 documented as of this encounter
--- OUTSIDE RECORDS SUMMARY | 2025-03-15 18:01 | XMS_ITS | Encounter Summary ---
Author Organization [facility] Address [address] [place] [address] Phone Care Team Providers Care Automobile Radio Repairer Name Role Phone Lalitha Cisneros MD Primary Care Provider [phone] Encounter Details Date Type Department Care Team (Late Contact Info) Description 02/06/2023 Documentation Only [facility] [address] [place] [address] Caryl Moreno [address] [place] [address] Social History Tobacco Use Types [...] [facility] [address] [place] [address] Boston Rebollar MD [address] [place] [address] [place] [address] documented as of this encounter Visit Diagnoses Not on filedocumented in this encounter Care Teams Automobile Radio Repairer Relationship Specialty Start Date End Date Lalitha Cisneros MD [address] PCP - General 05/10/19 documented as of this encounter
--- OUTSIDE RECORDS SUMMARY | 2025-03-15 18:01 | XMS_ITS | Clinical Summary ---
Author Organization [employer] Address [address] [facility] 7t [place] [address] Care Team Providers Care Rubber Washer Name Role Phone Carie London MD Primary Care Provider [phone] Allergies No known active allergies Medications hydrocortisone [...] BY MOUTH AT BEDTIME 30 tablet 11 03/10/20 25 Active omeprazole (PriLOSEC) [address] capsuleIndication s:Gastroesophagea l reflux disease without esophagitis TAKE 1 CAPSULE BY MOUTH EVERY DAY BEFORE BREAKFAST. DO NOT CRUSH OR CHEW. 30 capsule 03/10/20 25 Active isosorbide dinitrate (Isordil) 5 MG tabletIndications :CAD in [place] artery TAKE 1 TABLET BY MOUTH TWICE A DAY AT 8AM AND 3PM. 60 tablet 03/10/20 25 Active clopidogrel (Plavix) 75 MG tabletIndications :Primary hypertension TAKE 1 TABLET BY MOUTH EVERY MORNING 30 tablet 03/10/20 25 Active cholecalciferol (Vitamin D-3) 25 MCG (1000 UT) capsuleIndication s:Low vitamin D level TAKE 1 CAPSULE BY MOUTH EVERY DAY 30 capsule 03/10/20 25 Active lidocaine (LMX 4) 4 % creamIndications: Acute pain of left wrist,Acute left ankle pain Apply topically if needed in the morning, at noon, in the evening, and at bedtime for mild pain. 60 g 03/15/20 25 2025 Active rosuvastatin (Crestor) 40 MG tabletIndications :Hypercholesterol emia TAKE 1 TABLET BY MOUTH AT BEDTIME 30 tablet 5 10/11/19 25 2024 Discontinued(R eorder (will not trigger notification to Pharmacy)) omeprazole (PriLOSEC) [address] capsuleIndication s:Gastroesophagea l reflux disease without esophagitis TAKE 1 CAPSULE BY MOUTH EVERY DAY BEFORE BREAKFAST. DO NOT CRUSH OR CHEW. 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 MED & PEDS [address] [place] [address] Carie London MD Acute pain of left wrist (Primary Dx); Acute left ankle pain; Other fatigue; Primary hypertension 03/15/2025 Travel 03/13/[address] [facility] MED & PEDS [address] [place] [address] Carie London MD Nurse Triage 03/10/2025 Orders Only [facility] External Provider, [facility] 03/10/[address] [facility] & PEDS [address] [place] [address] Carie Sharp MD Hypercholesterolemia; Gastroesophageal reflux disease without esophagitis; CAD in [place] artery; Primary hypertension; Low vitamin D level 02/20/[address] [facility] MED [facility] PEDS [address] [place] [address] Carie Taylor MD 02/13/[address] [facility] MED & PEDS [address] [place] [address] Carie London MD Nurse Triage 02/07/2025 Telephone [address] [place] [address] Carie London MD Nurse Triage 01/03/[address] [facility] MEDICINE [address] [place] [address] Carie London MD Nurse Triage 12/15/[address] [facility] MEDICINE [address] [place] [address] Carie London MD Nurse Triage from Last [...] Pulse 69 03/15/2025 2:16 PM EDT Temperature 36.8 C (98.2 F) 08/29/2024 1:59 PM EST Respiratory Rate 19 03/15/2025 2:16 PM EDT Oxygen Saturation 98% 03/15/2025 2:16 PM EDT Inhaled Oxygen Concentration - - Weight 53.5 kg (118 lb) 03/15/2025 2:16 PM EDT Height 142.2 cm (4' 8 ) 03/15/2025 2:16 PM EDT Body Mass Index 26.46 03/15/2025 2:16 PM EDT Plan of Treatment Health Maintenance Due Date Last Done Comments Hepatitis C Screening 1965 Zoster Vaccines (1 of 2) 1997 RSV Patients and Patients Aged 60 years or older (1 - 1-dose 75+ series) 2022 SDOH Screening 02/17/2025 02/18/2024 COVID-19 Vaccine (2023- season) 2025 Influenza Vaccine (#1) 2025 Alcohol/Substance [...] PM EDT Narrative 03/10/2025 1:00 PM EDT [place] [address] [address] Scan Report Signed Patient: Beatriz Navarro MR#: [id number] 4 : 1945 Acct:[id number] Age/Sex: 79 / F ADM Date: 03/10/25 Loc: HO.ED Attending Dr: Ordering Physician: Le Tyler NP Date of Service: 03/10/25 Procedure(s): CT head/brain wo IV con Accession Number(s): [id number] cc: [facility]; Le Tyler NP Report Number: [id number]: Total DLP = 626.00 mGy-cm Reason for [...] 03/10/25 1257 DD/ 1226 TD/TT: 03/10/25 1237 Grinder Operator Tool: Procedure Note Donotuseinterpreter, Image - 03/10/[address] [address] [address] Scan Report Signed Patient: Jackelyn Navarro#: [id number] 4 : 1945cct:[id number] Age/Sex: 79 / FADM Date: 03/10/25 Loc: HO.ED Attending Dr: Ordering Physician: Le Tyler NP Date of Service: 03/10/25 Procedure(s): CT head/brain wo IV con Accession Number(s): [id number] cc: [facility]; Le Tyler AGING DEPARTMENT SUPERVISOR Report Number: [id number]: Total DLP = 626.00 mGy-cm Reason for [...] Alvin Pisano MD 03/10/2025 12:57 PM EDT Dictated By: Alvin Pisano MD Signed By: <Electronically signed by Alvin Pisano MD in OV> 03/10/25 1257 DD/ 1226 TD/TT: 03/10/25 1237 Grinder Operator Tool: [facility] External Provider IMG CT PROCEDURES Final Result * Lipid Panel, Standard (02/19/2024 10:02 AM EDT) Triglycerides 102 <150 mg/dL [facility] Comment:Desirable Triglyceri de: less than 150 mg/dLBorderline High Triglyceride 150-199 mg/dLHigh Triglyceride: 200-499 mg/dLVery High Triglyceride: greater than or equal to 5OO mg/dL Cholesterol 158 <200 mg/dL [facility] Comment:Desirable Cholestero l: less than 200 mg/dLBorderline High Cholesterol: 200-239 mg/dLHigh Cholesterol: greater than 239 mg/dL LDL Cholesterol Calculated 95 <100 mg/dL [facility] Comment:Desirable LDL: less than 100 mg/dLNear Optimal/Above Optimal LDL: 110- 129 mg/dLBorderline High LDL: 130-159 mg/dLHigh LDL: 160-189 mg/dLVery High LDL: greater than or equal to 190 mg/dL HDL Cholesterol 43 >40 mg/dL [facility] Comment:Desirable HDL: great er than 40 mg/dL Note: This HDL assay may give artificially low results in patients with liver disease. Blood Venous blood specimen / Unknown 02/19/2024 10:02 AM EDT 02/19/2024 10:02 AM EDT Carie London MD LAB BLOOD ORDERABLES Final Result [facility] [address] [place] [address] [phone] from Last 3 Months or Most Recently Relevant to Health Maintenance Insurance [facility] [employer] OPT[employer] (O D-SNP) [place] [id number] Care Teams Rubber Washer Relationship Specialty Start Date End Date Carie London MD [address] [place] [address] PCP - General Internal Medicine 02/23/18 [facility] 05/05/23
--- OUTSIDE RECORDS SUMMARY | 2025-03-15 18:01 | XMS_ITS | Encounter Summary ---
Author Organization [employer] Address [address] [facility] 7 [place] [address] Care Team Providers Care Final Armature Tester Name Role Phone Carie London MD Primary Care Provider [phone] Reason for Visit * Reason Onset Date Comments Reschedule 10/21/2023 Encounter Details Date Type Department Care Team (Late st Contact Info) Description 10/21/2023 Telephone [facility] MEDICINE [address] [place] [address] Carie London MD [address] [place] [address] Reschedule Social History Tobacco Use Types Packs/Day [...] from pt requesting r/s appt with PCP, short story writer offer multiple spaces however pt stated are to late. Please contact pt in botswanan documented in this encounter Plan of Treatment Not on file documented as of this encounter Visit Diagnoses Diagnosis Gastroesophageal reflux disease without esophagitis Esophageal reflux CAD in [place] artery documented in this encounter Care Teams Final Armature Tester Relationship Specialty Start Date End Date Carie London MD [address] [place] [address] PCP - General Internal Medicine 02/23/18 [facility] 05/05/23 documented as of this encounter
--- OUTSIDE RECORDS SUMMARY | 2025-03-15 18:01 | XMS_ITS | Encounter Summary ---
Author Organization [facility], Address [address] [place] [address] Phone Care Team Providers Care Seat Scooper Machine Name Role Phone Lalitha Cisneros MD Primary Care Provider [phone] Encounter Details Date Type Department Care Team (Late Contact Info) Description 02/04/2022 Documentation Only [facility] [address] [place] [address] Boston Rebollar MD [address] [place] [address] [place] [address] Social History Tobacco Use Types [...] Visit [facility] [address] [place] [address] [place] Rebollar MD [address] [place] [address] documented as of this encounter Visit Diagnoses Not on filedocumented in this encounter Care Teams Seat Scooper Machine Relationship Specialty Start Date End Date Lalitha Cisneros MD [address] [place] PCP - General 05/10/19 documented as of this encounter
--- OUTSIDE RECORDS SUMMARY | 2025-03-15 18:01 | XMS_ITS | Encounter Summary ---
Author Organization [facility] Address [address] [place] [address] Phone Care Team Providers Care Renal Social Worker Name Role Phone Lalitha Cisneros MD Primary Care Provider [phone] Encounter Details Date Type Department Care Team (Late Contact Info) Description 11/23/2023 Documentation Only [facility] [address] [place] [address] Denisse Michelle [address] [place] [address] Social History Tobacco Use Types [...] Visit [facility] [address] [place] [address] [place] Rebollar MD [address] [place] [address] [place] [address] documented as of this encounter Visit Diagnoses Not on filedocumented in this encounter Care Teams Renal Social Worker Relationship Specialty Start Date End Date Lalitha Cisneros MD [address] PCP - General 05/10/19 documented as of this encounter
--- OUTSIDE RECORDS SUMMARY | 2025-03-15 18:01 | XMS_ITS | Encounter Summary ---
Author Organization [facility] Address [address] [place] [address] Phone Care Team Providers Care School Curriculum Developer Name Role Phone Lalitha Cisneros MD Primary Care Provider [phone] Encounter Details Date Type Department Care Team (Late Contact Info) Description 08/07/2022 Documentation Only [facility] [address] [place] [address] Alesha Josue PA [address] [place] [address] [place] [address] Social History Tobacco Use Types [...] [facility] [address] [place] [address] Boston Rebollar MD [address] [place] [address] [place] [address] documented as of this encounter Visit Diagnoses Not on filedocumented in this encounter Care Teams School Curriculum Developer Relationship Specialty Start Date End Date Lalitha Cisneros MD NPI: [id number] [place] [address] PCP - General 05/10/19 documented as of this encounter
--- OUTSIDE RECORDS SUMMARY | 2025-03-15 18:01 | XMS_ITS | Encounter Summary ---
Author Organization [employer] Address [address] [facility] 7t [place] [address] Care Team Providers Care Laminating Machine Operator Helper Name Role Phone Carie [place] MD Primary Care Provider [phone] Reason for Visit * Reason Onset Date Comments Appointment Request 11/29/2024 Encounter Details Date Type Department Care Team ([facility] st Contact Info) Description 11/29/2024 Telephone [facility] [address] [place] [address] Carie [place] MD [address] [place] [address] Appointment Request Social History Tobacco Use Types [...] hasn't seen PCP in a while , scenario writer notify she has several cancellations and theres no soon availability. documented in this encounter Plan of Treatment Not on file documented as of this encounter Visit Diagnoses Not on filedocumented in this encounter Additional Health Concerns Assessment Noted Time PHQ-9 Depression Total Score: 0 08/29/19 25 2:00 PM EST documented as of this encounter Care Teams Laminating Machine Operator Helper Relationship Specialty Start Date End Date Carie [place] MD [address] [place] [id number] PCP - General Internal Medicine 02/23/18 [facility] 05/05/23 documented as of this encounter
--- OUTSIDE RECORDS SUMMARY | 2025-03-15 18:01 | XMS_ITS | Encounter Summary ---
Author Organization [facility] [place], Address [address] [place] [address] Phone Care Team Providers Care Core Dipper Name Role Phone Lalitha Cisneros MD Primary Care Provider [phone] Encounter Details Date Type Department Care Team (Late Contact Info) Description 05/27/2023 Documentation Only [facility] [address] [place] [address] Jone Schulz MD [address] [facility] [place] [address] Social History Tobacco Use Types [...] [facility] [address] [place] [address] Boston Rebollar MD [address] [facility] [place] [address] documented as of this encounter Visit Diagnoses Not on filedocumented in this encounter Care Teams Core Dipper Relationship Specialty Start Date End Date Lalitha Cisneros MD [address] [place] PCP - General 05/10/19 documented as of this encounter
--- OUTSIDE RECORDS SUMMARY | 2025-03-15 18:01 | XMS_ITS | Encounter Summary ---
Author Organization [employer] Address 75 [facility] 7t [place] [address] Care Team Providers Care Animal Shelter Worker Name Role Phone Carie [place] MD Primary Care Provider [phone] Reason for Visit * Reason Onset Date Comments Pre-visit Planning 02/17/2024 Encounter Details Date Type Department Care Team (Late st Contact Info) Description 02/17/2024 Telephone [facility]INE [address] [place] [address] Carie [place] MD [address] [place] [address] Pre-visit Planning Social History Tobacco Use Types [...] filedocumented in this encounter Care Teams Animal Shelter Worker Relationship Specialty Start Date End Date Carie [place] MD [address] [place] [address] PCP - General Internal Medicine 02/23/[address] [facility] 05/05/23 documented as of this encounter
--- OUTSIDE RECORDS SUMMARY | 2025-03-15 18:01 | XMS_ITS | Encounter Summary ---
Author Organization [employer] Address 75 [facility] 7 [place] [address] Care Team Providers Care Cement Railroad Car Loader Name Role Phone Carie [place] MD Primary Care Provider [phone] Reason for Visit * Reason Onset Date Comments Call Back Request 12/17/2023 Encounter Details Date Type Department Care Team (Late st Contact Info) Description 12/17/2023 Telephone [facility]ICINE [address] [place] [address] Carie [place] MD [address] [place], [place] [phone] Call Back Request Social History Tobacco Use [...] 3:49 PM EDT Tc to pt using [employer] Sweater Operator [place], [place] [id number]. Pt inquired about [employer] order for supplies [...] have multiple questions in regards different toughs. Kyrgyz speaker documented in this encounter Plan of Treatment Not on file documented as of this encounter Visit Diagnoses Not on filedocumented in this encounter Care Teams Cement Railroad Car Loader Relationship Specialty Start Date End Date Carie [place] MD [address] [place] [id number] PCP - General Internal Medicine 02/23/18 [facility] 05/05/23 documented as of this encounter
--- OUTSIDE RECORDS SUMMARY | 2025-03-15 18:01 | XMS_ITS | Encounter Summary ---
Author Organization [facility] [place], Address [address] [place] [address] Phone Care Team Providers Care Librarian Assistant Name Role Phone Lalitha Cisneros MD Primary Care Provider [phone] Encounter Details Date Type Department Care Team (Late Contact Info) Description 11/29/2021 Documentation Only [facility] [address] [place] [address] Boston Rebollar MD [address] [place] [address] [place] [address] Social History Tobacco Use Types [...] [facility] [address] [place] [address] Boston Rebollar MD [address] [facility] [place] [address] documented as of this encounter Visit Diagnoses Not on filedocumented in this encounter Care Teams Librarian Assistant Relationship Specialty Start Date End Date Lalitha Cisneros MD [address] [place] PCP - General 05/10/19 documented as of this encounter
--- OUTSIDE RECORDS SUMMARY | 2025-03-15 18:01 | XMS_ITS | Encounter Summary ---
Author Organization [employer] Address 75 [facility] 7t [place] [address] Care Team Providers Care Warehouse Supervisor Name Role Phone Carie [place] MD Primary Care Provider [phone] Encounter Details Date Type Department Care Team ([facility] st Contact Info) Description 11/09/2023 Orders Only [facility] [address] [place], [place] [phone] Carie [place] MD [address] [place], [place] [phone] Primary hypertension (Primary Dx); Congestive heart failure, [...] 10:02 AM EDT) Triglycerides 102 <150 mg/dL [facility] Comment:Desirable Triglyceri de: less than 150 mg/dLBorderline High Triglyceride 150-199 mg/dLHigh Triglyceride: 200-499 mg/dLVery High Triglyceride: greater than or equal to 5OO mg/dL Cholesterol 158 <200 mg/dL [facility] Comment:Desirable Cholestero l: less than 200 mg/dLBorderline High Cholesterol: 200-239 mg/dLHigh Cholesterol: greater than 239 mg/dL LDL Cholesterol Calculated 95 <100 mg/dL [facility] Comment:Desirable LDL: less than 100 mg/dLNear Optimal/Above Optimal LDL: 110- 129 mg/dLBorderline High LDL: 130-159 mg/dLHigh LDL: 160-189 mg/dLVery High LDL: greater than or equal to 190 mg/dL HDL Cholesterol 43 >40 mg/dL [facility] Comment:Desirable HDL: great er than 40 mg/dL Note: This HDL assay may give artificially low results in patients with liver disease. Blood Venous blood specimen / Unknown 02/19/2024 10:02 AM EDT 02/19/2024 10:02 AM EDT us Carie [place] MD LAB BLOOD ORDERABLES Final Result [facility] [address] [place] [phone] * (ABNORMAL) CBC auto differential (02/19/2024 10:02 AM EDT) White Blood Count 6.9 4.8 - 10.8 X10*3/uL [facility] Red Blood Count 3.66(L) 4.20 - 5.50 X10*6/uL [facility] Hemoglobin 11.1(L) 12.0 - 16.0 g/dl [facility] Hematocrit 33.4(L) 37.0 - 47.0 % [facility] Mean Corpuscular Volume 91.3 80.0 - 98.0 fL [facility] Mean Corpuscular Hemoglobin 30.3 27.0 - 33.0 pg [facility] Mean Corpuscular HGB Conc 33.2 31.0 - 35.0 g/dl [facility] Red Cell Distribution Width 13.2 11.0 - 16.0 % [facility] Platelet Count 215 160 - 400 X10*3/uL [facility] Mean Platelet Volume 11.8 9.4 - 12.3 fL [facility] Neutrophils Percent Auto 53.6 45 - 73 % [facility] Imm Gran Pct Auto 0.3 0.0 - 0.4 % [facility] Lymphocytes Percent Auto 33.0 20 - 40 % [facility] Monocytes Percent Auto 10.5 2 - 11 % [facility] Eosinophils Percent Auto 1.7 0 - 4 % [facility] Basophils Percent Auto 0.9 0 - 2 % [facility] NRBC Pct Auto 0.0 0.0 - 0.2 /100WBC [facility] Neutrophils Absolute Auto 3.7 2.0 - 8.3 x10*3/uL [facility] Imm Gran Abs Auto 0.02 0.00 - 0.03 X10*3/uL [facility] Lymphocytes Absolute Auto 2.3 1.2 - 4.9 X10*3/uL [facility] Monocytes Absolute Auto 0.7 0.1 - 1.2 X10*3/uL [facility] Eosinophils Absolute Auto 0.1 0.0 - 0.4 X10*3/uL [facility] Basophils Absolute Auto 0.1 0.0 - 0.2 X10*3/uL [facility] NRBC Abs Auto 0.000 0.0 - 0.012 X10*3/uL [facility] Blood Venous blood specimen / Unknown 02/19/2024 10:02 AM EDT 02/19/2024 10:02 AM EDT us Carie London MD LAB BLOOD ORDERABLES Final Result Performing Organization Address [facility]/ZIP Co de Phone Number [facility] [address] [place] [phone] * TSH W/Reflex to FT4 (02/19/2024 10:02 AM EDT) TSH reflex Free T4 1.48 0.32 - 4.0 uIU/mL [facility] Blood Venous blood specimen / Unknown 02/19/2024 10:02 AM EDT 02/19/2024 10:02 AM EDT us Carie London MD LAB BLOOD ORDERABLES Final Result Performing Organization Address [facility] Co de Phone Number [facility] [address] [place] [phone] * (ABNORMAL) Comprehensive Metabolic Panel (02/19/2024 10:02 AM EDT) Sodium 143 135 - 145 mmol/L [facility] Potassium 4.0 3.3 - 5.1 mmol/L [facility] Chloride 110(H) 96 - 108 mmol/L [facility] Carbon Dioxide 27 22 - 29 mmol/L [facility] Anion Gap 10(L) 12 - 20 [facility] Urea Nitrogen (BUN) 27(H) 9 - 16 mg/dL [facility] Creatinine, Serum 1.40 0.5 - 1.4 mg/dL [facility] Estimated Glomerular Filt Rate 37 [facility] Comment:NOTE: For -Am erican individuals, multiply the result by 1.210.Chronic Kidney Disease: Estimated GFR < 60 mL/min/1.48u2Oedpbj Kidney Disease: Estimated GFR < 15 mL/min/1.73m2 Glucose 91 60 - 115 mg/dL [facility] Calcium 9.6 8.4 - 10.2 mg/dL [facility] Bilirubin, Total 0.4 0.0 - 1.0 mg/dL [facility] Aspartate Amino Transferase 20 5 - 31 U/L [facility] Alanine Aminotransferase 12 0 - 31 U/L [facility] Total Protein 7.0 6.5 - 8.0 g/dL [facility] Albumin Level 3.6 3.5 - 5.0 g/dL [facility] Alkaline Phosphatase 62 39 - 117 U/L [facility] Blood Venous blood specimen / Unknown 02/19/2024 10:02 AM EDT 02/19/2024 10:02 AM EDT Carie London MD LAB BLOOD ORDERABLES Final Result [facility] [address] [place] [phone] documented in this encounter Visit Diagnoses Diagnosis Primary hypertension- Primary Unspecified essential hypertension Congestive heart failure, unspecified HF chronicity, unspecified heart failure type (CMS/HCC) documented in this encounter Care Teams Warehouse Supervisor Relationship Specialty Start Date End Date Carie London MD [address] [place] [id number] PCP - General Internal Medicine 02/23/18 [facility] 05/05/23 documented as of this encounter
--- OUTSIDE RECORDS SUMMARY | 2025-03-15 18:01 | XMS_ITS | Encounter Summary ---
Author Organization [facility] [place], Address [address] [place] [address] Phone Care Team Providers Care Instrument Panel Assembler Name Role Phone Lalitha Cisneros MD Primary Care Provider [phone] Encounter Details Date Type Department Care Team (Late Contact Info) Description 11/29/2021 Documentation Only [facility] [address] [place] [address] [place] Rebollar MD [address] [place] [address] [place] [address] Social History Tobacco Use Types [...] [facility] [address] [place] [address] Boston Rebollar MD [address] [facility] [place] [address] documented as of this encounter Visit Diagnoses Not on filedocumented in this encounter Care Teams Instrument Panel Assembler Relationship Specialty Start Date End Date Lalitha Cisneros MD [address] [place] PCP - General 05/10/19 documented as of this encounter
--- OUTSIDE RECORDS SUMMARY | 2025-03-15 18:01 | XMS_ITS | Encounter Summary ---
Author Organization [facility] Address [address] [place] [address] Phone Care Team Providers Care Commodity Merchant Name Role Phone Lalitha Cisneros MD Primary Care Provider [phone] Encounter Details Date Type Department Care Team (Late Contact Info) Description 02/04/2023 Documentation Only [facility] [address] [place] [address] Alesha Josue PA [address] [place] [address] [place] [address] Social History Tobacco Use Types [...] Visit [facility] [address] [place] [address] [place] Rebollar MD [address] [place] [address] [place] [address] documented as of this encounter Visit Diagnoses Not on filedocumented in this encounter Care Teams Commodity Merchant Relationship Specialty Start Date End Date Lalitha Cisneros MD NPI: [id number] [place] [address] PCP - General 05/10/19 documented as of this encounter
--- OUTSIDE RECORDS SUMMARY | 2025-03-15 18:01 | XMS_ITS | Encounter Summary ---
Author Organization [facility] [place], Address [address] [place] [address] Phone Care Team Providers Care Associate Genetics Professor Name Role Phone Lalitha Cisneros MD Primary Care Provider [phone] Encounter Details Date Type Department Care Team (Late Contact Info) Description 02/04/2023 Documentation Only [facility] [address] [place] [phone] Boston Rebollar MD [address] [facility] [place] [address] Social History Tobacco Use Types [...] Visit [facility] [address] [facility] [place] [address] Boston Rebollar MD [address] [facility] [place] [address] documented as of this encounter Visit Diagnoses Not on filedocumented in this encounter Care Teams Associate Genetics Professor Relationship Specialty Start Date End Date Lalitha Cisneros MD [address] [facility] [place] PCP - General 05/10/19 documented as of this encounter
--- OUTSIDE RECORDS SUMMARY | 2025-03-15 18:01 | XMS_ITS | Encounter Summary ---
Author Organization [facility] Address [address] [place] [address] Phone Care Team Providers Care Poultry Scalder Name Role Phone Lalitha Cisneros MD Primary Care Provider [phone] Encounter Details Date Type Department Care Team (Late Contact Info) Description 02/06/2023 Documentation Only [facility] [address] [place] [address] Alesha Josue PA [address] [place] [address] [place] [address] Social History Tobacco Use Types [...] Visit [facility] [address] [place] [address] [place] Rebollar MD [address] [place] [address] [place] [address] documented as of this encounter Visit Diagnoses Not on filedocumented in this encounter Care Teams Poultry Scalder Relationship Specialty Start Date End Date Lalitha Cisneros MD NPI: [id number] [place] [address] PCP - General 05/10/19 documented as of this encounter
--- OUTSIDE RECORDS SUMMARY | 2025-03-15 18:01 | XMS_ITS | Encounter Summary ---
Author Organization [facility] Address [address] [place] [address] Phone Care Team Providers Care Bone Drier Operator Name Role Phone Lalitha Cisneros MD Primary Care Provider [phone] Encounter Details Date Type Department Care Team (Late Contact Info) Description 02/06/2023 Documentation Only [facility] [address] [place] [address] Caryl Moreno [address] [place] [address] Social History Tobacco Use Types [...] Visit [facility] [address] [place] [address] [place] Rebollar MD [address] [place] [address] [place] [address] documented as of this encounter Visit Diagnoses Not on filedocumented in this encounter Care Teams Bone Drier Operator Relationship Specialty Start Date End Date Lalitha Cisneros MD [address] PCP - General 05/10/19 documented as of this encounter
[2025-03-15 18:19] LABS: MANUAL DIFF FLAG NO
[2025-03-15 18:40] LABS: Hematocrit 30.3 % (37.0-47.0); Hemoglobin 9.8 g/dl (12.0-16.0); Imm Gran Abs Auto 0.02 X10*3/uL (0.00-0.03); Imm Gran Pct Auto 0.3 % (0.0-0.4); Lymphocytes Absolute Auto 1.8 X10*3/uL (1.2-4.9); Mean Corpuscular HGB Conc 32.3 g/dl (31.0-35.0); Mean Corpuscular Hemoglobin 29.4 pg (27.0-33.0); Mean Corpuscular Volume 91.0 fL (80.0-98.0); NRBC Abs Auto 0.000 X10*3/uL (0.0-0.012); NRBC Pct Auto 0.0 /100WBC (0.0-0.2); Platelet Count 218 X10*3/uL (160-400); Red Blood Count 3.33 X10*6/uL (4.20-5.50); White Blood Count 8.0 X10*3/uL (4.8-10.8)
[2025-03-15 18:52] LABS: Alanine Aminotransferase 6 U/L (0-31); Albumin Level 3.3 g/dL (3.5-5.0); Alkaline Phosphatase 54 U/L (39-117); Anion Gap 12 (12-20); Aspartate Amino Transferase 24 U/L (5-31); Blood Urea Nitrogen 28 mg/dL (9-16); Calcium 8.9 mg/dL (8.4-10.2); Carbon Dioxide 25 mmol/L (22-29); Chloride 109 mmol/L (96-108); Estimated Glomerular Filt Rate 35; Magnesium 1.8 mg/dL (1.6-2.6); Potassium 4.2 mmol/L (3.3-5.1); Sodium 142 mmol/L (135-145); Total Protein 6.5 g/dL (6.5-8.0)
[2025-03-15 19:15] LABS: Folate 8.9 ng/mL (> or = 4.0); Vitamin B12 325 pg/mL (200-900)
== END 2025-03-15 14:46 | disposition home or self-care (01) ==
LOC: HO.CHCLDS 14:45
PROVIDERS: Visit Provider Internal Medicine
DX: R53.83 Other fatigue (principal)
CPT/HCPCS: 36415; 80053; 82607; 82746; 83735; 85025